=== PATIENT | female | born 1955 | race African-American/Black ===

== ENCOUNTER 2017-12-02 13:48 | Inpatient (IN) | payer MEDICAID, OTHER ==
[2017-12-02] VITALS (8 sets, daily range): BP systolic 90–145; BP diastolic 50–95
[~2017-12-02] VITALS: Ht 172.7 cm; Wt 106.6 kg
[~2017-12-02 13:48] MED LIST: BACLOFEN10 MG ORAL; CALCIUM600 M1 PO; COLACE100 MG ORAL; COPAXONE20 MG/1 ML SUBQ; GABAPENTIN300 MG ORAL; HYDROCHLOROTH12.5 MG ORAL; LISINOPRIL20 MG ORAL; NAPROSYN500 M1 PO; OXYBUTYNIN CHLOR5 M1 PO; SIMVASTATIN20 MG ORAL; [UNRECOGNIZED DRUG - OTHER]; baclofen; colace; gabapentin; lisinopril; simvastatin; vicodin
--- NOTE | 2017-12-02 14:16 | Emergency Room Report ---
History of Present Illness General Chief Complaint: Altered Mental Status Source: Patient, Family Member, EMS Present Illness HPI 62-year-old female, with history of multiple sclerosis, brought in by EMS for being more altered than normal. Patient is currently awake alert oriented to person and time, however is confused and does not know why she is here. She is currently denying any pain at this time. Denies any headache neck pain nausea vomiting or diarrhea. No chest pain or shortness of breath. States that she does not walk much since she has her multiple sclerosis. Allergies: Coded Allergies: No Known Allergies (Unverified , 05/21/13) Patient History Past Medical History: see triage record Past Surgical History: none Pertinent Family History: none Last Menstrual Period: unk Reviewed Nursing Documentation: PMH: Agreed, PSxH: Agreed Nursing Documentation-PMH Past Medical History: No Stated History Hx Cardiac Problems: Yes Hx Hypertension: Yes Hx Cancer: No Hx Gastrointestinal Problems: Yes Hx Multiple Sclerosis: Yes - 2009 Hx Weakness: Yes Review of Systems All Other Systems: negative except mentioned in HPI Physical Exam Vital Signs Date Time Temp Pulse Resp B/P (MAP) Pulse Ox O2 Delivery O2 Flow Rate FiO2 12/02/17 13:41 98.4 68 18 141/88 98 Room Air Sp02 EP Interpretation: reviewed, normal General Appearance: other - Middle-age female, is confused, however is calm and cooperative Head: normocephalic, atraumatic Eyes: bilateral eye normal inspection, bilateral eye PERRL, bilateral eye EOMI ENT: normal ENT inspection, normal pharynx, normal voice, moist mucus membranes Neck: normal inspection, full range of motion, supple Respiratory: normal inspection, lungs clear, normal breath sounds, no respiratory distress, no retraction, no wheezing, speaking full sentences, chest symmetrical Cardiovascular #1: normal inspection, regular rate, rhythm, no edema, normal capillary refill Cardiovascular #2: 2+ radial (R), 2+ radial (L) Gastrointestinal: normal inspection, non tender, soft, non-distended, no guarding Musculoskeletal: normal inspection, back normal, normal range of motion, non- tender Neurologic: other - Oriented to person and time, confused, moving all 4 extremities spontaneously, cannot assess gait Psychiatric: other - confused Skin: normal inspection, normal color, no rash, warm/dry, well hydrated, normal turgor Medical Decision Making Diagnostic Impression: Primary Impression: Altered mental status Additional Impressions: Multiple sclerosis UTI (urinary tract infection) ER Course 62-year-old female, with history of multiple sclerosis, coming in for being more altered than her normal DDX: Progression of multiple sclerosis Intracranial disease: CVA, intercranial bleed Electrolyte disturbance, dehydration, hypokalemia, infectious, UTI/pneumonia Plan: Obtain labs, ua, EKG, CXR CT head ER course: Patient has been monitored during ED stay slight low BP, given fluids possible UTI - given abx called family, no one picking up, nursing staff notified me that she has a who is handicapp. she is still confused. will admit for further workup I spoke to , states patient has had waxing/waning mental status but it has never been this severe. states that patient did not know who he was and very lethargic/not responsive. states she fu with [facility] for her MS and is on meds and injections Disposition: Patient is to be admitted to [facility] D/W hospitalist Dr Gibson Please note that this Emergency Department Report was dictated using [employer]in[employer] manager technology software, occasionally this can lead to erroneous entry secondary to interpretation by the dictation equipment. EKG Diagnostic Results EP Interpretation: Yes Rate: normal Rhythm: NSR ST Segments: No acute changes ASA given to patient: No Rhythm Strip EP Interpretation: Yes Rate: 70 Rhythm: NSR, no PVCs, no ectopy Chest X-ray CXR: Ordered: Yes 1 view Indication: Altered mental status EP interpretation: Yes Interpretation: No consolidation, no effusion, no PTX, no acute cardiopulmonary disease Impression: No acute disease Electronically signed by Fabi Raya MD Laboratory Tests Test 12/02/17 14:10 White Blood Count 4.0 K/UL (4.8-10.8) L Red Blood Count 4.55 M/UL (4.20-5.40) Hemoglobin 12.3 G/DL (12.0-16.0) Hematocrit 39.1 % (37.0-47.0) Mean Corpuscular Volume 86 FL (80-99) Mean Corpuscular Hemoglobin 26.9 PG (27.0-31.0) L Mean Corpuscular Hemoglobin Concent 31.4 G/DL (32.0-36.0) L Red Cell Distribution Width 13.6 % (11.6-14.8) Platelet Count 238 K/UL (150-450) Mean Platelet Volume 6.3 FL (6.5-10.1) L Neutrophils (%) (Auto) 56.9 % (45.0-75.0) Lymphocytes (%) (Auto) 31.0 % (20.0-45.0) Monocytes (%) (Auto) 7.4 % (1.0-10.0) Eosinophils (%) (Auto) 3.6 % (0.0-3.0) H Basophils (%) (Auto) 1.1 % (0.0-2.0) Urine Color Yellow Urine Appearance Clear Urine pH 5 (4.5-8.0) Urine Specific [place] 1.015 (1.005-1.035) Urine Protein 1+ (NEGATIVE) H Urine Glucose (UA) Negative (NEGATIVE) Urine Ketones 1+ (NEGATIVE) H Urine Occult Blood 1+ (NEGATIVE) H Urine Nitrite Negative (NEGATIVE) Urine Bilirubin Negative (NEGATIVE) Urine Urobilinogen Normal MG/DL (0.0-1.0) Urine Leukocyte Esterase 2+ (NEGATIVE) H Urine RBC 2-4 /HPF (0 - 2) H Urine WBC 10-15 /HPF (0 - 2) H Urine Squamous Epithelial Cells Few /LPF (NONE/OCC) Urine Bacteria Few /HPF (NONE) Sodium Level 141 MMOL/L (136-145) Potassium Level 4.4 MMOL/L (3.5-5.1) Chloride Level 103 MMOL/L (98-107) Carbon Dioxide Level 31 MMOL/L (21-32) Anion Gap 7 mmol/L (5-15) Blood Urea Nitrogen 30 mg/dL (7-18) H Creatinine 1.7 MG/DL (0.55-1.30) H Estimate Glomerular Filtration Rate 36.7 mL/min (>60) Glucose Level 97 MG/DL (74-106) Calcium Level 8.8 MG/DL (8.5-10.1) Total Bilirubin 0.4 MG/DL (0.2-1.0) Aspartate Amino Transferase (AST) 24 U/L (15-37) Alanine Aminotransferase (ALT) 7 U/L (12-78) L Alkaline Phosphatase 89 U/L (46-116) Total Creatine Kinase 124 U/L (26-308) Troponin I 0.000 ng/mL (0.000-0.056) Pro-B-Type Natriuretic Peptide 53 pg/mL (0-125) Total Protein 8.5 G/DL (6.4-8.2) H Albumin 4.0 G/DL (3.4-5.0) Globulin 4.5 g/dL Albumin/Globulin Ratio 0.9 (1.0-2.7) L Last Vital Signs Date Time Temp Pulse Resp B/P (MAP) Pulse Ox O2 Delivery O2 Flow Rate FiO2 12/02/17 13:56 98.4 69 18 141/88 98 Room Air Disposition: ADMITTED INPATIENT Condition: Serious Fabi Raya M.D. Dec 02, 2017 14:16
[2017-12-02] MEDS ORDERED: AMLODIPINE BESYL5 MG ORAL (14:30)
[2017-12-02] MEDS ORDERED: NITROFURAN25 MG/5 ML PO (14:30)
[2017-12-02] MEDS ORDERED: LORAZEPAM1 MG ORAL (14:30)
[2017-12-02] MEDS ORDERED: VITAMIN D250000 UNI1 ORAL (14:30)
[2017-12-02 14:40] LABS: APPEARANCE,URINE CLEAR; BILIRUBIN, URINE NEGATIVE (NEGATIVE); GLUCOSE, URINE (UA) NEGATIVE (NEGATIVE); KETONES,URINE 1+ (NEGATIVE); LEUKOCYTE ESTERASE ,URINE 2+ (NEGATIVE); NITRITE,URINE NEGATIVE (NEGATIVE); PH,URINE 5 (4.5-8.0); PROTEIN,URINE 1+ (NEGATIVE); UROBILINOGEN,URINE NORMAL MG/DL (0.0-1.0)
[2017-12-02 14:42] LABS: COLOR,URINE YELLOW
[2017-12-02 14:44] LABS: BASOPHILS % (AUTO) 1.1 % (0.0-2.0); EOSINOPHILS % (AUTO) 3.6 % (0.0-3.0); HEMATOCRIT 39.1 % (37.0-47.0); HEMOGLOBIN 12.3 G/DL (12.0-16.0); MEAN CORPUSCULAR VOLUME 86 FL (80-99); MONOCYTES % (AUTO) 7.4 % (1.0-10.0); NEUTROPHILS % (AUTO) 56.9 % (45.0-75.0); PLATELET COUNT 238 K/UL (150-450); RED BLOOD COUNT 4.55 M/UL (4.20-5.40); RED CELL DISTRIBUTION WIDTH 13.6 % (11.6-14.8)
[2017-12-02 15:11] LABS: ANION GAP 7 mmol/L (5-15); BLOOD UREA NITROGEN 30 mg/dL (7-18); CALCIUM 8.8 MG/DL (8.5-10.1); CARBON DIOXIDE 31 MMOL/L (21-32); CHLORIDE 103 MMOL/L (98-107); CREATININE 1.7 MG/DL (0.55-1.30); POTASSIUM 4.4 MMOL/L (3.5-5.1); SODIUM 141 MMOL/L (136-145)
--- NOTE | 2017-12-02 15:12 | Diagnostic Imaging Report ---
Indication: Altered mental status Technique: One view of the chest Comparison: none Findings: Lungs and pleural spaces are clear. The heart size is normal. There is mild thoracic scoliotic deformity. There are degenerative changes of the right shoulder Impression: No acute process
[2017-12-02 15:32] LABS: ALANINE AMINOTRANSFERASE 7 U/L (12-78); ALBUMIN/GLOBULIN RATIO 0.9 (1.0-2.7); ALKALINE PHOSPHATASE 89 U/L (46-116); ASPARTATE AMINO TRANSFERASE 24 U/L (15-37); BILIRUBIN,TOTAL 0.4 MG/DL (0.2-1.0); CREATINE KINASE 124 U/L (26-308)
[2017-12-02] MEDS ORDERED: cefTRIAXone 1 GM in NS 55 ML IVPB ONE (15:45)
--- NOTE | 2017-12-02 22:03 | Consultation ---
History of Present Illness General Date patient seen: Dec 02, 2017 Chief Complaint: Altered Mental Status Referring physician: Dr. Aceves Reason for Consultation: Abnormal breathing and altered mental status Present Illness HPI The patient is a 62-year-old female with pmhx HTN, dyslipidemia polynueropathy, urinary tract infection and multiple scerlosis presents with altered mental status and concerns regarding her abnormal appearance of her breathing. I was asked to consult and evaluate the patients respiratory status. Patient appears lethargic and weak, she is bed ridden and has a nuerodegenerative disease, cognitively appears disoriented, she has been admitted for suspected worsening of urinary tract infection and sepsis, her chest radiograph is unremarkable at this time and she is oxygenating adequately. No rapid shallow breathing or accessory muscle use with her breathing. Upon auscultation her breath sounds very diminished however no rales wheeze or rhonci appreciated. Allergies: Coded Allergies: No Known Allergies (Unverified , 05/21/13) Medication History Scheduled Amlodipine Besylate* (Amlodipine Besylate*), 5 MG ORAL DAILY, (Reported) Artificial Tears* (Murocel*), 1 DROP .ROUTE PRN, (Reported) Baclofen* (Baclofen*), 10 MG ORAL THREE TIMES A DAY, (Reported) Calcium Carbonate (Calcium), 600 MG PO DAILY, (Reported) Docusate Sodium* (Colace*), 100 MG ORAL BID, (Reported) Ergocalciferol (Vitamin D2)* (Vitamin D*), 50,000 UNIT ORAL ONCE A WEEK, ( Reported) Gabapentin* (Gabapentin*), 300 MG ORAL THREE TIMES A DAY, (Reported) Glatiramer Acetate (Copaxone), 20 MG SUBQ DAILY, (Reported) Hydrochlorothiazide* (Hydrochlorothiazide*), 12.5 MG ORAL DAILY, (Reported) Lisinopril (Lisinopril*), 20 MG ORAL DAILY, (Reported) Lisinopril (Lisinopril*), 2.5 MG ORAL DAILY, (Reported) Lorazepam* (Lorazepam*), 1 MG ORAL THREE TIMES A DAY, (Reported) Naproxen* (Naprosyn*), 500 MG PO BID, (Reported) Oxybutynin Chloride (Oxybutynin Chloride), 20 MG PO TID, (Reported) Simvastatin (Zocor), 20 MG ORAL BEDTIME, (Reported) Scheduled PRN Hydrocodone Bit/Acetaminophen 10-325* ([place] 10-325*), 1 TAB ORAL Q6HR PRN for For Pain, (Reported) Miscellaneous Medications Nitrofurantoin (Nitrofurantoin), 100 MG PO, (Reported) Patient History Healthcare decision maker Resuscitation status Advanced Directive on File Past Medical/Surgical History Past Medical/Surgical History: (1) Hypercholesteremia (2) HTN (hypertension) (3) MS (multiple sclerosis) Review of Systems Constitutional: Reports: weakness Respiratory: Reports: shortness of breath Psychiatric: Reports: depressed feelings Neurological: Reports: paresthesia Physical Exam General Appearance: no apparent distress Lines, tubes and drains: peripheral HEENT: normocephalic, atraumatic, anicteric, PERRL Neck: non-tender, normal alignment, supple Respiratory/Chest: chest wall non-tender, lungs clear, normal breath sounds Breasts: no masses Cardiovascular/Chest: normal peripheral pulses, normal rate, regular rhythm, no JVD Abdomen: normal bowel sounds, non tender, soft, no organomegaly, no mass Genitourinary/Rectal: normal genital exam, normal rectal exam Extremities: normal range of motion, non-tender, normal inspection Skin Exam: normal pigmentation, warm/dry Neurologic: disoriented Musculoskeletal: normal muscle bulk Last 24 Hour Vital Signs Date Time Temp Pulse Resp B/P (MAP) Pulse Ox O2 Delivery O2 Flow Rate FiO2 12/02/17 19:30 81 15 123/95 100 Room Air 12/02/17 18:48 78 16 103/68 98 Room Air 12/02/17 17:58 83 20 101/65 99 Room Air 12/02/17 17:06 98.4 84 20 90/50 99 Room Air 12/02/17 15:41 98.4 70 18 103/61 99 Room Air 12/02/17 13:56 98.4 69 18 141/88 98 Room Air 12/02/17 13:41 98.4 68 18 141/88 98 Room Air Laboratory Tests Test 12/02/17 14:10 White Blood Count 4.0 K/UL (4.8-10.8) L Red Blood Count 4.55 M/UL (4.20-5.40) Hemoglobin 12.3 G/DL (12.0-16.0) Hematocrit 39.1 % (37.0-47.0) Mean Corpuscular Volume 86 FL (80-99) Mean Corpuscular Hemoglobin 26.9 PG (27.0-31.0) L Mean Corpuscular Hemoglobin Concent 31.4 G/DL (32.0-36.0) L Red Cell Distribution Width 13.6 % (11.6-14.8) Platelet Count 238 K/UL (150-450) Mean Platelet Volume 6.3 FL (6.5-10.1) L Neutrophils (%) (Auto) 56.9 % (45.0-75.0) Lymphocytes (%) (Auto) 31.0 % (20.0-45.0) Monocytes (%) (Auto) 7.4 % (1.0-10.0) Eosinophils (%) (Auto) 3.6 % (0.0-3.0) H Basophils (%) (Auto) 1.1 % (0.0-2.0) Urine Color Yellow Urine Appearance Clear Urine pH 5 (4.5-8.0) Urine Specific [place] 1.015 (1.005-1.035) Urine Protein 1+ (NEGATIVE) H Urine Glucose (UA) Negative (NEGATIVE) Urine Ketones 1+ (NEGATIVE) H Urine Occult Blood 1+ (NEGATIVE) H Urine Nitrite Negative (NEGATIVE) Urine Bilirubin Negative (NEGATIVE) Urine Urobilinogen Normal MG/DL (0.0-1.0) Urine Leukocyte Esterase 2+ (NEGATIVE) H Urine RBC 2-4 /HPF (0 - 2) H Urine WBC 10-15 /HPF (0 - 2) H Urine Squamous Epithelial Cells Few /LPF (NONE/OCC) Urine Bacteria Few /HPF (NONE) Sodium Level 141 MMOL/L (136-145) Potassium Level 4.4 MMOL/L (3.5-5.1) Chloride Level 103 MMOL/L (98-107) Carbon Dioxide Level 31 MMOL/L (21-32) Anion Gap 7 mmol/L (5-15) Blood Urea Nitrogen 30 mg/dL (7-18) H Creatinine 1.7 MG/DL (0.55-1.30) H Estimat Glomerular Filtration Rate 36.7 mL/min (>60) Glucose Level 97 MG/DL (74-106) Calcium Level 8.8 MG/DL (8.5-10.1) Total Bilirubin 0.4 MG/DL (0.2-1.0) Aspartate Amino Transf (AST/SGOT) 24 U/L (15-37) Alanine Aminotransferase (ALT/SGPT) 7 U/L (12-78) L Alkaline Phosphatase 89 U/L (46-116) Total Creatine Kinase 124 U/L (26-308) Troponin I 0.000 ng/mL (0.000-0.056) Pro-B-Type Natriuretic Peptide 53 pg/mL (0-125) Total Protein 8.5 G/DL (6.4-8.2) H Albumin 4.0 G/DL (3.4-5.0) Globulin 4.5 g/dL Albumin/Globulin Ratio 0.9 (1.0-2.7) L Height (Feet): 5 Height (Inches): 8.00 Weight (Pounds): 235 Medications Current Medications Medications (Trade) Dose Ordered Sig/Maria De Jesus Route PRN Reason Start Time Stop Time Status Last Admin Dose Admin Amlodipine Besylate (Norvasc) 5 mg DAILY ORAL 12/03/17 09:00 01/02/18 08:59 UNV Baclofen (Lioresal) 10 mg THREE TIMES A DAY ORAL 12/03/17 09:00 01/02/18 08:59 UNV Sodium Chloride 1,000 ml @ 200 mls/hr Q5H IV 12/02/17 15:45 01/01/18 15:44 12/02/17 21:03 Assessment/Plan Status: stable, progressing Assessment/Plan Acute encephalopathy Multiple sclerosis Hx with acute excacerbation? UTI FRANTZ HTN Obesity PLAN Empiric abx Titrate Fi02 up maintain O2 saturation above 92% UA and CXR examined ID consult Neuro eval Gentle IVF Monitor renal parameters BP management with CCB and optimize as needed Pain management, Patient not alert enough for CPAP/BiPAP device SOPHIA JOSUE Dec 02, 2017 22:03
[2017-12-02] MEDS ORDERED: Miralax 17gm pkt ORAL PRN (22:15)
[2017-12-02] MEDS ORDERED: Albuterol/Ipratropium 3ml neb HHN PRN (22:15)
[2017-12-02] MEDS ORDERED: Morphine Sulfate 2mg/ml Inj IVP PRN (22:15)
[2017-12-03] MEDS ORDERED: Vancomycin 1 GM in D5W 275 ML IV SCH (00:30)
[2017-12-03] MEDS ORDERED: NORCO 10-325 T1 EACH ORAL (01:18)
[2017-12-03] MEDS ORDERED: LISINOPRIL5 MG ORAL (01:18)
[2017-12-03] MEDS ORDERED: Vancomycin 1gm inj IVPB ONE (02:01)
[2017-12-03 04:00] VITALS: BP 139/72
[2017-12-03 08:00] VITALS: BP 114/86
--- NOTE | 2017-12-03 08:13 | Pulmonology Progress Note ---
Assessment/Plan Assessment/Plan ASSESSMENT probably acute encephalopathy-resolved transient unresponsiveness probable UTI MS , ? exacerbation FRANTZ HTN obesity PLAN OF CARE MS floor empiric abx , fup with cx , UA + pyuria but few bacteria only however in MS patient frequent recurrent UTI ID consult neuro eval- gentle IVF per pt recently ahd MRI at [place] ( gets every 6 months) monitor renal parameters, lytes, avoid nephrotoxic BP management with CCB and optimize as needed pain mangeemtn, avoid oversedation DVT prophayxlsi O2 HN prn bowel regimen PT/OT case discussed and evaluated by supervising physician Subjective Allergies: Coded Allergies: No Known Allergies (Unverified , 05/21/13) Subjective denies chest pain, SOB, awake, alert, responsive had period of transient unresponsiveness( in am while in the bed did not respond to her ) elmo multani recall if syhe had blackout, nerissa recall the event hx of MS, progressively worse, under care of neurologist at [facility] Objective Last 24 Hour Vital Signs Date Time Temp Pulse Resp B/P (MAP) Pulse Ox O2 Delivery O2 Flow Rate FiO2 12/03/17 04:00 98.1 81 19 139/72 98 Room Air 12/03/17 00:15 97.8 85 12 145/59 100 Room Air 12/02/17 23:20 97.8 85 12 145/59 100 Room Air 12/02/17 21:30 86 16 126/82 100 Room Air 12/02/17 19:30 81 15 123/95 100 Room Air 12/02/17 18:48 78 16 103/68 98 Room Air 12/02/17 17:58 83 20 101/65 99 Room Air 12/02/17 17:06 98.4 84 20 90/50 99 Room Air 12/02/17 15:41 98.4 70 18 103/61 99 Room Air 12/02/17 13:56 98.4 69 18 141/88 98 Room Air 12/02/17 13:41 98.4 68 18 141/88 98 Room Air Intake and Output 12/02/17 12/03/17 19:00 07:00 Intake Total 0 ml 675.0 ml Output Total 200 ml Balance 0 ml 475.0 ml Intake Oral 0 ml IV Total 675.0 ml Output Urine Total 200 ml # Voids 1 1 General Appearance: no acute distress, other - awake, alert, obesen AA female in NAD HEENT: normocephalic, atraumatic, anicteric, mucous membranes moist, PERRL Respiratory/Chest: no respiratory distress, no accessory muscle use Cardiovascular: normal peripheral pulses, normal rate, regular rhythm, no JVD, edema - +1 BLE Abdomen: normal bowel sounds, soft, non tender - obese Extremities: pedal pulses normal, other - edema +1 BLE Neurologic/Psychiatric: abnormal gait, alert, responsive, normal mood/affect Laboratory Tests 12/02/17 14:10: White Blood Count 4.0L, Red Blood Count 4.55, Hemoglobin 12.3, Hematocrit 39.1, Mean Corpuscular Volume 86, Mean Corpuscular Hemoglobin 26.9L, Mean Corpuscular Hemoglobin Concent 31.4L, Red Cell Distribution Width 13.6, Platelet Count 238, Mean Platelet Volume 6.3L, Neutrophils (%) (Auto) 56.9, Lymphocytes (%) (Auto) 31.0, Monocytes (%) (Auto) 7.4, Eosinophils (%) (Auto) 3.6H, Basophils (%) (Auto ) 1.1, Urine Color Yellow, Urine Appearance Clear, Urine pH 5, Urine Specific [place] 1.015, Urine Protein 1+H, Urine Glucose (UA) Negative, Urine Ketones 1+H , Urine Occult Blood 1+H, Urine Nitrite Negative, Urine Bilirubin Negative, Urine Urobilinogen Normal, Urine Leukocyte Esterase 2+H, Urine RBC 2-4H, Urine WBC 10-15H, Urine Squamous Epithelial Cells Few, Urine Bacteria Few, Sodium Level 141, Potassium Level 4.4, Chloride Level 103, Carbon Dioxide Level 31, Anion Gap 7, Blood Urea Nitrogen 30H, Creatinine 1.7H, Estimat Glomerular Filtration Rate 36.7, Glucose Level 97, Calcium Level 8.8, Total Bilirubin 0.4, Aspartate Amino Transf (AST/SGOT) 24, Alanine Aminotransferase (ALT/SGPT) 7L, Alkaline Phosphatase 89, Total Creatine Kinase 124, Troponin I 0.000, Pro-B- Type Natriuretic Peptide 53, Total Protein 8.5H, Albumin 4.0, Globulin 4.5, Albumin/Globulin Ratio 0.9L Current Medications Medications (Trade) Dose Ordered Sig/Maria De Jesus Route PRN Reason Start Time Stop Time Status Last Admin Dose Admin Acetaminophen (Tylenol) 650 mg Q4H PRN ORAL fever 12/02/17 22:15 01/01/18 22:14 Albuterol/ Ipratropium (Albuterol/ Ipratropium) 3 ml EVERY 4 HOURS PRN HHN Shortness of Breath 12/02/17 22:15 12/07/17 22:14 Amlodipine Besylate (Norvasc) 5 mg DAILY ORAL 12/03/17 09:00 01/02/18 08:59 Baclofen (Lioresal) 10 mg THREE TIMES A DAY ORAL 12/03/17 09:00 01/02/18 08:59 Cefepime HCl 2 gm/ Dextrose 110 ml @ 220 mls/hr EVERY 12 HOURS IV 12/03/17 09:00 12/10/17 08:59 Heparin Sodium (Porcine) (Heparin 5000 units/ml) 5,000 units EVERY 12 HOURS SUBQ 12/03/17 09:00 01/02/18 08:59 Morphine Sulfate (Morphine Sulfate) 2 mg EVERY 4 HOURS PRN IVP Moderate Pain (Pain Scale 4-6) 12/02/17 22:15 12/09/17 22:14 Ondansetron HCl (Zofran) 4 mg Q6H PRN IVP Nausea & Vomiting 12/02/17 22:15 01/01/18 22:14 Phenazopyridine HCl (Pyridium) 100 mg DAILY PRN ORAL dysuria 12/02/17 22:15 01/01/18 22:14 Polyethylene Glycol (Miralax) 17 gm DAILYPRN PRN ORAL Constipation 12/02/17 22:15 01/01/18 22:14 Temazepam (Restoril) 15 mg HSPRN PRN ORAL Insomnia 12/02/17 22:15 12/09/17 22:14 Vancomycin HCl 1 gm/Dextrose 275 ml @ 183.3 mls/ hr Q24H IV 12/03/17 00:30 12/08/17 00:29 12/03/17 02:18 Bushra Costa NP (Vanchtein) Dec 03, 2017 08:13
[2017-12-03] MEDS: Heparin 5000 units/ml inj SUBQ SCH ×2 (08:53→20:24)
[2017-12-03] MEDS ORDERED: Cefepime HCl 2 GM in D5W 110 ML IV SCH (09:00)
[2017-12-03 09:17] LABS: BASOPHILS % (AUTO) 1.5 % (0.0-2.0); EOSINOPHILS % (AUTO) 3.5 % (0.0-3.0); HEMATOCRIT 36.5 % (37.0-47.0); HEMOGLOBIN 11.6 G/DL (12.0-16.0); LYMPHOCYTES % (AUTO) 28.3 % (20.0-45.0); MEAN CORPUSCULAR VOLUME 85 FL (80-99); NEUTROPHILS % (AUTO) 62.7 % (45.0-75.0); PLATELET COUNT 197 K/UL (150-450); RED CELL DISTRIBUTION WIDTH 13.5 % (11.6-14.8); WHITE BLOOD COUNT 3.9 K/UL (4.8-10.8)
[2017-12-03 09:47] LABS: ALANINE AMINOTRANSFERASE 11 U/L (12-78); ALBUMIN/GLOBULIN RATIO 0.9 (1.0-2.7); ALKALINE PHOSPHATASE 79 U/L (46-116); ANION GAP 6 mmol/L (5-15); ASPARTATE AMINO TRANSFERASE 21 U/L (15-37); BILIRUBIN,TOTAL 0.4 MG/DL (0.2-1.0); BLOOD UREA NITROGEN 25 mg/dL (7-18); CALCIUM 7.7 MG/DL (8.5-10.1); CARBON DIOXIDE 28 MMOL/L (21-32); CHLORIDE 107 MMOL/L (98-107); CREATININE 1.3 MG/DL (0.55-1.30); POTASSIUM 4.2 MMOL/L (3.5-5.1); SODIUM 141 MMOL/L (136-145)
--- NOTE | 2017-12-03 10:59 | Consultation ---
History of Present Illness General Date patient seen: Dec 03, 2017 Time patient seen: 10:56 Chief Complaint: Altered Mental Status Present Illness HPI 62 y/o F with hx of MS (dx 2009) with ambulatory difficulties, HTN, obesity presents to ED on 12/02 for AMS. In ED noted to be awake and alert but confused and didn't know why she was in the hospital. Denied ABDI, neck pain, n/v/d, CP, SOB upon admission. +dysuria Patient afebrile, no leukocytosis. U/a mild pyuria, ucx growing GNB. started on IV Vanco and Cefepime. CXR no acute process. Allergies: Coded Allergies: No Known Allergies (Unverified , 05/21/13) Medication History Scheduled Amlodipine Besylate* (Amlodipine Besylate*), 5 MG ORAL DAILY, (Reported) Artificial Tears* (Murocel*), 1 DROP .ROUTE PRN, (Reported) Baclofen* (Baclofen*), 10 MG ORAL THREE TIMES A DAY, (Reported) Calcium Carbonate (Calcium), 600 MG PO DAILY, (Reported) Docusate Sodium* (Colace*), 100 MG ORAL BID, (Reported) Ergocalciferol (Vitamin D2)* (Vitamin D*), 50,000 UNIT ORAL ONCE A WEEK, ( Reported) Gabapentin* (Gabapentin*), 300 MG ORAL THREE TIMES A DAY, (Reported) Glatiramer Acetate (Copaxone), 20 MG SUBQ DAILY, (Reported) Hydrochlorothiazide* (Hydrochlorothiazide*), 12.5 MG ORAL DAILY, (Reported) Lisinopril (Lisinopril*), 20 MG ORAL DAILY, (Reported) Lisinopril (Lisinopril*), 2.5 MG ORAL DAILY, (Reported) Lorazepam* (Lorazepam*), 1 MG ORAL THREE TIMES A DAY, (Reported) Naproxen* (Naprosyn*), 500 MG PO BID, (Reported) Oxybutynin Chloride (Oxybutynin Chloride), 20 MG PO TID, (Reported) Simvastatin (Zocor), 20 MG ORAL BEDTIME, (Reported) Scheduled PRN Hydrocodone Bit/Acetaminophen 10-325* ([place] 10-325*), 1 TAB ORAL Q6HR PRN for For Pain, (Reported) Miscellaneous Medications Nitrofurantoin (Nitrofurantoin), 100 MG PO, (Reported) Patient History Healthcare decision maker Resuscitation status Full Code Advanced Directive on File Patient History Narrative PMhx: as above Shx: reviewed Fhx: non contributory Review of Systems All Other Systems: negative except mentioned in HPI Physical Exam Physical Exam Narrative General Appearance: other - Middle-age female, no distress HEENT: normocephalic, atraumatic, bilateral eye PERRL, bilateral eye EOMI, moist mucus membranes Neck: normal inspection, full range of motion, supple Respiratory: normal inspection, lungs clear, normal breath sounds, no respiratory distress, no retraction Cardiovascular: normal inspection, regular rate, rhythm, no edema Gastrointestinal: normal inspection, non tender, soft, non-distended, no guarding Musculoskeletal: normal inspection, back normal, normal range of motion, non- tender Neurologic: AAO x3, no focal deficits Skin: normal inspection, normal color, no rash, warm/dry, well hydrated, normal turgor Last 24 Hour Vital Signs Date Time Temp Pulse Resp B/P (MAP) Pulse Ox O2 Delivery O2 Flow Rate FiO2 12/03/17 08:58 101 114/86 12/03/17 04:00 98.1 81 19 139/72 98 Room Air 12/03/17 00:15 97.8 85 12 145/59 100 Room Air 12/02/17 23:20 97.8 85 12 145/59 100 Room Air 12/02/17 21:30 86 16 126/82 100 Room Air 12/02/17 19:30 81 15 123/95 100 Room Air 12/02/17 18:48 78 16 103/68 98 Room Air 12/02/17 17:58 83 20 101/65 99 Room Air 12/02/17 17:06 98.4 84 20 90/50 99 Room Air 12/02/17 15:41 98.4 70 18 103/61 99 Room Air 12/02/17 13:56 98.4 69 18 141/88 98 Room Air 12/02/17 13:41 98.4 68 18 141/88 98 Room Air Intake and Output 12/02/17 12/03/17 19:00 07:00 Intake Total 0 ml 675.0 ml Output Total 200 ml Balance 0 ml 475.0 ml Intake Oral 0 ml IV Total 675.0 ml Output Urine Total 200 ml # Voids 1 1 Laboratory Tests Test 12/02/17 14:10 12/03/17 08:50 White Blood Count 4.0 K/UL (4.8-10.8) L 3.9 K/UL (4.8-10.8) L Red Blood Count 4.55 M/UL (4.20-5.40) 4.30 M/UL (4.20-5.40) Hemoglobin 12.3 G/DL (12.0-16.0) 11.6 G/DL (12.0-16.0) L Hematocrit 39.1 % (37.0-47.0) 36.5 % (37.0-47.0) L Mean Corpuscular Volume 86 FL (80-99) 85 FL (80-99) Mean Corpuscular Hemoglobin 26.9 PG (27.0-31.0) L 26.9 PG (27.0-31.0) L Mean Corpuscular Hemoglobin Concent 31.4 G/DL (32.0-36.0) L 31.7 G/DL (32.0-36.0) L Red Cell Distribution Width 13.6 % (11.6-14.8) 13.5 % (11.6-14.8) Platelet Count 238 K/UL (150-450) 197 K/UL (150-450) Mean Platelet Volume 6.3 FL (6.5-10.1) L 6.5 FL (6.5-10.1) Neutrophils (%) (Auto) 56.9 % (45.0-75.0) 62.7 % (45.0-75.0) Lymphocytes (%) (Auto) 31.0 % (20.0-45.0) 28.3 % (20.0-45.0) Monocytes (%) (Auto) 7.4 % (1.0-10.0) 4.0 % (1.0-10.0) Eosinophils (%) (Auto) 3.6 % (0.0-3.0) H 3.5 % (0.0-3.0) H Basophils (%) (Auto) 1.1 % (0.0-2.0) 1.5 % (0.0-2.0) Urine Color Yellow Urine Appearance Clear Urine pH 5 (4.5-8.0) Urine Specific [place] 1.015 (1.005-1.035) Urine Protein 1+ (NEGATIVE) H Urine Glucose (UA) Negative (NEGATIVE) Urine Ketones 1+ (NEGATIVE) H Urine Occult Blood 1+ (NEGATIVE) H Urine Nitrite Negative (NEGATIVE) Urine Bilirubin Negative (NEGATIVE) Urine Urobilinogen Normal MG/DL (0.0-1.0) Urine Leukocyte Esterase 2+ (NEGATIVE) H Urine RBC 2-4 /HPF (0 - 2) H Urine WBC 10-15 /HPF (0 - 2) H Urine Squamous Epithelial Cells Few /LPF (NONE/OCC) Urine Bacteria Few /HPF (NONE) Sodium Level 141 MMOL/L (136-145) 141 MMOL/L (136-145) Potassium Level 4.4 MMOL/L (3.5-5.1) 4.2 MMOL/L (3.5-5.1) Chloride Level 103 MMOL/L (98-107) 107 MMOL/L (98-107) Carbon Dioxide Level 31 MMOL/L (21-32) 28 MMOL/L (21-32) Anion Gap 7 mmol/L (5-15) 6 mmol/L (5-15) Blood Urea Nitrogen 30 mg/dL (7-18) H 25 mg/dL (7-18) H Creatinine 1.7 MG/DL (0.55-1.30) H 1.3 MG/DL (0.55-1.30) Estimat Glomerular Filtration Rate 36.7 mL/min (>60) 50.2 mL/min (>60) Glucose Level 97 MG/DL (74-106) 117 MG/DL (74-106) H Calcium Level 8.8 MG/DL (8.5-10.1) 7.7 MG/DL (8.5-10.1) L Total Bilirubin 0.4 MG/DL (0.2-1.0) 0.4 MG/DL (0.2-1.0) Aspartate Amino Transf (AST/SGOT) 24 U/L (15-37) 21 U/L (15-37) Alanine Aminotransferase (ALT/SGPT) 7 U/L (12-78) L 11 U/L (12-78) L Alkaline Phosphatase 89 U/L (46-116) 79 U/L (46-116) Total Creatine Kinase 124 U/L (26-308) Troponin I 0.000 ng/mL (0.000-0.056) Pro-B-Type Natriuretic Peptide 53 pg/mL (0-125) Total Protein 8.5 G/DL (6.4-8.2) H 6.4 G/DL (6.4-8.2) Albumin 4.0 G/DL (3.4-5.0) 3.0 G/DL (3.4-5.0) L Globulin 4.5 g/dL 3.4 g/dL Albumin/Globulin Ratio 0.9 (1.0-2.7) L 0.9 (1.0-2.7) L Microbiology Date/Time Source Procedure Growth Status 12/02/17 14:10 Urine,Clean Catch Urine Culture - Preliminary Gram Negative Bacillus 1 Resulted Height (Feet): 5 Height (Inches): 8.00 Weight (Pounds): 235 Medications Current Medications Medications (Trade) Dose Ordered Sig/Maria De Jesus Route PRN Reason Start Time Stop Time Status Last Admin Dose Admin Acetaminophen (Tylenol) 650 mg Q4H PRN ORAL fever 12/02/17 22:15 01/01/18 22:14 Albuterol/ Ipratropium (Albuterol/ Ipratropium) 3 ml EVERY 4 HOURS PRN HHN Shortness of Breath 12/02/17 22:15 12/07/17 22:14 Amlodipine Besylate (Norvasc) 5 mg DAILY ORAL 12/03/17 09:00 01/02/18 08:59 12/03/17 08:58 Baclofen (Lioresal) 10 mg THREE TIMES A DAY ORAL 12/03/17 09:00 01/02/18 08:59 12/03/17 08:57 Cefepime HCl 2 gm/ Dextrose 110 ml @ 220 mls/hr Q24H IV 12/04/17 09:00 12/11/17 08:59 Heparin Sodium (Porcine) (Heparin 5000 units/ml) 5,000 units EVERY 12 HOURS SUBQ 12/03/17 09:00 01/02/18 08:59 12/03/17 08:53 Morphine Sulfate (Morphine Sulfate) 2 mg EVERY 4 HOURS PRN IVP Moderate Pain (Pain Scale 4-6) 12/02/17 22:15 12/09/17 22:14 Ondansetron HCl (Zofran) 4 mg Q6H PRN IVP Nausea & Vomiting 12/02/17 22:15 01/01/18 22:14 Phenazopyridine HCl (Pyridium) 100 mg DAILY PRN ORAL dysuria 12/02/17 22:15 01/01/18 22:14 Polyethylene Glycol (Miralax) 17 gm DAILYPRN PRN ORAL Constipation 12/02/17 22:15 01/01/18 22:14 Sodium Chloride 1,000 ml @ 50 mls/hr Q20H IV 12/03/17 09:00 01/02/18 08:59 12/03/17 08:36 Temazepam (Restoril) 15 mg HSPRN PRN ORAL Insomnia 12/02/17 22:15 12/09/17 22:14 Vancomycin HCl 1 gm/Dextrose 275 ml @ 183.3 mls/ hr Q24H IV 12/03/17 00:30 12/08/17 00:29 12/03/17 02:18 Assessment/Plan Assessment/Plan Abx: CEftriaxone 1 12/02 IV Vanco /- Cefepime /- Assessment: AMS-resolved UTI (+dysuria) -u/a WBC 10-15, nit neg, leuk +2; ucx >100k GNB (id and sensi pending) Afebrile, no leukocytosis Multiple Sclerosis Obesity Plan: -D/c IV Vanco #1 -Continue Cefepime #1 (abx d#2/5-7) pending Ucx -12/02 SP Ceftriaxone x1 -f/u cx -Monitor CBC/BMP, temperatures -aspiration precautions Thank you for this consultation. Will continue to follow along with you. Discussed with Shy Vega M.D. Dec 03, 2017 10:59
--- NOTE | 2017-12-03 12:23 | Neurology Progress Note ---
Objective Physical Exam Last Vital Signs Date Time Temp Pulse Resp B/P (MAP) Pulse Ox O2 Delivery O2 Flow Rate FiO2 12/03/17 08:58 101 114/86 12/03/17 08:00 98.1 18 99 Room Air Laboratory Tests Test 12/02/17 14:10 12/03/17 08:50 White Blood Count 4.0 K/UL (4.8-10.8) L 3.9 K/UL (4.8-10.8) L Red Blood Count 4.55 M/UL (4.20-5.40) 4.30 M/UL (4.20-5.40) Hemoglobin 12.3 G/DL (12.0-16.0) 11.6 G/DL (12.0-16.0) L Hematocrit 39.1 % (37.0-47.0) 36.5 % (37.0-47.0) L Mean Corpuscular Volume 86 FL (80-99) 85 FL (80-99) Mean Corpuscular Hemoglobin 26.9 PG (27.0-31.0) L 26.9 PG (27.0-31.0) L Mean Corpuscular Hemoglobin Concent 31.4 G/DL (32.0-36.0) L 31.7 G/DL (32.0-36.0) L Red Cell Distribution Width 13.6 % (11.6-14.8) 13.5 % (11.6-14.8) Platelet Count 238 K/UL (150-450) 197 K/UL (150-450) Mean Platelet Volume 6.3 FL (6.5-10.1) L 6.5 FL (6.5-10.1) Neutrophils (%) (Auto) 56.9 % (45.0-75.0) 62.7 % (45.0-75.0) Lymphocytes (%) (Auto) 31.0 % (20.0-45.0) 28.3 % (20.0-45.0) Monocytes (%) (Auto) 7.4 % (1.0-10.0) 4.0 % (1.0-10.0) Eosinophils (%) (Auto) 3.6 % (0.0-3.0) H 3.5 % (0.0-3.0) H Basophils (%) (Auto) 1.1 % (0.0-2.0) 1.5 % (0.0-2.0) Urine Color Yellow Urine Appearance Clear Urine pH 5 (4.5-8.0) Urine Specific [place] 1.015 (1.005-1.035) Urine Protein 1+ (NEGATIVE) H Urine Glucose (UA) Negative (NEGATIVE) Urine Ketones 1+ (NEGATIVE) H Urine Occult Blood 1+ (NEGATIVE) H Urine Nitrite Negative (NEGATIVE) Urine Bilirubin Negative (NEGATIVE) Urine Urobilinogen Normal MG/DL (0.0-1.0) Urine Leukocyte Esterase 2+ (NEGATIVE) H Urine RBC 2-4 /HPF (0 - 2) H Urine WBC 10-15 /HPF (0 - 2) H Urine Squamous Epithelial Cells Few /LPF (NONE/OCC) Urine Bacteria Few /HPF (NONE) Sodium Level 141 MMOL/L (136-145) 141 MMOL/L (136-145) Potassium Level 4.4 MMOL/L (3.5-5.1) 4.2 MMOL/L (3.5-5.1) Chloride Level 103 MMOL/L (98-107) 107 MMOL/L (98-107) Carbon Dioxide Level 31 MMOL/L (21-32) 28 MMOL/L (21-32) Anion Gap 7 mmol/L (5-15) 6 mmol/L (5-15) Blood Urea Nitrogen 30 mg/dL (7-18) H 25 mg/dL (7-18) H Creatinine 1.7 MG/DL (0.55-1.30) H 1.3 MG/DL (0.55-1.30) Estimat Glomerular Filtration Rate 36.7 mL/min (>60) 50.2 mL/min (>60) Glucose Level 97 MG/DL (74-106) 117 MG/DL (74-106) H Calcium Level 8.8 MG/DL (8.5-10.1) 7.7 MG/DL (8.5-10.1) L Total Bilirubin 0.4 MG/DL (0.2-1.0) 0.4 MG/DL (0.2-1.0) Aspartate Amino Transf (AST/SGOT) 24 U/L (15-37) 21 U/L (15-37) Alanine Aminotransferase (ALT/SGPT) 7 U/L (12-78) L 11 U/L (12-78) L Alkaline Phosphatase 89 U/L (46-116) 79 U/L (46-116) Total Creatine Kinase 124 U/L (26-308) Troponin I 0.000 ng/mL (0.000-0.056) Pro-B-Type Natriuretic Peptide 53 pg/mL (0-125) Total Protein 8.5 G/DL (6.4-8.2) H 6.4 G/DL (6.4-8.2) Albumin 4.0 G/DL (3.4-5.0) 3.0 G/DL (3.4-5.0) L Globulin 4.5 g/dL 3.4 g/dL Albumin/Globulin Ratio 0.9 (1.0-2.7) L 0.9 (1.0-2.7) L Impression/Recommendations Recommendations #[id number] JULIO MELISSA Dec 03, 2017 12:23
[2017-12-03 12:58] LABS: CHOLESTEROL 181 MG/DL (< 200); HDL CHOLESTEROL 52 MG/DL (40-60); TRIGLYCERIDES 81 MG/DL (30-150)
--- NOTE | 2017-12-03 15:19 | Diagnostic Imaging Report ---
Indication: Altered mental status Technique: Continuous helical CT scanning of the head was performed without intravenous contrast material. Axial and coronal 5 mm sections were generated. Radiation dose was minimized using automated exposure control Dose: Total Dose Length Product - DLP 1390.[address] Dose Index - CTDIvol(s) 70.38 mGy. Comparison: 05/22/2013 Findings: The ventricular system is normal in size and configuration. There is no shift of midline structures. No abnormal extra-axial fluid collections are noted. There is no evidence of intracerebral bleeding. No other abnormal high or low density areas are noted within the brain. Intact calvarium. Visualized orbits and sinuses are unremarkable. Normal [place]-white differentiation. The mastoids are clear. No significant interim change Impression: Normal CT scan of the head without contrast material. The CT scanner at [facility] is accredited by the [employer] and the scans are performed using protocols designed to limit radiation exposure to as low as reasonably achievable to attain images of sufficient resolution adequate for diagnostic evaluation.
--- NOTE | 2017-12-03 17:53 | History & Physical ---
History and Physical History & Physicial Dictated for Int Med-Dr Gibson no. [id number]. HALEY KAYE Dec 03, 2017 17:53
--- NOTE | 2017-12-03 18:15 | Consultation ---
DATE OF CONSULTATION: 12/02/2017 NEUROLOGICAL CONSULTATION REQUESTING PHYSICIAN: Jayesh Díaz M.D. HISTORY OF PRESENT ILLNESS: The patient is a 62-year-old female seen in neurological consultation to evaluate the episodes of transient unresponsiveness. According to the patient in last few days, she was feeling fairly well. There was no unusual changes in status. She went to bed, was sleeping well the day prior to admission, but apparently in the morning, she was not being able to awaken. Her partner tried to wake her up and described her as being nonverbal, briefly open eyes, not responsive, but there was no involuntary movement, no jerking and no tongue biting. She had urinary incontinence, although it is chronic condition. The patient was not responding and at that point paramedics were called to the scene. The patient recalled that she started to wake up. When paramedics arrived, she felt buzziness in her head, in and out, she was still quite confused when was brought to this facility. She was oriented to person and time, but would not know why she is here and what happened. Her vital signs were stable, blood pressure 141/88, temperature 98.4 degrees, and heart rate of 68. The patient was given IV fluids. After telephone conversation with the , who is handicapped, known that the patient had "waxing and waning mental status." It has never been this severe. The patient did not recognize him, but was very lethargic and nonresponsive. Following current admission, EKG revealed normal sinus rhythm, no PVCs and no ectopies. Laboratory work revealed normal CBC. Chemistry panel with elevated BUN of 30 and creatinine 1.7. Normal troponin. Urinalysis, 10 to 15 WBCs and 2+ leukocyte esterase. Imaging studies included chest x-ray with no acute disease noted. Since admission until present, there was no further episodes of unresponsiveness or change in mental status. The patient recalling that in the last week or two, she wakes up at times feeling somewhat confused. She relates this to vivid dreams. She would state that she wakes up in the morning not sure if this is reality or still her dream and this would clear as she was talking to her . Again, there was no description of involuntary movement. PAST MEDICAL HISTORY: The patient has extensive medical history. She was diagnosed with multiple sclerosis at least last eight years, initially was recurring form, but last four years has become plateau with a slight gradual worsening of symptoms. She had no visual abnormalities, but developed weakness in her both lower extremities with significant weakness of both legs, limited ambulation to occasional use of walker, but predominantly in wheelchair. She developed urinary incontinence, but denies swallowing difficulties or visual abnormalities. She has intermittent pains and aches in her both lower extremities. She has a history of hypertension, hyperlipidemia, glaucoma and urinary incontinence. She is status post tubal ligation. She has a degenerative joint disease, both knees pain. MEDICATIONS: Treatment list prior to admission included amlodipine, baclofen 10 mg t.i.d., calcium supplement, Colace, vitamin D supplement, but also gabapentin 300 mg t.i.d., Copaxone 20 mg subcutaneous daily, hydrochlorothiazide, [place] as needed, lisinopril, lorazepam 1 mg and naproxen 500 mg b.i.d., oxybutynin 20 mg t.i.d., and simvastatin 20 mg at bedtime. ALLERGIES: None reported. SOCIAL HISTORY: Lives at home with her boyfriend. She has no alcohol, no drug abuse, and nonsmoker. FAMILY HISTORY: Noncontributory. REVIEW OF SYMPTOMS: A 14-point review of symptom was obtained, was negative except those given in history of present illness. Again, at this time the patient is feeling fairly well. She has no headache. No dizziness. No chest pain. No palpitations. No respiratory problems. Denies abdominal pain or discomfort, but has urinary incontinence. She has profound weakness in her both lower extremities. Weakness in both upper extremities more on the right side. She has obesity. PHYSICAL EXAMINATION: GENERAL: A well-developed, moderately obese, pleasant lady, not in acute distress. VITAL SIGNS: Now are stable, blood pressure 114/86, heart rate of 104, and temperature 98.1 degrees. HEENT: Head, normocephalic. There is no evidence of trauma. Eyes, ears, and throat are clear. NECK: Supple. No meningeal signs. MUSCULOSKELETAL: Unremarkable except for arthritic changes both knees. Peripheral pulses 1+ and symmetric. MENTAL STATUS: She is alert and oriented x3 with no evidence of aphasia or apraxia. Cognitive function normal. No perceptual thought abnormalities noted. CRANIAL NERVE II: Pupils 3 millimeters, both responding to light and accommodation. Extraocular movement intact. Visual acuity, normal for reading. CRANIAL NERVE V: Normal corneal responses. CRANIAL NERVE VII: No facial asymmetry. CRANIAL NERVE VIII: Normal hearing. CRANIAL NERVE IX THROUGH XII: Tongue is in midline. Symmetric palate elevation. MOTOR EXAMINATION: Revealed normal muscle tone, but with weakness 2/5 right upper extremity and 4/5 left upper extremity, 1/5 weakness of both lower extremities, more pronounced on the right. Deep tendon reflexes depressed bilaterally. Plantar responses mute on the right, withdrawal on the left. SENSORY EXAMINATION: Normal to pin stimulation. Gait not tested. IMPRESSION: 1. New onset of transient confusion, verbal unresponsiveness, etiology not determined, rule out sleep disorder with hypersomnia, rule out seizure activity. 2. Urinary tract infection. 3. Multiple sclerosis secondary progressive. 4. Hypertension. 5. Hyperlipidemia. 6. obesity. 7. Glaucoma. RECOMMENDATION: 1. Observe for any paroxysmal events. 2. Outpatient sleep study. 3. Electroencephalogram. 4. MRI of the brain without contrast. The patient has renal insufficiency, we will hold contrast study. 5. Intravenous fluids and antibiotics to cover urinary infection. 6. The patient has been on Ativan 1 mg t.i.d. and p.r.n. opiates, which may effect respiratory function. 7. Suggest to avoid opiates and reduce antianxiety doses of benzodiazepine, substitute with mild antidepressants. Thank you for allowing me to see this interesting patient in neurological consultation. Artemio Soriano M.D. DR: MONTSERRAT JOB#: [id number] CC:
--- NOTE | 2017-12-03 18:30 | History and Physical Report ---
DATE OF ADMISSION: 12/02/2017 CHIEF COMPLAINT: The patient is a 62-year-old female, who presents with a chief complaint of altered mental status. HISTORY OF PRESENT ILLNESS: The patient states she was in her usual state of health yesterday, 12/02/2017. The patient states her told her that she was acting "droopy." EMS was called. The patient presented to [facility]. The patient was evaluated in the emergency room. The patient was found to have a urinary tract infection. The patient is admitted for altered mental status to rule out exacerbation of multiple sclerosis versus urinary tract infection and acute encephalopathy. PAST MEDICAL HISTORY: Significant for: 1. Multiple sclerosis, diagnosed in 2007. 2. Hypertension. 3. Hypercholesterolemia. 4. History of cataracts. PAST SURGICAL HISTORY: Significant for: 1. Tonsillectomy. 2. Adenoidectomy. 3. Dilatation and curettage. CURRENT MEDICATIONS: 1. Amlodipine 5 mg one tablet p.o. daily. 2. Baclofen 10 mg one tablet p.o. 3 times daily. 3. Calcium carbonate 600 mg p.o. daily. 4. Vitamin D 50,000 units p.o. weekly. 5. Gabapentin 300 mg p.o. 3 times daily. 6. Copaxone 20 mg subcutaneously daily. 7. Hydrochlorothiazide 12.5 mg p.o. daily. 8. [place] 10/325 mg one tablet p.o. q.6 hours p.r.n. 9. Lisinopril 20 mg p.o. daily. 10. Lorazepam 1 mg p.o. 3 times daily. 11. Naprosyn 500 mg p.o. twice daily. 12. Oxybutynin 20 mg p.o. 3 times daily. 13. Zocor 20 mg p.o. at bedtime. ALLERGIES: No known drug allergies. SOCIAL HISTORY: The patient is . The patient is disabled. The patient denies tobacco or alcohol use. REVIEW OF SYSTEMS: CONSTITUTIONAL: The patient denies weight loss or weight gain. The patient denies fevers or chills. HEENT: The patient denies ear or throat pain. The patient denies headache. CARDIOVASCULAR: The patient denies palpitations or chest pain. CHEST: The patient denies wheeze or shortness of breath. ABDOMEN: The patient denies nausea, vomiting, diarrhea, or constipation. GENITOURINARY: The patient denies dysuria or increased frequency of urination. NEUROMUSCULAR: The patient complains of altered mental status as above. The patient denies seizures or generalized weakness. PHYSICAL EXAMINATION: VITAL SIGNS: Temperature 97.8, respirations 12, pulse 85, and blood pressure 145/59. GENERAL: The patient is a well-developed and well-nourished female, in no apparent distress. HEENT: Eyes, pupils are equal and responsive to light and accommodation. Extraocular movements are intact. NECK: Supple without lymphadenopathy. CHEST: Lungs are clear to auscultation bilaterally without wheezes or rales. CARDIOVASCULAR: Regular rate. S1 and S2 are normal without murmurs, rubs, or gallops. ABDOMEN: Soft, nontender, and nondistended. Positive bowel sounds. No evidence of hepatosplenomegaly. Currently, no rebound or guarding noted. EXTREMITIES: Negative for clubbing, cyanosis, or edema. RECTAL/GENITAL: Refused. NEUROLOGIC: Cranial nerves II through XII are grossly intact without focal deficits. Motor strength is 5/5 bilaterally. Deep tendon reflexes are 2+ plantar. LABORATORY STUDIES: WBC 4.2, hemoglobin 12.3, hematocrit 39.1, and platelets 238,000. Sodium 141, potassium 4.4, chloride 103, CO2 31, BUN 30, creatinine 1.7, and glucose 97. Urinalysis showed 1+ ketones, 1+ blood, and 2+ leukocyte esterase with WBCs of [address] scan of the brain was reported as normal CT of the brain. ASSESSMENT: This is a 62-year-old female. 1. Altered mental status. 2. Urinary tract infection. 3. Hypertension. 4. Multiple sclerosis. 5. Hypercholesterolemia. TREATIN. Altered mental status. A Neurology consultation was obtained with Dr. Soriano. Altered mental status may be secondary to urinary tract infection. We will follow recommendations of Dr. Soriano. 2. Urinary tract infection. A urine culture is pending. The patient has been placed empirically on cefepime. Infectious Disease consultation has been obtained with Dr. Chand. 3. Hypertension. Continue lisinopril and amlodipine as above. 4. Multiple sclerosis. Continue Copaxone as above. 5. Hypercholesterolemia. Continue Zocor as above. Jesus Melissa Aceves DR: МАРИЯ JOB#: [id number] CC:
[2017-12-03 20:00] VITALS: BP 106/67
[2017-12-04] VITALS: BP 113/63
[2017-12-04 04:00] VITALS: BP 111/72
[2017-12-04 07:54] LABS: EOSINOPHILS % (AUTO) 2.5 % (0.0-3.0); HEMATOCRIT 32.6 % (37.0-47.0); HEMOGLOBIN 10.2 G/DL (12.0-16.0); LYMPHOCYTES % (AUTO) 41.3 % (20.0-45.0); MEAN CORPUSCULAR VOLUME 84 FL (80-99); MONOCYTES % (AUTO) 5.6 % (1.0-10.0); NEUTROPHILS % (AUTO) 49.6 % (45.0-75.0); PLATELET COUNT 217 K/UL (150-450); RED BLOOD COUNT 3.86 M/UL (4.20-5.40); RED CELL DISTRIBUTION WIDTH 13.4 % (11.6-14.8); WHITE BLOOD COUNT 3.8 K/UL (4.8-10.8)
[2017-12-04 07:57] LABS: ANION GAP 6 mmol/L (5-15); BLOOD UREA NITROGEN 25 mg/dL (7-18); CALCIUM 7.9 MG/DL (8.5-10.1); CARBON DIOXIDE 29 MMOL/L (21-32); CHLORIDE 106 MMOL/L (98-107); CREATININE 1.4 MG/DL (0.55-1.30); POTASSIUM 4.6 MMOL/L (3.5-5.1); SODIUM 141 MMOL/L (136-145)
[2017-12-04 08:40] VITALS: BP 113/60
[2017-12-04] MEDS: Cefepime HCl 2 GM in D5W 110 ML IV SCH (09:57)
[2017-12-04] MEDS: Heparin 5000 units/ml inj SUBQ SCH ×2 (10:05→20:30)
[2017-12-04 12:23] VITALS: BP 128/73
--- NOTE | 2017-12-04 12:34 | Pulmonology Progress Note ---
Assessment/Plan Assessment/Plan ASSESSMENT likely acute encephalopathy - resolved New onset of transient confusion, verbal unresponsiveness, rule out sleep disorder with hypersomnia, rule out seizure activity. UTI with Citrobacter MS , secondary progressive. FRANTZ HTN Hyperlipidemia obesity PLAN OF CARE [place] floor abx , urine cx + Citrobacter, ID follows neuro follows CT head s contrast EEG gentle IVF monitor renal parameters, lytes, avoid nephrotoxic BP management with CCB and optimize as needed check lipid panel pain management, avoid oversedation DVT prophayxlsi O2 HN prn bowel regimen PT/OT case discussed and evaluated by supervising physician Subjective Allergies: Coded Allergies: No Known Allergies (Unverified , 05/21/13) Subjective denies chest pain, SOB, awake, alert, responsive no further paroxysmal events Objective Last 24 Hour Vital Signs Date Time Temp Pulse Resp B/P (MAP) Pulse Ox O2 Delivery O2 Flow Rate FiO2 12/04/17 12:23 98.3 86 18 128/73 100 Room Air 12/04/17 09:58 84 113/64 12/04/17 08:40 98.3 84 21 113/60 98 Room Air 12/04/17 04:00 98.5 78 16 111/72 98 Room Air 12/04/17 00:00 99.4 93 18 113/63 96 Room Air 12/03/17 20:00 99.1 86 18 106/67 98 Room Air Intake and Output 12/03/17 12/04/17 19:00 07:00 Intake Total 1420 ml 600 ml Output Total 650 ml 1200 ml Balance 770 ml -600 ml Intake Oral 420 ml IV Total 1000 ml 600 ml Output Urine Total 650 ml 1200 ml Objective General Appearance: no acute distress, other - awake, alert, obesen AA female in NAD HEENT: normocephalic, atraumatic, anicteric, mucous membranes moist, PERRL Respiratory/Chest: no respiratory distress, no accessory muscle use Cardiovascular: normal peripheral pulses, normal rate, regular rhythm, no JVD, edema - +1 BLE Abdomen: normal bowel sounds, soft, non tender - obese Extremities: pedal pulses normal, other - edema +1 BLE Neurologic/Psychiatric: abnormal gait, alert, responsive, normal mood/affect Microbiology Date/Time Source Procedure Growth Status 12/03/17 03:00 Nasal Nares Right MRSA Culture - Final NO METHICILLIN RESISTANT STAPH AUREUS... Complete 12/02/17 14:10 Urine,Clean Catch Urine Culture - Final Citrobacter Koseri Complete Laboratory Tests 12/04/17 05:40: White Blood Count 3.8L, Red Blood Count 3.86L, Hemoglobin 10.2L, Hematocrit 32.6L, Mean Corpuscular Volume 84, Mean Corpuscular Hemoglobin 26.4L, Mean Corpuscular Hemoglobin Concent 31.3L, Red Cell Distribution Width 13.4, Platelet Count 217, Mean Platelet Volume 6.0L, Neutrophils (%) (Auto) 49.6, Lymphocytes (%) (Auto) 41.3, Monocytes (%) (Auto) 5.6, Eosinophils (%) (Auto) 2.5, Basophils (%) (Auto) 1.0, Sodium Level 141, Potassium Level 4.6, Chloride Level 106, Carbon Dioxide Level 29, Anion Gap 6, Blood Urea Nitrogen 25H, Creatinine 1.4H, Estimat Glomerular Filtration Rate 46.1, Glucose Level 76, Calcium Level 7.9L Current Medications Medications (Trade) Dose Ordered Sig/Maria De Jesus Route PRN Reason Start Time Stop Time Status Last Admin Dose Admin Acetaminophen (Tylenol) 650 mg Q4H PRN ORAL fever 12/02/17 22:15 01/01/18 22:14 Albuterol/ Ipratropium (Albuterol/ Ipratropium) 3 ml EVERY 4 HOURS PRN HHN Shortness of Breath 12/02/17 22:15 12/07/17 22:14 Amlodipine Besylate (Norvasc) 5 mg DAILY ORAL 12/03/17 09:00 01/02/18 08:59 12/04/17 09:58 Baclofen (Lioresal) 10 mg THREE TIMES A DAY ORAL 12/03/17 09:00 01/02/18 08:59 12/04/17 09:58 Cefepime HCl 2 gm/ Dextrose 110 ml @ 220 mls/hr Q24H IV 12/04/17 09:00 12/11/17 08:59 12/04/17 09:57 Heparin Sodium (Porcine) (Heparin 5000 units/ml) 5,000 units EVERY 12 HOURS SUBQ 12/03/17 09:00 01/02/18 08:59 12/04/17 10:05 Ondansetron HCl (Zofran) 4 mg Q6H PRN IVP Nausea & Vomiting 12/02/17 22:15 01/01/18 22:14 Phenazopyridine HCl (Pyridium) 100 mg DAILY PRN ORAL dysuria 12/02/17 22:15 01/01/18 22:14 Polyethylene Glycol (Miralax) 17 gm DAILYPRN PRN ORAL Constipation 12/02/17 22:15 01/01/18 22:14 Sodium Chloride 1,000 ml @ 50 mls/hr Q20H IV 12/03/17 09:00 01/02/18 08:59 12/04/17 04:13 Temazepam (Restoril) 15 mg HSPRN PRN ORAL Insomnia 12/02/17 22:15 12/09/17 22:14 Igor ([facility])Bushra NP Dec 04, 2017 12:34
--- NOTE | 2017-12-04 13:04 | Infectious Diseases Prog Note ---
Assessment/Plan Assessment/Plan Assessment: AMS-resolved UTI (+dysuria) >100k Citrobacter ( high chance of AmpC Rsist ) Afebrile, no leukocytosis Multiple Sclerosis Obesity Plan: Continue Cefepime # 2 / ( will cont w Invanz or Cefepime to complete the course despite of susceptibility pattern ) -12/03 SP IV Vanco #1 -12/02 SP Ceftriaxone x1 -f/u cx -Monitor CBC/BMP, temperatures -aspiration precautions Subjective Constitutional: Denies: no symptoms, fever, chills, fatigue, anorexia, drenching sweats, other Allergies: Coded Allergies: No Known Allergies (Unverified , 05/21/13) Objective Vital Signs Last 24 Hour Vital Signs Date Time Temp Pulse Resp B/P (MAP) Pulse Ox O2 Delivery O2 Flow Rate FiO2 12/04/17 12:23 98.3 86 18 128/73 100 Room Air 12/04/17 09:58 84 113/64 12/04/17 08:40 98.3 84 21 113/60 98 Room Air 12/04/17 04:00 98.5 78 16 111/72 98 Room Air 12/04/17 00:00 99.4 93 18 113/63 96 Room Air 12/03/17 20:00 99.1 86 18 106/67 98 Room Air Height (Feet): 5 Height (Inches): 8.00 Weight (Pounds): 235 HEENT: anicteric Respiratory/Chest: no respiratory distress Cardiovascular: regularly irregular Abdomen: non distended Microbiology Date/Time Source Procedure Growth Status 12/03/17 03:00 Nasal Nares Right MRSA Culture - Final NO METHICILLIN RESISTANT STAPH AUREUS... Complete 12/02/17 14:10 Urine,Clean Catch Urine Culture - Final Citrobacter Koseri Complete Laboratory Tests Test 12/04/17 05:40 White Blood Count 3.8 K/UL (4.8-10.8) L Red Blood Count 3.86 M/UL (4.20-5.40) L Hemoglobin 10.2 G/DL (12.0-16.0) L Hematocrit 32.6 % (37.0-47.0) L Mean Corpuscular Volume 84 FL (80-99) Mean Corpuscular Hemoglobin 26.4 PG (27.0-31.0) L Mean Corpuscular Hemoglobin Concent 31.3 G/DL (32.0-36.0) L Red Cell Distribution Width 13.4 % (11.6-14.8) Platelet Count 217 K/UL (150-450) Mean Platelet Volume 6.0 FL (6.5-10.1) L Neutrophils (%) (Auto) 49.6 % (45.0-75.0) Lymphocytes (%) (Auto) 41.3 % (20.0-45.0) Monocytes (%) (Auto) 5.6 % (1.0-10.0) Eosinophils (%) (Auto) 2.5 % (0.0-3.0) Basophils (%) (Auto) 1.0 % (0.0-2.0) Sodium Level 141 MMOL/L (136-145) Potassium Level 4.6 MMOL/L (3.5-5.1) Chloride Level 106 MMOL/L (98-107) Carbon Dioxide Level 29 MMOL/L (21-32) Anion Gap 6 mmol/L (5-15) Blood Urea Nitrogen 25 mg/dL (7-18) H Creatinine 1.4 MG/DL (0.55-1.30) H Estimat Glomerular Filtration Rate 46.1 mL/min (>60) Glucose Level 76 MG/DL (74-106) Calcium Level 7.9 MG/DL (8.5-10.1) L Current Medications Medications (Trade) Dose Ordered Sig/Maria De Jesus Route PRN Reason Start Time Stop Time Status Last Admin Dose Admin Acetaminophen (Tylenol) 650 mg Q4H PRN ORAL fever 12/02/17 22:15 01/01/18 22:14 Albuterol/ Ipratropium (Albuterol/ Ipratropium) 3 ml EVERY 4 HOURS PRN HHN Shortness of Breath 12/02/17 22:15 12/07/17 22:14 Amlodipine Besylate (Norvasc) 5 mg DAILY ORAL 12/03/17 09:00 01/02/18 08:59 12/04/17 09:58 Baclofen (Lioresal) 10 mg THREE TIMES A DAY ORAL 12/03/17 09:00 01/02/18 08:59 12/04/17 09:58 Cefepime HCl 2 gm/ Dextrose 110 ml @ 220 mls/hr Q24H IV 12/04/17 09:00 12/11/17 08:59 12/04/17 09:57 Heparin Sodium (Porcine) (Heparin 5000 units/ml) 5,000 units EVERY 12 HOURS SUBQ 12/03/17 09:00 01/02/18 08:59 12/04/17 10:05 Ondansetron HCl (Zofran) 4 mg Q6H PRN IVP Nausea & Vomiting 12/02/17 22:15 01/01/18 22:14 Phenazopyridine HCl (Pyridium) 100 mg DAILY PRN ORAL dysuria 12/02/17 22:15 01/01/18 22:14 Polyethylene Glycol (Miralax) 17 gm DAILYPRN PRN ORAL Constipation 12/02/17 22:15 01/01/18 22:14 Sodium Chloride 1,000 ml @ 50 mls/hr Q20H IV 12/03/17 09:00 01/02/18 08:59 12/04/17 04:13 Temazepam (Restoril) 15 mg HSPRN PRN ORAL Insomnia 12/02/17 22:15 12/09/17 22:14 ACOSTA MILLS M.D. Dec 04, 2017 13:04
--- NOTE | 2017-12-04 13:57 | Internal Med Progress Note ---
Subjective Date of Service: Dec 04, 2017 Physician Name Haley Aceves Attending Physician Jayesh Gibson MD Current Medications Medications (Trade) Dose Ordered Sig/Maria De Jesus Route PRN Reason Start Time Stop Time Status Last Admin Dose Admin Acetaminophen (Tylenol) 650 mg Q4H PRN ORAL fever 12/02/17 22:15 01/01/18 22:14 Albuterol/ Ipratropium (Albuterol/ Ipratropium) 3 ml EVERY 4 HOURS PRN HHN Shortness of Breath 12/02/17 22:15 12/07/17 22:14 Amlodipine Besylate (Norvasc) 5 mg DAILY ORAL 12/03/17 09:00 01/02/18 08:59 12/04/17 09:58 Baclofen (Lioresal) 10 mg THREE TIMES A DAY ORAL 12/03/17 09:00 01/02/18 08:59 12/04/17 09:58 Cefepime HCl 2 gm/ Dextrose 110 ml @ 220 mls/hr Q24H IV 12/04/17 09:00 12/11/17 08:59 12/04/17 09:57 Heparin Sodium (Porcine) (Heparin 5000 units/ml) 5,000 units EVERY 12 HOURS SUBQ 12/03/17 09:00 01/02/18 08:59 12/04/17 10:05 Ondansetron HCl (Zofran) 4 mg Q6H PRN IVP Nausea & Vomiting 12/02/17 22:15 01/01/18 22:14 Phenazopyridine HCl (Pyridium) 100 mg DAILY PRN ORAL dysuria 12/02/17 22:15 01/01/18 22:14 Polyethylene Glycol (Miralax) 17 gm DAILYPRN PRN ORAL Constipation 12/02/17 22:15 01/01/18 22:14 Sodium Chloride 1,000 ml @ 50 mls/hr Q20H IV 12/03/17 09:00 01/02/18 08:59 12/04/17 04:13 Temazepam (Restoril) 15 mg HSPRN PRN ORAL Insomnia 12/02/17 22:15 12/09/17 22:14 Allergies: Coded Allergies: No Known Allergies (Unverified , 05/21/13) ROS Limited/Unobtainable: No Constitutional: Reports: no symptoms HEENT: Reports: no symptoms Cardiovascular: Reports: no symptoms Respiratory: Reports: no symptoms Gastrointestinal/Abdominal: Reports: no symptoms Genitourinary: Reports: no symptoms Neurologic/Psychiatric: Reports: no symptoms Subjective 62 YO F admitted with altered mental status, now UTI. Cover for Int Smith-Dr Gibson Objective Last Vital Signs Date Time Temp Pulse Resp B/P (MAP) Pulse Ox O2 Delivery O2 Flow Rate FiO2 12/04/17 12:23 98.3 86 18 128/73 100 Room Air General Appearance: WD/WN, no apparent distress, alert EENT: PERRL/EOMI, normal ENT inspection Neck: non-tender, normal alignment, supple, normal inspection Cardiovascular: normal peripheral pulses, normal rate, regular rhythm, no gallop/murmur, no JVD Respiratory/Chest: chest wall non-tender, lungs clear, normal breath sounds, no accessory muscle use, respiratory distress Abdomen: normal bowel sounds, non tender, soft, no organomegaly, no mass Extremities: normal range of motion, non-tender 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, no motor/sensory deficits Skin: normal pigmentation, warm/dry Laboratory Tests Test 12/04/17 05:40 White Blood Count 3.8 K/UL (4.8-10.8) L Red Blood Count 3.86 M/UL (4.20-5.40) L Hemoglobin 10.2 G/DL (12.0-16.0) L Hematocrit 32.6 % (37.0-47.0) L Mean Corpuscular Volume 84 FL (80-99) Mean Corpuscular Hemoglobin 26.4 PG (27.0-31.0) L Mean Corpuscular Hemoglobin Concent 31.3 G/DL (32.0-36.0) L Red Cell Distribution Width 13.4 % (11.6-14.8) Platelet Count 217 K/UL (150-450) Mean Platelet Volume 6.0 FL (6.5-10.1) L Neutrophils (%) (Auto) 49.6 % (45.0-75.0) Lymphocytes (%) (Auto) 41.3 % (20.0-45.0) Monocytes (%) (Auto) 5.6 % (1.0-10.0) Eosinophils (%) (Auto) 2.5 % (0.0-3.0) Basophils (%) (Auto) 1.0 % (0.0-2.0) Sodium Level 141 MMOL/L (136-145) Potassium Level 4.6 MMOL/L (3.5-5.1) Chloride Level 106 MMOL/L (98-107) Carbon Dioxide Level 29 MMOL/L (21-32) Anion Gap 6 mmol/L (5-15) Blood Urea Nitrogen 25 mg/dL (7-18) H Creatinine 1.4 MG/DL (0.55-1.30) H Estimat Glomerular Filtration Rate 46.1 mL/min (>60) Glucose Level 76 MG/DL (74-106) Calcium Level 7.9 MG/DL (8.5-10.1) L Microbiology Date/Time Source Procedure Growth Status 12/03/17 03:00 Nasal Nares Right MRSA Culture - Final NO METHICILLIN RESISTANT STAPH AUREUS... Complete 12/02/17 14:10 Urine,Clean Catch Urine Culture - Final Citrobacter Koseri Complete Intake and Output 12/03/17 12/04/17 19:00 07:00 Intake Total 1420 ml 600 ml Output Total 650 ml 1200 ml Balance 770 ml -600 ml Intake Oral 420 ml IV Total 1000 ml 600 ml Output Urine Total 650 ml 1200 ml Assessment/Plan Problem List: (1) HTN (hypertension) Assessment & Plan: Continue norvasc (2) Hypercholesteremia (3) Altered mental status Assessment & Plan: ?metabolic encephalopathy? Due to UTI (4) Multiple sclerosis (5) UTI (urinary tract infection) Assessment & Plan: citrobacter koseri. See ID note. Continue cefepime per ID Status: HALEY Carter Dec 04, 2017 13:57
[2017-12-04 20:47] VITALS: BP 128/73
[2017-12-04] MEDS ORDERED: Tubing IV Secondary IV ONE (22:33)
[2017-12-04] MEDS ORDERED: D5W 275ml ONE (22:33)
--- NOTE | 2017-12-04 23:24 | Wound Care Consultation ---
Wound Assessment Wound Assessment #1: Wound Number: 1 Wound Present on Admission: Yes New Wound: No Status Change of Wound: No Wound Location Body Site Modif: left Wound Location Body Site: buttocks Wound Type: pressure ulcer William Test: Does not William Pressure Ulcer Stage: III Wound Thickness: Full Thickness Wound Length: 3.5 Wound Width: 3.5 Wound Depth: 0.2 Percent of Wound [place]/Red: 100 Wound Drainage Amount: None Wound Drainage Odor: None/Absent Tissue Surrounding Wound: Macerated Wound General Appearance: Reddened, Draining Wound Assessment #2: Wound Number: 2 Wound Present on Admission: Yes New Wound: No Status Change of Wound: No Wound Location Body Site Modif: right Wound Location Body Site: buttocks Wound Type: pressure ulcer William Test: Does not William Pressure Ulcer Stage: III - resolving Wound Thickness: Full Thickness Wound Length: 2.5 Wound Width: 2.0 Wound Depth: 0.2 Percent of Wound [place]/Red: 100 Wound Drainage Description: Serosanguineous Wound Drainage Amount: Scant Wound Drainage Odor: None/Absent Tissue Surrounding Wound: Erythemic Wound General Appearance: Reddened, Draining Wound Comment #1 Left buttock stage III pressure ulcer #2 Right buttock resolving stage III pressure ulcer Recommendation -Local wound care per protocol -Keep clean and dry -Optimize nutrition -Turn and reposition -Heel protector on both heels -Offload both heels -Low air loss mattress -Assess and f/u accordingly for any changes SCOTTY GARY RN Dec 04, 2017 23:24
[2017-12-05] VITALS: BP 125/68
[2017-12-05 04:51] VITALS: BP 102/59
[2017-12-05 08:18] VITALS: BP 118/67
[2017-12-05] MEDS: Cefepime HCl 2 GM in D5W 110 ML IV SCH (08:24)
[2017-12-05] MEDS: Heparin 5000 units/ml inj SUBQ SCH ×2 (08:26→21:01)
[2017-12-05 09:21] LABS: BASOPHILS % (AUTO) 1.2 % (0.0-2.0); EOSINOPHILS % (AUTO) 3.6 % (0.0-3.0); HEMATOCRIT 33.9 % (37.0-47.0); HEMOGLOBIN 10.7 G/DL (12.0-16.0); LYMPHOCYTES % (AUTO) 37.2 % (20.0-45.0); MEAN CORPUSCULAR VOLUME 85 FL (80-99); MONOCYTES % (AUTO) 8.5 % (1.0-10.0); NEUTROPHILS % (AUTO) 49.5 % (45.0-75.0); PLATELET COUNT 219 K/UL (150-450); RED CELL DISTRIBUTION WIDTH 13.3 % (11.6-14.8); WHITE BLOOD COUNT 3.7 K/UL (4.8-10.8)
[2017-12-05 09:34] LABS: ANION GAP 6 mmol/L (5-15); BLOOD UREA NITROGEN 22 mg/dL (7-18); CARBON DIOXIDE 29 MMOL/L (21-32); CHLORIDE 107 MMOL/L (98-107); CREATININE 1.2 MG/DL (0.55-1.30); POTASSIUM 4.3 MMOL/L (3.5-5.1); SODIUM 142 MMOL/L (136-145)
[2017-12-05 09:35] LABS: CALCIUM 8.2 MG/DL (8.5-10.1)
[2017-12-05 12:00] VITALS: BP 138/72
--- NOTE | 2017-12-05 13:36 | Internal Med Progress Note ---
Subjective Date of Service: Dec 05, 2017 Physician Name Haley Kaye Attending Physician Jayesh Gibson MD Current Medications Medications (Trade) Dose Ordered Sig/Maria De Jesus Route PRN Reason Start Time Stop Time Status Last Admin Dose Admin Acetaminophen (Tylenol) 650 mg Q4H PRN ORAL fever 12/02/17 22:15 01/01/18 22:14 Albuterol/ Ipratropium (Albuterol/ Ipratropium) 3 ml EVERY 4 HOURS PRN HHN Shortness of Breath 12/02/17 22:15 12/07/17 22:14 Amlodipine Besylate (Norvasc) 5 mg DAILY ORAL 12/03/17 09:00 01/02/18 08:59 12/05/17 08:24 Baclofen (Lioresal) 10 mg THREE TIMES A DAY ORAL 12/03/17 09:00 01/02/18 08:59 12/05/17 08:25 Cefepime HCl 2 gm/ Dextrose 110 ml @ 220 mls/hr Q24H IV 12/04/17 09:00 12/11/17 08:59 12/05/17 08:24 Heparin Sodium (Porcine) (Heparin 5000 units/ml) 5,000 units EVERY 12 HOURS SUBQ 12/03/17 09:00 01/02/18 08:59 12/05/17 08:26 Ondansetron HCl (Zofran) 4 mg Q6H PRN IVP Nausea & Vomiting 12/02/17 22:15 01/01/18 22:14 Phenazopyridine HCl (Pyridium) 100 mg DAILY PRN ORAL dysuria 12/02/17 22:15 01/01/18 22:14 Polyethylene Glycol (Miralax) 17 gm DAILYPRN PRN ORAL Constipation 12/02/17 22:15 01/01/18 22:14 Temazepam (Restoril) 15 mg HSPRN PRN ORAL Insomnia 12/02/17 22:15 12/09/17 22:14 Allergies: Coded Allergies: No Known Allergies (Unverified , 05/21/13) ROS Limited/Unobtainable: No Constitutional: Reports: no symptoms HEENT: Reports: no symptoms Cardiovascular: Reports: no symptoms Respiratory: Reports: no symptoms Gastrointestinal/Abdominal: Reports: no symptoms Genitourinary: Reports: no symptoms Neurologic/Psychiatric: Reports: no symptoms Subjective 62 YO F admitted with altered mental status, now UTI. Cover for Int Smith-Dr Gibson Objective Last Vital Signs Date Time Temp Pulse Resp B/P (MAP) Pulse Ox O2 Delivery O2 Flow Rate FiO2 12/05/17 08:24 92 118/67 12/05/17 08:18 98.9 20 97 12/05/17 00:00 Room Air Laboratory Tests Test 12/05/17 06:45 White Blood Count 3.7 K/UL (4.8-10.8) L Red Blood Count 4.00 M/UL (4.20-5.40) L Hemoglobin 10.7 G/DL (12.0-16.0) L Hematocrit 33.9 % (37.0-47.0) L Mean Corpuscular Volume 85 FL (80-99) Mean Corpuscular Hemoglobin 26.7 PG (27.0-31.0) L Mean Corpuscular Hemoglobin Concent 31.5 G/DL (32.0-36.0) L Red Cell Distribution Width 13.3 % (11.6-14.8) Platelet Count 219 K/UL (150-450) Mean Platelet Volume 6.8 FL (6.5-10.1) Neutrophils (%) (Auto) 49.5 % (45.0-75.0) Lymphocytes (%) (Auto) 37.2 % (20.0-45.0) Monocytes (%) (Auto) 8.5 % (1.0-10.0) Eosinophils (%) (Auto) 3.6 % (0.0-3.0) H Basophils (%) (Auto) 1.2 % (0.0-2.0) Sodium Level 142 MMOL/L (136-145) Potassium Level 4.3 MMOL/L (3.5-5.1) Chloride Level 107 MMOL/L (98-107) Carbon Dioxide Level 29 MMOL/L (21-32) Anion Gap 6 mmol/L (5-15) Blood Urea Nitrogen 22 mg/dL (7-18) H Creatinine 1.2 MG/DL (0.55-1.30) Estimat Glomerular Filtration Rate 54.9 mL/min (>60) Glucose Level 74 MG/DL (74-106) Calcium Level 8.2 MG/DL (8.5-10.1) L Microbiology Date/Time Source Procedure Growth Status 12/03/17 03:00 Nasal Nares Right MRSA Culture - Final NO METHICILLIN RESISTANT STAPH AUREUS... Complete 12/02/17 14:10 Urine,Clean Catch Urine Culture - Final Citrobacter Koseri Complete Intake and Output 12/04/17 12/05/17 19:00 07:00 Intake Total 720 ml 240 ml Output Total 500 ml Balance 720 ml -260 ml Intake Oral 720 ml 240 ml Output Urine Total 500 ml Objective General Appearance: WD/WN, no apparent distress, alert EENT: PERRL/EOMI, normal ENT inspection Neck: non-tender, normal alignment, supple, normal inspection Cardiovascular: normal peripheral pulses, normal rate, regular rhythm, no gallop/murmur, no JVD Respiratory/Chest: chest wall non-tender, lungs clear, normal breath sounds, no accessory muscle use, respiratory distress Abdomen: normal bowel sounds, non tender, soft, no organomegaly, no mass Extremities: normal range of motion, non-tender 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 Due to UTI (4) Multiple sclerosis (5) UTI (urinary tract infection) Assessment & Plan: citrobacter koseri. See ID note. Continue cefepime day 3/ 5 per ID Status: progressing HALEY KAYE Dec 05, 2017 13:36
--- NOTE | 2017-12-05 14:54 | Pulmonology Progress Note ---
Assessment/Plan Assessment/Plan ASSESSMENT likely acute encephalopathy - resolved New onset of transient confusion, verbal unresponsiveness, rule out sleep disorder with hypersomnia, rule out seizure activity UTI with Citrobacter MS , secondary progressive. FRANTZ HTN Hyperlipidemia obesity PLAN OF CARE [place] floor abx , urine cx + Citrobacter, ID follows neuro follows CT head s contrast EEG gentle IVF monitor renal parameters, lytes, avoid nephrotoxic creat trending down-1.2 BP management with CCB and optimize as needed lipid panel with elevated LDL add Lipitor pain management, avoid oversedation DVT prophayxlsi O2 HN prn bowel regimen PT/OT case discussed and evaluated by supervising physician Subjective Allergies: Coded Allergies: No Known Allergies (Unverified , 05/21/13) Subjective denies chest pain, SOB, awake, alert, responsive no further paroxysmal events Objective Last 24 Hour Vital Signs Date Time Temp Pulse Resp B/P (MAP) Pulse Ox O2 Delivery O2 Flow Rate FiO2 12/05/17 12:00 98.6 85 18 138/72 96 Room Air 12/05/17 08:24 92 118/67 12/05/17 08:18 98.9 92 20 118/67 97 12/05/17 04:51 98.6 87 17 102/59 96 12/05/17 00:00 98.7 87 19 125/68 98 Room Air 12/04/17 20:47 99.0 90 18 128/73 97 Intake and Output 12/04/17 12/05/17 19:00 07:00 Intake Total 720 ml 240 ml Output Total 500 ml Balance 720 ml -260 ml Intake Oral 720 ml 240 ml Output Urine Total 500 ml Objective General Appearance: no acute distress, other - awake, alert, obesen AA female in NAD HEENT: normocephalic, atraumatic, anicteric, mucous membranes moist, PERRL Respiratory/Chest: no respiratory distress, no accessory muscle use Cardiovascular: normal peripheral pulses, normal rate, regular rhythm, no JVD, edema - +1 BLE Abdomen: normal bowel sounds, soft, non tender - obese Extremities: pedal pulses normal, other - edema +1 BLE Neurologic/Psychiatric: abnormal gait, alert, responsive, normal mood/affect Microbiology Date/Time Source Procedure Growth Status 12/03/17 03:00 Nasal Nares Right MRSA Culture - Final NO METHICILLIN RESISTANT STAPH AUREUS... Complete Laboratory Tests 12/05/17 06:45: White Blood Count 3.7L, Red Blood Count 4.00L, Hemoglobin 10.7L, Hematocrit 33.9L, Mean Corpuscular Volume 85, Mean Corpuscular Hemoglobin 26.7L, Mean Corpuscular Hemoglobin Concent 31.5L, Red Cell Distribution Width 13.3, Platelet Count 219, Mean Platelet Volume 6.8, Neutrophils (%) (Auto) 49.5, Lymphocytes (%) (Auto) 37.2, Monocytes (%) (Auto) 8.5, Eosinophils (%) (Auto) 3.6H, Basophils (%) (Auto) 1.2, Sodium Level 142, Potassium Level 4.3, Chloride Level 107, Carbon Dioxide Level 29, Anion Gap 6, Blood Urea Nitrogen 22H, Creatinine 1.2, Estimat Glomerular Filtration Rate 54.9, Glucose Level 74, Calcium Level 8.2L Current Medications Medications (Trade) Dose Ordered Sig/Maria De Jesus Route PRN Reason Start Time Stop Time Status Last Admin Dose Admin Acetaminophen (Tylenol) 650 mg Q4H PRN ORAL fever 12/02/17 22:15 01/01/18 22:14 Albuterol/ Ipratropium (Albuterol/ Ipratropium) 3 ml EVERY 4 HOURS PRN HHN Shortness of Breath 12/02/17 22:15 12/07/17 22:14 Amlodipine Besylate (Norvasc) 5 mg DAILY ORAL 12/03/17 09:00 01/02/18 08:59 12/05/17 08:24 Baclofen (Lioresal) 10 mg THREE TIMES A DAY ORAL 12/03/17 09:00 01/02/18 08:59 12/05/17 13:53 Cefepime HCl 2 gm/ Dextrose 110 ml @ 220 mls/hr Q24H IV 12/04/17 09:00 12/11/17 08:59 12/05/17 08:24 Heparin Sodium (Porcine) (Heparin 5000 units/ml) 5,000 units EVERY 12 HOURS SUBQ 12/03/17 09:00 01/02/18 08:59 12/05/17 08:26 Ondansetron HCl (Zofran) 4 mg Q6H PRN IVP Nausea & Vomiting 12/02/17 22:15 01/01/18 22:14 Phenazopyridine HCl (Pyridium) 100 mg DAILY PRN ORAL dysuria 12/02/17 22:15 01/01/18 22:14 Polyethylene Glycol (Miralax) 17 gm DAILYPRN PRN ORAL Constipation 12/02/17 22:15 01/01/18 22:14 Temazepam (Restoril) 15 mg HSPRN PRN ORAL Insomnia 12/02/17 22:15 12/09/17 22:14 Igor ([facility])Bushra NP Dec 05, 2017 14:53
[2017-12-05] MEDS ORDERED: Albuterol/Ipratropium 3ml neb HHN PRN (15:00)
[2017-12-05 20:00] VITALS: BP 129/72
[2017-12-06] VITALS: BP 130/69
[2017-12-06 05:10] VITALS: BP 128/70
[2017-12-06 07:33] LABS: BASOPHILS % (AUTO) 1.6 % (0.0-2.0); EOSINOPHILS % (AUTO) 8.3 % (0.0-3.0); HEMATOCRIT 33.4 % (37.0-47.0); HEMOGLOBIN 10.6 G/DL (12.0-16.0); LYMPHOCYTES % (AUTO) 40.1 % (20.0-45.0); MEAN CORPUSCULAR VOLUME 84 FL (80-99); MONOCYTES % (AUTO) 8.2 % (1.0-10.0); NEUTROPHILS % (AUTO) 41.9 % (45.0-75.0); PLATELET COUNT 206 K/UL (150-450); RED BLOOD COUNT 3.96 M/UL (4.20-5.40); WHITE BLOOD COUNT 3.7 K/UL (4.8-10.8)
[2017-12-06 07:57] LABS: ANION GAP 7 mmol/L (5-15); BLOOD UREA NITROGEN 20 mg/dL (7-18); CALCIUM 8.2 MG/DL (8.5-10.1); CARBON DIOXIDE 28 MMOL/L (21-32); CHLORIDE 106 MMOL/L (98-107); CREATININE 1.1 MG/DL (0.55-1.30); SODIUM 141 MMOL/L (136-145)
[2017-12-06 08:00] VITALS: BP 109/61
[2017-12-06] MEDS: Cefepime HCl 2 GM in D5W 110 ML IV SCH (08:23)
[2017-12-06] MEDS: Heparin 5000 units/ml inj SUBQ SCH ×2 (08:31→20:14)
--- NOTE | 2017-12-06 10:34 | Infectious Diseases Prog Note ---
Assessment/Plan Assessment/Plan AMS-resolved -CT head wo: unremarkable UTI (+dysuria) >100k Citrobacter ( high chance of AmpC Rsist ) -I Nitrofurantoin, otherwise S Afebrile, no leukocytosis; mild leukopenia Multiple Sclerosis Obesity Plan: Continue Cefepime # / ( will cont w Invanz or Cefepime to complete the course despite of susceptibility pattern ) -12/03 SP IV Vanco #1 -12/02 SP Ceftriaxone x1 -Monitor CBC/BMP, temperatures -aspiration precautions -neuro f/u Subjective Allergies: Coded Allergies: No Known Allergies (Unverified , 05/21/13) Objective Vital Signs Last 24 Hour Vital Signs Date Time Temp Pulse Resp B/P (MAP) Pulse Ox O2 Delivery O2 Flow Rate FiO2 12/06/17 08:29 73 122/70 12/06/17 05:10 98.5 88 18 128/70 97 Room Air 12/06/17 00:00 98.2 80 20 130/69 98 Room Air 12/05/17 20:00 98.7 92 19 129/72 99 Room Air 12/05/17 12:00 98.6 85 18 138/72 96 Room Air Height (Feet): 5 Height (Inches): 8.00 Weight (Pounds): 235 Objective General Appearance: other - Middle-age female, no distress HEENT: normocephalic, atraumatic, bilateral eye PERRL, bilateral eye EOMI, moist mucus membranes Neck: normal inspection, full range of motion, supple Respiratory: normal inspection, lungs clear, normal breath sounds, no respiratory distress, no retraction Cardiovascular: normal inspection, regular rate, rhythm, no edema Gastrointestinal: normal inspection, non tender, soft, non-distended, no guarding Musculoskeletal: normal inspection, back normal, normal range of motion, non- tender Neurologic: AAO x3, no focal deficits Skin: normal inspection, normal color, no rash, warm/dry, well hydrated, normal turgor Laboratory Tests Test 12/06/17 05:45 White Blood Count 3.7 K/UL (4.8-10.8) L Red Blood Count 3.96 M/UL (4.20-5.40) L Hemoglobin 10.6 G/DL (12.0-16.0) L Hematocrit 33.4 % (37.0-47.0) L Mean Corpuscular Volume 84 FL (80-99) Mean Corpuscular Hemoglobin 26.7 PG (27.0-31.0) L Mean Corpuscular Hemoglobin Concent 31.6 G/DL (32.0-36.0) L Red Cell Distribution Width 13.0 % (11.6-14.8) Platelet Count 206 K/UL (150-450) Mean Platelet Volume 6.4 FL (6.5-10.1) L Neutrophils (%) (Auto) 41.9 % (45.0-75.0) L Lymphocytes (%) (Auto) 40.1 % (20.0-45.0) Monocytes (%) (Auto) 8.2 % (1.0-10.0) Eosinophils (%) (Auto) 8.3 % (0.0-3.0) H Basophils (%) (Auto) 1.6 % (0.0-2.0) Sodium Level 141 MMOL/L (136-145) Potassium Level 4.0 MMOL/L (3.5-5.1) Chloride Level 106 MMOL/L (98-107) Carbon Dioxide Level 28 MMOL/L (21-32) Anion Gap 7 mmol/L (5-15) Blood Urea Nitrogen 20 mg/dL (7-18) H Creatinine 1.1 MG/DL (0.55-1.30) Estimat Glomerular Filtration Rate > 60 mL/min (>60) Glucose Level 83 MG/DL (74-106) Calcium Level 8.2 MG/DL (8.5-10.1) L Current Medications Medications (Trade) Dose Ordered Sig/Maria De Jesus Route PRN Reason Start Time Stop Time Status Last Admin Dose Admin Acetaminophen (Tylenol) 650 mg Q4H PRN ORAL fever 12/02/17 22:15 01/01/18 22:14 Albuterol/ Ipratropium (Albuterol/ Ipratropium) 3 ml EVERY 4 HOURS PRN HHN Shortness of Breath 12/05/17 15:00 12/10/17 23:59 Amlodipine Besylate (Norvasc) 5 mg DAILY ORAL 12/03/17 09:00 01/02/18 08:59 12/06/17 08:29 Atorvastatin Calcium (Lipitor) 10 mg BEDTIME ORAL 12/05/17 21:00 01/04/18 20:59 12/05/17 21:00 Baclofen (Lioresal) 10 mg THREE TIMES A DAY ORAL 12/03/17 09:00 01/02/18 08:59 12/06/17 08:23 Cefepime HCl 2 gm/ Dextrose 110 ml @ 220 mls/hr Q24H IV 12/04/17 09:00 12/11/17 08:59 12/06/17 08:23 Heparin Sodium (Porcine) (Heparin 5000 units/ml) 5,000 units EVERY 12 HOURS SUBQ 12/03/17 09:00 01/02/18 08:59 12/06/17 08:31 Ondansetron HCl (Zofran) 4 mg Q6H PRN IVP Nausea & Vomiting 12/02/17 22:15 01/01/18 22:14 Phenazopyridine HCl (Pyridium) 100 mg DAILY PRN ORAL dysuria 12/02/17 22:15 01/01/18 22:14 Polyethylene Glycol (Miralax) 17 gm DAILYPRN PRN ORAL Constipation 12/02/17 22:15 01/01/18 22:14 Temazepam (Restoril) 15 mg HSPRN PRN ORAL Insomnia 12/02/17 22:15 12/09/17 22:14 Shy Dao M.D. Dec 06, 2017 10:34
--- NOTE | 2017-12-06 11:07 | Internal Med Progress Note ---
Subjective Date of Service: Dec 06, 2017 Physician Name Haley Aceves Attending Physician Jayesh Gibson MD Current Medications Medications (Trade) Dose Ordered Sig/Maria De Jesus Route PRN Reason Start Time Stop Time Status Last Admin Dose Admin Acetaminophen (Tylenol) 650 mg Q4H PRN ORAL fever 12/02/17 22:15 01/01/18 22:14 Albuterol/ Ipratropium (Albuterol/ Ipratropium) 3 ml EVERY 4 HOURS PRN HHN Shortness of Breath 12/05/17 15:00 12/10/17 23:59 Amlodipine Besylate (Norvasc) 5 mg DAILY ORAL 12/03/17 09:00 01/02/18 08:59 12/06/17 08:29 Atorvastatin Calcium (Lipitor) 10 mg BEDTIME ORAL 12/05/17 21:00 01/04/18 20:59 12/05/17 21:00 Baclofen (Lioresal) 10 mg THREE TIMES A DAY ORAL 12/03/17 09:00 01/02/18 08:59 12/06/17 08:23 Cefepime HCl 2 gm/ Dextrose 110 ml @ 220 mls/hr Q24H IV 12/04/17 09:00 12/11/17 08:59 12/06/17 08:23 Heparin Sodium (Porcine) (Heparin 5000 units/ml) 5,000 units EVERY 12 HOURS SUBQ 12/03/17 09:00 01/02/18 08:59 12/06/17 08:31 Ondansetron HCl (Zofran) 4 mg Q6H PRN IVP Nausea & Vomiting 12/02/17 22:15 01/01/18 22:14 Phenazopyridine HCl (Pyridium) 100 mg DAILY PRN ORAL dysuria 12/02/17 22:15 01/01/18 22:14 Polyethylene Glycol (Miralax) 17 gm DAILYPRN PRN ORAL Constipation 12/02/17 22:15 01/01/18 22:14 Temazepam (Restoril) 15 mg HSPRN PRN ORAL Insomnia 12/02/17 22:15 12/09/17 22:14 Allergies: Coded Allergies: No Known Allergies (Unverified , 05/21/13) ROS Limited/Unobtainable: No Constitutional: Reports: no symptoms HEENT: Reports: no symptoms Cardiovascular: Reports: no symptoms Respiratory: Reports: no symptoms Gastrointestinal/Abdominal: Reports: no symptoms Genitourinary: Reports: no symptoms Neurologic/Psychiatric: Reports: no symptoms Subjective 62 YO F admitted with altered mental status, now UTI. Cover for Int Smith-Dr Gibson Objective Last Vital Signs Date Time Temp Pulse Resp B/P (MAP) Pulse Ox O2 Delivery O2 Flow Rate FiO2 12/06/17 08:29 73 122/70 12/06/17 05:10 98.5 18 97 Room Air Laboratory Tests Test 12/06/17 05:45 White Blood Count 3.7 K/UL (4.8-10.8) L Red Blood Count 3.96 M/UL (4.20-5.40) L Hemoglobin 10.6 G/DL (12.0-16.0) L Hematocrit 33.4 % (37.0-47.0) L Mean Corpuscular Volume 84 FL (80-99) Mean Corpuscular Hemoglobin 26.7 PG (27.0-31.0) L Mean Corpuscular Hemoglobin Concent 31.6 G/DL (32.0-36.0) L Red Cell Distribution Width 13.0 % (11.6-14.8) Platelet Count 206 K/UL (150-450) Mean Platelet Volume 6.4 FL (6.5-10.1) L Neutrophils (%) (Auto) 41.9 % (45.0-75.0) L Lymphocytes (%) (Auto) 40.1 % (20.0-45.0) Monocytes (%) (Auto) 8.2 % (1.0-10.0) Eosinophils (%) (Auto) 8.3 % (0.0-3.0) H Basophils (%) (Auto) 1.6 % (0.0-2.0) Sodium Level 141 MMOL/L (136-145) Potassium Level 4.0 MMOL/L (3.5-5.1) Chloride Level 106 MMOL/L (98-107) Carbon Dioxide Level 28 MMOL/L (21-32) Anion Gap 7 mmol/L (5-15) Blood Urea Nitrogen 20 mg/dL (7-18) H Creatinine 1.1 MG/DL (0.55-1.30) Estimat Glomerular Filtration Rate > 60 mL/min (>60) Glucose Level 83 MG/DL (74-106) Calcium Level 8.2 MG/DL (8.5-10.1) L Intake and Output 12/05/17 12/06/17 19:00 07:00 Intake Total 480 ml 120 ml Output Total 600 ml 900 ml Balance -120 ml -780 ml Intake Oral 480 ml 120 ml Output Urine Total 600 ml 900 ml Objective General Appearance: WD/WN, no apparent distress, alert EENT: PERRL/EOMI, normal ENT inspection Neck: non-tender, normal alignment, supple, normal inspection Cardiovascular: normal peripheral pulses, normal rate, regular rhythm, no gallop/murmur, no JVD Respiratory/Chest: chest wall non-tender, lungs clear, normal breath sounds, no accessory muscle use, respiratory distress Abdomen: normal bowel sounds, non tender, soft, no organomegaly, no mass Extremities: normal range of motion, non-tender Neurologic: cycle director II-XII grossly normal, no motor/sensory deficits Skin: normal pigmentation, warm/dry Assessment/Plan Problem List: (1) HTN (hypertension) Assessment & Plan: Continue norvasc (2) Hypercholesteremia (3) Altered mental status Assessment & Plan: ?metabolic encephalopathy? Due to UTI (4) Multiple sclerosis (5) UTI (urinary tract infection) Assessment & Plan: citrobacter koseri. See ID note. Continue cefepime day 4/ 5 per ID Status: HALEY Carter Dec 06, 2017 11:07
[2017-12-06 12:00] VITALS: BP 112/71
--- NOTE | 2017-12-06 15:30 | Electroencephalogram ---
DATE OF PROCEDURE: 12/03/2017 ELECTROENCEPHALOGRAPHY REPORT REQUESTING PHYSICIAN: Jayesh Gibson M.D. READING PHYSICIAN: Artemio Soriano M.D. HISTORY: This is a 62-year-old female with new changes in mental status. EEG was requested to assess possible ongoing seizure activities. During the recording, the patient was described as awake or drowsy, but fairly cooperative and normal mentality. TECHNIQUE: EEG was done using 18 electrodes placed scalp to scalp, scalp to ear montages according to 10/20 International System. Most wakeful portions of recording, background activity consists of well regulated 8 to 9 cycles per second alpha activities with good response to physiological stimulation. Photic stimulation from 3 to 33 hertz was obtained and results no significant changes. Intermittently, appearance of generalized slowing in the theta range with slight disorganization of background noted corresponding to sleep stages. No asymmetry from side to side. No spike and wave activities noted. IMPRESSION: Normal awake stage 1 sleep EEG with photic stimulation. COMMENT: Absence of paroxysmal event on a single recording does not rule out seizure disorder. Artemio Soriano M.D. DR: MITZI JOB#: [id number] CC:
[2017-12-06 16:00] VITALS: BP 115/58
--- NOTE | 2017-12-06 19:19 | Pulmonology Progress Note ---
Assessment/Plan Problems: (1) UTI (urinary tract infection) (2) Altered mental status (3) Multiple sclerosis (4) HTN (hypertension) Assessment/Plan improving asymptomatic tolerating diet all notes reviewed, dc planning initiated. Subjective ROS Limited/Unobtainable: No Constitutional: Reports: no symptoms HEENT: Repors: no symptoms Allergies: Coded Allergies: No Known Allergies (Unverified , 05/21/13) Objective Last 24 Hour Vital Signs Date Time Temp Pulse Resp B/P (MAP) Pulse Ox O2 Delivery O2 Flow Rate FiO2 12/06/17 16:00 97.6 89 18 115/58 96 12/06/17 12:00 97.8 77 18 112/71 97 12/06/17 08:29 73 122/70 12/06/17 08:00 98.6 87 18 109/61 98 12/06/17 05:10 98.5 88 18 128/70 97 Room Air 12/06/17 00:00 98.2 80 20 130/69 98 Room Air 12/05/17 20:00 98.7 92 19 129/72 99 Room Air Intake and Output 12/05/17 12/06/17 19:00 07:00 Intake Total 480 ml 120 ml Output Total 600 ml 900 ml Balance -120 ml -780 ml Intake Oral 480 ml 120 ml Output Urine Total 600 ml 900 ml Objective General Appearance: WD/WN HEENT: normocephalic, anicteric Respiratory/Chest: chest wall non-tender, normal breath sounds Breasts: no masses Cardiovascular: regular rhythm Genitourinary: normal external genitalia Extremities: no clubbing Skin: no rash, no lesions Laboratory Tests 12/06/17 05:45: White Blood Count 3.7L, Red Blood Count 3.96L, Hemoglobin 10.6L, Hematocrit 33.4L, Mean Corpuscular Volume 84, Mean Corpuscular Hemoglobin 26.7L, Mean Corpuscular Hemoglobin Concent 31.6L, Red Cell Distribution Width 13.0, Platelet Count 206, Mean Platelet Volume 6.4L, Neutrophils (%) (Auto) 41.9L, Lymphocytes (%) (Auto) 40.1, Monocytes (%) (Auto) 8.2, Eosinophils (%) (Auto) 8.3H, Basophils (%) (Auto) 1.6, Sodium Level 141, Potassium Level 4.0, Chloride Level 106, Carbon Dioxide Level 28, Anion Gap 7, Blood Urea Nitrogen 20H, Creatinine 1.1, Estimat Glomerular Filtration Rate > 60, Glucose Level 83, Calcium Level 8.2L Current Medications Medications (Trade) Dose Ordered Sig/Maria De Jesus Route PRN Reason Start Time Stop Time Status Last Admin Dose Admin Acetaminophen (Tylenol) 650 mg Q4H PRN ORAL fever 12/02/17 22:15 01/01/18 22:14 Albuterol/ Ipratropium (Albuterol/ Ipratropium) 3 ml EVERY 4 HOURS PRN HHN Shortness of Breath 12/05/17 15:00 12/10/17 23:59 Amlodipine Besylate (Norvasc) 5 mg DAILY ORAL 12/03/17 09:00 01/02/18 08:59 12/06/17 08:29 Atorvastatin Calcium (Lipitor) 10 mg BEDTIME ORAL 12/05/17 21:00 01/04/18 20:59 12/05/17 21:00 Baclofen (Lioresal) 10 mg THREE TIMES A DAY ORAL 12/03/17 09:00 01/02/18 08:59 12/06/17 18:11 Cefepime HCl 2 gm/ Dextrose 110 ml @ 220 mls/hr Q24H IV 12/04/17 09:00 12/11/17 08:59 12/06/17 08:23 Heparin Sodium (Porcine) (Heparin 5000 units/ml) 5,000 units EVERY 12 HOURS SUBQ 12/03/17 09:00 01/02/18 08:59 12/06/17 08:31 Ondansetron HCl (Zofran) 4 mg Q6H PRN IVP Nausea & Vomiting 12/02/17 22:15 01/01/18 22:14 Phenazopyridine HCl (Pyridium) 100 mg DAILY PRN ORAL dysuria 12/02/17 22:15 01/01/18 22:14 Polyethylene Glycol (Miralax) 17 gm DAILYPRN PRN ORAL Constipation 12/02/17 22:15 01/01/18 22:14 Temazepam (Restoril) 15 mg HSPRN PRN ORAL Insomnia 12/02/17 22:15 12/09/17 22:14 SOPHIA JOSUE Dec 06, 2017 19:19
[2017-12-06 20:53] VITALS: BP 107/62
[2017-12-07] VITALS: BP 115/67
[2017-12-07 04:46] VITALS: BP 110/64
[2017-12-07 06:59] LABS: BASOPHILS % (AUTO) 1.2 % (0.0-2.0); HEMOGLOBIN 10.1 G/DL (12.0-16.0); LYMPHOCYTES % (AUTO) 38.4 % (20.0-45.0); MEAN CORPUSCULAR VOLUME 84 FL (80-99); NEUTROPHILS % (AUTO) 43.4 % (45.0-75.0); PLATELET COUNT 215 K/UL (150-450); RED CELL DISTRIBUTION WIDTH 13.2 % (11.6-14.8); WHITE BLOOD COUNT 3.7 K/UL (4.8-10.8)
[2017-12-07 07:15] LABS: ANION GAP 9 mmol/L (5-15); BLOOD UREA NITROGEN 21 mg/dL (7-18); CARBON DIOXIDE 27 MMOL/L (21-32); CHLORIDE 105 MMOL/L (98-107); CREATININE 1.2 MG/DL (0.55-1.30); POTASSIUM 4.1 MMOL/L (3.5-5.1); SODIUM 141 MMOL/L (136-145)
[2017-12-07 08:00] VITALS: BP 120/77
[2017-12-07] MEDS: Cefepime HCl 2 GM in D5W 110 ML IV SCH (08:43)
[2017-12-07] MEDS: Heparin 5000 units/ml inj SUBQ SCH (08:48)
--- NOTE | 2017-12-07 11:53 | Infectious Diseases Prog Note ---
Assessment/Plan Assessment/Plan AMS-resolved -CT head wo: unremarkable UTI (+dysuria) >100k Citrobacter ( high chance of AmpC Rsist ) -I Nitrofurantoin, otherwise S Afebrile, no leukocytosis; mild leukopenia Multiple Sclerosis Obesity Plan: Continue Cefepime # / ( will cont w Invanz or Cefepime to complete the course despite of susceptibility pattern ) -12/03 SP IV Vanco #1 -12/02 SP Ceftriaxone x1 -Monitor CBC/BMP, temperatures -aspiration precautions -neuro f/u Subjective Allergies: Coded Allergies: No Known Allergies (Unverified , 05/21/13) Subjective afebrile dysuria resolved Objective Vital Signs Last 24 Hour Vital Signs Date Time Temp Pulse Resp B/P (MAP) Pulse Ox O2 Delivery O2 Flow Rate FiO2 12/07/17 08:43 90 110/64 12/07/17 08:00 97.8 81 19 120/77 100 12/07/17 04:46 98.7 90 17 110/64 95 12/07/17 00:00 99.0 94 18 115/67 96 12/06/17 20:53 98.4 86 18 107/62 95 12/06/17 16:00 97.6 89 18 115/58 96 12/06/17 12:00 97.8 77 18 112/71 97 Height (Feet): 5 Height (Inches): 8.00 Weight (Pounds): 235 Objective General Appearance: other - Middle-age female, no distress HEENT: normocephalic, atraumatic, bilateral eye PERRL, bilateral eye EOMI, moist mucus membranes Neck: normal inspection, full range of motion, supple Respiratory: normal inspection, lungs clear, normal breath sounds, no respiratory distress, no retraction Cardiovascular: normal inspection, regular rate, rhythm, no edema Gastrointestinal: normal inspection, non tender, soft, non-distended, no guarding Musculoskeletal: normal inspection, back normal, normal range of motion, non- tender Neurologic: AAO x3, no focal deficits Skin: normal inspection, normal color, no rash, warm/dry, well hydrated, normal turgor Laboratory Tests Test 12/07/17 05:00 White Blood Count 3.7 K/UL (4.8-10.8) L Red Blood Count 3.80 M/UL (4.20-5.40) L Hemoglobin 10.1 G/DL (12.0-16.0) L Hematocrit 32.0 % (37.0-47.0) L Mean Corpuscular Volume 84 FL (80-99) Mean Corpuscular Hemoglobin 26.6 PG (27.0-31.0) L Mean Corpuscular Hemoglobin Concent 31.7 G/DL (32.0-36.0) L Red Cell Distribution Width 13.2 % (11.6-14.8) Platelet Count 215 K/UL (150-450) Mean Platelet Volume 6.4 FL (6.5-10.1) L Neutrophils (%) (Auto) 43.4 % (45.0-75.0) L Lymphocytes (%) (Auto) 38.4 % (20.0-45.0) Monocytes (%) (Auto) 8.0 % (1.0-10.0) Eosinophils (%) (Auto) 9.0 % (0.0-3.0) H Basophils (%) (Auto) 1.2 % (0.0-2.0) Sodium Level 141 MMOL/L (136-145) Potassium Level 4.1 MMOL/L (3.5-5.1) Chloride Level 105 MMOL/L (98-107) Carbon Dioxide Level 27 MMOL/L (21-32) Anion Gap 9 mmol/L (5-15) Blood Urea Nitrogen 21 mg/dL (7-18) H Creatinine 1.2 MG/DL (0.55-1.30) Estimat Glomerular Filtration Rate 54.9 mL/min (>60) Glucose Level 79 MG/DL (74-106) Calcium Level 8.0 MG/DL (8.5-10.1) L Current Medications Medications (Trade) Dose Ordered Sig/Maria De Jesus Route PRN Reason Start Time Stop Time Status Last Admin Dose Admin Acetaminophen (Tylenol) 650 mg Q4H PRN ORAL fever 12/02/17 22:15 01/01/18 22:14 Albuterol/ Ipratropium (Albuterol/ Ipratropium) 3 ml EVERY 4 HOURS PRN HHN Shortness of Breath 12/05/17 15:00 12/10/17 23:59 Amlodipine Besylate (Norvasc) 5 mg DAILY ORAL 12/03/17 09:00 01/02/18 08:59 12/07/17 08:43 Atorvastatin Calcium (Lipitor) 10 mg BEDTIME ORAL 12/05/17 21:00 01/04/18 20:59 12/06/17 20:14 Baclofen (Lioresal) 10 mg THREE TIMES A DAY ORAL 12/03/17 09:00 01/02/18 08:59 12/07/17 08:43 Cefepime HCl 2 gm/ Dextrose 110 ml @ 220 mls/hr Q24H IV 12/04/17 09:00 12/11/17 08:59 12/07/17 08:43 Heparin Sodium (Porcine) (Heparin 5000 units/ml) 5,000 units EVERY 12 HOURS SUBQ 12/03/17 09:00 01/02/18 08:59 12/07/17 08:48 Ondansetron HCl (Zofran) 4 mg Q6H PRN IVP Nausea & Vomiting 12/02/17 22:15 01/01/18 22:14 Phenazopyridine HCl (Pyridium) 100 mg DAILY PRN ORAL dysuria 12/02/17 22:15 01/01/18 22:14 Polyethylene Glycol (Miralax) 17 gm DAILYPRN PRN ORAL Constipation 12/02/17 22:15 01/01/18 22:14 Temazepam (Restoril) 15 mg HSPRN PRN ORAL Insomnia 12/02/17 22:15 12/09/17 22:14 Shy Dao M.D. Dec 07, 2017 11:53
[2017-12-07 12:00] VITALS: BP 117/65
[2017-12-07 16:00] VITALS: BP 107/56
--- NOTE | 2017-12-07 16:36 | Pulmonology Progress Note ---
Assessment/Plan Problems: (1) UTI (urinary tract infection) (2) Altered mental status (3) Multiple sclerosis (4) HTN (hypertension) Assessment/Plan improving asymptomatic tolerating diet all notes reviewed, dc planning initiated. pt had popliteal DVT, currently she doens't want any anticoagulation. She will see her primary next week and get another venous US of legs Subjective ROS Limited/Unobtainable: No Constitutional: Reports: no symptoms HEENT: Repors: no symptoms Respiratory: Reports: no symptoms Allergies: Coded Allergies: No Known Allergies (Unverified , 05/21/13) Objective Last 24 Hour Vital Signs Date Time Temp Pulse Resp B/P (MAP) Pulse Ox O2 Delivery O2 Flow Rate FiO2 12/07/17 12:00 98.2 77 19 117/65 98 12/07/17 08:43 90 110/64 12/07/17 08:00 97.8 81 19 120/77 100 12/07/17 04:46 98.7 90 17 110/64 95 12/07/17 00:00 99.0 94 18 115/67 96 12/06/17 20:53 98.4 86 18 107/62 95 Intake and Output 12/06/17 12/07/17 19:00 07:00 Intake Total 750 ml 240 ml Output Total 600 ml Balance 750 ml -360 ml Intake Oral 750 ml 240 ml Output Urine Total 600 ml # Voids 3 Objective General Appearance: WD/WN HEENT: normocephalic, anicteric Respiratory/Chest: chest wall non-tender, normal breath sounds Breasts: no masses Cardiovascular: regular rhythm Genitourinary: normal external genitalia Extremities: no clubbing Skin: no rash, no lesions Laboratory Tests 12/07/17 05:00: White Blood Count 3.7L, Red Blood Count 3.80L, Hemoglobin 10.1L, Hematocrit 32.0L, Mean Corpuscular Volume 84, Mean Corpuscular Hemoglobin 26.6L, Mean Corpuscular Hemoglobin Concent 31.7L, Red Cell Distribution Width 13.2, Platelet Count 215, Mean Platelet Volume 6.4L, Neutrophils (%) (Auto) 43.4L, Lymphocytes (%) (Auto) 38.4, Monocytes (%) (Auto) 8.0, Eosinophils (%) (Auto) 9.0H, Basophils (%) (Auto) 1.2, Sodium Level 141, Potassium Level 4.1, Chloride Level 105, Carbon Dioxide Level 27, Anion Gap 9, Blood Urea Nitrogen 21H, Creatinine 1.2, Estimat Glomerular Filtration Rate 54.9, Glucose Level 79, Calcium Level 8.0L Current Medications Medications (Trade) Dose Ordered Sig/Maria De Jesus Route PRN Reason Start Time Stop Time Status Last Admin Dose Admin Acetaminophen (Tylenol) 650 mg Q4H PRN ORAL fever 12/02/17 22:15 01/01/18 22:14 Albuterol/ Ipratropium (Albuterol/ Ipratropium) 3 ml EVERY 4 HOURS PRN HHN Shortness of Breath 12/05/17 15:00 12/10/17 23:59 Amlodipine Besylate (Norvasc) 5 mg DAILY ORAL 12/03/17 09:00 01/02/18 08:59 12/07/17 08:43 Atorvastatin Calcium (Lipitor) 10 mg BEDTIME ORAL 12/05/17 21:00 01/04/18 20:59 12/06/17 20:14 Baclofen (Lioresal) 10 mg THREE TIMES A DAY ORAL 12/03/17 09:00 01/02/18 08:59 12/07/17 13:35 Heparin Sodium (Porcine) (Heparin 5000 units/ml) 5,000 units EVERY 12 HOURS SUBQ 12/03/17 09:00 01/02/18 08:59 12/07/17 08:48 Ondansetron HCl (Zofran) 4 mg Q6H PRN IVP Nausea & Vomiting 12/02/17 22:15 01/01/18 22:14 Phenazopyridine HCl (Pyridium) 100 mg DAILY PRN ORAL dysuria 12/02/17 22:15 01/01/18 22:14 Polyethylene Glycol (Miralax) 17 gm DAILYPRN PRN ORAL Constipation 12/02/17 22:15 01/01/18 22:14 Temazepam (Restoril) 15 mg HSPRN PRN ORAL Insomnia 12/02/17 22:15 12/09/17 22:14 SOPHIA JOSUE Dec 07, 2017 16:36
--- NOTE | 2017-12-07 17:00 | Internal Med Progress Note ---
Subjective Date of Service: Dec 07, 2017 Physician Name Jesus Kaye Attending Physician Jayesh Gibson MD Current Medications Medications (Trade) Dose Ordered Sig/Maria De Jesus Route PRN Reason Start Time Stop Time Status Last Admin Dose Admin Acetaminophen (Tylenol) 650 mg Q4H PRN ORAL fever 12/02/17 22:15 01/01/18 22:14 Albuterol/ Ipratropium (Albuterol/ Ipratropium) 3 ml EVERY 4 HOURS PRN HHN Shortness of Breath 12/05/17 15:00 12/10/17 23:59 Amlodipine Besylate (Norvasc) 5 mg DAILY ORAL 12/03/17 09:00 01/02/18 08:59 12/07/17 08:43 Atorvastatin Calcium (Lipitor) 10 mg BEDTIME ORAL 12/05/17 21:00 01/04/18 20:59 12/06/17 20:14 Baclofen (Lioresal) 10 mg THREE TIMES A DAY ORAL 12/03/17 09:00 01/02/18 08:59 12/07/17 13:35 Heparin Sodium (Porcine) (Heparin 5000 units/ml) 5,000 units EVERY 12 HOURS SUBQ 12/03/17 09:00 01/02/18 08:59 12/07/17 08:48 Ondansetron HCl (Zofran) 4 mg Q6H PRN IVP Nausea & Vomiting 12/02/17 22:15 01/01/18 22:14 Phenazopyridine HCl (Pyridium) 100 mg DAILY PRN ORAL dysuria 12/02/17 22:15 01/01/18 22:14 Polyethylene Glycol (Miralax) 17 gm DAILYPRN PRN ORAL Constipation 12/02/17 22:15 01/01/18 22:14 Temazepam (Restoril) 15 mg HSPRN PRN ORAL Insomnia 12/02/17 22:15 12/09/17 22:14 Allergies: Coded Allergies: No Known Allergies (Unverified , 05/21/13) ROS Limited/Unobtainable: No Constitutional: Reports: no symptoms HEENT: Reports: no symptoms Cardiovascular: Reports: no symptoms Respiratory: Reports: no symptoms Gastrointestinal/Abdominal: Reports: no symptoms Genitourinary: Reports: no symptoms Neurologic/Psychiatric: Reports: no symptoms Subjective 62 YO F admitted with altered mental status, now UTI. Cover for Int Med-Dr Gibson. Await discharge home today Objective Last Vital Signs Date Time Temp Pulse Resp B/P (MAP) Pulse Ox O2 Delivery O2 Flow Rate FiO2 12/07/17 12:00 98.2 77 19 117/65 98 12/06/17 05:10 Room Air Laboratory Tests Test 12/07/17 05:00 White Blood Count 3.7 K/UL (4.8-10.8) L Red Blood Count 3.80 M/UL (4.20-5.40) L Hemoglobin 10.1 G/DL (12.0-16.0) L Hematocrit 32.0 % (37.0-47.0) L Mean Corpuscular Volume 84 FL (80-99) Mean Corpuscular Hemoglobin 26.6 PG (27.0-31.0) L Mean Corpuscular Hemoglobin Concent 31.7 G/DL (32.0-36.0) L Red Cell Distribution Width 13.2 % (11.6-14.8) Platelet Count 215 K/UL (150-450) Mean Platelet Volume 6.4 FL (6.5-10.1) L Neutrophils (%) (Auto) 43.4 % (45.0-75.0) L Lymphocytes (%) (Auto) 38.4 % (20.0-45.0) Monocytes (%) (Auto) 8.0 % (1.0-10.0) Eosinophils (%) (Auto) 9.0 % (0.0-3.0) H Basophils (%) (Auto) 1.2 % (0.0-2.0) Sodium Level 141 MMOL/L (136-145) Potassium Level 4.1 MMOL/L (3.5-5.1) Chloride Level 105 MMOL/L (98-107) Carbon Dioxide Level 27 MMOL/L (21-32) Anion Gap 9 mmol/L (5-15) Blood Urea Nitrogen 21 mg/dL (7-18) H Creatinine 1.2 MG/DL (0.55-1.30) Estimat Glomerular Filtration Rate 54.9 mL/min (>60) Glucose Level 79 MG/DL (74-106) Calcium Level 8.0 MG/DL (8.5-10.1) L Intake and Output 12/06/17 12/07/17 19:00 07:00 Intake Total 750 ml 240 ml Output Total 600 ml Balance 750 ml -360 ml Intake Oral 750 ml 240 ml Output Urine Total 600 ml # Voids 3 Objective General Appearance: WD/WN, no apparent distress, alert EENT: PERRL/EOMI, normal ENT inspection Neck: non-tender, normal alignment, supple, normal inspection Cardiovascular: normal peripheral pulses, normal rate, regular rhythm, no gallop/murmur, no JVD Respiratory/Chest: chest wall non-tender, lungs clear, normal breath sounds, no accessory muscle use, respiratory distress Abdomen: normal bowel sounds, non tender, soft, no organomegaly, no mass Extremities: normal range of motion, non-tender 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 Due to UTI (4) Multiple sclerosis (5) UTI (urinary tract infection) Assessment & Plan: citrobacter koseri. See ID note. Continue cefepime day 04/02 per ID Assessment/Plan Discharge home today JESUS KAYE Dec 07, 2017 17:00
[2017-12-07 20:00] VITALS: BP 127/80
--- NOTE | 2017-12-09 15:07 | Discharge Summary ---
Discharge Summary Hospital Course Date of Admission Dec 02, 2017 at 18:59 Date of Discharge Dec 07, 2017 at 20:30 Admitting Diagnosis Altered mental status HPI Pura Sepulveda is a 62 year old female who was admitted on Dec 02, 2017 at 18: 59 for Altered Mental Status Hospital Course [id number] Discharge Discharge Disposition Patient was discharged to Home (01) Discharge Diagnoses: Melida Teresa NP Dec 09, 2017 15:07
--- NOTE | 2017-12-09 18:30 | Discharge Summary 2 SIG ---
DATE OF ADMISSION: 12/02/2017 DATE OF DISCHARGE: 12/07/2017 CONSULTANTS: 1. Cherry Timmons M.D. 2. Artemio Soriano M.D. 3. Shy Dao M.D. BRIEF HOSPITAL COURSE: The patient is a 62-year-old female, who presented with chief complaint of altered mental status. The patient was in her usual state of health until 12/02/2017. The patient had been noted that she was acting strange and was unable to be awakened. EMS was called and the patient was taken to [facility] where on evaluation, she was found to have urinary tract infection. She was admitted for altered mental status. Urinalysis showed +1 ketones, +2 leukocyte esterase, and WBC 10-15. CAT scan of the brain was reported to be normal. She was started empirically on cefepime and was continued on lisinopril and amlodipine. She has history of multiple sclerosis and was continued on Copaxone. She underwent neurological evaluation with Dr. Soriano. She was given IV hydration and was placed on Ativan p.r.n. She underwent EEG that showed normal awake, stage 1 sleep EEG with photic stimulation. Urine culture showed growth of Citrobacter. She was given 5 days of cefepime. She had venous duplex of lower extremity done that showed positive for acute DVT in the right leg. Refused anticoagulation. She was continued on heparin 5000 units subcutaneous b.i.d. She was eventually discharged home and advised to repeat venous studies of the leg with PMD. FINAL DIAGNOSES: 1. Altered mental status/acute metabolic encephalopathy due to urinary tract infection. 2. Acute deep venous thrombosis on the right leg. 3. Urinary tract infection. 4. Hypertension. 5. Hypercholesterolemia. 6. Multiple sclerosis. 7. Obesity. 8. Left trochanter stage III pressure ulcer and right buttock resolving stage III pressure ulcer, present on admission. DISPOSITION: The patient was discharged home. DISCHARGE MEDICATIONS: Refer to medication list. DISCHARGE INSTRUCTIONS: Follow up with PMD for a repeat venous duplex within a week. Jayesh Gibson M.D. I have been assigned to dictate discharge summary on this account and I was not involved in the patient's management. Melida Teresa N.P. DR: Rudy JOB#: [id number] CC: NATALIE
--- NOTE | 2017-12-11 16:09 | Cardiology Report ---
APPROVED REPORT EKG Measurement Heart [id number] Normal sinus rhythm with sinus arrhythmia Normal ECG
== END 2017-12-07 20:30 | disposition home or self-care (01) | DRG 463 ==
LOC: EDBD 13:48 → EMR 14:00 → 3E 18:59 → EDBEDREQ 23:04
DX: N39.0 Urinary tract infection, site not specified (principal); G93.41 Metabolic encephalopathy; L89.223 Pressure ulcer of left hip, stage 3; L89.313 Pressure ulcer of right buttock, stage 3; I82.431 Acute embolism and thrombosis of right popliteal vein; I10 Essential (primary) hypertension; E66.9 Obesity, unspecified; G35 Multiple sclerosis; R32 Unspecified urinary incontinence; E78.5 Hyperlipidemia, unspecified; H40.9 Unspecified glaucoma; M17.0 Bilateral primary osteoarthritis of knee; Z68.35 Body mass index [BMI] 35.0-35.9, adult; Z87.440 Personal history of urinary (tract) infections
CPT/HCPCS: 36415; 70450; 71045; 80048; 80053; 80061; 81003; 82550; 83880; 84484; 85025; 87081; 87086; 87181; 93005; 93970; 95819; 99285

== ENCOUNTER 2018-03-28 05:15 | Inpatient (IN) | payer OTHER ==
[~2018-03-28] VITALS: Ht 172.7 cm; Wt 90.7 kg
[~2018-03-28 05:15] MED LIST changes: +AMLODIPINE BESYL5 MG ORAL; +LISINOPRIL5 MG ORAL; +LORAZEPAM1 MG ORAL; +NITROFURAN25 MG/5 ML PO; +NORCO 10-325 T1 EACH ORAL; +VITAMIN D250000 UNI1 ORAL
--- NOTE | 2018-03-28 05:40 | Emergency Room Report ---
History of Present Illness General Chief Complaint: Multiple Trauma/Fall Source: Patient, Medical Record Present Illness HPI This patient has a history of multiple sclerosis. She presents with chief complaint multiple for the last week. Occurring when she transfers herself from wheelchair. Increasing weakness. No particular focal deficit. No slurred speech. No fever chills but no nausea no vomiting. No trauma from her fall. Allergies: Coded Allergies: No Known Allergies (Unverified , 05/21/13) Patient History Past Medical History: see triage record, old chart reviewed Past Surgical History: other Pertinent Family History: none Social History: Denies: smoking Now: No Immunizations: other Reviewed Nursing Documentation: PMH: Agreed; PSxH: Agreed Nursing Documentation-PMH Past Medical History: No History, Except For Hx Cardiac Problems: Yes - High Cholesterol Hx Hypertension: Yes Hx Cancer: No Hx Gastrointestinal Problems: Yes Hx Neurological Problems: Yes - MS; Glaucoma Hx Multiple Sclerosis: Yes - 2009 Hx Weakness: Yes Review of Systems Eye: Denies: eye pain, blurred vision ENT: Denies: ear pain, nose congestion, throat swelling Respiratory: Denies: cough, shortness of breath Cardiovascular: Denies: chest pain, palpitations Gastrointestinal: Denies: abdominal pain, diarrhea, nausea, vomiting Musculoskeletal: Denies: back pain, joint pain Skin: Denies: rash Neurological: Denies: headache, numbness Endocrine: Denies: increased thirst, increased urine Hematologic/Lymphatic: Denies: easy bruising All Other Systems: negative except mentioned in HPI Physical Exam Vital Signs Date Time Temp Pulse Resp B/P (MAP) Pulse Ox O2 Delivery O2 Flow Rate FiO2 03/28/18 05:17 98.3 87 16 136/80 98 Room Air 98.2 vitals normal Sp02 EP Interpretation: reviewed, normal General Appearance: well appearing, no apparent distress, alert, obese Head: normocephalic, atraumatic Eyes: bilateral eye PERRL, bilateral eye EOMI ENT: hearing grossly normal, normal pharynx Neck: full range of motion, supple, no meningismus Respiratory: chest non-tender, lungs clear, normal breath sounds Cardiovascular #1: regular rate, rhythm, no murmur Gastrointestinal: normal bowel sounds, non tender, no mass, no organomegaly, no bruit, non-distended Musculoskeletal: back normal, other - lower extremity lymphedema Psychiatric: mood/affect normal Skin: warm/dry Medical Decision Making Diagnostic Impression: Primary Impression: Fall Qualified Codes: W19.XXXA - Unspecified fall, initial encounter Additional Impression: MS (multiple sclerosis) ER Course Patient with weakness and multiple falls from her MS exacerbation. Labs sent. Urine check to see if she has urinary tract infection. Patient will be admitted for IV fluid and rehabilitation. Patient was admitted to Dr. Gibson prior. I will contact him for admission. Last Vital Signs Date Time Temp Pulse Resp B/P (MAP) Pulse Ox O2 Delivery O2 Flow Rate FiO2 03/28/18 05:17 98.3 87 16 136/80 98 Room Air 98.2 Status: unchanged Disposition: ADMITTED INPATIENT Condition: Serious Referrals: [facility],REFERRING (PCP) MIRTA GAFFNEY M.D. Mar 28, 2018 05:40
[2018-03-28 06:31] VITALS: BP 121/88
[2018-03-28 06:40] LABS: HEMOGLOBIN 12.1 G/DL (12.0-16.0); MEAN CORPUSCULAR VOLUME 82 FL (80-99); PLATELET COUNT 225 K/UL (150-450); RED BLOOD COUNT 4.52 M/UL (4.20-5.40); RED CELL DISTRIBUTION WIDTH 13.1 % (11.6-14.8)
[2018-03-28 06:45] LABS: ANION GAP 5 mmol/L (5-15); BLOOD UREA NITROGEN 14 mg/dL (7-18); CALCIUM 9.3 MG/DL (8.5-10.1); CARBON DIOXIDE 32 MMOL/L (21-32); CHLORIDE 101 MMOL/L (98-107); CREATININE 1.1 MG/DL (0.55-1.30); POTASSIUM 3.7 MMOL/L (3.5-5.1); SODIUM 138 MMOL/L (136-145)
[2018-03-28 06:48] LABS: APPEARANCE,URINE CLEAR; BILIRUBIN, URINE NEGATIVE (NEGATIVE); GLUCOSE, URINE (UA) NEGATIVE (NEGATIVE); KETONES,URINE 2+ (NEGATIVE); LEUKOCYTE ESTERASE ,URINE NEGATIVE (NEGATIVE); NITRITE,URINE NEGATIVE (NEGATIVE); PH,URINE 8 (4.5-8.0); PROTEIN,URINE NEGATIVE (NEGATIVE); UROBILINOGEN,URINE 1 MG/DL (0.0-1.0)
[2018-03-28 06:54] LABS: COLOR,URINE YELLOW
[2018-03-28] MEDS ORDERED: LATANOPROST2.5 ML BOTH EYES (07:05)
[2018-03-28 09:56] VITALS: BP 99/51
[2018-03-28 10:43] VITALS: BP 99/57
[2018-03-28] MEDS ORDERED: HYDROcodone/Acetamin 10/325 tab ORAL PRN (12:15)
[2018-03-28] MEDS ORDERED: Naproxen 500mg tab ORAL PRN (12:15)
[2018-03-28] MEDS ORDERED: Artificial Tears 1.4% Op Soln BOTH EYES PRN (12:15)
[2018-03-28] MEDS ORDERED: Zolpidem 5mg tab ORAL PRN (12:15)
--- NOTE | 2018-03-28 12:23 | History & Physical ---
History and Physical History & Physicial Dictated for Int Med Dr Gibson no. [id number]. HALEY KAYE Mar 28, 2018 12:23
[2018-03-28] MEDS ORDERED: Lisinopril 20mg tab ORAL SCH (13:00)
[2018-03-28] MEDS ORDERED: Tums 500mg ORAL SCH (13:00)
[2018-03-28] MEDS ORDERED: LORazepam 1mg tab ORAL PRN (13:00)
--- NOTE | 2018-03-28 15:10 | Consultation ---
History of Present Illness General Date patient seen: Mar 28, 2018 Chief Complaint: Multiple Trauma/Fall Referring physician: Dr. Aceves Reason for Consultation: inpatient manangement Present Illness HPI 62 year old female with a history of multiple sclerosis presented to ER with chief complaint of multiple falls for the last week. Occurring when she transfers herself from wheelchair. Increasing weakness. No particular focal deficit. No slurred speech. No fever chills but no nausea no vomiting. No trauma from her fall. She thinks that she has an exacerbation of her MS. She is admitted for further evaluation. Allergies: Coded Allergies: No Known Allergies (Unverified , 05/21/13) Medication History Scheduled Amlodipine Besylate* (Amlodipine Besylate*), 5 MG ORAL DAILY, (Reported) Artificial Tears* (Murocel*), 1 DROP .ROUTE PRN, (Reported) Baclofen* (Baclofen*), 10 MG ORAL THREE TIMES A DAY, (Reported) Calcium Carbonate (Calcium), 600 MG PO DAILY, (Reported) Docusate Sodium* (Colace*), 100 MG ORAL BID, (Reported) Ergocalciferol (Vitamin D2)* (Vitamin D*), 50,000 UNIT ORAL ONCE A WEEK, ( Reported) Gabapentin* (Gabapentin*), 300 MG ORAL THREE TIMES A DAY, (Reported) Glatiramer Acetate (Copaxone), 20 MG SUBQ DAILY, (Reported) Hydrochlorothiazide* (Hydrochlorothiazide*), 12.5 MG ORAL DAILY, (Reported) Latanoprost* (Xalatan*), 1 DROP BOTH EYES BEDTIME, (Reported) Lisinopril (Lisinopril*), 20 MG ORAL DAILY, (Reported) Lisinopril (Lisinopril*), 2.5 MG ORAL DAILY, (Reported) Lorazepam* (Lorazepam*), 1 MG ORAL THREE TIMES A DAY, (Reported) Naproxen* (Naprosyn*), 500 MG PO BID, (Reported) Oxybutynin Chloride (Oxybutynin Chloride), 20 MG PO TID, (Reported) Simvastatin (Zocor), 20 MG ORAL BEDTIME, (Reported) Scheduled PRN Hydrocodone Bit/Acetaminophen 10-325* ([place] 10-325*), 1 TAB ORAL Q6HR PRN for For Pain, (Reported) Miscellaneous Medications Nitrofurantoin (Nitrofurantoin), 100 MG PO, (Reported) Patient History Healthcare decision maker Resuscitation status Advanced Directive on File Past Medical/Surgical History Past Medical/Surgical History: (1) MS (multiple sclerosis) (2) HTN (hypertension) (3) Hypercholesteremia Review of Systems Constitutional: Reports: malaise, weakness All Other Systems: negative except mentioned in HPI Physical Exam General Appearance: WD/WN Lines, tubes and drains: peripheral HEENT: normocephalic, atraumatic Neck: non-tender, supple Respiratory/Chest: chest wall non-tender, lungs clear, decreased breath sounds Cardiovascular/Chest: normal peripheral pulses, normal rate Abdomen: normal bowel sounds, non tender Genitourinary/Rectal: normal genital exam, normal rectal exam Extremities: normal range of motion Skin Exam: normal pigmentation Last 24 Hour Vital Signs Date Time Temp Pulse Resp B/P (MAP) Pulse Ox O2 Delivery O2 Flow Rate FiO2 03/28/18 14:29 114 84/84 03/28/18 14:28 114/56 03/28/18 10:43 98.4 80 18 99/57 96 98.4 03/28/18 09:56 98.5 99 18 99/51 100 Room Air 98.5 03/28/18 06:31 98.5 99 18 121/88 100 Room Air 98.5 03/28/18 05:17 98.3 87 16 136/80 98 Room Air 98.2 Laboratory Tests Test 03/28/18 05:55 03/28/18 06:21 White Blood Count 5.0 K/UL (4.8-10.8) Red Blood Count 4.52 M/UL (4.20-5.40) Hemoglobin 12.1 G/DL (12.0-16.0) Hematocrit 37.0 % (37.0-47.0) Mean Corpuscular Volume 82 FL (80-99) Mean Corpuscular Hemoglobin 26.7 PG (27.0-31.0) L Mean Corpuscular Hemoglobin Concent 32.6 G/DL (32.0-36.0) Red Cell Distribution Width 13.1 % (11.6-14.8) Platelet Count 225 K/UL (150-450) Mean Platelet Volume 6.6 FL (6.5-10.1) Neutrophils (%) (Auto) % (45.0-75.0) Lymphocytes (%) (Auto) % (20.0-45.0) Monocytes (%) (Auto) % (1.0-10.0) Eosinophils (%) (Auto) % (0.0-3.0) Basophils (%) (Auto) % (0.0-2.0) Differential Total Cells Counted 100 Neutrophils % (Manual) 65 % (45-75) Lymphocytes % (Manual) 28 % (20-45) Monocytes % (Manual) 7 % (1-10) Eosinophils % (Manual) 0 % (0-3) Basophils % (Manual) 0 % (0-2) Band Neutrophils 0 % (0-8) Platelet Estimate Adequate Platelet Morphology Normal Red Blood Cell Morphology Normal Sodium Level 138 MMOL/L (136-145) Potassium Level 3.7 MMOL/L (3.5-5.1) Chloride Level 101 MMOL/L (98-107) Carbon Dioxide Level 32 MMOL/L (21-32) Anion Gap 5 mmol/L (5-15) Blood Urea Nitrogen 14 mg/dL (7-18) Creatinine 1.1 MG/DL (0.55-1.30) Estimat Glomerular Filtration Rate > 60 mL/min (>60) Glucose Level 129 MG/DL (74-106) H Calcium Level 9.3 MG/DL (8.5-10.1) Urine Color Yellow Urine Appearance Clear Urine pH 8 (4.5-8.0) Urine Specific [place] 1.010 (1.005-1.035) Urine Protein Negative (NEGATIVE) Urine Glucose (UA) Negative (NEGATIVE) Urine Ketones 2+ (NEGATIVE) H Urine Occult Blood Negative (NEGATIVE) Urine Nitrite Negative (NEGATIVE) Urine Bilirubin Negative (NEGATIVE) Urine Urobilinogen 1 MG/DL (0.0-1.0) H Urine Leukocyte Esterase Negative (NEGATIVE) Urine RBC 0-2 /HPF (0 - 2) Urine WBC 0-2 /HPF (0 - 2) Urine Squamous Epithelial Cells Occasional /LPF Urine Bacteria Occasional /HPF (NONE) Height (Feet): 5 Height (Inches): 8.00 Weight (Pounds): 200 Medications Current Medications Medications (Trade) Dose Ordered Sig/Maria De Jesus Route PRN Reason Start Time Stop Time Status Last Admin Dose Admin Acetaminophen (Tylenol) 650 mg Q4H PRN ORAL Mild Pain (Pain Scale 1-3) 03/28/18 12:15 04/27/18 12:14 Acetaminophen (Tylenol) 650 mg Q4H PRN ORAL fever (temp>100.5F) 03/28/18 12:15 04/27/18 12:14 Acetaminophen/ Hydrocodone Bitart ([place] 10/325) 1 tab Q6H PRN ORAL Severe Pain (Pain Scale 7-10) 03/28/18 12:15 04/04/18 12:14 Amlodipine Besylate (Norvasc) 5 mg DAILY ORAL 03/29/18 09:00 04/28/18 08:59 Artificial Tears (Akwa-Tears) 1 drop Q6H PRN BOTH EYES dry eyes 03/28/18 12:15 04/27/18 12:14 Atorvastatin Calcium (Lipitor) 20 mg BEDTIME ORAL 03/28/18 21:00 04/27/18 20:59 Baclofen (Lioresal) 10 mg THREE TIMES A DAY ORAL 03/28/18 13:00 04/27/18 12:59 03/28/18 14:29 Calcium Carbonate (Tums) 500 mg DAILY ORAL 03/29/18 09:00 04/28/18 08:59 Dextrose (Dextrose 50%) 25 ml STAT PRN IV Hypoglycemia 03/28/18 12:15 04/27/18 12:14 Dextrose (Dextrose 50%) 50 ml STAT PRN IV Hypoglycemia 03/28/18 12:15 04/27/18 12:14 Ergocalciferol (Drisdol) 50,000 intlu ONCE A WEEK ORAL 04/03/18 09:00 05/03/18 08:59 Gabapentin (Neurontin) 300 mg THREE TIMES A DAY ORAL 03/28/18 13:00 04/27/18 12:59 03/28/18 14:29 Heparin Sodium (Porcine) (Heparin 5000 units/ml) 5,000 units EVERY 12 HOURS SUBQ 03/28/18 21:00 04/27/18 20:59 Hydrochlorothiazide (Hydrodiuril) 12.5 mg DAILY ORAL 03/29/18 09:00 04/28/18 08:59 Latanoprost (Xalatan) 1 drop BEDTIME BOTH EYES 03/28/18 21:00 04/27/18 20:59 Lisinopril (Prinivil) 20 mg DAILY ORAL 03/29/18 09:00 04/28/18 08:59 Lorazepam (Ativan) 1 mg TIDPRN PRN ORAL For Anxiety 03/28/18 13:00 04/04/18 12:59 Naproxen (Naprosyn) 500 mg BIDPRN PRN ORAL Moderate Pain (Pain Scale 4-6) 03/28/18 12:15 04/27/18 12:14 Oxybutynin Chloride (Ditropan) 5 mg QID ORAL 03/28/18 18:00 04/27/18 17:59 Pantoprazole (Protonix) 40 mg DAILY ORAL 03/29/18 09:00 04/28/18 08:59 Zolpidem Tartrate (Ambien) 5 mg HSPRN PRN ORAL Insomnia 03/28/18 12:15 04/04/18 12:14 Assessment/Plan Problem List: (1) Failure to thrive SNOMED: 51953186 (2) HTN (hypertension) ICD Codes: I10 - Essential (primary) hypertension SNOMED: 54755580 (3) MS (multiple sclerosis) ICD Codes: G35 - Multiple sclerosis SNOMED: 52489366 Assessment/Plan Neuro evaluation symptomatic treatment monitor BP watch for occult infection dvt prophylaxis pt/ot Cherry Timmons MD Mar 28, 2018 15:10
[2018-03-28 16:27] VITALS: BP 113/53
--- NOTE | 2018-03-28 16:30 | History and Physical Report ---
DATE OF ADMISSION: 03/28/2018 CHIEF COMPLAINT: The patient is a 62-year-old female, presents with a chief complaint of frequent falls. HISTORY OF PRESENT ILLNESS: The patient has a history of multiple sclerosis. The patient was diagnosed in 2007. Over the last 5 days, the patient has been experiencing increasing weakness. The patient complains of frequent falling while transferring from the wheelchair to the bed and vice versa. The patient presented to [place] emergency room. The patient is admitted for generalized weakness to rule out acute exacerbation of multiple sclerosis. PAST MEDICAL HISTORY: 00:44. REVIEW OF SYSTEMS: CONSTITUTIONAL: The patient denies weight loss or weight gain. The patient denies fevers or chills. HEENT: The patient denies ear or throat pain. The patient denies headache. CARDIOVASCULAR: The patient has palpitations or chest pain. CHEST: The patient denies wheezing or shortness of breath. ABDOMINAL: The patient denies nausea, vomiting, diarrhea, or constipation. GENITOURINARY: The patient denies dysuria or increased frequency of urination. NEUROMUSCULAR: The patient complains of generalized weakness as above. The patient denies seizures. PAST MEDICAL HISTORY: Significant for: 1. Multiple sclerosis, diagnosed in 2007. 2. Hypertension. 3. Hypercholesterolemia. 4. History of cataracts. PAST SURGICAL HISTORY: Significant for, 1. Tonsillectomy/adenoidectomy. 2. Dilation and curettage. CURRENT MEDICATIONS: 1. Amlodipine 5 mg p.o. daily. 2. Baclofen 10 mg p.o. 3 times daily. 3. Calcium carbonate 600 mg p.o. daily. 4. Vitamin D 50,000 units p.o. weekly. 5. Gabapentin 300 mg p.o. 3 times daily. 6. Copaxone 20 mg subcutaneously daily. 7. Hydrochlorothiazide 12.5 mg p.o. daily. 8. [place] 10/325 mg one tablet p.o. q.6 h. 9. Xalatan one drop to both eyes nightly. 10. Lisinopril 20 mg p.o. daily. 11. Naprosyn 500 mg p.o. twice daily. 12. Oxybutynin 20 mg p.o. 3 times daily. 13. Zocor 20 mg p.o. at bedtime. ALLERGIES: No known drug allergies. SOCIAL HISTORY: The patient lives at home with her significant other. The patient denies tobacco or alcohol use. PHYSICAL EXAMINATION: VITAL SIGNS: Temperature 98.3, respirations 16, pulse 87, blood pressure 136/80. GENERAL: The patient is well developed and well nourished, slightly obese, female, in no apparent distress. HEENT: Eyes, pupils equal responsive to light and accommodation. Extraocular movements are intact. NECK: Supple without lymphadenopathy. LUNGS: Clear to auscultation bilaterally without wheezes or rales. CARDIOVASCULAR: Regular rate. S1, S2 are normal without murmurs, rubs, or gallops. ABDOMEN: Soft, nontender, and nondistended. Positive bowel sounds. No evidence of hepatosplenomegaly. Currently no rebound or guarding noted. EXTREMITIES: Negative for clubbing, cyanosis, or edema. RECTAL/GENITAL: Refused. NEUROLOGIC: Cranial nerves II to XII are grossly intact without focal deficits. Motor strength is 3/5 bilaterally. Deep tendon reflexes are 2+ plantar. LABORATORY STUDIES: WBC 5.2, hemoglobin 12.1, hematocrit 37.0, platelets 225,000. Sodium 138, potassium 3.7, chloride 101, CO2 32, BUN 14, creatinine 1.1, glucose 129. ASSESSMENT: This is a 62-year-old, female: 1. Generalized weakness. 2. Multiple sclerosis, acute exacerbation. 3. Hypertension. 4. Hypercholesterolemia. 5. Generalized weakness/multiple sclerosis. A Neurology consultation has been obtained with Dr. Tip Chavira. Continue Copaxone as above. We will follow recommendations of Neurology. 6. Hypertension. Continue Norvasc and lisinopril as above. 7. Hypercholesterolemia. Jesus Aceves M.D. DR: SAM JOB#: [id number] CC:
[2018-03-28] MEDS: Oxybutynin 5mg tab ORAL SCH ×2 (17:32→21:20)
[2018-03-28] MEDS ORDERED: TIMOPTIC 0.5%1 DROP BOTH EYES (17:50)
[2018-03-28 19:40] VITALS: BP 111/62
[2018-03-28] MEDS: Atorvastatin 20mg tab ORAL SCH (21:20)
[2018-03-28] MEDS: Timolol 0.5% Op Soln 2.5ml BOTH EYES SCH (21:20)
[2018-03-28] MEDS: Latanoprost 0.005% Opth 2.5ml Soln BOTH EYES SCH (21:20)
[2018-03-28] MEDS: Heparin 5000 units/ml inj SUBQ SCH (21:24)
[2018-03-28 23:51] VITALS: BP 150/84
[2018-03-29 04:04] VITALS: BP 101/57
[2018-03-29 07:21] LABS: ANION GAP 6 mmol/L (5-15); BLOOD UREA NITROGEN 13 mg/dL (7-18); CALCIUM 8.5 MG/DL (8.5-10.1); CARBON DIOXIDE 30 MMOL/L (21-32); CHLORIDE 107 MMOL/L (98-107); CREATININE 1.1 MG/DL (0.55-1.30); POTASSIUM 3.9 MMOL/L (3.5-5.1); SODIUM 142 MMOL/L (136-145)
[2018-03-29 07:22] LABS: BASOPHILS % (AUTO) 1.4 % (0.0-2.0); EOSINOPHILS % (AUTO) 4.1 % (0.0-3.0); HEMATOCRIT 30.7 % (37.0-47.0); HEMOGLOBIN 10.2 G/DL (12.0-16.0); LYMPHOCYTES % (AUTO) 39.2 % (20.0-45.0); MEAN CORPUSCULAR VOLUME 82 FL (80-99); MONOCYTES % (AUTO) 9.4 % (1.0-10.0); NEUTROPHILS % (AUTO) 45.9 % (45.0-75.0); PLATELET COUNT 204 K/UL (150-450); RED BLOOD COUNT 3.74 M/UL (4.20-5.40); RED CELL DISTRIBUTION WIDTH 13.2 % (11.6-14.8); WHITE BLOOD COUNT 3.6 K/UL (4.8-10.8)
[2018-03-29 08:00] VITALS: BP 98/58
[2018-03-29] MEDS ORDERED: Lisinopril 20mg tab ORAL SCH (09:00)
[2018-03-29] MEDS ORDERED: hydroCHLOROthiazide 12.5mg TAB ORAL SCH (09:00)
[2018-03-29] MEDS: Tums 500mg ORAL SCH (09:13)
[2018-03-29] MEDS: Oxybutynin 5mg tab ORAL SCH ×4 (09:28→20:18)
[2018-03-29] MEDS: Heparin 5000 units/ml inj SUBQ SCH ×2 (09:36→20:18)
[2018-03-29] MEDS: Timolol 0.5% Op Soln 2.5ml BOTH EYES SCH ×3 (09:50→17:52)
[2018-03-29 10:12] LABS: APPEARANCE,URINE SLIGHTLY CLOUDY; BILIRUBIN, URINE NEGATIVE (NEGATIVE); COLOR,URINE PALE YELLOW; GLUCOSE, URINE (UA) NEGATIVE (NEGATIVE); KETONES,URINE NEGATIVE (NEGATIVE); LEUKOCYTE ESTERASE ,URINE 2+ (NEGATIVE); NITRITE,URINE POSITIVE (NEGATIVE); PH,URINE 8 (4.5-8.0); PROTEIN,URINE 3+ (NEGATIVE); UROBILINOGEN,URINE NORMAL MG/DL (0.0-1.0)
[2018-03-29 12:00] VITALS: BP 130/63
--- NOTE | 2018-03-29 15:11 | Pulmonology Progress Note ---
Assessment/Plan Problems: (1) UTI (urinary tract infection) (2) MS (multiple sclerosis) (3) Failure to thrive (4) HTN (hypertension) Assessment/Plan start levofloxacin check cultures awaiting neuro evaluation pt/ot dvt prophylaxis symptomatic treatment. Subjective ROS Limited/Unobtainable: No Allergies: Coded Allergies: No Known Allergies (Unverified , 05/21/13) Objective Last 24 Hour Vital Signs Date Time Temp Pulse Resp B/P (MAP) Pulse Ox O2 Delivery O2 Flow Rate FiO2 03/29/18 12:00 97.7 73 20 130/63 97 Room Air 97.7 03/29/18 09:33 83 104/68 03/29/18 09:25 104/68 03/29/18 08:00 98.1 92 18 98/58 97 Room Air 98.1 03/29/18 04:04 99.1 82 20 101/57 90 Room Air 99.1 03/28/18 23:51 99.5 92 20 150/84 96 Room Air 99.5 03/28/18 19:40 100.2 90 20 111/62 97 Room Air 100.2 03/28/18 18:10 98.6 103 18 113/53 99 Room Air 98.6 03/28/18 16:27 98.6 103 18 113/53 99 98.6 Intake and Output 03/28/18 03/29/18 19:00 07:00 Intake Total 480 ml Balance 480 ml Intake Oral 480 ml # Voids 2 3 # Bowel Movements 1 1 General Appearance: WD/WN HEENT: normocephalic, atraumatic Respiratory/Chest: chest wall non-tender, lungs clear Cardiovascular: normal peripheral pulses, normal rate Abdomen: normal bowel sounds, soft, non tender Genitourinary: normal external genitalia Extremities: no cyanosis 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, no motor/sensory deficits Laboratory Tests 03/29/18 01:37: Urine Color Pale yellow, Urine Appearance Slightly cloudy, Urine pH 8, Urine Specific [place] 1.010, Urine Protein 3+H, Urine Glucose (UA) Negative, Urine Ketones Negative, Urine Occult Blood 2+H, Urine Nitrite PositiveH, Urine Bilirubin Negative, Urine Urobilinogen Normal, Urine Leukocyte Esterase 2+H, Urine RBC 2-4H, Urine WBC 40-60H, Urine Squamous Epithelial Cells Few, Urine Bacteria ModerateH 5/1/18 05:40: White Blood Count 3.6L, Red Blood Count 3.74L, Hemoglobin 10.2L, Hematocrit 30.7L, Mean Corpuscular Volume 82, Mean Corpuscular Hemoglobin 27.2, Mean Corpuscular Hemoglobin Concent 33.1, Red Cell Distribution Width 13.2, Platelet Count 204, Mean Platelet Volume 6.6, Neutrophils (%) (Auto) 45.9, Lymphocytes (% ) (Auto) 39.2, Monocytes (%) (Auto) 9.4, Eosinophils (%) (Auto) 4.1H, Basophils (%) (Auto) 1.4, Sodium Level 142, Potassium Level 3.9, Chloride Level 107, Carbon Dioxide Level 30, Anion Gap 6, Blood Urea Nitrogen 13, Creatinine 1.1, Estimat Glomerular Filtration Rate > 60, Glucose Level 87, Calcium Level 8.5 Current Medications Medications (Trade) Dose Ordered Sig/Maria De Jesus Route PRN Reason Start Time Stop Time Status Last Admin Dose Admin Acetaminophen (Tylenol) 650 mg Q4H PRN ORAL Mild Pain (Pain Scale 1-3) 03/28/18 12:15 04/27/18 12:14 03/28/18 23:53 Acetaminophen (Tylenol) 650 mg Q4H PRN ORAL fever (temp>100.5F) 03/28/18 12:15 04/27/18 12:14 Acetaminophen/ Hydrocodone Bitart ([place] 10/325) 1 tab Q6H PRN ORAL Severe Pain (Pain Scale 7-10) 03/28/18 12:15 04/04/18 12:14 Amlodipine Besylate (Norvasc) 5 mg DAILY ORAL 03/29/18 09:00 04/28/18 08:59 03/29/18 09:33 Artificial Tears (Akwa-Tears) 1 drop Q6H PRN BOTH EYES dry eyes 03/28/18 12:15 04/27/18 12:14 Atorvastatin Calcium (Lipitor) 20 mg BEDTIME ORAL 03/28/18 21:00 04/27/18 20:59 03/28/18 21:20 Baclofen (Lioresal) 10 mg THREE TIMES A DAY ORAL 03/28/18 13:00 04/27/18 12:59 03/29/18 12:38 Calcium Carbonate (Tums) 500 mg DAILY ORAL 03/29/18 09:00 04/28/18 08:59 03/29/18 09:13 Dextrose (Dextrose 50%) 25 ml STAT PRN IV Hypoglycemia 03/28/18 12:15 04/27/18 12:14 Dextrose (Dextrose 50%) 50 ml STAT PRN IV Hypoglycemia 03/28/18 12:15 04/27/18 12:14 Ergocalciferol (Drisdol) 50,000 intlu ONCE A WEEK ORAL 04/03/18 09:00 05/03/18 08:59 Gabapentin (Neurontin) 300 mg THREE TIMES A DAY ORAL 03/28/18 13:00 04/27/18 12:59 03/29/18 12:38 Heparin Sodium (Porcine) (Heparin 5000 units/ml) 5,000 units EVERY 12 HOURS SUBQ 03/28/18 21:00 04/27/18 20:59 03/29/18 09:36 Hydrochlorothiazide (Hydrodiuril) 12.5 mg DAILY ORAL 03/29/18 09:00 04/28/18 08:59 03/29/18 09:49 Latanoprost (Xalatan) 1 drop BEDTIME BOTH EYES 03/28/18 21:00 04/27/18 20:59 03/28/18 21:20 Lisinopril (Prinivil) 20 mg DAILY ORAL 03/29/18 09:00 04/28/18 08:59 03/29/18 09:25 Lorazepam (Ativan) 1 mg TIDPRN PRN ORAL For Anxiety 03/28/18 13:00 04/04/18 12:59 Naproxen (Naprosyn) 500 mg BIDPRN PRN ORAL Moderate Pain (Pain Scale 4-6) 03/28/18 12:15 04/27/18 12:14 Oxybutynin Chloride (Ditropan) 5 mg QID ORAL 03/28/18 18:00 04/27/18 17:59 03/29/18 12:38 Pantoprazole (Protonix) 40 mg DAILY ORAL 03/29/18 09:00 04/28/18 08:59 03/29/18 09:27 Timolol Maleate (Timoptic 0.5% Op Soln) 1 drop TID BOTH EYES 03/28/18 19:30 04/27/18 19:29 03/29/18 12:38 Zolpidem Tartrate (Ambien) 5 mg HSPRN PRN ORAL Insomnia 03/28/18 12:15 04/04/18 12:14 Cherry Timmons MD March 29, 2018 15:11
[2018-03-29 16:00] VITALS: BP 87/59
[2018-03-29] MEDS ORDERED: Gadavist 7.5mMol/7.5ml vial IV PRN ×2 (17:30)
--- NOTE | 2018-03-29 17:36 | Internal Med Progress Note ---
Subjective Date of Service: March 29, 2018 Physician Name Jesus Kaye Attending Physician Jayesh Gibson MD Current Medications Medications (Trade) Dose Ordered Sig/Maria De Jesus Route PRN Reason Start Time Stop Time Status Last Admin Dose Admin Acetaminophen (Tylenol) 650 mg Q4H PRN ORAL Mild Pain (Pain Scale 1-3) 03/28/18 12:15 04/27/18 12:14 03/28/18 23:53 Acetaminophen (Tylenol) 650 mg Q4H PRN ORAL fever (temp>100.5F) 03/28/18 12:15 04/27/18 12:14 Acetaminophen/ Hydrocodone Bitart ([place] 10/325) 1 tab Q6H PRN ORAL Severe Pain (Pain Scale 7-10) 03/28/18 12:15 04/04/18 12:14 Amlodipine Besylate (Norvasc) 5 mg DAILY ORAL 03/29/18 09:00 04/28/18 08:59 03/29/18 09:33 Artificial Tears (Akwa-Tears) 1 drop Q6H PRN BOTH EYES dry eyes 03/28/18 12:15 04/27/18 12:14 Atorvastatin Calcium (Lipitor) 20 mg BEDTIME ORAL 03/28/18 21:00 04/27/18 20:59 03/28/18 21:20 Baclofen (Lioresal) 10 mg THREE TIMES A DAY ORAL 03/28/18 13:00 04/27/18 12:59 03/29/18 12:38 Calcium Carbonate (Tums) 500 mg DAILY ORAL 03/29/18 09:00 04/28/18 08:59 03/29/18 09:13 Dextrose (Dextrose 50%) 25 ml STAT PRN IV Hypoglycemia 03/28/18 12:15 04/27/18 12:14 Dextrose (Dextrose 50%) 50 ml STAT PRN IV Hypoglycemia 03/28/18 12:15 04/27/18 12:14 Ergocalciferol (Drisdol) 50,000 intlu ONCE A WEEK ORAL 04/03/18 09:00 05/03/18 08:59 Gabapentin (Neurontin) 300 mg THREE TIMES A DAY ORAL 03/28/18 13:00 04/27/18 12:59 03/29/18 12:38 Heparin Sodium (Porcine) (Heparin 5000 units/ml) 5,000 units EVERY 12 HOURS SUBQ 03/28/18 21:00 04/27/18 20:59 03/29/18 09:36 Hydrochlorothiazide (Hydrodiuril) 12.5 mg DAILY ORAL 03/29/18 09:00 04/28/18 08:59 03/29/18 09:49 Latanoprost (Xalatan) 1 drop BEDTIME BOTH EYES 03/28/18 21:00 04/27/18 20:59 03/28/18 21:20 Levofloxacin 100 ml @ 100 mls/hr Q24H IVPB 03/29/18 16:00 04/05/18 15:59 03/29/18 16:28 Lisinopril (Prinivil) 20 mg DAILY ORAL 03/29/18 09:00 04/28/18 08:59 03/29/18 09:25 Lorazepam (Ativan) 1 mg TIDPRN PRN ORAL For Anxiety 03/28/18 13:00 04/04/18 12:59 Naproxen (Naprosyn) 500 mg BIDPRN PRN ORAL Moderate Pain (Pain Scale 4-6) 03/28/18 12:15 04/27/18 12:14 Oxybutynin Chloride (Ditropan) 5 mg QID ORAL 03/28/18 18:00 04/27/18 17:59 03/29/18 12:38 Pantoprazole (Protonix) 40 mg DAILY ORAL 03/29/18 09:00 04/28/18 08:59 03/29/18 09:27 Timolol Maleate (Timoptic 0.5% Op Soln) 1 drop TID BOTH EYES 03/28/18 19:30 04/27/18 19:29 03/29/18 12:38 Zolpidem Tartrate (Ambien) 5 mg HSPRN PRN ORAL Insomnia 03/28/18 12:15 04/04/18 12:14 Allergies: Coded Allergies: No Known Allergies (Unverified , 05/21/13) ROS Limited/Unobtainable: No Constitutional: Reports: no symptoms HEENT: Reports: no symptoms Cardiovascular: Reports: no symptoms Respiratory: Reports: no symptoms Gastrointestinal/Abdominal: Reports: no symptoms Genitourinary: Reports: no symptoms Neurologic/Psychiatric: Reports: no symptoms Subjective 62 YO F with multiple sclerosis admitted with leg weakness. Cover for Int Med- Dr Gibson. Await neurology consult. Await MRI brain and cervical spine Objective Last Vital Signs Date Time Temp Pulse Resp B/P (MAP) Pulse Ox O2 Delivery O2 Flow Rate FiO2 03/29/18 16:00 77 20 87/59 98 Room Air 03/29/18 12:00 97.7 97.7 General Appearance: no apparent distress, alert, obese EENT: PERRL/EOMI, normal ENT inspection, TMs normal Neck: non-tender, normal alignment, supple, normal inspection Cardiovascular: normal peripheral pulses, normal rate, regular rhythm, no gallop/murmur, no JVD Respiratory/Chest: chest wall non-tender, lungs clear, normal breath sounds, no respiratory distress, no accessory muscle use Abdomen: normal bowel sounds, non tender, soft, no organomegaly, no mass Extremities: non-tender, normal inspection 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, motor weakness Skin: normal pigmentation, warm/dry Laboratory Tests Test 03/29/18 01:37 03/29/18 05:40 Urine Color Pale yellow Urine Appearance Slightly cloudy Urine pH 8 (4.5-8.0) Urine Specific [place] 1.010 (1.005-1.035) Urine Protein 3+ (NEGATIVE) H Urine Glucose (UA) Negative (NEGATIVE) Urine Ketones Negative (NEGATIVE) Urine Occult Blood 2+ (NEGATIVE) H Urine Nitrite Positive (NEGATIVE) H Urine Bilirubin Negative (NEGATIVE) Urine Urobilinogen Normal MG/DL (0.0-1.0) Urine Leukocyte Esterase 2+ (NEGATIVE) H Urine RBC 2-4 /HPF (0 - 2) H Urine WBC 40-60 /HPF (0 - 2) H Urine Squamous Epithelial Cells Few /LPF (NONE/OCC) Urine Bacteria Moderate /HPF (NONE) H White Blood Count 3.6 K/UL (4.8-10.8) L Red Blood Count 3.74 M/UL (4.20-5.40) L Hemoglobin 10.2 G/DL (12.0-16.0) L Hematocrit 30.7 % (37.0-47.0) L Mean Corpuscular Volume 82 FL (80-99) Mean Corpuscular Hemoglobin 27.2 PG (27.0-31.0) Mean Corpuscular Hemoglobin Concent 33.1 G/DL (32.0-36.0) Red Cell Distribution Width 13.2 % (11.6-14.8) Platelet Count 204 K/UL (150-450) Mean Platelet Volume 6.6 FL (6.5-10.1) Neutrophils (%) (Auto) 45.9 % (45.0-75.0) Lymphocytes (%) (Auto) 39.2 % (20.0-45.0) Monocytes (%) (Auto) 9.4 % (1.0-10.0) Eosinophils (%) (Auto) 4.1 % (0.0-3.0) H Basophils (%) (Auto) 1.4 % (0.0-2.0) Sodium Level 142 MMOL/L (136-145) Potassium Level 3.9 MMOL/L (3.5-5.1) Chloride Level 107 MMOL/L (98-107) Carbon Dioxide Level 30 MMOL/L (21-32) Anion Gap 6 mmol/L (5-15) Blood Urea Nitrogen 13 mg/dL (7-18) Creatinine 1.1 MG/DL (0.55-1.30) Estimat Glomerular Filtration Rate > 60 mL/min (>60) Glucose Level 87 MG/DL (74-106) Calcium Level 8.5 MG/DL (8.5-10.1) Intake and Output 03/28/18 03/29/18 19:00 07:00 Intake Total 480 ml Balance 480 ml Intake Oral 480 ml # Voids 2 3 # Bowel Movements 1 1 Assessment/Plan Problem List: (1) Leg weakness, bilateral Assessment & Plan: Await MRI brain and cervical spine. Await neurology consult. Continue copaxone when it arrives from home (non formulary at [place]) (2) Hypercholesterolemia (3) Glaucoma (4) MS (multiple sclerosis) Assessment & Plan: Await neurology consult and MRI (5) HTN (hypertension) Assessment & Plan: hypotensive. hold BP meds for BP<110/55 Status: not improved JESUS KAEY March 29, 2018 17:36
[2018-03-29 20:00] VITALS: BP 104/63
[2018-03-29] MEDS: Latanoprost 0.005% Opth 2.5ml Soln BOTH EYES SCH (20:17)
[2018-03-29] MEDS: Atorvastatin 20mg tab ORAL SCH (20:18)
[2018-03-30 00:27] VITALS: BP 109/59
[2018-03-30 06:43] VITALS: BP 103/55
[2018-03-30 08:00] VITALS: BP 110/72
[2018-03-30 08:00] LABS: BASOPHILS % (AUTO) 1.2 % (0.0-2.0); EOSINOPHILS % (AUTO) 6.3 % (0.0-3.0); HEMOGLOBIN 11.6 G/DL (12.0-16.0); LYMPHOCYTES % (AUTO) 22.2 % (20.0-45.0); MEAN CORPUSCULAR VOLUME 82 FL (80-99); MONOCYTES % (AUTO) 6.8 % (1.0-10.0); NEUTROPHILS % (AUTO) 63.5 % (45.0-75.0); PLATELET COUNT 196 K/UL (150-450); RED BLOOD COUNT 4.25 M/UL (4.20-5.40); RED CELL DISTRIBUTION WIDTH 13.6 % (11.6-14.8); WHITE BLOOD COUNT 3.8 K/UL (4.8-10.8)
[2018-03-30 08:21] LABS: ALANINE AMINOTRANSFERASE 11 U/L (12-78); ALBUMIN 2.8 G/DL (3.4-5.0); ALBUMIN/GLOBULIN RATIO 0.7 (1.0-2.7); ALKALINE PHOSPHATASE 67 U/L (46-116); ANION GAP 8 mmol/L (5-15); ASPARTATE AMINO TRANSFERASE 18 U/L (15-37); BILIRUBIN,TOTAL 0.6 MG/DL (0.2-1.0); BLOOD UREA NITROGEN 14 mg/dL (7-18); CALCIUM 8.6 MG/DL (8.5-10.1); CARBON DIOXIDE 28 MMOL/L (21-32); CHLORIDE 106 MMOL/L (98-107); CREATININE 1.1 MG/DL (0.55-1.30); PHOSPHORUS 3.9 MG/DL (2.5-4.9); POTASSIUM 3.8 MMOL/L (3.5-5.1); SODIUM 142 MMOL/L (136-145)
[2018-03-30] MEDS: Timolol 0.5% Op Soln 2.5ml BOTH EYES SCH ×3 (09:31→17:11)
[2018-03-30] MEDS: Oxybutynin 5mg tab ORAL SCH ×4 (09:32→20:05)
[2018-03-30] MEDS: hydroCHLOROthiazide 12.5mg TAB ORAL SCH (09:32)
[2018-03-30] MEDS: Heparin 5000 units/ml inj SUBQ SCH ×2 (09:48→20:09)
[2018-03-30] MEDS: Lisinopril 20mg tab ORAL SCH (09:48)
[2018-03-30] MEDS: Tums 500mg ORAL SCH (09:49)
[2018-03-30] MEDS ORDERED: LORazepam Inj 2mg/ml 1ml IV ONE (10:30)
--- NOTE | 2018-03-30 11:25 | Internal Med Progress Note ---
Subjective Date of Service: March 30, 2018 Physician Name Haley Kaye Attending Physician Jayesh Gibson MD Current Medications Medications (Trade) Dose Ordered Sig/Maria De Jesus Route PRN Reason Start Time Stop Time Status Last Admin Dose Admin Acetaminophen (Tylenol) 650 mg Q4H PRN ORAL Mild Pain (Pain Scale 1-3) 03/28/18 12:15 04/27/18 12:14 03/28/18 23:53 Acetaminophen (Tylenol) 650 mg Q4H PRN ORAL fever (temp>100.5F) 03/28/18 12:15 04/27/18 12:14 Acetaminophen/ Hydrocodone Bitart ([place] 10/325) 1 tab Q6H PRN ORAL Severe Pain (Pain Scale 7-10) 03/28/18 12:15 04/04/18 12:14 Amlodipine Besylate (Norvasc) 5 mg DAILY ORAL 03/29/18 09:00 04/28/18 08:59 03/29/18 09:33 Artificial Tears (Akwa-Tears) 1 drop Q6H PRN BOTH EYES dry eyes 03/28/18 12:15 04/27/18 12:14 Atorvastatin Calcium (Lipitor) 20 mg BEDTIME ORAL 03/28/18 21:00 04/27/18 20:59 03/29/18 20:18 Baclofen (Lioresal) 10 mg THREE TIMES A DAY ORAL 03/28/18 13:00 04/27/18 12:59 03/30/18 09:32 Calcium Carbonate (Tums) 500 mg DAILY ORAL 03/29/18 09:00 04/28/18 08:59 03/29/18 09:13 Dextrose (Dextrose 50%) 25 ml STAT PRN IV Hypoglycemia 03/28/18 12:15 04/27/18 12:14 Dextrose (Dextrose 50%) 50 ml STAT PRN IV Hypoglycemia 03/28/18 12:15 04/27/18 12:14 Ergocalciferol (Drisdol) 50,000 intlu ONCE A WEEK ORAL 04/03/18 09:00 05/03/18 08:59 Gabapentin (Neurontin) 300 mg THREE TIMES A DAY ORAL 03/28/18 13:00 04/27/18 12:59 03/30/18 09:32 Gadobutrol (Gadavist) 7.5 mmol NOW PRN IV Radiology Procedure 03/29/18 17:30 03/31/18 17:29 Gadobutrol (Gadavist) 7.5 mmol NOW PRN IV Radiology Procedure 03/29/18 17:30 03/31/18 17:29 Heparin Sodium (Porcine) (Heparin 5000 units/ml) 5,000 units EVERY 12 HOURS SUBQ 03/28/18 21:00 04/27/18 20:59 03/30/18 09:48 Hydrochlorothiazide (Hydrodiuril) 12.5 mg DAILY ORAL 03/30/18 09:00 04/28/18 08:59 03/30/18 09:32 Latanoprost (Xalatan) 1 drop BEDTIME BOTH EYES 03/28/18 21:00 04/27/18 20:59 03/29/18 20:17 Levofloxacin 100 ml @ 100 mls/hr Q24H IVPB 03/29/18 16:00 04/05/18 15:59 03/29/18 16:28 Lisinopril (Prinivil) 20 mg DAILY ORAL 03/30/18 09:00 04/28/18 08:59 Lorazepam (Ativan) 1 mg TIDPRN PRN ORAL For Anxiety 03/28/18 13:00 04/04/18 12:59 Naproxen (Naprosyn) 500 mg BIDPRN PRN ORAL Moderate Pain (Pain Scale 4-6) 03/28/18 12:15 04/27/18 12:14 Oxybutynin Chloride (Ditropan) 5 mg QID ORAL 03/28/18 18:00 04/27/18 17:59 03/30/18 09:32 Pantoprazole (Protonix) 40 mg DAILY ORAL 03/29/18 09:00 04/28/18 08:59 03/29/18 09:27 Timolol Maleate (Timoptic 0.5% Op Soln) 1 drop TID BOTH EYES 03/28/18 19:30 04/27/18 19:29 03/30/18 09:31 Zolpidem Tartrate (Ambien) 5 mg HSPRN PRN ORAL Insomnia 03/28/18 12:15 04/04/18 12:14 Allergies: Coded Allergies: No Known Allergies (Unverified , 05/21/13) ROS Limited/Unobtainable: No Constitutional: Reports: weakness HEENT: Reports: no symptoms Cardiovascular: Reports: no symptoms Respiratory: Reports: no symptoms Gastrointestinal/Abdominal: Reports: no symptoms Genitourinary: Reports: no symptoms Neurologic/Psychiatric: Reports: no symptoms Subjective 62 YO F with multiple sclerosis admitted with leg weakness. Cover for Int [place]- Dr Gibson. Await neurology consult. Await MRI brain and cervical spine Objective Last Vital Signs Date Time Temp Pulse Resp B/P (MAP) Pulse Ox O2 Delivery O2 Flow Rate FiO2 03/30/18 09:48 110/72 03/30/18 09:48 84 03/30/18 08:00 98.2 16 98.2 03/30/18 06:43 95 03/29/18 16:00 Room Air Laboratory Tests Test 03/30/18 07:25 White Blood Count 3.8 K/UL (4.8-10.8) L Red Blood Count 4.25 M/UL (4.20-5.40) Hemoglobin 11.6 G/DL (12.0-16.0) L Hematocrit 35.0 % (37.0-47.0) L Mean Corpuscular Volume 82 FL (80-99) Mean Corpuscular Hemoglobin 27.4 PG (27.0-31.0) Mean Corpuscular Hemoglobin Concent 33.3 G/DL (32.0-36.0) Red Cell Distribution Width 13.6 % (11.6-14.8) Platelet Count 196 K/UL (150-450) Mean Platelet Volume 5.9 FL (6.5-10.1) L Neutrophils (%) (Auto) 63.5 % (45.0-75.0) Lymphocytes (%) (Auto) 22.2 % (20.0-45.0) Monocytes (%) (Auto) 6.8 % (1.0-10.0) Eosinophils (%) (Auto) 6.3 % (0.0-3.0) H Basophils (%) (Auto) 1.2 % (0.0-2.0) Erythrocyte Sedimentation Rate 34 MM/HR (0-30) H Sodium Level 142 MMOL/L (136-145) Potassium Level 3.8 MMOL/L (3.5-5.1) Chloride Level 106 MMOL/L (98-107) Carbon Dioxide Level 28 MMOL/L (21-32) Anion Gap 8 mmol/L (5-15) Blood Urea Nitrogen 14 mg/dL (7-18) Creatinine 1.1 MG/DL (0.55-1.30) Estimat Glomerular Filtration Rate > 60 mL/min (>60) Glucose Level 98 MG/DL (74-106) Calcium Level 8.6 MG/DL (8.5-10.1) Phosphorus Level 3.9 MG/DL (2.5-4.9) Magnesium Level 1.4 MG/DL (1.8-2.4) L Total Bilirubin 0.6 MG/DL (0.2-1.0) Aspartate Amino Transf (AST/SGOT) 18 U/L (15-37) Alanine Aminotransferase (ALT/SGPT) 11 U/L (12-78) L Alkaline Phosphatase 67 U/L (46-116) C-Reactive Protein, Quantitative 4.8 mg/dL (0.00-0.90) H Total Protein 6.6 G/DL (6.4-8.2) Albumin 2.8 G/DL (3.4-5.0) L Globulin 3.8 g/dL Albumin/Globulin Ratio 0.7 (1.0-2.7) L Microbiology Date/Time Source Procedure Growth Status 03/29/18 00:32 Urine,Clean Catch Urine Culture - Preliminary Gram Negative Bacillus 1 Resulted Intake and Output 03/29/18 03/30/18 19:00 07:00 Intake Total 700 ml 360 ml Balance 700 ml 360 ml Intake Oral 600 ml 360 ml IV Total 100 ml # Voids 5 8 # Bowel Movements 1 1 Objective General Appearance: no apparent distress, alert, obese EENT: PERRL/EOMI, normal ENT inspection, TMs normal Neck: non-tender, normal alignment, supple, normal inspection Cardiovascular: normal peripheral pulses, normal rate, regular rhythm, no gallop/murmur, no JVD Respiratory/Chest: chest wall non-tender, lungs clear, normal breath sounds, no respiratory distress, no accessory muscle use Abdomen: normal bowel sounds, non tender, soft, no organomegaly, no mass Extremities: non-tender, normal inspection 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 Await neurology consult. Continue copaxone when it arrives from home (non formulary at [place]) (2) Hypercholesterolemia (3) Glaucoma (4) MS (multiple sclerosis) Assessment & Plan: Await neurology consult and MRI (5) HTN (hypertension) Assessment & Plan: Improving hypotension. hold BP meds for BP<110/55 Status: not improved HALEY KAYE March 30, 2018 11:25
[2018-03-30 12:38] VITALS: BP 103/70
--- NOTE | 2018-03-30 12:41 | Diagnostic Imaging Report ---
Indication: 62-year-old female with history of multiple sclerosis presenting with focal weakness Technique: The head was imaged in a 1.5 Lovely magnet. Sequences obtained include sagittal and axial T1 FLAIR, axial T2 fast spin echo with fat saturation, axial T2 FLAIR, diffusion and ADC map. Gadolinium-enhanced axial and coronal T1 FLAIR obtained also. Comparison: None Several foci of T2 hyperintensity noted within the armenta radiata, centrum semiovale. Findings are nonspecific. No abnormal enhancement of any of these areas identified. There is no mass effect or edema. There is no diffusion restriction or evidence of hemorrhage. No abnormal extra-axial collections are seen. Mild atrophy of the brain is present. The corpus callosum is intact. The sella and osseous bone marrow signal appear unremarkable. The size and configuration of the basal cisterns and ventricles appear normal. IMPRESSION: Scattered foci of T2 hyperintense signal may be on the basis of demyelinating disease but are nonspecific at this age and typically due to chronic small vessel disease. Suspect there is an overlap of both disease processes. Generalized atrophy of the brain.
--- NOTE | 2018-03-30 12:45 | Diagnostic Imaging Report ---
Indication: Neck pain Technique: MRI examination of the cervical spine was performed in a 1.5 Lovely magnet. Sequences obtained include sagittal and axial T1 and T2 fast spin echo, and sagittal STIR. Post gadolinium sagittal and axial T1 and fast spin-echo with fat saturation obtained. Comparison: none Findings: Mild, nonenhancing patchy areas of T2 hyperintense signal demonstrated within portions of the cervical spine for example on the left posterolateral cord at C2-3, right lateral cord at C3 left lateral cord at C3-4, posterior central cord at C4-5. Findings suspicious for demyelinating disease. None of these areas enhance. Bone marrow signal and alignment are normal. There is narrowing of intervertebral discs at C4-5 and C5-6 with associated endplate osteophytes (compartment disc osteophyte complexes). Uncovertebral spur formation resulting in foraminal stenosis moderate in degree at both of these levels. C6-7 also notable for mild right foraminal stenosis. There is no central canal stenosis. T2-3 and T3-4 T4-5 show some degree of disc disease and herniation posteriorly. IMPRESSION: Suspected demyelinating disease within the cervical cord as described above. Degenerative disc disease and uncovertebral arthritis as described above
--- NOTE | 2018-03-30 14:48 | Pulmonology Progress Note ---
Assessment/Plan Problems: (1) UTI (urinary tract infection) (2) MS (multiple sclerosis) (3) Failure to thrive (4) HTN (hypertension) Assessment/Plan MRI of brain and cerical spine reviewed, c/w myelinating disease on levofloxacin check cultures, Urine has > 100k colonies awaiting neuro evaluation pt/ot dvt prophylaxis symptomatic treatment. Subjective ROS Limited/Unobtainable: No Interval Events: no new complains Allergies: Coded Allergies: No Known Allergies (Unverified , 05/21/13) Objective Last 24 Hour Vital Signs Date Time Temp Pulse Resp B/P (MAP) Pulse Ox O2 Delivery O2 Flow Rate FiO2 03/30/18 12:38 97.0 68 18 103/70 98 97.0 03/30/18 09:48 110/72 03/30/18 09:48 84 110/72 03/30/18 08:00 98.2 84 16 110/72 98.2 03/30/18 06:43 97.8 80 18 103/55 95 97.8 03/30/18 00:27 97.8 69 19 109/59 100 97.8 03/29/18 20:00 97.6 79 18 104/63 100 97.6 03/29/18 16:00 77 20 87/59 98 Room Air Intake and Output 03/29/18 03/30/18 19:00 07:00 Intake Total 700 ml 360 ml Balance 700 ml 360 ml Intake Oral 600 ml 360 ml IV Total 100 ml # Voids 5 8 # Bowel Movements 1 1 General Appearance: WD/WN HEENT: normocephalic, atraumatic Respiratory/Chest: chest wall non-tender, normal breath sounds Breasts: no masses Cardiovascular: normal peripheral pulses, no JVD Abdomen: soft, non tender Genitourinary: normal external genitalia Extremities: no cyanosis Skin: no ulcers Neurologic/Psychiatric: normal mood/affect Lymphatic: no neck adenopathy Microbiology Date/Time Source Procedure Growth Status 03/29/18 00:32 Urine,Clean Catch Urine Culture - Preliminary Gram Negative Bacillus 1 Resulted Laboratory Tests 03/30/18 07:25: White Blood Count 3.8L, Red Blood Count 4.25, Hemoglobin 11.6L, Hematocrit 35.0L , Mean Corpuscular Volume 82, Mean Corpuscular Hemoglobin 27.4, Mean Corpuscular Hemoglobin Concent 33.3, Red Cell Distribution Width 13.6, Platelet Count 196, Mean Platelet Volume 5.9L, Neutrophils (%) (Auto) 63.5, Lymphocytes ( %) (Auto) 22.2, Monocytes (%) (Auto) 6.8, Eosinophils (%) (Auto) 6.3H, Basophils (%) (Auto) 1.2, Erythrocyte Sedimentation Rate 34H, Sodium Level 142, Potassium Level 3.8, Chloride Level 106, Carbon Dioxide Level 28, Anion Gap 8, Blood Urea Nitrogen 14, Creatinine 1.1, Estimat Glomerular Filtration Rate > 60 , Glucose Level 98, Calcium Level 8.6, Phosphorus Level 3.9, Magnesium Level 1.4L, Total Bilirubin 0.6, Aspartate Amino Transf (AST/SGOT) 18, Alanine Aminotransferase (ALT/SGPT) 11L, Alkaline Phosphatase 67, C-Reactive Protein, Quantitative 4.8H, Total Protein 6.6, Albumin 2.8L, Globulin 3.8, Albumin/ Globulin Ratio 0.7L Current Medications Medications (Trade) Dose Ordered Sig/Maria De Jesus Route PRN Reason Start Time Stop Time Status Last Admin Dose Admin Acetaminophen (Tylenol) 650 mg Q4H PRN ORAL Mild Pain (Pain Scale 1-3) 03/28/18 12:15 04/27/18 12:14 03/28/18 23:53 Acetaminophen (Tylenol) 650 mg Q4H PRN ORAL fever (temp>100.5F) 03/28/18 12:15 04/27/18 12:14 Acetaminophen/ Hydrocodone Bitart ([place] 10/325) 1 tab Q6H PRN ORAL Severe Pain (Pain Scale 7-10) 03/28/18 12:15 04/04/18 12:14 Amlodipine Besylate (Norvasc) 5 mg DAILY ORAL 03/29/18 09:00 04/28/18 08:59 03/29/18 09:33 Artificial Tears (Akwa-Tears) 1 drop Q6H PRN BOTH EYES dry eyes 03/28/18 12:15 04/27/18 12:14 Atorvastatin Calcium (Lipitor) 20 mg BEDTIME ORAL 03/28/18 21:00 04/27/18 20:59 03/29/18 20:18 Baclofen (Lioresal) 10 mg THREE TIMES A DAY ORAL 03/28/18 13:00 04/27/18 12:59 03/30/18 13:04 Calcium Carbonate (Tums) 500 mg DAILY ORAL 03/29/18 09:00 04/28/18 08:59 03/29/18 09:13 Dextrose (Dextrose 50%) 25 ml STAT PRN IV Hypoglycemia 03/28/18 12:15 04/27/18 12:14 Dextrose (Dextrose 50%) 50 ml STAT PRN IV Hypoglycemia 03/28/18 12:15 04/27/18 12:14 Ergocalciferol (Drisdol) 50,000 intlu ONCE A WEEK ORAL 04/03/18 09:00 05/03/18 08:59 Gabapentin (Neurontin) 300 mg THREE TIMES A DAY ORAL 03/28/18 13:00 04/27/18 12:59 03/30/18 13:04 Gadobutrol (Gadavist) 7.5 mmol NOW PRN IV Radiology Procedure 03/29/18 17:30 03/31/18 17:29 Gadobutrol (Gadavist) 7.5 mmol NOW PRN IV Radiology Procedure 03/29/18 17:30 03/31/18 17:29 Heparin Sodium (Porcine) (Heparin 5000 units/ml) 5,000 units EVERY 12 HOURS SUBQ 03/28/18 21:00 04/27/18 20:59 03/30/18 09:48 Hydrochlorothiazide (Hydrodiuril) 12.5 mg DAILY ORAL 03/30/18 09:00 04/28/18 08:59 03/30/18 09:32 Latanoprost (Xalatan) 1 drop BEDTIME BOTH EYES 03/28/18 21:00 04/27/18 20:59 03/29/18 20:17 Levofloxacin 100 ml @ 100 mls/hr Q24H IVPB 03/29/18 16:00 04/05/18 15:59 03/29/18 16:28 Lisinopril (Prinivil) 20 mg DAILY ORAL 03/30/18 09:00 04/28/18 08:59 Lorazepam (Ativan) 1 mg TIDPRN PRN ORAL For Anxiety 03/28/18 13:00 04/04/18 12:59 Naproxen (Naprosyn) 500 mg BIDPRN PRN ORAL Moderate Pain (Pain Scale 4-6) 03/28/18 12:15 04/27/18 12:14 Oxybutynin Chloride (Ditropan) 5 mg QID ORAL 03/28/18 18:00 04/27/18 17:59 03/30/18 13:04 Pantoprazole (Protonix) 40 mg DAILY ORAL 03/29/18 09:00 04/28/18 08:59 03/29/18 09:27 Timolol Maleate (Timoptic 0.5% Op Soln) 1 drop TID BOTH EYES 03/28/18 19:30 04/27/18 19:29 03/30/18 09:31 Zolpidem Tartrate (Ambien) 5 mg HSPRN PRN ORAL Insomnia 03/28/18 12:15 04/04/18 12:14 Cherry Timmons MD March 30, 2018 14:47
[2018-03-30 15:44] VITALS: BP 97/49
[2018-03-30 20:00] VITALS: BP 103/59
[2018-03-30] MEDS: Latanoprost 0.005% Opth 2.5ml Soln BOTH EYES SCH (20:05)
[2018-03-30] MEDS: Atorvastatin 20mg tab ORAL SCH (20:05)
--- NOTE | 2018-03-30 22:07 | Consultation ---
Consult Note Consult Note NEUROLOGY CONSULTATION: Full note dictated #[id number] 62 y/o, RH, BF with H/O MS diagnosed ~ 10 years ago. Started with mild LE weakness and then over the years with multiple exacerbations and incomplete remissions has made her progressively more paraparetic and with upper extremity weakness. She was hospitalized as she felt that she was generally weaker and was having more problems transferring from her bed to wheelchair and vice versa. She felt she may be having an acute MS exacerbation. Since she has been here she has been diagnosed with a UTI which has been treated and she is feeling a little better. She did have MRI scans of the Brain and C-spine done which revealed multiple old deep white matter lesions involving the brain and C-spine but no acute lesions. ON EXAM: MS: NL CN: NL G 5/5 in the right UE except for G 4+/5 in deltoid and G 4-/5 in FE. G 5/5 in the left UE except for G 5-/5 in deltoid and G 4+/5 in FE. In LEs: RIGHT LEFT Iliopsoas G 2/5 G 3/5 Hamstrings G 3/5 G 4/5 Quadriceps G 3+/5 G 4+/5 Ankle DF/TE G 2/5 G 3/5 Ankle PF/TF G 3+/5 G 4+/5 Sensory normal PP/LT Reflexes: Trace+ with mute plantars. F to N Mildly dysmetric B Stance & Gait unable to test. IMPRESSION: MS with significant deficits. Present worsening most probably due to acute infection and not MS exacerbation. REC: Rx of UTI Continue Copaxone PT/OT Navjot Chavira M.D., M.S.P.H. NAVJOT CHAVIRA March 30, 2018 22:07
[2018-03-31] VITALS: BP 101/56
--- NOTE | 2018-03-31 02:45 | Consultation ---
DATE OF CONSULTATION: 03/30/2018 NEUROLOGY CONSULTATION CONSULTING PHYSICIAN: Tip Chavira M.D. REQUESTING PHYSICIAN: Jesus Aceves M.D. HISTORY: Ms. Pura Sepulveda is a 62-year-old, right-handed, black lady, who does have past history of hypertension, dyslipidemia, and multiple sclerosis diagnosed in 2007. As per the patient, when her multiple sclerosis started, she had mild lower extremity weakness. Over the years with multiple exacerbations and incomplete remissions, she has become significantly and progressively more weak to the point where she is significantly paraparetic. In the interim, she has also noticed weakness in both her upper extremities and pain and discomfort in her lower extremities. She has significant problems with controlling her bladder, but is able to control her bowels. She denies any blurry vision, loss of vision, problems with speech, problems with language, problems with mentation, or other neurological symptoms. She has been on Copaxone as her disease-modifying agent and she feels that it seems to be working relatively well. She is followed for her multiple sclerosis at [facility] and she goes there regularly to be checked out. A few days prior to admission, she felt generally weaker, was having more problems transferring from bed to her wheelchair and vice versa and felt that she may be having an acute exacerbation of multiple sclerosis. As a result of that, she was hospitalized. She was evaluated and laboratory data revealed that she did have urinary tract infection. She is now being treated for urinary tract infection. She has also had MRI scans of the brain and cervical spine performed, which revealed multiple old deep white matter lesions involving the brain and spinal cord, but no gadolinium-enhancing lesions. Since she had been in the hospital, she has been relatively stable. This consultation was requested to evaluate the patient for a possible acute exacerbation of multiple sclerosis. At this point in time, the patient feels that she is still quite weak and her function is not as good as it was a few weeks ago. PAST MEDICAL HISTORY: Significant for high blood pressure, dyslipidemia, and multiple sclerosis. FAMILY HISTORY: Nothing significant with no family history of neurological problems. PERSONAL HISTORY: Home: She lives with her significant other. 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 Habits: There is no history of alcohol, tobacco, or illicit drug use. MEDICATIONS: Present medications include vitamin D, hydrochlorothiazide, lisinopril, levofloxacin, calcium carbonate, Protonix, Norvasc, heparin for DVT prophylaxis, Lipitor, timolol eyedrops, Ditropan, baclofen, Neurontin, Ativan, Tylenol, Ambien, Artificial Tears, Milnor p.r.n. and naproxen p.r.n. PHYSICAL EXAMINATION: GENERAL: She is a well-developed, well-nourished, obese, black lady, lying in bed, in no acute distress. VITAL SIGNS: Pulse 78 per minute, blood pressure 97/49 mmHg, respirations 18 per minute, and temperature 97.9 degrees Fahrenheit. HEAD: Normocephalic and atraumatic. EENT: Examination benign. NECK: No neck rigidity was observed. NEUROLOGIC EXAMINATION: MENTAL STATUS EXAMINATION: She was awake and alert. She was oriented to person, place, and time. She was able to recall 3/3 words immediately after 1 minute and 3 minutes on the second trial. She was able to remember presidents Trump through Domingo Sr. with minimal hints. Her mathematical skills were fairly good. Her visuospatial function was preserved. SPEECH: She had no dysarthria. LANGUAGE: She had no aphasia. CRANIAL NERVE EXAMINATION: II: The visual cash were intact on confrontation testing. III, IV & : External ocular movements were full and the pupils 3 mm in diameter, equal, round, regular, and reactive to light. V: She had normal facial sensations and the temporales, masseters, and pterygoids functioned normally. VII: She had normal facial expressions and no facial asymmetry. VIII: She was able to hear well bilaterally and had no nystagmus. IX: The palate moved symmetrically on phonation. X: She had no hoarseness of voice. XI: The sternocleidomastoids and trapezii function normally. XII: The tongue was in the midline without any fasciculations or atrophy. MOTOR SYSTEM: The tone was normal in all four extremities. Examination of muscle mass revealed no focal wasting in the lower extremities, but she did have some small hand muscle wasting bilaterally. Examination of power revealed G 5/5 power in the right upper extremity except for G 4+/5 power in the deltoids and G 4-/5 power in the finger extensors. In the left upper extremity, she had G 5/5 power except for G 5-/5 power in the deltoid and G 4+/5 power in the finger extensors. In the lower extremities, she had in the iliopsoas G 2/5 on the right and 3/5 on the left. In the hamstrings, G 3/5 on the right and G 4/5 on the left. In the quadriceps, G 3+/5 on the right and G 4+/5 on the left. In the ankle dorsiflexors and toe extensors, G 2/5 on the right and G 3/5 on the left. In ankle plantar flexors and toe flexors, G 3+/5 on the right and G 4+/5 on the left. SENSORY EXAMINATION: She had intact sensations to pinprick and light touch with no segmental sensory level. REFLEXES: Trace+ and bilaterally symmetrical at the biceps, triceps, brachioradialis, and knees. 0 at both ankles. The plantar responses were mute bilaterally. COORDINATION: She performed well on [id number] testing with minimal dysmetria bilaterally. She was unable to perform [id number] testing. STANCE & GAIT: Could not be tested. DIAGNOSTIC IMPRESSION: 1. Ms. Pura Sepulveda is a 62-year-old, right-handed, black lady, who has had multiple sclerosis for the last 10 years. It started with mild weakness in the lower extremities and then over the years with multiple exacerbations and incomplete remissions, she has become progressively weaker in the legs to a point where she is severely paraparetic. She also has upper extremity weakness, which has progressively worsened over time. She in addition has problems controlling her bladder. She denies any other neurological symptoms. She was hospitalized a few days ago because she thought that she may be having an exacerbation of multiple sclerosis as she felt generally weak. Of note is that since she has been hospitalized, she has been diagnosed with urinary tract infection. She has been treated for infection and feels a little better now. 2. On neurological examination, at this time, she does demonstrate mild problems with memory, but an otherwise normal mental status examination. The speech and language examination was normal. Her cranial nerves are also normal. She does have a quadriparesis involving the lower extremities more than the upper extremities and the right side more than the left side. Her deep tendon reflexes are globally diminished and her plantar responses are mute. She does have mild dysmetria on [id number] testing and is unable to cooperate for coordination testing in the lower extremities. She is unable to stand and walk because of significant lower extremity weakness. 3. Laboratory data obtained thus far have revealed that she is anemic with hemoglobin of 11.6. Her ESR is elevated at 34. Her chemistry panel is relatively benign except for low albumin of 2.8 and her urinalysis reveals 2+ leukocyte esterase, 2-4 red blood cells, and 40-60 white blood cells per high-power field. 4. The MRI scan of the brain reveals several foci of T2 hyperintensity noted within the armenta radiata and centrum semiovale, but no gadolinium-enhancing lesions. 5. The MRI scan of the cervical spine reveals nonenhancing lesions involving the left posterior lateral cord at the C2-C3 level, right lateral cord at C3, left lateral cord at C3-C4, posterior central cord at C4-C5 representing old lesions, however, no gadolinium-enhancing lesions are seen. 6. The patient's history and neurological examination are most compatible with a long history of multiple sclerosis with multiple exacerbations and incomplete remissions leading to her becoming severely paraparetic, and in addition, also weak in her upper extremities. 7. Her present worsening of neurological function is most probably due to an acute infectious process namely her urinary tract infection and most probably not a multiple sclerosis exacerbation. RECOMMENDATIONS: 1. Agree with management thus far. 2. Would continue aggressive treatment of the patient's urinary tract infection. 3. Would continue Copaxone as her disease-modifying agent. 4. Physical and occupational therapy should be started to rehabilitate the patient. 5. The patient was encouraged to continue following up with her neurologist at [facility] for treatment and followup of her multiple sclerosis. Thank you for entrusting me with the care of Ms. Sepulveda. Please do let me know if I can be of any further help. Tip Chavira M.D., M.S.P.H. DR: SOULEYMANE JOB#: [id number] [facility]OSPITALArthur
[2018-03-31 04:00] VITALS: BP 100/58
[2018-03-31 07:27] LABS: ANION GAP 8 mmol/L (5-15); BLOOD UREA NITROGEN 14 mg/dL (7-18); CALCIUM 8.7 MG/DL (8.5-10.1); CARBON DIOXIDE 28 MMOL/L (21-32); CHLORIDE 106 MMOL/L (98-107); POTASSIUM 3.9 MMOL/L (3.5-5.1); SODIUM 142 MMOL/L (136-145)
[2018-03-31 07:31] LABS: BASOPHILS % (AUTO) 1.2 % (0.0-2.0); EOSINOPHILS % (AUTO) 7.9 % (0.0-3.0); HEMATOCRIT 35.5 % (37.0-47.0); HEMOGLOBIN 11.9 G/DL (12.0-16.0); LYMPHOCYTES % (AUTO) 24.1 % (20.0-45.0); MEAN CORPUSCULAR VOLUME 83 FL (80-99); MONOCYTES % (AUTO) 7.5 % (1.0-10.0); NEUTROPHILS % (AUTO) 59.3 % (45.0-75.0); PLATELET COUNT 222 K/UL (150-450); RED BLOOD COUNT 4.29 M/UL (4.20-5.40); RED CELL DISTRIBUTION WIDTH 13.6 % (11.6-14.8); WHITE BLOOD COUNT 4.4 K/UL (4.8-10.8)
[2018-03-31 08:00] VITALS: BP 112/64
[2018-03-31] MEDS: Lisinopril 20mg tab ORAL SCH (09:00)
[2018-03-31] MEDS: Tums 500mg ORAL SCH (09:23)
[2018-03-31] MEDS: Oxybutynin 5mg tab ORAL SCH ×4 (09:24→21:06)
[2018-03-31] MEDS: hydroCHLOROthiazide 12.5mg TAB ORAL SCH (09:24)
[2018-03-31] MEDS: Timolol 0.5% Op Soln 2.5ml BOTH EYES SCH ×3 (09:26→18:39)
[2018-03-31] MEDS: Heparin 5000 units/ml inj SUBQ SCH ×2 (09:31→21:10)
[2018-03-31 12:00] VITALS: BP 103/60
[2018-03-31] MEDS ORDERED: ceFAZolin 1gm/50ml Premix 50 ML IV SCH (14:30)
--- NOTE | 2018-03-31 14:53 | Pulmonology Progress Note ---
Assessment/Plan Problems: (1) UTI (urinary tract infection) (2) MS (multiple sclerosis) (3) Failure to thrive (4) HTN (hypertension) Assessment/Plan MRI of brain and cerical spine reviewed, c/w myelinating disease on levofloxacin check cultures, Urine has > 100k colonies, Ecoli, almost pansensitive neuro evaluation appreciated pt/ot dvt prophylaxis symptomatic treatment. Subjective ROS Limited/Unobtainable: No Interval Events: doing PT Allergies: Coded Allergies: No Known Allergies (Unverified , 05/21/13) Objective Last 24 Hour Vital Signs Date Time Temp Pulse Resp B/P (MAP) Pulse Ox O2 Delivery O2 Flow Rate FiO2 03/31/18 12:00 96.8 66 20 103/60 100 96.8 03/31/18 09:00 112/64 03/31/18 09:00 77 112/64 03/31/18 08:00 96.6 77 20 112/64 98 96.6 03/31/18 04:00 97.1 69 16 100/58 100 Room Air 97.1 03/31/18 00:00 97.1 70 18 101/56 97 Room Air 97.1 03/30/18 20:00 97.2 83 18 103/59 95 Room Air 97.2 03/30/18 15:44 97.9 78 18 97/49 97.9 Intake and Output 03/30/18 03/31/18 19:00 07:00 Intake Total 820 ml 200 ml Output Total 900 ml Balance -80 ml 200 ml Intake Oral 720 ml 200 ml IV Total 100 ml Output Urine Total 900 ml # Voids 3 General Appearance: WD/WN HEENT: normocephalic, atraumatic Respiratory/Chest: chest wall non-tender, lungs clear Breasts: no masses Cardiovascular: normal peripheral pulses Abdomen: normal bowel sounds, no organomegaly Genitourinary: normal external genitalia Extremities: no cyanosis 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, no motor/sensory deficits Lymphatic: no neck adenopathy Microbiology Date/Time Source Procedure Growth Status 03/29/18 00:32 Urine,Clean Catch Urine Culture - Preliminary Escherichia Coli Resulted Laboratory Tests 03/31/18 05:35: White Blood Count 4.4L, Red Blood Count 4.29, Hemoglobin 11.9L, Hematocrit 35.5L , Mean Corpuscular Volume 83, Mean Corpuscular Hemoglobin 27.7, Mean Corpuscular Hemoglobin Concent 33.5, Red Cell Distribution Width 13.6, Platelet Count 222, Mean Platelet Volume 5.8L, Neutrophils (%) (Auto) 59.3, Lymphocytes ( %) (Auto) 24.1, Monocytes (%) (Auto) 7.5, Eosinophils (%) (Auto) 7.9H, Basophils (%) (Auto) 1.2, Sodium Level 142, Potassium Level 3.9, Chloride Level 106, Carbon Dioxide Level 28, Anion Gap 8, Blood Urea Nitrogen 14, Creatinine 1.0, Estimat Glomerular Filtration Rate > 60, Glucose Level 81, Calcium Level 8.7 Current Medications Medications (Trade) Dose Ordered Sig/Maria De Jesus Route PRN Reason Start Time Stop Time Status Last Admin Dose Admin Acetaminophen (Tylenol) 650 mg Q4H PRN ORAL Mild Pain (Pain Scale 1-3) 03/28/18 12:15 04/27/18 12:14 03/28/18 23:53 Acetaminophen (Tylenol) 650 mg Q4H PRN ORAL fever (temp>100.5F) 03/28/18 12:15 04/27/18 12:14 Acetaminophen/ Hydrocodone Bitart ([place] 10/325) 1 tab Q6H PRN ORAL Severe Pain (Pain Scale 7-10) 03/28/18 12:15 04/04/18 12:14 Amlodipine Besylate (Norvasc) 5 mg DAILY ORAL 03/29/18 09:00 04/28/18 08:59 03/29/18 09:33 Artificial Tears (Akwa-Tears) 1 drop Q6H PRN BOTH EYES dry eyes 03/28/18 12:15 04/27/18 12:14 Atorvastatin Calcium (Lipitor) 20 mg BEDTIME ORAL 03/28/18 21:00 04/27/18 20:59 03/30/18 20:05 Baclofen (Lioresal) 10 mg THREE TIMES A DAY ORAL 03/28/18 13:00 04/27/18 12:59 03/31/18 13:06 Calcium Carbonate (Tums) 500 mg DAILY ORAL 03/29/18 09:00 04/28/18 08:59 03/31/18 09:23 Cefazolin Sodium 1 gm/Dextrose 110 ml @ 220 mls/hr Q12H IVPB 03/31/18 14:30 04/07/18 14:29 Dextrose (Dextrose 50%) 25 ml STAT PRN IV Hypoglycemia 03/28/18 12:15 04/27/18 12:14 Dextrose (Dextrose 50%) 50 ml STAT PRN IV Hypoglycemia 03/28/18 12:15 04/27/18 12:14 Ergocalciferol (Drisdol) 50,000 intlu ONCE A WEEK ORAL 04/03/18 09:00 05/03/18 08:59 Gabapentin (Neurontin) 300 mg THREE TIMES A DAY ORAL 03/28/18 13:00 04/27/18 12:59 03/31/18 13:06 Gadobutrol (Gadavist) 7.5 mmol NOW PRN IV Radiology Procedure 03/29/18 17:30 03/31/18 17:29 Gadobutrol (Gadavist) 7.5 mmol NOW PRN IV Radiology Procedure 03/29/18 17:30 03/31/18 17:29 Heparin Sodium (Porcine) (Heparin 5000 units/ml) 5,000 units EVERY 12 HOURS SUBQ 03/28/18 21:00 04/27/18 20:59 03/31/18 09:31 Hydrochlorothiazide (Hydrodiuril) 12.5 mg DAILY ORAL 03/30/18 09:00 04/28/18 08:59 03/31/18 09:24 Latanoprost (Xalatan) 1 drop BEDTIME BOTH EYES 03/28/18 21:00 04/27/18 20:59 03/30/18 20:05 Lisinopril (Prinivil) 20 mg DAILY ORAL 03/30/18 09:00 04/28/18 08:59 Lorazepam (Ativan) 1 mg TIDPRN PRN ORAL For Anxiety 03/28/18 13:00 04/04/18 12:59 Naproxen (Naprosyn) 500 mg BIDPRN PRN ORAL Moderate Pain (Pain Scale 4-6) 03/28/18 12:15 04/27/18 12:14 Oxybutynin Chloride (Ditropan) 5 mg QID ORAL 03/28/18 18:00 04/27/18 17:59 03/31/18 13:06 Pantoprazole (Protonix) 40 mg DAILY ORAL 03/29/18 09:00 04/28/18 08:59 03/31/18 09:23 Timolol Maleate (Timoptic 0.5% Op Soln) 1 drop TID BOTH EYES 03/28/18 19:30 04/27/18 19:29 03/31/18 13:06 Zolpidem Tartrate (Ambien) 5 mg HSPRN PRN ORAL Insomnia 03/28/18 12:15 04/04/18 12:14 Cherry Timmons MD March 31, 2018 14:53
[2018-03-31] MEDS: ceFAZolin sod 1 GM in D5W 110 ML IVPB SCH (15:11)
[2018-03-31 16:00] VITALS: BP 116/65
--- NOTE | 2018-03-31 18:07 | Internal Med Progress Note ---
Subjective Date of Service: March 31, 2018 Physician Name Jesus Kaye Attending Physician Jayesh Gibson MD Current Medications Medications (Trade) Dose Ordered Sig/Maria De Jesus Route PRN Reason Start Time Stop Time Status Last Admin Dose Admin Acetaminophen (Tylenol) 650 mg Q4H PRN ORAL Mild Pain (Pain Scale 1-3) 03/28/18 12:15 04/27/18 12:14 03/28/18 23:53 Acetaminophen (Tylenol) 650 mg Q4H PRN ORAL fever (temp>100.5F) 03/28/18 12:15 04/27/18 12:14 Acetaminophen/ Hydrocodone Bitart ([place] 10/325) 1 tab Q6H PRN ORAL Severe Pain (Pain Scale 7-10) 03/28/18 12:15 04/04/18 12:14 Amlodipine Besylate (Norvasc) 5 mg DAILY ORAL 03/29/18 09:00 04/28/18 08:59 03/29/18 09:33 Artificial Tears (Akwa-Tears) 1 drop Q6H PRN BOTH EYES dry eyes 03/28/18 12:15 04/27/18 12:14 Atorvastatin Calcium (Lipitor) 20 mg BEDTIME ORAL 03/28/18 21:00 04/27/18 20:59 03/30/18 20:05 Baclofen (Lioresal) 10 mg THREE TIMES A DAY ORAL 03/28/18 13:00 04/27/18 12:59 03/31/18 13:06 Calcium Carbonate (Tums) 500 mg DAILY ORAL 03/29/18 09:00 04/28/18 08:59 03/31/18 09:23 Cefazolin Sodium 1 gm/Dextrose 110 ml @ 220 mls/hr Q12H IVPB 03/31/18 14:30 04/07/18 14:29 03/31/18 15:11 Dextrose (Dextrose 50%) 25 ml STAT PRN IV Hypoglycemia 03/28/18 12:15 04/27/18 12:14 Dextrose (Dextrose 50%) 50 ml STAT PRN IV Hypoglycemia 03/28/18 12:15 04/27/18 12:14 Ergocalciferol (Drisdol) 50,000 intlu ONCE A WEEK ORAL 04/03/18 09:00 05/03/18 08:59 Gabapentin (Neurontin) 300 mg THREE TIMES A DAY ORAL 03/28/18 13:00 04/27/18 12:59 03/31/18 13:06 Heparin Sodium (Porcine) (Heparin 5000 units/ml) 5,000 units EVERY 12 HOURS SUBQ 03/28/18 21:00 04/27/18 20:59 03/31/18 09:31 Hydrochlorothiazide (Hydrodiuril) 12.5 mg DAILY ORAL 03/30/18 09:00 04/28/18 08:59 03/31/18 09:24 Latanoprost (Xalatan) 1 drop BEDTIME BOTH EYES 03/28/18 21:00 04/27/18 20:59 03/30/18 20:05 Lisinopril (Prinivil) 20 mg DAILY ORAL 03/30/18 09:00 04/28/18 08:59 Lorazepam (Ativan) 1 mg TIDPRN PRN ORAL For Anxiety 03/28/18 13:00 04/04/18 12:59 Naproxen (Naprosyn) 500 mg BIDPRN PRN ORAL Moderate Pain (Pain Scale 4-6) 03/28/18 12:15 04/27/18 12:14 Oxybutynin Chloride (Ditropan) 5 mg QID ORAL 03/28/18 18:00 04/27/18 17:59 03/31/18 13:06 Pantoprazole (Protonix) 40 mg DAILY ORAL 03/29/18 09:00 04/28/18 08:59 03/31/18 09:23 Timolol Maleate (Timoptic 0.5% Op Soln) 1 drop TID BOTH EYES 03/28/18 19:30 04/27/18 19:29 03/31/18 13:06 Zolpidem Tartrate (Ambien) 5 mg HSPRN PRN ORAL Insomnia 03/28/18 12:15 04/04/18 12:14 Allergies: Coded Allergies: No Known Allergies (Unverified , 05/21/13) ROS Limited/Unobtainable: No Constitutional: Reports: no symptoms HEENT: Reports: no symptoms Cardiovascular: Reports: no symptoms Respiratory: Reports: no symptoms Gastrointestinal/Abdominal: Reports: no symptoms Genitourinary: Reports: no symptoms Neurologic/Psychiatric: Reports: no symptoms Subjective 62 YO F with multiple sclerosis admitted with leg weakness. Cover for Int Med- Dr Gibson Objective Last Vital Signs Date Time Temp Pulse Resp B/P (MAP) Pulse Ox O2 Delivery O2 Flow Rate FiO2 03/31/18 16:00 96.3 76 20 116/65 99 96.3 03/31/18 04:00 Room Air Laboratory Tests Test 03/31/18 05:35 White Blood Count 4.4 K/UL (4.8-10.8) L Red Blood Count 4.29 M/UL (4.20-5.40) Hemoglobin 11.9 G/DL (12.0-16.0) L Hematocrit 35.5 % (37.0-47.0) L Mean Corpuscular Volume 83 FL (80-99) Mean Corpuscular Hemoglobin 27.7 PG (27.0-31.0) Mean Corpuscular Hemoglobin Concent 33.5 G/DL (32.0-36.0) Red Cell Distribution Width 13.6 % (11.6-14.8) Platelet Count 222 K/UL (150-450) Mean Platelet Volume 5.8 FL (6.5-10.1) L Neutrophils (%) (Auto) 59.3 % (45.0-75.0) Lymphocytes (%) (Auto) 24.1 % (20.0-45.0) Monocytes (%) (Auto) 7.5 % (1.0-10.0) Eosinophils (%) (Auto) 7.9 % (0.0-3.0) H Basophils (%) (Auto) 1.2 % (0.0-2.0) Sodium Level 142 MMOL/L (136-145) Potassium Level 3.9 MMOL/L (3.5-5.1) Chloride Level 106 MMOL/L (98-107) Carbon Dioxide Level 28 MMOL/L (21-32) Anion Gap 8 mmol/L (5-15) Blood Urea Nitrogen 14 mg/dL (7-18) Creatinine 1.0 MG/DL (0.55-1.30) Estimat Glomerular Filtration Rate > 60 mL/min (>60) Glucose Level 81 MG/DL (74-106) Calcium Level 8.7 MG/DL (8.5-10.1) Microbiology Date/Time Source Procedure Growth Status 03/29/18 00:32 Urine,Clean Catch Urine Culture - Preliminary Escherichia Coli Resulted Intake and Output 03/30/18 03/31/18 19:00 07:00 Intake Total 820 ml 200 ml Output Total 900 ml Balance -80 ml 200 ml Intake Oral 720 ml 200 ml IV Total 100 ml Output Urine Total 900 ml # Voids 3 Objective General Appearance: no apparent distress, alert, obese EENT: PERRL/EOMI, normal ENT inspection, TMs normal Neck: non-tender, normal alignment, supple, normal inspection Cardiovascular: normal peripheral pulses, normal rate, regular rhythm, no gallop/murmur, no JVD Respiratory/Chest: chest wall non-tender, lungs clear, normal breath sounds, no respiratory distress, no accessory muscle use Abdomen: normal bowel sounds, non tender, soft, no organomegaly, no mass Extremities: non-tender, normal inspection 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 Continue copaxone when it arrives from home (non formulary at [place]) (2) Hypercholesterolemia (3) Glaucoma (4) MS (multiple sclerosis) Assessment & Plan: Await neurology consult and MRI (5) HTN (hypertension) Assessment & Plan: Improving hypotension. hold BP meds for BP<110/55 Assessment/Plan Discharge planning JESUS KAYE March 31, 2018 18:07
[2018-03-31 20:00] VITALS: BP 103/60
[2018-03-31] MEDS: Atorvastatin 20mg tab ORAL SCH (21:06)
[2018-03-31] MEDS: Latanoprost 0.005% Opth 2.5ml Soln BOTH EYES SCH (21:06)
[2018-04-01] VITALS (7 sets, daily range): BP systolic 95–115; BP diastolic 55–73
[2018-04-01] MEDS: ceFAZolin sod 1 GM in D5W 110 ML IVPB SCH ×3 (03:18→14:49)
[2018-04-01 07:03] LABS: ANION GAP 5 mmol/L (5-15); BLOOD UREA NITROGEN 18 mg/dL (7-18); CALCIUM 8.5 MG/DL (8.5-10.1); CARBON DIOXIDE 31 MMOL/L (21-32); CHLORIDE 104 MMOL/L (98-107); CREATININE 1.3 MG/DL (0.55-1.30); POTASSIUM 3.9 MMOL/L (3.5-5.1); SODIUM 140 MMOL/L (136-145)
[2018-04-01 07:09] LABS: BASOPHILS % (AUTO) 1.1 % (0.0-2.0); EOSINOPHILS % (AUTO) 7.9 % (0.0-3.0); HEMOGLOBIN 11.3 G/DL (12.0-16.0); LYMPHOCYTES % (AUTO) 32.5 % (20.0-45.0); MEAN CORPUSCULAR VOLUME 81 FL (80-99); MONOCYTES % (AUTO) 6.3 % (1.0-10.0); NEUTROPHILS % (AUTO) 52.2 % (45.0-75.0); PLATELET COUNT 269 K/UL (150-450); RED BLOOD COUNT 4.19 M/UL (4.20-5.40); RED CELL DISTRIBUTION WIDTH 13.3 % (11.6-14.8); WHITE BLOOD COUNT 3.9 K/UL (4.8-10.8)
[2018-04-01] MEDS: Lisinopril 20mg tab ORAL SCH (09:00)
[2018-04-01] MEDS: hydroCHLOROthiazide 12.5mg TAB ORAL SCH (09:00)
[2018-04-01] MEDS: Tums 500mg ORAL SCH ×2 (09:00→09:28)
[2018-04-01] MEDS: Timolol 0.5% Op Soln 2.5ml BOTH EYES SCH ×4 (09:28→18:00)
[2018-04-01] MEDS: Oxybutynin 5mg tab ORAL SCH ×4 (09:28→21:38)
[2018-04-01] MEDS: Heparin 5000 units/ml inj SUBQ SCH ×2 (09:32→21:40)
--- NOTE | 2018-04-01 15:50 | Pulmonology Progress Note ---
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 Subjective ROS Limited/Unobtainable: No Constitutional: Reports: no symptoms HEENT: Repors: no symptoms Respiratory: Reports: no symptoms Allergies: Coded Allergies: No Known Allergies (Unverified , 05/21/13) Objective Last 24 Hour Vital Signs Date Time Temp Pulse Resp B/P (MAP) Pulse Ox O2 Delivery O2 Flow Rate FiO2 04/01/18 11:57 98.2 65 20 115/73 96 98.2 04/01/18 08:45 102/59 04/01/18 08:41 97.8 87 20 95/57 97 97.8 04/01/18 04:00 98.1 86 18 109/66 98 98.1 04/01/18 00:00 98.2 79 18 103/55 98 98.2 03/31/18 20:00 98.4 82 18 103/60 96 98.4 03/31/18 16:00 96.3 76 20 116/65 99 96.3 Intake and Output 03/31/18 04/01/18 19:00 07:00 Intake Total 750 ml 400 ml Balance 750 ml 400 ml Intake Oral 750 ml 400 ml # Voids 3 6 General Appearance: WD/WN HEENT: normocephalic Respiratory/Chest: chest wall non-tender, normal breath sounds Breasts: no masses Cardiovascular: normal peripheral pulses Abdomen: normal bowel sounds, no organomegaly Genitourinary: normal external genitalia Skin: no rash 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 Laboratory Tests 04/01/18 05:20: White Blood Count 3.9L, Red Blood Count 4.19L, Hemoglobin 11.3L, Hematocrit 34.0L, Mean Corpuscular Volume 81, Mean Corpuscular Hemoglobin 26.9L, Mean Corpuscular Hemoglobin Concent 33.1, Red Cell Distribution Width 13.3, Platelet Count 269, Mean Platelet Volume 6.1L, Neutrophils (%) (Auto) 52.2, Lymphocytes ( %) (Auto) 32.5, Monocytes (%) (Auto) 6.3, Eosinophils (%) (Auto) 7.9H, Basophils (%) (Auto) 1.1, Sodium Level 140, Potassium Level 3.9, Chloride Level 104, Carbon Dioxide Level 31, Anion Gap 5, Blood Urea Nitrogen 18, Creatinine 1.3, Estimat Glomerular Filtration Rate 50.2, Glucose Level 96, Calcium Level 8.5 Current Medications Medications (Trade) Dose Ordered Sig/Maria De Jesus Route PRN Reason Start Time Stop Time Status Last Admin Dose Admin Acetaminophen (Tylenol) 650 mg Q4H PRN ORAL Mild Pain (Pain Scale 1-3) 03/28/18 12:15 04/27/18 12:14 03/28/18 23:53 Acetaminophen (Tylenol) 650 mg Q4H PRN ORAL fever (temp>100.5F) 03/28/18 12:15 04/27/18 12:14 Acetaminophen/ Hydrocodone Bitart ([place] 10/325) 1 tab Q6H PRN ORAL Severe Pain (Pain Scale 7-10) 03/28/18 12:15 04/04/18 12:14 Amlodipine Besylate (Norvasc) 5 mg DAILY ORAL 03/29/18 09:00 04/28/18 08:59 03/29/18 09:33 Artificial Tears (Akwa-Tears) 1 drop Q6H PRN BOTH EYES dry eyes 03/28/18 12:15 04/27/18 12:14 Atorvastatin Calcium (Lipitor) 20 mg BEDTIME ORAL 03/28/18 21:00 04/27/18 20:59 03/31/18 21:06 Baclofen (Lioresal) 10 mg THREE TIMES A DAY ORAL 03/28/18 13:00 04/27/18 12:59 04/01/18 12:09 Calcium Carbonate (Tums) 500 mg DAILY ORAL 03/29/18 09:00 04/28/18 08:59 03/31/18 09:23 Cefazolin Sodium 1 gm/Dextrose 110 ml @ 220 mls/hr Q12H IVPB 03/31/18 14:30 04/07/18 14:29 04/01/18 14:49 Dextrose (Dextrose 50%) 25 ml STAT PRN IV Hypoglycemia 03/28/18 12:15 04/27/18 12:14 Dextrose (Dextrose 50%) 50 ml STAT PRN IV Hypoglycemia 03/28/18 12:15 04/27/18 12:14 Ergocalciferol (Drisdol) 50,000 intlu ONCE A WEEK ORAL 04/03/18 09:00 05/03/18 08:59 Gabapentin (Neurontin) 300 mg THREE TIMES A DAY ORAL 03/28/18 13:00 04/27/18 12:59 04/01/18 12:10 Heparin Sodium (Porcine) (Heparin 5000 units/ml) 5,000 units EVERY 12 HOURS SUBQ 03/28/18 21:00 04/27/18 20:59 04/01/18 09:32 Hydrochlorothiazide (Hydrodiuril) 12.5 mg DAILY ORAL 03/30/18 09:00 04/28/18 08:59 03/31/18 09:24 Latanoprost (Xalatan) 1 drop BEDTIME BOTH EYES 03/28/18 21:00 04/27/18 20:59 03/31/18 21:06 Lisinopril (Prinivil) 20 mg DAILY ORAL 03/30/18 09:00 04/28/18 08:59 Lorazepam (Ativan) 1 mg TIDPRN PRN ORAL For Anxiety 03/28/18 13:00 04/04/18 12:59 Naproxen (Naprosyn) 500 mg BIDPRN PRN ORAL Moderate Pain (Pain Scale 4-6) 03/28/18 12:15 04/27/18 12:14 Oxybutynin Chloride (Ditropan) 5 mg QID ORAL 03/28/18 18:00 04/27/18 17:59 04/01/18 12:09 Pantoprazole (Protonix) 40 mg DAILY ORAL 03/29/18 09:00 04/28/18 08:59 03/31/18 09:23 Timolol Maleate (Timoptic 0.5% Op Soln) 1 drop TID BOTH EYES 03/28/18 19:30 04/27/18 19:29 04/01/18 12:10 Zolpidem Tartrate (Ambien) 5 mg HSPRN PRN ORAL Insomnia 03/28/18 12:15 04/04/18 12:14 Cherry Timmons MD April 01, 2018 15:50
--- NOTE | 2018-04-01 16:06 | Internal Med Progress Note ---
Subjective Date of Service: April 01, 2018 Physician Name Jesus Kaye Attending Physician Jayesh Gibson MD Current Medications Medications (Trade) Dose Ordered Sig/Maria De Jesus Route PRN Reason Start Time Stop Time Status Last Admin Dose Admin Acetaminophen (Tylenol) 650 mg Q4H PRN ORAL Mild Pain (Pain Scale 1-3) 03/28/18 12:15 04/27/18 12:14 03/28/18 23:53 Acetaminophen (Tylenol) 650 mg Q4H PRN ORAL fever (temp>100.5F) 03/28/18 12:15 04/27/18 12:14 Acetaminophen/ Hydrocodone Bitart ([place] 10/325) 1 tab Q6H PRN ORAL Severe Pain (Pain Scale 7-10) 03/28/18 12:15 04/04/18 12:14 Amlodipine Besylate (Norvasc) 5 mg DAILY ORAL 03/29/18 09:00 04/28/18 08:59 03/29/18 09:33 Artificial Tears (Akwa-Tears) 1 drop Q6H PRN BOTH EYES dry eyes 03/28/18 12:15 04/27/18 12:14 Atorvastatin Calcium (Lipitor) 20 mg BEDTIME ORAL 03/28/18 21:00 04/27/18 20:59 03/31/18 21:06 Baclofen (Lioresal) 10 mg THREE TIMES A DAY ORAL 03/28/18 13:00 04/27/18 12:59 04/01/18 12:09 Calcium Carbonate (Tums) 500 mg DAILY ORAL 03/29/18 09:00 04/28/18 08:59 03/31/18 09:23 Cefazolin Sodium 1 gm/Dextrose 110 ml @ 220 mls/hr Q12H IVPB 03/31/18 14:30 04/07/18 14:29 04/01/18 14:49 Dextrose (Dextrose 50%) 25 ml STAT PRN IV Hypoglycemia 03/28/18 12:15 04/27/18 12:14 Dextrose (Dextrose 50%) 50 ml STAT PRN IV Hypoglycemia 03/28/18 12:15 04/27/18 12:14 Ergocalciferol (Drisdol) 50,000 intlu ONCE A WEEK ORAL 04/03/18 09:00 05/03/18 08:59 Gabapentin (Neurontin) 300 mg THREE TIMES A DAY ORAL 03/28/18 13:00 04/27/18 12:59 04/01/18 12:10 Heparin Sodium (Porcine) (Heparin 5000 units/ml) 5,000 units EVERY 12 HOURS SUBQ 03/28/18 21:00 04/27/18 20:59 04/01/18 09:32 Hydrochlorothiazide (Hydrodiuril) 12.5 mg DAILY ORAL 03/30/18 09:00 04/28/18 08:59 03/31/18 09:24 Latanoprost (Xalatan) 1 drop BEDTIME BOTH EYES 03/28/18 21:00 04/27/18 20:59 03/31/18 21:06 Lisinopril (Prinivil) 20 mg DAILY ORAL 03/30/18 09:00 04/28/18 08:59 Lorazepam (Ativan) 1 mg TIDPRN PRN ORAL For Anxiety 03/28/18 13:00 04/04/18 12:59 Naproxen (Naprosyn) 500 mg BIDPRN PRN ORAL Moderate Pain (Pain Scale 4-6) 03/28/18 12:15 04/27/18 12:14 Oxybutynin Chloride (Ditropan) 5 mg QID ORAL 03/28/18 18:00 04/27/18 17:59 04/01/18 12:09 Pantoprazole (Protonix) 40 mg DAILY ORAL 03/29/18 09:00 04/28/18 08:59 03/31/18 09:23 Timolol Maleate (Timoptic 0.5% Op Soln) 1 drop TID BOTH EYES 03/28/18 19:30 04/27/18 19:29 04/01/18 12:10 Zolpidem Tartrate (Ambien) 5 mg HSPRN PRN ORAL Insomnia 03/28/18 12:15 04/04/18 12:14 Allergies: Coded Allergies: No Known Allergies (Unverified , 05/21/13) ROS Limited/Unobtainable: No Constitutional: Reports: no symptoms HEENT: Reports: no symptoms Cardiovascular: Reports: no symptoms Respiratory: Reports: no symptoms Gastrointestinal/Abdominal: Reports: no symptoms Genitourinary: Reports: no symptoms Neurologic/Psychiatric: Reports: no symptoms Subjective 62 YO F with multiple sclerosis admitted with leg weakness. Cover for Int Med- Dr Gibson Objective Last Vital Signs Date Time Temp Pulse Resp B/P (MAP) Pulse Ox O2 Delivery O2 Flow Rate FiO2 04/01/18 15:56 98.2 78 20 110/63 96 98.2 03/31/18 04:00 Room Air Laboratory Tests Test 04/01/18 05:20 White Blood Count 3.9 K/UL (4.8-10.8) L Red Blood Count 4.19 M/UL (4.20-5.40) L Hemoglobin 11.3 G/DL (12.0-16.0) L Hematocrit 34.0 % (37.0-47.0) L Mean Corpuscular Volume 81 FL (80-99) Mean Corpuscular Hemoglobin 26.9 PG (27.0-31.0) L Mean Corpuscular Hemoglobin Concent 33.1 G/DL (32.0-36.0) Red Cell Distribution Width 13.3 % (11.6-14.8) Platelet Count 269 K/UL (150-450) Mean Platelet Volume 6.1 FL (6.5-10.1) L Neutrophils (%) (Auto) 52.2 % (45.0-75.0) Lymphocytes (%) (Auto) 32.5 % (20.0-45.0) Monocytes (%) (Auto) 6.3 % (1.0-10.0) Eosinophils (%) (Auto) 7.9 % (0.0-3.0) H Basophils (%) (Auto) 1.1 % (0.0-2.0) Sodium Level 140 MMOL/L (136-145) Potassium Level 3.9 MMOL/L (3.5-5.1) Chloride Level 104 MMOL/L (98-107) Carbon Dioxide Level 31 MMOL/L (21-32) Anion Gap 5 mmol/L (5-15) Blood Urea Nitrogen 18 mg/dL (7-18) Creatinine 1.3 MG/DL (0.55-1.30) Estimat Glomerular Filtration Rate 50.2 mL/min (>60) Glucose Level 96 MG/DL (74-106) Calcium Level 8.5 MG/DL (8.5-10.1) Intake and Output 03/31/18 04/01/18 19:00 07:00 Intake Total 750 ml 400 ml Balance 750 ml 400 ml Intake Oral 750 ml 400 ml # Voids 3 6 Objective General Appearance: no apparent distress, alert, obese EENT: PERRL/EOMI, normal ENT inspection, TMs normal Neck: non-tender, normal alignment, supple, normal inspection Cardiovascular: normal peripheral pulses, normal rate, regular rhythm, no gallop/murmur, no JVD Respiratory/Chest: chest wall non-tender, lungs clear, normal breath sounds, no respiratory distress, no accessory muscle use Abdomen: normal bowel sounds, non tender, soft, no organomegaly, no mass Extremities: non-tender, normal inspection 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 Continue copaxone when it arrives from home (non formulary at [place]) (2) Hypercholesterolemia (3) Glaucoma (4) MS (multiple sclerosis) Assessment & Plan: Await neurology consult and MRI (5) HTN (hypertension) Assessment & Plan: Improving hypotension. hold BP meds for BP<110/55 Status: stable Assessment/Plan Discharge planning JESUS KAYE April 01, 2018 16:06
[2018-04-01] MEDS: Latanoprost 0.005% Opth 2.5ml Soln BOTH EYES SCH (21:39)
[2018-04-01] MEDS: Atorvastatin 20mg tab ORAL SCH (21:39)
[2018-04-02] VITALS: BP 101/68
[2018-04-02] MEDS: ceFAZolin sod 1 GM in D5W 110 ML IVPB SCH ×2 (01:56→14:40)
[2018-04-02 04:00] VITALS: BP 103/67
[2018-04-02 08:08] VITALS: BP 112/60
[2018-04-02] MEDS: Timolol 0.5% Op Soln 2.5ml BOTH EYES SCH ×3 (08:36→17:23)
[2018-04-02] MEDS: hydroCHLOROthiazide 12.5mg TAB ORAL SCH (08:41)
[2018-04-02] MEDS: Oxybutynin 5mg tab ORAL SCH ×4 (08:42→20:25)
[2018-04-02] MEDS: Lisinopril 20mg tab ORAL SCH (08:42)
[2018-04-02] MEDS: Tums 500mg ORAL SCH (08:44)
[2018-04-02] MEDS: Heparin 5000 units/ml inj SUBQ SCH ×2 (08:57→20:27)
[2018-04-02 08:59] LABS: EOSINOPHILS % (AUTO) 6.8 % (0.0-3.0); HEMATOCRIT 37.5 % (37.0-47.0); HEMOGLOBIN 11.9 G/DL (12.0-16.0); LYMPHOCYTES % (AUTO) 36.8 % (20.0-45.0); MEAN CORPUSCULAR VOLUME 83 FL (80-99); MONOCYTES % (AUTO) 3.4 % (1.0-10.0); NEUTROPHILS % (AUTO) 50.9 % (45.0-75.0); PLATELET COUNT 171 K/UL (150-450); RED BLOOD COUNT 4.51 M/UL (4.20-5.40); RED CELL DISTRIBUTION WIDTH 13.5 % (11.6-14.8); WHITE BLOOD COUNT 3.8 K/UL (4.8-10.8)
[2018-04-02 09:28] LABS: ANION GAP 8 mmol/L (5-15); BLOOD UREA NITROGEN 18 mg/dL (7-18); CALCIUM 8.7 MG/DL (8.5-10.1); CARBON DIOXIDE 29 MMOL/L (21-32); CHLORIDE 103 MMOL/L (98-107); POTASSIUM 4.1 MMOL/L (3.5-5.1); SODIUM 140 MMOL/L (136-145)
[2018-04-02 11:53] VITALS: BP 94/58
--- NOTE | 2018-04-02 13:56 | Internal Med Progress Note ---
Subjective Date of Service: April 02, 2018 Physician Name Haley Aceves Attending Physician Jayesh Gibson MD Current Medications Medications (Trade) Dose Ordered Sig/Maria De Jesus Route PRN Reason Start Time Stop Time Status Last Admin Dose Admin Acetaminophen (Tylenol) 650 mg Q4H PRN ORAL Mild Pain (Pain Scale 1-3) 03/28/18 12:15 04/27/18 12:14 04/01/18 20:08 Acetaminophen (Tylenol) 650 mg Q4H PRN ORAL fever (temp>100.5F) 03/28/18 12:15 04/27/18 12:14 Acetaminophen/ Hydrocodone Bitart ([place] 10/325) 1 tab Q6H PRN ORAL Severe Pain (Pain Scale 7-10) 03/28/18 12:15 04/04/18 12:14 Amlodipine Besylate (Norvasc) 5 mg DAILY ORAL 03/29/18 09:00 04/28/18 08:59 04/02/18 08:42 Artificial Tears (Akwa-Tears) 1 drop Q6H PRN BOTH EYES dry eyes 03/28/18 12:15 04/27/18 12:14 Atorvastatin Calcium (Lipitor) 20 mg BEDTIME ORAL 03/28/18 21:00 04/27/18 20:59 04/01/18 21:39 Baclofen (Lioresal) 10 mg THREE TIMES A DAY ORAL 03/28/18 13:00 04/27/18 12:59 04/02/18 08:41 Calcium Carbonate (Tums) 500 mg DAILY ORAL 03/29/18 09:00 04/28/18 08:59 03/31/18 09:23 Cefazolin Sodium 1 gm/Dextrose 110 ml @ 220 mls/hr Q12H IVPB 03/31/18 14:30 04/07/18 14:29 04/02/18 01:56 Dextrose (Dextrose 50%) 25 ml STAT PRN IV Hypoglycemia 03/28/18 12:15 04/27/18 12:14 Dextrose (Dextrose 50%) 50 ml STAT PRN IV Hypoglycemia 03/28/18 12:15 04/27/18 12:14 Ergocalciferol (Drisdol) 50,000 intlu ONCE A WEEK ORAL 04/03/18 09:00 05/03/18 08:59 Gabapentin (Neurontin) 300 mg THREE TIMES A DAY ORAL 03/28/18 13:00 04/27/18 12:59 04/02/18 08:42 Heparin Sodium (Porcine) (Heparin 5000 units/ml) 5,000 units EVERY 12 HOURS SUBQ 03/28/18 21:00 04/27/18 20:59 04/02/18 08:57 Hydrochlorothiazide (Hydrodiuril) 12.5 mg DAILY ORAL 03/30/18 09:00 04/28/18 08:59 04/02/18 08:41 Latanoprost (Xalatan) 1 drop BEDTIME BOTH EYES 03/28/18 21:00 04/27/18 20:59 04/01/18 21:39 Lisinopril (Prinivil) 20 mg DAILY ORAL 03/30/18 09:00 04/28/18 08:59 04/02/18 08:42 Lorazepam (Ativan) 1 mg TIDPRN PRN ORAL For Anxiety 03/28/18 13:00 04/04/18 12:59 Naproxen (Naprosyn) 500 mg BIDPRN PRN ORAL Moderate Pain (Pain Scale 4-6) 03/28/18 12:15 04/27/18 12:14 Oxybutynin Chloride (Ditropan) 5 mg QID ORAL 03/28/18 18:00 04/27/18 17:59 04/02/18 08:42 Pantoprazole (Protonix) 40 mg DAILY ORAL 03/29/18 09:00 04/28/18 08:59 04/02/18 08:41 Timolol Maleate (Timoptic 0.5% Op Soln) 1 drop TID BOTH EYES 03/28/18 19:30 04/27/18 19:29 04/02/18 08:36 Zolpidem Tartrate (Ambien) 5 mg HSPRN PRN ORAL Insomnia 03/28/18 12:15 04/04/18 12:14 Allergies: Coded Allergies: No Known Allergies (Unverified , 05/21/13) ROS Limited/Unobtainable: No Constitutional: Reports: no symptoms HEENT: Reports: no symptoms Cardiovascular: Reports: no symptoms Respiratory: Reports: no symptoms Gastrointestinal/Abdominal: Reports: no symptoms Genitourinary: Reports: no symptoms Neurologic/Psychiatric: Reports: no symptoms Subjective 62 YO F with multiple sclerosis admitted with leg weakness. Cover for Int Med- Dr Gibson Objective Last Vital Signs Date Time Temp Pulse Resp B/P (MAP) Pulse Ox O2 Delivery O2 Flow Rate FiO2 04/02/18 11:53 97.5 74 20 94/58 99 97.5 04/02/18 04:00 Room Air Laboratory Tests Test 04/02/18 08:35 White Blood Count 3.8 K/UL (4.8-10.8) L Red Blood Count 4.51 M/UL (4.20-5.40) Hemoglobin 11.9 G/DL (12.0-16.0) L Hematocrit 37.5 % (37.0-47.0) Mean Corpuscular Volume 83 FL (80-99) Mean Corpuscular Hemoglobin 26.5 PG (27.0-31.0) L Mean Corpuscular Hemoglobin Concent 31.8 G/DL (32.0-36.0) L Red Cell Distribution Width 13.5 % (11.6-14.8) Platelet Count 171 K/UL (150-450) Mean Platelet Volume 6.3 FL (6.5-10.1) L Neutrophils (%) (Auto) 50.9 % (45.0-75.0) Lymphocytes (%) (Auto) 36.8 % (20.0-45.0) Monocytes (%) (Auto) 3.4 % (1.0-10.0) Eosinophils (%) (Auto) 6.8 % (0.0-3.0) H Basophils (%) (Auto) 2.0 % (0.0-2.0) Sodium Level 140 MMOL/L (136-145) Potassium Level 4.1 MMOL/L (3.5-5.1) Chloride Level 103 MMOL/L (98-107) Carbon Dioxide Level 29 MMOL/L (21-32) Anion Gap 8 mmol/L (5-15) Blood Urea Nitrogen 18 mg/dL (7-18) Creatinine 1.0 MG/DL (0.55-1.30) Estimat Glomerular Filtration Rate > 60 mL/min (>60) Glucose Level 121 MG/DL (74-106) H Calcium Level 8.7 MG/DL (8.5-10.1) Intake and Output 04/01/18 04/02/18 19:00 07:00 Intake Total 960 ml Balance 960 ml Intake Oral 960 ml # Voids 5 4 Objective General Appearance: no apparent distress, alert, obese EENT: PERRL/EOMI, normal ENT inspection, TMs normal Neck: non-tender, normal alignment, supple, normal inspection Cardiovascular: normal peripheral pulses, normal rate, regular rhythm, no gallop/murmur, no JVD Respiratory/Chest: chest wall non-tender, lungs clear, normal breath sounds, no respiratory distress, no accessory muscle use Abdomen: normal bowel sounds, non tender, soft, no organomegaly, no mass Extremities: non-tender, normal inspection 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 Continue copaxone when it arrives from home (non formulary at [place]) (2) Hypercholesterolemia (3) Glaucoma (4) MS (multiple sclerosis) Assessment & Plan: Await neurology consult and MRI (5) HTN (hypertension) Assessment & Plan: Improving hypotension. hold BP meds for BP<110/55 Assessment/Plan Discharge planning: HALEY Chang April 02, 2018 13:56
[2018-04-02 16:05] VITALS: BP 97/55
[2018-04-02 20:03] VITALS: BP 98/58
[2018-04-02] MEDS: Atorvastatin 20mg tab ORAL SCH (20:25)
[2018-04-02] MEDS: Latanoprost 0.005% Opth 2.5ml Soln BOTH EYES SCH (20:26)
[2018-04-03] VITALS (7 sets, daily range): BP systolic 90–106; BP diastolic 46–51
[2018-04-03] MEDS: ceFAZolin sod 1 GM in D5W 110 ML IVPB SCH ×2 (03:27→15:20)
[2018-04-03] MEDS: Oxybutynin 5mg tab ORAL SCH ×4 (08:57→20:44)
[2018-04-03] MEDS: hydroCHLOROthiazide 12.5mg TAB ORAL SCH (08:59)
[2018-04-03] MEDS: Timolol 0.5% Op Soln 2.5ml BOTH EYES SCH ×3 (08:59→18:00)
[2018-04-03] MEDS: Lisinopril 20mg tab ORAL SCH (09:00)
[2018-04-03] MEDS: Tums 500mg ORAL SCH (09:00)
[2018-04-03] MEDS ORDERED: Vitamin D 50,000 units cap ORAL SCH (09:00)
[2018-04-03] MEDS: Heparin 5000 units/ml inj SUBQ SCH ×2 (09:01→20:46)
[2018-04-03 09:34] LABS: HEMATOCRIT 33.6 % (37.0-47.0); HEMOGLOBIN 10.8 G/DL (12.0-16.0); MEAN CORPUSCULAR VOLUME 83 FL (80-99); PLATELET COUNT 205 K/UL (150-450); RED BLOOD COUNT 4.04 M/UL (4.20-5.40); RED CELL DISTRIBUTION WIDTH 13.4 % (11.6-14.8)
[2018-04-03 10:30] LABS: ANION GAP 8 mmol/L (5-15); BLOOD UREA NITROGEN 19 mg/dL (7-18); CALCIUM 8.9 MG/DL (8.5-10.1); CARBON DIOXIDE 28 MMOL/L (21-32); CHLORIDE 105 MMOL/L (98-107); CREATININE 0.9 MG/DL (0.55-1.30); POTASSIUM 3.9 MMOL/L (3.5-5.1); SODIUM 140 MMOL/L (136-145)
--- NOTE | 2018-04-03 13:59 | Internal Med Progress Note ---
Subjective Date of Service: April 03, 2018 Physician Name Haley Aceves Attending Physician Jayesh Gibson MD Current Medications Medications (Trade) Dose Ordered Sig/Maria De Jesus Route PRN Reason Start Time Stop Time Status Last Admin Dose Admin Acetaminophen (Tylenol) 650 mg Q4H PRN ORAL Mild Pain (Pain Scale 1-3) 03/28/18 12:15 04/27/18 12:14 04/01/18 20:08 Acetaminophen (Tylenol) 650 mg Q4H PRN ORAL fever (temp>100.5F) 03/28/18 12:15 04/27/18 12:14 Acetaminophen/ Hydrocodone Bitart ([place] 10/325) 1 tab Q6H PRN ORAL Severe Pain (Pain Scale 7-10) 03/28/18 12:15 04/04/18 12:14 Amlodipine Besylate (Norvasc) 5 mg DAILY ORAL 03/29/18 09:00 04/28/18 08:59 04/02/18 08:42 Artificial Tears (Akwa-Tears) 1 drop Q6H PRN BOTH EYES dry eyes 03/28/18 12:15 04/27/18 12:14 Atorvastatin Calcium (Lipitor) 20 mg BEDTIME ORAL 03/28/18 21:00 04/27/18 20:59 04/02/18 20:25 Baclofen (Lioresal) 10 mg THREE TIMES A DAY ORAL 03/28/18 13:00 04/27/18 12:59 04/03/18 08:59 Calcium Carbonate (Tums) 500 mg DAILY ORAL 03/29/18 09:00 04/28/18 08:59 03/31/18 09:23 Cefazolin Sodium 1 gm/Dextrose 110 ml @ 220 mls/hr Q12H IVPB 03/31/18 14:30 04/07/18 14:29 04/03/18 03:27 Dextrose (Dextrose 50%) 25 ml STAT PRN IV Hypoglycemia 03/28/18 12:15 04/27/18 12:14 Dextrose (Dextrose 50%) 50 ml STAT PRN IV Hypoglycemia 03/28/18 12:15 04/27/18 12:14 Ergocalciferol (Drisdol) 50,000 intlu ONCE A WEEK ORAL 04/03/18 09:00 05/03/18 08:59 04/03/18 09:01 Gabapentin (Neurontin) 300 mg THREE TIMES A DAY ORAL 03/28/18 13:00 04/27/18 12:59 04/03/18 08:59 Heparin Sodium (Porcine) (Heparin 5000 units/ml) 5,000 units EVERY 12 HOURS SUBQ 03/28/18 21:00 04/27/18 20:59 04/03/18 09:01 Hydrochlorothiazide (Hydrodiuril) 12.5 mg DAILY ORAL 03/30/18 09:00 04/28/18 08:59 04/03/18 08:59 Latanoprost (Xalatan) 1 drop BEDTIME BOTH EYES 03/28/18 21:00 04/27/18 20:59 04/02/18 20:26 Lisinopril (Prinivil) 20 mg DAILY ORAL 03/30/18 09:00 04/28/18 08:59 04/02/18 08:42 Lorazepam (Ativan) 1 mg TIDPRN PRN ORAL For Anxiety 03/28/18 13:00 04/04/18 12:59 Naproxen (Naprosyn) 500 mg BIDPRN PRN ORAL Moderate Pain (Pain Scale 4-6) 03/28/18 12:15 04/27/18 12:14 Oxybutynin Chloride (Ditropan) 5 mg QID ORAL 03/28/18 18:00 04/27/18 17:59 04/03/18 08:57 Pantoprazole (Protonix) 40 mg DAILY ORAL 03/29/18 09:00 04/28/18 08:59 04/03/18 08:59 Timolol Maleate (Timoptic 0.5% Op Soln) 1 drop TID BOTH EYES 03/28/18 19:30 04/27/18 19:29 04/03/18 08:59 Zolpidem Tartrate (Ambien) 5 mg HSPRN PRN ORAL Insomnia 03/28/18 12:15 04/04/18 12:14 Allergies: Coded Allergies: No Known Allergies (Unverified , 05/21/13) ROS Limited/Unobtainable: No Constitutional: Reports: no symptoms HEENT: Reports: no symptoms Cardiovascular: Reports: no symptoms Respiratory: Reports: no symptoms Gastrointestinal/Abdominal: Reports: no symptoms Genitourinary: Reports: no symptoms Neurologic/Psychiatric: Reports: no symptoms Subjective 62 YO F with multiple sclerosis admitted with leg weakness. Cover for Int [facility]- Dr Gibson Objective Last Vital Signs Date Time Temp Pulse Resp B/P (MAP) Pulse Ox O2 Delivery O2 Flow Rate FiO2 04/03/18 12:00 97.7 67 18 90/48 97 Room Air 97.7 Laboratory Tests Test 04/03/18 07:20 White Blood Count 3.0 K/UL (4.8-10.8) L Red Blood Count 4.04 M/UL (4.20-5.40) L Hemoglobin 10.8 G/DL (12.0-16.0) L Hematocrit 33.6 % (37.0-47.0) L Mean Corpuscular Volume 83 FL (80-99) Mean Corpuscular Hemoglobin 26.8 PG (27.0-31.0) L Mean Corpuscular Hemoglobin Concent 32.2 G/DL (32.0-36.0) Red Cell Distribution Width 13.4 % (11.6-14.8) Platelet Count 205 K/UL (150-450) Mean Platelet Volume 5.6 FL (6.5-10.1) L Neutrophils (%) (Auto) % (45.0-75.0) Lymphocytes (%) (Auto) % (20.0-45.0) Monocytes (%) (Auto) % (1.0-10.0) Eosinophils (%) (Auto) % (0.0-3.0) Basophils (%) (Auto) % (0.0-2.0) Differential Total Cells Counted 100 Neutrophils % (Manual) 46 % (45-75) Lymphocytes % (Manual) 45 % (20-45) Monocytes % (Manual) 5 % (1-10) Eosinophils % (Manual) 4 % (0-3) H Basophils % (Manual) 0 % (0-2) Band Neutrophils 0 % (0-8) Platelet Estimate Adequate Platelet Morphology Normal Hypochromasia 1+ Sodium Level 140 MMOL/L (136-145) Potassium Level 3.9 MMOL/L (3.5-5.1) Chloride Level 105 MMOL/L (98-107) Carbon Dioxide Level 28 MMOL/L (21-32) Anion Gap 8 mmol/L (5-15) Blood Urea Nitrogen 19 mg/dL (7-18) H Creatinine 0.9 MG/DL (0.55-1.30) Estimat Glomerular Filtration Rate > 60 mL/min (>60) Glucose Level 83 MG/DL (74-106) Calcium Level 8.9 MG/DL (8.5-10.1) Intake and Output 04/02/18 04/03/18 19:00 07:00 Intake Total 1010 ml 110 ml Balance 1010 ml 110 ml Intake Oral 1010 ml IV Total 110 ml # Voids 5 3 Objective General Appearance: no apparent distress, alert, obese EENT: PERRL/EOMI, normal ENT inspection, TMs normal Neck: non-tender, normal alignment, supple, normal inspection Cardiovascular: normal peripheral pulses, normal rate, regular rhythm, no gallop/murmur, no JVD Respiratory/Chest: chest wall non-tender, lungs clear, normal breath sounds, no respiratory distress, no accessory muscle use Abdomen: normal bowel sounds, non tender, soft, no organomegaly, no mass Extremities: non-tender, normal inspection 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 Continue copaxone when it arrives from home (non formulary at [facility]) (2) Hypercholesterolemia (3) Glaucoma (4) MS (multiple sclerosis) Assessment & Plan: Await neurology consult and MRI (5) HTN (hypertension) Assessment & Plan: Improving hypotension. hold BP meds for BP<110/55 (6) Sacral decubitus ulcer Assessment & Plan: Wound care consult. Dressing changes. Status: not improved Assessment/Plan Discharge planning: HALEY Chang April 03, 2018 13:59
[2018-04-03] MEDS: Atorvastatin 20mg tab ORAL SCH (20:44)
[2018-04-03] MEDS: Latanoprost 0.005% Opth 2.5ml Soln BOTH EYES SCH (20:44)
[2018-04-04] MEDS: ceFAZolin sod 1 GM in D5W 110 ML IVPB SCH ×2 (03:34→14:09)
[2018-04-04 04:00] VITALS: BP 108/49
[2018-04-04 08:00] VITALS: BP 92/61
[2018-04-04 08:22] LABS: HEMATOCRIT 32.3 % (37.0-47.0); HEMOGLOBIN 10.3 G/DL (12.0-16.0); MEAN CORPUSCULAR VOLUME 83 FL (80-99); PLATELET COUNT 294 K/UL (150-450); RED CELL DISTRIBUTION WIDTH 13.1 % (11.6-14.8); WHITE BLOOD COUNT 3.4 K/UL (4.8-10.8)
[2018-04-04] MEDS: Lisinopril 20mg tab ORAL SCH (08:29)
[2018-04-04] MEDS: hydroCHLOROthiazide 12.5mg TAB ORAL SCH (08:31)
[2018-04-04] MEDS: Oxybutynin 5mg tab ORAL SCH ×4 (08:32→21:44)
[2018-04-04] MEDS: Tums 500mg ORAL SCH (08:34)
[2018-04-04] MEDS: Heparin 5000 units/ml inj SUBQ SCH ×2 (08:34→21:45)
[2018-04-04 08:38] LABS: ANION GAP 8 mmol/L (5-15); BLOOD UREA NITROGEN 18 mg/dL (7-18); CALCIUM 8.9 MG/DL (8.5-10.1); CARBON DIOXIDE 29 MMOL/L (21-32); CHLORIDE 104 MMOL/L (98-107); POTASSIUM 4.1 MMOL/L (3.5-5.1); SODIUM 140 MMOL/L (136-145)
[2018-04-04] MEDS: Timolol 0.5% Op Soln 2.5ml BOTH EYES SCH ×3 (09:07→17:07)
--- NOTE | 2018-04-04 11:18 | Internal Med Progress Note ---
Subjective Date of Service: April 04, 2018 Physician Name Haley Aceves Attending Physician Jayesh Gibson MD Current Medications Medications (Trade) Dose Ordered Sig/Maria De Jesus Route PRN Reason Start Time Stop Time Status Last Admin Dose Admin Acetaminophen (Tylenol) 650 mg Q4H PRN ORAL Mild Pain (Pain Scale 1-3) 03/28/18 12:15 04/27/18 12:14 04/01/18 20:08 Acetaminophen (Tylenol) 650 mg Q4H PRN ORAL fever (temp>100.5F) 03/28/18 12:15 04/27/18 12:14 Acetaminophen/ Hydrocodone Bitart ([place] 10/325) 1 tab Q6H PRN ORAL Severe Pain (Pain Scale 7-10) 03/28/18 12:15 04/04/18 12:14 Amlodipine Besylate (Norvasc) 5 mg DAILY ORAL 03/29/18 09:00 04/28/18 08:59 04/02/18 08:42 Artificial Tears (Akwa-Tears) 1 drop Q6H PRN BOTH EYES dry eyes 03/28/18 12:15 04/27/18 12:14 Atorvastatin Calcium (Lipitor) 20 mg BEDTIME ORAL 03/28/18 21:00 04/27/18 20:59 04/03/18 20:44 Baclofen (Lioresal) 10 mg THREE TIMES A DAY ORAL 03/28/18 13:00 04/27/18 12:59 04/04/18 08:29 Calcium Carbonate (Tums) 500 mg DAILY ORAL 03/29/18 09:00 04/28/18 08:59 03/31/18 09:23 Cefazolin Sodium 1 gm/Dextrose 110 ml @ 220 mls/hr Q12H IVPB 03/31/18 14:30 04/07/18 14:29 04/04/18 03:34 Dextrose (Dextrose 50%) 25 ml STAT PRN IV Hypoglycemia 03/28/18 12:15 04/27/18 12:14 Dextrose (Dextrose 50%) 50 ml STAT PRN IV Hypoglycemia 03/28/18 12:15 04/27/18 12:14 Ergocalciferol (Drisdol) 50,000 intlu ONCE A WEEK ORAL 04/03/18 09:00 05/03/18 08:59 04/03/18 09:01 Gabapentin (Neurontin) 300 mg THREE TIMES A DAY ORAL 03/28/18 13:00 04/27/18 12:59 04/04/18 08:32 Heparin Sodium (Porcine) (Heparin 5000 units/ml) 5,000 units EVERY 12 HOURS SUBQ 03/28/18 21:00 04/27/18 20:59 04/04/18 08:34 Hydrochlorothiazide (Hydrodiuril) 12.5 mg DAILY ORAL 03/30/18 09:00 04/28/18 08:59 04/03/18 08:59 Latanoprost (Xalatan) 1 drop BEDTIME BOTH EYES 03/28/18 21:00 04/27/18 20:59 04/03/18 20:44 Lisinopril (Prinivil) 20 mg DAILY ORAL 03/30/18 09:00 04/28/18 08:59 04/02/18 08:42 Lorazepam (Ativan) 1 mg TIDPRN PRN ORAL For Anxiety 03/28/18 13:00 04/04/18 12:59 Naproxen (Naprosyn) 500 mg BIDPRN PRN ORAL Moderate Pain (Pain Scale 4-6) 03/28/18 12:15 04/27/18 12:14 Oxybutynin Chloride (Ditropan) 5 mg QID ORAL 03/28/18 18:00 04/27/18 17:59 04/04/18 08:32 Pantoprazole (Protonix) 40 mg DAILY ORAL 03/29/18 09:00 04/28/18 08:59 04/03/18 08:59 Timolol Maleate (Timoptic 0.5% Op Soln) 1 drop TID BOTH EYES 03/28/18 19:30 04/27/18 19:29 04/04/18 09:07 Zolpidem Tartrate (Ambien) 5 mg HSPRN PRN ORAL Insomnia 03/28/18 12:15 04/04/18 12:14 Allergies: Coded Allergies: No Known Allergies (Unverified , 05/21/13) ROS Limited/Unobtainable: No Constitutional: Reports: no symptoms HEENT: Reports: no symptoms Cardiovascular: Reports: no symptoms Respiratory: Reports: no symptoms Gastrointestinal/Abdominal: Reports: no symptoms Genitourinary: Reports: no symptoms Neurologic/Psychiatric: Reports: no symptoms Subjective 62 YO F with multiple sclerosis admitted with leg weakness. Cover for Int [facility]- Dr Gibson Objective Last Vital Signs Date Time Temp Pulse Resp B/P (MAP) Pulse Ox O2 Delivery O2 Flow Rate FiO2 04/04/18 08:30 79 92/61 04/04/18 08:00 96.8 18 100 Room Air 96.8 Laboratory Tests Test 04/04/18 05:05 White Blood Count 3.4 K/UL (4.8-10.8) L Red Blood Count 3.90 M/UL (4.20-5.40) L Hemoglobin 10.3 G/DL (12.0-16.0) L Hematocrit 32.3 % (37.0-47.0) L Mean Corpuscular Volume 83 FL (80-99) Mean Corpuscular Hemoglobin 26.4 PG (27.0-31.0) L Mean Corpuscular Hemoglobin Concent 31.8 G/DL (32.0-36.0) L Red Cell Distribution Width 13.1 % (11.6-14.8) Platelet Count 294 K/UL (150-450) Mean Platelet Volume 5.5 FL (6.5-10.1) L Neutrophils (%) (Auto) % (45.0-75.0) Lymphocytes (%) (Auto) % (20.0-45.0) Monocytes (%) (Auto) % (1.0-10.0) Eosinophils (%) (Auto) % (0.0-3.0) Basophils (%) (Auto) % (0.0-2.0) Differential Total Cells Counted 100 Neutrophils % (Manual) 32 % (45-75) L Lymphocytes % (Manual) 48 % (20-45) H Monocytes % (Manual) 8 % (1-10) Eosinophils % (Manual) 10 % (0-3) H Basophils % (Manual) 0 % (0-2) Band Neutrophils 2 % (0-8) Platelet Estimate Adequate Platelet Morphology Normal Sodium Level 140 MMOL/L (136-145) Potassium Level 4.1 MMOL/L (3.5-5.1) Chloride Level 104 MMOL/L (98-107) Carbon Dioxide Level 29 MMOL/L (21-32) Anion Gap 8 mmol/L (5-15) Blood Urea Nitrogen 18 mg/dL (7-18) Creatinine 1.0 MG/DL (0.55-1.30) Estimat Glomerular Filtration Rate > 60 mL/min (>60) Glucose Level 87 MG/DL (74-106) Calcium Level 8.9 MG/DL (8.5-10.1) Intake and Output 04/03/18 04/04/18 19:00 07:00 Intake Total 960 ml 385 ml Balance 960 ml 385 ml Intake Oral 960 ml 275 ml IV Total 110 ml # Voids 6 3 Objective General Appearance: no apparent distress, alert, obese EENT: PERRL/EOMI, normal ENT inspection, TMs normal Neck: non-tender, normal alignment, supple, normal inspection Cardiovascular: normal peripheral pulses, normal rate, regular rhythm, no gallop/murmur, no JVD Respiratory/Chest: chest wall non-tender, lungs clear, normal breath sounds, no respiratory distress, no accessory muscle use Abdomen: normal bowel sounds, non tender, soft, no organomegaly, no mass Extremities: non-tender, normal inspection 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 Continue copaxone when it arrives from home (non formulary at [place]) (2) Hypercholesterolemia (3) Glaucoma (4) MS (multiple sclerosis) Assessment & Plan: See neurology consult. MRI=no new MS lesions. (5) HTN (hypertension) Assessment & Plan: Continue lisinopril and norvasc. (6) Sacral decubitus ulcer Assessment & Plan: Wound care consult. Dressing changes. Status: stable Assessment/Plan Discharge planning: HALEY Chang April 04, 2018 11:18
[2018-04-04 12:00] VITALS: BP 112/67
[2018-04-04 15:51] VITALS: BP 110/57
--- NOTE | 2018-04-04 19:18 | Pulmonology Progress Note ---
Assessment/Plan Problems: (1) UTI (urinary tract infection) (2) MS (multiple sclerosis) (3) Failure to thrive (4) HTN (hypertension) Assessment/Plan pt wants to go to a rehab facility MRI of brain and cerical spine reviewed, c/w myelinating disease check cultures, Urine has > 100k colonies, Ecoli, almost pansensitive neuro evaluation appreciated pt/ot dvt prophylaxis symptomatic treatment. dc planning pt hopes to go to [facility] Subjective ROS Limited/Unobtainable: No Allergies: Coded Allergies: No Known Allergies (Unverified , 05/21/13) Objective Last 24 Hour Vital Signs Date Time Temp Pulse Resp B/P (MAP) Pulse Ox O2 Delivery O2 Flow Rate FiO2 04/04/18 15:51 97.7 73 18 110/57 99 Room Air 97.7 04/04/18 12:00 98.2 70 18 112/67 94 Room Air 98.2 04/04/18 08:30 79 92/61 04/04/18 08:29 92/61 04/04/18 08:00 96.8 79 18 92/61 100 Room Air 96.8 04/04/18 04:00 98.4 73 18 108/49 96 98.4 04/03/18 23:58 98.6 81 18 106/51 97 98.6 04/03/18 19:54 98.8 81 18 101/49 98 98.8 Intake and Output 04/03/18 04/04/18 19:00 07:00 Intake Total 960 ml 385 ml Balance 960 ml 385 ml Intake Oral 960 ml 275 ml IV Total 110 ml # Voids 6 3 General Appearance: WD/WN HEENT: normocephalic, atraumatic Respiratory/Chest: chest wall non-tender, lungs clear Breasts: no masses Cardiovascular: normal peripheral pulses Abdomen: normal bowel sounds, soft, non tender Genitourinary: normal external genitalia Extremities: no cyanosis 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 Laboratory Tests 04/04/18 05:05: White Blood Count 3.4L, Red Blood Count 3.90L, Hemoglobin 10.3L, Hematocrit 32.3L, Mean Corpuscular Volume 83, Mean Corpuscular Hemoglobin 26.4L, Mean Corpuscular Hemoglobin Concent 31.8L, Red Cell Distribution Width 13.1, Platelet Count 294, Mean Platelet Volume 5.5L, Neutrophils (%) (Auto) , Lymphocytes (%) (Auto) , Monocytes (%) (Auto) , Eosinophils (%) (Auto) , Basophils (%) (Auto) , Differential Total Cells Counted 100, Neutrophils % ( Manual) 32L, Lymphocytes % (Manual) 48H, Monocytes % (Manual) 8, Eosinophils % ( Manual) 10H, Basophils % (Manual) 0, Band Neutrophils 2, Platelet Estimate Adequate, Platelet Morphology Normal, Sodium Level 140, Potassium Level 4.1, Chloride Level 104, Carbon Dioxide Level 29, Anion Gap 8, Blood Urea Nitrogen 18 , Creatinine 1.0, Estimat Glomerular Filtration Rate > 60, Glucose Level 87, Calcium Level 8.9 Current Medications Medications (Trade) Dose Ordered Sig/Maria De Jesus Route PRN Reason Start Time Stop Time Status Last Admin Dose Admin Acetaminophen (Tylenol) 650 mg Q4H PRN ORAL Mild Pain (Pain Scale 1-3) 03/28/18 12:15 04/27/18 12:14 04/01/18 20:08 Acetaminophen (Tylenol) 650 mg Q4H PRN ORAL fever (temp>100.5F) 03/28/18 12:15 04/27/18 12:14 Amlodipine Besylate (Norvasc) 5 mg DAILY ORAL 03/29/18 09:00 04/28/18 08:59 04/02/18 08:42 Artificial Tears (Akwa-Tears) 1 drop Q6H PRN BOTH EYES dry eyes 03/28/18 12:15 04/27/18 12:14 Atorvastatin Calcium (Lipitor) 20 mg BEDTIME ORAL 03/28/18 21:00 04/27/18 20:59 04/03/18 20:44 Baclofen (Lioresal) 10 mg THREE TIMES A DAY ORAL 03/28/18 13:00 04/27/18 12:59 04/04/18 17:11 Calcium Carbonate (Tums) 500 mg DAILY ORAL 03/29/18 09:00 04/28/18 08:59 03/31/18 09:23 Cefazolin Sodium 1 gm/Dextrose 110 ml @ 220 mls/hr Q12H IVPB 03/31/18 14:30 04/07/18 14:29 04/04/18 14:09 Dextrose (Dextrose 50%) 25 ml STAT PRN IV Hypoglycemia 03/28/18 12:15 04/27/18 12:14 Dextrose (Dextrose 50%) 50 ml STAT PRN IV Hypoglycemia 03/28/18 12:15 04/27/18 12:14 Ergocalciferol (Drisdol) 50,000 intlu ONCE A WEEK ORAL 04/03/18 09:00 05/03/18 08:59 04/03/18 09:01 Gabapentin (Neurontin) 300 mg THREE TIMES A DAY ORAL 03/28/18 13:00 04/27/18 12:59 04/04/18 17:11 Heparin Sodium (Porcine) (Heparin 5000 units/ml) 5,000 units EVERY 12 HOURS SUBQ 03/28/18 21:00 04/27/18 20:59 04/04/18 08:34 Hydrochlorothiazide (Hydrodiuril) 12.5 mg DAILY ORAL 03/30/18 09:00 04/28/18 08:59 04/03/18 08:59 Latanoprost (Xalatan) 1 drop BEDTIME BOTH EYES 03/28/18 21:00 04/27/18 20:59 04/03/18 20:44 Lisinopril (Prinivil) 20 mg DAILY ORAL 03/30/18 09:00 04/28/18 08:59 04/02/18 08:42 Naproxen (Naprosyn) 500 mg BIDPRN PRN ORAL Moderate Pain (Pain Scale 4-6) 03/28/18 12:15 04/27/18 12:14 Oxybutynin Chloride (Ditropan) 5 mg QID ORAL 03/28/18 18:00 04/27/18 17:59 04/04/18 17:11 Pantoprazole (Protonix) 40 mg DAILY ORAL 03/29/18 09:00 04/28/18 08:59 04/03/18 08:59 Timolol Maleate (Timoptic 0.5% Op Soln) 1 drop TID BOTH EYES 03/28/18 19:30 04/27/18 19:29 04/04/18 12:26 Cherry Timmons MD April 04, 2018 19:18
[2018-04-04 20:00] VITALS: BP 100/47
[2018-04-04] MEDS: Atorvastatin 20mg tab ORAL SCH (21:44)
[2018-04-04] MEDS: Latanoprost 0.005% Opth 2.5ml Soln BOTH EYES SCH (21:44)
[2018-04-05] VITALS: BP 93/53
[2018-04-05] MEDS: ceFAZolin sod 1 GM in D5W 110 ML IVPB SCH ×2 (02:04→13:32)
[2018-04-05 04:00] VITALS: BP 97/52
[2018-04-05 08:10] VITALS: BP 115/77
[2018-04-05] MEDS: Tums 500mg ORAL SCH (08:21)
[2018-04-05] MEDS: Oxybutynin 5mg tab ORAL SCH ×2 (08:21→13:31)
[2018-04-05] MEDS: hydroCHLOROthiazide 12.5mg TAB ORAL SCH (08:22)
[2018-04-05] MEDS: Lisinopril 20mg tab ORAL SCH ×2 (08:22→08:28)
[2018-04-05] MEDS: Timolol 0.5% Op Soln 2.5ml BOTH EYES SCH ×2 (08:23→13:31)
[2018-04-05] MEDS: Heparin 5000 units/ml inj SUBQ SCH (08:28)
[2018-04-05 09:37] LABS: BASOPHILS % (AUTO) 1.4 % (0.0-2.0); EOSINOPHILS % (AUTO) 6.2 % (0.0-3.0); HEMATOCRIT 35.4 % (37.0-47.0); HEMOGLOBIN 11.6 G/DL (12.0-16.0); LYMPHOCYTES % (AUTO) 34.9 % (20.0-45.0); MEAN CORPUSCULAR VOLUME 83 FL (80-99); MONOCYTES % (AUTO) 9.3 % (1.0-10.0); NEUTROPHILS % (AUTO) 48.2 % (45.0-75.0); PLATELET COUNT 284 K/UL (150-450); RED BLOOD COUNT 4.26 M/UL (4.20-5.40); RED CELL DISTRIBUTION WIDTH 13.5 % (11.6-14.8); WHITE BLOOD COUNT 3.9 K/UL (4.8-10.8)
[2018-04-05 10:03] LABS: ANION GAP 5 mmol/L (5-15); BLOOD UREA NITROGEN 19 mg/dL (7-18); CALCIUM 9.1 MG/DL (8.5-10.1); CARBON DIOXIDE 30 MMOL/L (21-32); CHLORIDE 103 MMOL/L (98-107); CREATININE 1.1 MG/DL (0.55-1.30); POTASSIUM 4.2 MMOL/L (3.5-5.1); SODIUM 138 MMOL/L (136-145)
--- NOTE | 2018-04-05 12:27 | Pulmonology Progress Note ---
Assessment/Plan Problems: (1) UTI (urinary tract infection) (2) MS (multiple sclerosis) (3) Failure to thrive (4) HTN (hypertension) Assessment/Plan pt wants to go to a rehab facility MRI of brain and cerical spine reviewed, c/w myelinating disease check cultures, Urine has > 100k colonies, Ecoli, almost pansensitive neuro evaluation appreciated pt/ot dvt prophylaxis symptomatic treatment. dc planning pt hopes to go to [facility] Subjective ROS Limited/Unobtainable: No Constitutional: Reports: no symptoms HEENT: Repors: no symptoms Allergies: Coded Allergies: No Known Allergies (Unverified , 05/21/13) Objective Last 24 Hour Vital Signs Date Time Temp Pulse Resp B/P (MAP) Pulse Ox O2 Delivery O2 Flow Rate FiO2 04/05/18 08:21 80 115/77 04/05/18 08:10 97.5 80 18 115/77 100 97.5 04/05/18 04:00 98.1 70 19 97/52 97 98.1 04/05/18 04:00 97 Room Air 04/05/18 00:00 94 Room Air 04/05/18 00:00 98.2 85 18 93/53 94 98.2 04/04/18 20:00 98.4 90 18 100/47 98 98.4 04/04/18 20:00 98 Room Air 04/04/18 15:51 97.7 73 18 110/57 99 Room Air 97.7 Intake and Output 04/04/18 04/05/18 19:00 07:00 Intake Total 1200 ml 110 ml Balance 1200 ml 110 ml Intake Oral 1200 ml IV Total 110 ml # Voids 5 2 General Appearance: WD/WN HEENT: normocephalic, atraumatic Respiratory/Chest: chest wall non-tender, lungs clear Breasts: no masses Cardiovascular: normal peripheral pulses, regular rhythm Abdomen: normal bowel sounds, soft, non tender, non distended Genitourinary: normal external genitalia Extremities: no clubbing 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, no motor/sensory deficits Laboratory Tests 04/05/18 08:55: White Blood Count 3.9L, Red Blood Count 4.26, Hemoglobin 11.6L, Hematocrit 35.4L , Mean Corpuscular Volume 83, Mean Corpuscular Hemoglobin 27.2, Mean Corpuscular Hemoglobin Concent 32.7, Red Cell Distribution Width 13.5, Platelet Count 284, Mean Platelet Volume 5.5L, Neutrophils (%) (Auto) 48.2, Lymphocytes ( %) (Auto) 34.9, Monocytes (%) (Auto) 9.3, Eosinophils (%) (Auto) 6.2H, Basophils (%) (Auto) 1.4, Sodium Level 138, Potassium Level 4.2, Chloride Level 103, Carbon Dioxide Level 30, Anion Gap 5, Blood Urea Nitrogen 19H, Creatinine 1.1, Estimat Glomerular Filtration Rate > 60, Glucose Level 100, Calcium Level 9.1 Current Medications Medications (Trade) Dose Ordered Sig/Maria De Jesus Route PRN Reason Start Time Stop Time Status Last Admin Dose Admin Acetaminophen (Tylenol) 650 mg Q4H PRN ORAL Mild Pain (Pain Scale 1-3) 03/28/18 12:15 04/27/18 12:14 04/01/18 20:08 Acetaminophen (Tylenol) 650 mg Q4H PRN ORAL fever (temp>100.5F) 03/28/18 12:15 04/27/18 12:14 Amlodipine Besylate (Norvasc) 5 mg DAILY ORAL 03/29/18 09:00 04/28/18 08:59 04/05/18 08:21 Artificial Tears (Akwa-Tears) 1 drop Q6H PRN BOTH EYES dry eyes 03/28/18 12:15 04/27/18 12:14 Atorvastatin Calcium (Lipitor) 20 mg BEDTIME ORAL 03/28/18 21:00 04/27/18 20:59 04/04/18 21:44 Baclofen (Lioresal) 10 mg THREE TIMES A DAY ORAL 03/28/18 13:00 04/27/18 12:59 04/05/18 08:21 Calcium Carbonate (Tums) 500 mg DAILY ORAL 03/29/18 09:00 04/28/18 08:59 04/05/18 08:21 Cefazolin Sodium 1 gm/Dextrose 110 ml @ 220 mls/hr Q12H IVPB 03/31/18 14:30 04/07/18 14:29 04/05/18 02:04 Dextrose (Dextrose 50%) 25 ml STAT PRN IV Hypoglycemia 03/28/18 12:15 04/27/18 12:14 Dextrose (Dextrose 50%) 50 ml STAT PRN IV Hypoglycemia 03/28/18 12:15 04/27/18 12:14 Ergocalciferol (Drisdol) 50,000 intlu ONCE A WEEK ORAL 04/03/18 09:00 05/03/18 08:59 04/03/18 09:01 Gabapentin (Neurontin) 300 mg THREE TIMES A DAY ORAL 03/28/18 13:00 04/27/18 12:59 04/05/18 08:21 Heparin Sodium (Porcine) (Heparin 5000 units/ml) 5,000 units EVERY 12 HOURS SUBQ 03/28/18 21:00 04/27/18 20:59 04/05/18 08:28 Hydrochlorothiazide (Hydrodiuril) 12.5 mg DAILY ORAL 03/30/18 09:00 04/28/18 08:59 04/03/18 08:59 Latanoprost (Xalatan) 1 drop BEDTIME BOTH EYES 03/28/18 21:00 04/27/18 20:59 04/04/18 21:44 Lisinopril (Prinivil) 20 mg DAILY ORAL 03/30/18 09:00 04/28/18 08:59 04/02/18 08:42 Naproxen (Naprosyn) 500 mg BIDPRN PRN ORAL Moderate Pain (Pain Scale 4-6) 03/28/18 12:15 04/27/18 12:14 Oxybutynin Chloride (Ditropan) 5 mg QID ORAL 03/28/18 18:00 04/27/18 17:59 04/05/18 08:21 Pantoprazole (Protonix) 40 mg DAILY ORAL 03/29/18 09:00 04/28/18 08:59 04/05/18 08:21 Timolol Maleate (Timoptic 0.5% Op Soln) 1 drop TID BOTH EYES 03/28/18 19:30 04/27/18 19:29 04/05/18 08:23 Cherry Timmons MD April 05, 2018 12:27
[2018-04-05 12:50] VITALS: BP 131/60
--- NOTE | 2018-04-05 15:48 | Internal Med Progress Note ---
Subjective Date of Service: April 05, 2018 Physician Name Haley Kaye Attending Physician Jayesh Gibson MD Current Medications Medications (Trade) Dose Ordered Sig/Maria De Jesus Route PRN Reason Start Time Stop Time Status Last Admin Dose Admin Acetaminophen (Tylenol) 650 mg Q4H PRN ORAL Mild Pain (Pain Scale 1-3) 03/28/18 12:15 04/27/18 12:14 04/01/18 20:08 Acetaminophen (Tylenol) 650 mg Q4H PRN ORAL fever (temp>100.5F) 03/28/18 12:15 04/27/18 12:14 Amlodipine Besylate (Norvasc) 5 mg DAILY ORAL 03/29/18 09:00 04/28/18 08:59 04/05/18 08:21 Artificial Tears (Akwa-Tears) 1 drop Q6H PRN BOTH EYES dry eyes 03/28/18 12:15 04/27/18 12:14 Atorvastatin Calcium (Lipitor) 20 mg BEDTIME ORAL 03/28/18 21:00 04/27/18 20:59 04/04/18 21:44 Baclofen (Lioresal) 10 mg THREE TIMES A DAY ORAL 03/28/18 13:00 04/27/18 12:59 04/05/18 13:31 Calcium Carbonate (Tums) 500 mg DAILY ORAL 03/29/18 09:00 04/28/18 08:59 04/05/18 08:21 Cefazolin Sodium 1 gm/Dextrose 110 ml @ 220 mls/hr Q12H IVPB 03/31/18 14:30 04/07/18 14:29 04/05/18 13:32 Dextrose (Dextrose 50%) 25 ml STAT PRN IV Hypoglycemia 03/28/18 12:15 04/27/18 12:14 Dextrose (Dextrose 50%) 50 ml STAT PRN IV Hypoglycemia 03/28/18 12:15 04/27/18 12:14 Ergocalciferol (Drisdol) 50,000 intlu ONCE A WEEK ORAL 04/03/18 09:00 05/03/18 08:59 04/03/18 09:01 Gabapentin (Neurontin) 300 mg THREE TIMES A DAY ORAL 03/28/18 13:00 04/27/18 12:59 04/05/18 13:31 Heparin Sodium (Porcine) (Heparin 5000 units/ml) 5,000 units EVERY 12 HOURS SUBQ 03/28/18 21:00 04/27/18 20:59 04/05/18 08:28 Hydrochlorothiazide (Hydrodiuril) 12.5 mg DAILY ORAL 03/30/18 09:00 04/28/18 08:59 04/03/18 08:59 Latanoprost (Xalatan) 1 drop BEDTIME BOTH EYES 03/28/18 21:00 04/27/18 20:59 04/04/18 21:44 Lisinopril (Prinivil) 20 mg DAILY ORAL 03/30/18 09:00 04/28/18 08:59 04/02/18 08:42 Naproxen (Naprosyn) 500 mg BIDPRN PRN ORAL Moderate Pain (Pain Scale 4-6) 03/28/18 12:15 04/27/18 12:14 Oxybutynin Chloride (Ditropan) 5 mg QID ORAL 03/28/18 18:00 04/27/18 17:59 04/05/18 13:31 Pantoprazole (Protonix) 40 mg DAILY ORAL 03/29/18 09:00 04/28/18 08:59 04/05/18 08:21 Timolol Maleate (Timoptic 0.5% Op Soln) 1 drop TID BOTH EYES 03/28/18 19:30 04/27/18 19:29 04/05/18 13:31 Allergies: Coded Allergies: No Known Allergies (Unverified , 05/21/13) ROS Limited/Unobtainable: No Constitutional: Reports: no symptoms HEENT: Reports: no symptoms Cardiovascular: Reports: no symptoms Respiratory: Reports: no symptoms Gastrointestinal/Abdominal: Reports: no symptoms Genitourinary: Reports: no symptoms Neurologic/Psychiatric: Reports: no symptoms Subjective 62 YO F with multiple sclerosis admitted with leg weakness. Cover for Int Smith- Dr Gibson. Await transfer to [facility] Objective Last Vital Signs Date Time Temp Pulse Resp B/P (MAP) Pulse Ox O2 Delivery O2 Flow Rate FiO2 04/05/18 12:50 97.9 66 18 131/60 100 97.9 04/05/18 04:00 Room Air Laboratory Tests Test 04/05/18 08:55 White Blood Count 3.9 K/UL (4.8-10.8) L Red Blood Count 4.26 M/UL (4.20-5.40) Hemoglobin 11.6 G/DL (12.0-16.0) L Hematocrit 35.4 % (37.0-47.0) L Mean Corpuscular Volume 83 FL (80-99) Mean Corpuscular Hemoglobin 27.2 PG (27.0-31.0) Mean Corpuscular Hemoglobin Concent 32.7 G/DL (32.0-36.0) Red Cell Distribution Width 13.5 % (11.6-14.8) Platelet Count 284 K/UL (150-450) Mean Platelet Volume 5.5 FL (6.5-10.1) L Neutrophils (%) (Auto) 48.2 % (45.0-75.0) Lymphocytes (%) (Auto) 34.9 % (20.0-45.0) Monocytes (%) (Auto) 9.3 % (1.0-10.0) Eosinophils (%) (Auto) 6.2 % (0.0-3.0) H Basophils (%) (Auto) 1.4 % (0.0-2.0) Sodium Level 138 MMOL/L (136-145) Potassium Level 4.2 MMOL/L (3.5-5.1) Chloride Level 103 MMOL/L (98-107) Carbon Dioxide Level 30 MMOL/L (21-32) Anion Gap 5 mmol/L (5-15) Blood Urea Nitrogen 19 mg/dL (7-18) H Creatinine 1.1 MG/DL (0.55-1.30) Estimat Glomerular Filtration Rate > 60 mL/min (>60) Glucose Level 100 MG/DL (74-106) Calcium Level 9.1 MG/DL (8.5-10.1) Intake and Output 04/04/18 04/05/18 19:00 07:00 Intake Total 1200 ml 110 ml Balance 1200 ml 110 ml Intake Oral 1200 ml IV Total 110 ml # Voids 5 2 Objective General Appearance: no apparent distress, alert, obese EENT: PERRL/EOMI, normal ENT inspection, TMs normal Neck: non-tender, normal alignment, supple, normal inspection Cardiovascular: normal peripheral pulses, normal rate, regular rhythm, no gallop/murmur, no JVD Respiratory/Chest: chest wall non-tender, lungs clear, normal breath sounds, no respiratory distress, no accessory muscle use Abdomen: normal bowel sounds, non tender, soft, no organomegaly, no mass Extremities: non-tender, normal inspection 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 Continue copaxone when it arrives from home (non formulary at [place]) (2) Hypercholesterolemia (3) Glaucoma (4) MS (multiple sclerosis) Assessment & Plan: See neurology consult. MRI=no new MS lesions. (5) HTN (hypertension) Assessment & Plan: Continue lisinopril and norvasc. (6) Sacral decubitus ulcer Assessment & Plan: Wound care consult. Dressing changes. Status: stable Assessment/Plan Discharge to [facility] today HALEY KAYE April 05, 2018 15:48
[2018-04-05] MEDS ORDERED: PROTONIX40 MG ORAL (15:51)
[2018-04-05 15:57] VITALS: BP 135/65
--- NOTE | 2018-04-07 14:49 | Discharge Summary ---
Discharge Summary Hospital Course Date of Admission Mar 28, 2018 at 06:10 Date of Discharge April 05, 2018 at 17:00 Admitting Diagnosis MULTIPLE SCLEROSIS EXACERBATION HPI Pura Sepulveda is a 62 year old female who was admitted on Mar 28, 2018 at 06 :10 for Multiple Sclerosis Exacerbation Hospital Course [id number] Discharge Discharge Disposition Patient was discharged to Acute [facility]hab Hosp/Unit(62) Melida Teresa NP April 07, 2018 14:49
--- NOTE | 2018-04-08 03:15 | Discharge Summary 2 SIG ---
DATE OF ADMISSION: 03/28/2018 DATE OF DISCHARGE: 04/05/2018 CONSULTANTS: 1. Tip Chavira M.D. 2. Cherry Timmons M.D. BRIEF HOSPITAL COURSE: The patient is a 62-year-old -[place] female, who presented with chief complaint of frequent falls. She has history of multiple sclerosis diagnosed in 2007. Over the past five days, she had been experiencing increasing weakness. She complained of frequent falls while transferring from wheelchair and bed. She has medical history significant for multiple sclerosis, hypertension, hypercholesterolemia, and cataracts. She presented to [facility] where on evaluation, workup showed urine with possible infection. Blood work was stable. She was then admitted for exacerbation of multiple sclerosis and generalized weakness. She underwent neurological evaluation. She was seen by Dr. Chavira. She had MRI scans of the brain and cervical spine, which revealed multiple old deep white matter lesions involving the brain and spinal cord, no gadolinium enhancing lesions. She had progressive weakness in the legs and upper extremity weakness, which has progressed over time. ESR was elevated to 34. She was assessed to have worsening urologic function, most probably exacerbated due to acute infectious process mainly urinary tract infection. She was continued on Copaxone, although the patient's medication non-formulary at [facility]. The patient to continue home medications. She was given PT and OT. Urine culture showed growth of E. coli and enterococcus, which is pansensitive. She was given levofloxacin. Family wanted her to go to rehabilitation. She was eventually transferred to [facility]. FINAL DIAGNOSES: 1. Multiple sclerosis with exacerbation. 2. Bilateral leg weakness. 3. Hypercholesterolemia. 4. Glaucoma. 5. Hypertension. 6. Urinary tract infection with E. coli and enterococcus status post treatment with Levaquin and Ancef. 7. Failure to thrive. DISPOSITION: The patient was transferred to [facility]. DISCHARGE MEDICATIONS: Refer to medication list. Jayesh Gibson M.D. I have been assigned to dictate discharge summary on this account and I was not involved in the patient's management. Melida Teresa N.P. DR: BRI JOB#: [id number] CC:
== END 2018-04-05 17:00 | disposition short-term general hospital (02) | DRG 43 ==
LOC: EDBD 05:15 → EMR 05:29 → 4W 06:10 → EDBEDREQ 06:57
DX: G35 Multiple sclerosis (principal); I10 Essential (primary) hypertension; R53.1 Weakness; Z91.81 History of falling; E78.00 Pure hypercholesterolemia, unspecified; N39.0 Urinary tract infection, site not specified; B96.20 Unspecified Escherichia coli [E. coli] as the cause of diseases classified elsewhere; B95.2 Enterococcus as the cause of diseases classified elsewhere; H40.9 Unspecified glaucoma; R62.7 Adult failure to thrive
CPT/HCPCS: 36415; 70553; 72156; 80048; 80053; 81001; 81003; 83735; 84100; 85007; 85025; 85651; 86140; 87086; 87181; 99285; A9585

== ENCOUNTER 2018-09-27 18:10 | Inpatient (IN) | payer OTHER ==
[~2018-09-27] VITALS: Ht 172.7 cm; Wt 90.4 kg
[~2018-09-27 18:10] MED LIST changes: +LATANOPROST2.5 ML BOTH EYES; +PROTONIX40 MG ORAL; +TIMOPTIC 0.5%1 DROP BOTH EYES
[2018-09-27 18:30] VITALS: BP 134/95
[2018-09-27 19:20] VITALS: BP 137/87
[2018-09-27 19:23] LABS: BASOPHILS % (AUTO) 1.9 % (0.0-2.0); EOSINOPHILS % (AUTO) 1.6 % (0.0-3.0); HEMATOCRIT 34.5 % (37.0-47.0); HEMOGLOBIN 10.7 G/DL (12.0-16.0); MEAN CORPUSCULAR VOLUME 80 FL (80-99); MONOCYTES % (AUTO) 4.5 % (1.0-10.0); NEUTROPHILS % (AUTO) 76.1 % (45.0-75.0); PLATELET COUNT 281 K/UL (150-450); RED CELL DISTRIBUTION WIDTH 13.4 % (11.6-14.8); WHITE BLOOD COUNT 7.3 K/UL (4.8-10.8)
[2018-09-27 19:47] LABS: ANION GAP 10 mmol/L (5-15); BLOOD UREA NITROGEN 29 mg/dL (7-18); CALCIUM 9.9 MG/DL (8.5-10.1); CARBON DIOXIDE 31 MMOL/L (21-32); CHLORIDE 99 MMOL/L (98-107); CREATININE 1.2 MG/DL (0.55-1.30); POTASSIUM 3.6 MMOL/L (3.5-5.1); SODIUM 140 MMOL/L (136-145)
[2018-09-27 19:51] LABS: ALANINE AMINOTRANSFERASE 9 U/L (12-78); ALBUMIN 3.4 G/DL (3.4-5.0); ALBUMIN/GLOBULIN RATIO 0.8 (1.0-2.7); ALKALINE PHOSPHATASE 108 U/L (46-116); ASPARTATE AMINO TRANSFERASE 19 U/L (15-37); BILIRUBIN,TOTAL 0.8 MG/DL (0.2-1.0)
--- NOTE | 2018-09-27 19:52 | Emergency Room Report ---
History of Present Illness General Chief Complaint: Diarrhea Source: Patient, EMS (Saurabh Cedeño MD) Present Illness HPI Patient is a 63-year-old female presented after increased abdominal discomfort and watery diarrhea. Patient had prior history of multiple sclerosis. She is currently taking Copaxone. She denies any steroids use. She had not been vomiting. She been hospitalized approximately 2 weeks ago for lower extremity infection was given antibiotics. (Saurabh Cedeño MD) Allergies: Coded Allergies: No Known Allergies (Unverified , 05/21/13) Patient History Past Medical History: see triage record Reviewed Nursing Documentation: PMH: Agreed; PSxH: Agreed (Saurabh Cedeño MD) Nursing Documentation-PMH Past Medical History: No History, Except For Hx Hypertension: Yes - High cholesterol Hx Cancer: No Hx Gastrointestinal Problems: Yes Hx Neurological Problems: Yes - MS; Glaucoma Hx Multiple Sclerosis: Yes - 2009 Hx Weakness: Yes (Saurabh Cedeño MD) Review of Systems All Other Systems: negative except mentioned in HPI (Saurabh Cedeño MD) Physical Exam Vital Signs Date Time Temp Pulse Resp B/P (MAP) Pulse Ox O2 Delivery O2 Flow Rate FiO2 09/27/18 18:01 98.8 101 18 134/95 98 Room Air Sp02 EP Interpretation: reviewed, normal General Appearance: normal inspection, well appearing, no apparent distress, alert, GCS 15 Head: atraumatic ENT: normal ENT inspection, hearing grossly normal, normal voice Neck: normal inspection, full range of motion, supple, no bony tend Respiratory: normal inspection, lungs clear, normal breath sounds, no respiratory distress, no retraction, no wheezing Cardiovascular #1: regular rate, rhythm, no edema Gastrointestinal: normal inspection, normal bowel sounds, non tender, soft, no guarding, no hernia Genitourinary: no CVA tenderness Musculoskeletal: normal inspection, back normal, normal range of motion Neurologic: normal inspection, alert, responsive, speech normal, motor weakness Psychiatric: normal inspection, judgement/insight normal, mood/affect normal Skin: no rash, other - left leg ulcer to anterior tib (Saurabh Cedeño MD) Medical Decision Making Diagnostic Impression: Primary Impression: Diarrhea Additional Impressions: MS (multiple sclerosis) Weakness ER Course Patient presented for generalized weakness. Differential diagnosis included was not limited to anemia, urinary tract infection, electrolyte abnormality, hypothyroidism, myocardial infarction, myasthenia gravis, dehydration, among others.Because of complexity of patient's case laboratory testing and imaging studies were ordered. The patient was started on IV fluids (Saurabh Cedeño MD) ER Course Please refer to the initial history for the presentation and exam Patient's blood work is appropriate however patient continues to have general weakness There is potential exacerbation of her multiple sclerosis also given the diarrhea patient has further hydration at this time is admitted for further inpatient care Labs Test 09/27/18 19:05 09/27/18 19:50 White Blood Count 7.3 K/UL (4.8-10.8) Red Blood Count 4.30 M/UL (4.20-5.40) Hemoglobin 10.7 G/DL (12.0-16.0) Hematocrit 34.5 % (37.0-47.0) Mean Corpuscular Volume 80 FL (80-99) Mean Corpuscular Hemoglobin 24.9 PG (27.0-31.0) Mean Corpuscular Hemoglobin Concent 31.1 G/DL (32.0-36.0) Red Cell Distribution Width 13.4 % (11.6-14.8) Platelet Count 281 K/UL (150-450) Mean Platelet Volume 5.7 FL (6.5-10.1) Neutrophils (%) (Auto) 76.1 % (45.0-75.0) Lymphocytes (%) (Auto) 16.0 % (20.0-45.0) Monocytes (%) (Auto) 4.5 % (1.0-10.0) Eosinophils (%) (Auto) 1.6 % (0.0-3.0) Basophils (%) (Auto) 1.9 % (0.0-2.0) Prothrombin Time 20.2 SEC (9.30-11.50) Prothromb Time International Ratio 2.0 (0.9-1.1) Activated Partial Thromboplast Time 41 SEC (23-33) Sodium Level 140 MMOL/L (136-145) Potassium Level 3.6 MMOL/L (3.5-5.1) Chloride Level 99 MMOL/L (98-107) Carbon Dioxide Level 31 MMOL/L (21-32) Anion Gap 10 mmol/L (5-15) Blood Urea Nitrogen 29 mg/dL (7-18) Creatinine 1.2 MG/DL (0.55-1.30) Estimat Glomerular Filtration Rate 54.9 mL/min (>60) Glucose Level 82 MG/DL (74-106) Calcium Level 9.9 MG/DL (8.5-10.1) Total Bilirubin 0.8 MG/DL (0.2-1.0) Aspartate Amino Transf (AST/SGOT) 19 U/L (15-37) Alanine Aminotransferase (ALT/SGPT) 9 U/L (12-78) Alkaline Phosphatase 108 U/L (46-116) Total Protein 7.7 G/DL (6.4-8.2) Albumin 3.4 G/DL (3.4-5.0) Globulin 4.3 g/dL Albumin/Globulin Ratio 0.8 (1.0-2.7) Lipase 69 U/L (73-393) Urine Color Yellow Urine Appearance Clear Urine pH 5 (4.5-8.0) Urine Specific [place] 1.020 (1.005-1.035) Urine Protein 1+ (NEGATIVE) Urine Glucose (UA) Negative (NEGATIVE) Urine Ketones 2+ (NEGATIVE) Urine Blood Negative (NEGATIVE) Urine Nitrite Negative (NEGATIVE) Urine Bilirubin Negative (NEGATIVE) Urine Urobilinogen 1 MG/DL (0.0-1.0) Urine Leukocyte Esterase 1+ (NEGATIVE) Urine RBC 0-2 /HPF (0 - 2) Urine WBC 2-4 /HPF (0 - 2) Urine Squamous Epithelial Cells Few /LPF (NONE/OCC) Urine Transitional Epithelial Cells /LPF (NONE) Urine Amorphous Sediment Moderate /LPF (NONE) Urine Bacteria Few /HPF (NONE) (Meagan Francois DO) Rhythm Strip Diag. Results EP Interpretation: yes Rate: 66 Rhythm: NSR, no PVC's, no ectopy (Meagan Francois DO) Last Vital Signs Date Time Temp Pulse Resp B/P (MAP) Pulse Ox O2 Delivery O2 Flow Rate FiO2 09/27/18 18:30 98.8 98 18 134/95 98 Room Air Status: unchanged (Saurabh Cedeño MD) Status: improved (Meagan Francois DO) Disposition: ADMITTED INPATIENT Condition: Improved Referrals: [facility],REFERRING (PCP) Saurabh Cedeño MD Sep 27, 2018 19:52 Meagan Francois DO Sep 27, 2018 23:02
[2018-09-27 20:24] LABS: APPEARANCE,URINE CLEAR; BILIRUBIN, URINE NEGATIVE (NEGATIVE); GLUCOSE, URINE (UA) NEGATIVE (NEGATIVE); KETONES,URINE 2+ (NEGATIVE); LEUKOCYTE ESTERASE ,URINE 1+ (NEGATIVE); NITRITE,URINE NEGATIVE (NEGATIVE); PH,URINE 5 (4.5-8.0); PROTEIN,URINE 1+ (NEGATIVE); UROBILINOGEN,URINE 1 MG/DL (0.0-1.0)
[2018-09-27 20:28] LABS: COLOR,URINE YELLOW
[2018-09-27] MEDS ORDERED: Morphine Sulfate 2mg/ml Inj IVP PRN (20:45)
[2018-09-27] MEDS ORDERED: Albuterol/Ipratropium 3ml neb HHN PRN (20:45)
[2018-09-27] MEDS ORDERED: Miralax 17gm pkt ORAL PRN (20:45)
[2018-09-27 21:00] VITALS: BP 132/84
[2018-09-27] MEDS ORDERED: Cefepime HCl 2 GM in D5W 110 ML IV SCH (22:00)
[2018-09-27 22:08] VITALS: BP 131/88
[2018-09-27] MEDS ORDERED: Vancomycin 1.5 GM/D5W 250ML IVPB SCH (23:00)
[2018-09-27] MEDS: Heparin 5000 units/ml inj SUBQ SCH (23:27)
[2018-09-28] VITALS: BP 110/69
[2018-09-28] MEDS ORDERED: Vancomycin 1 GM in D5W 275 ML IV SCH (00:30)
[2018-09-28 04:00] VITALS: BP 114/62
[2018-09-28 07:26] LABS: ALANINE AMINOTRANSFERASE < 6 U/L (12-78); ALBUMIN 2.9 G/DL (3.4-5.0); ALBUMIN/GLOBULIN RATIO 0.7 (1.0-2.7); ALKALINE PHOSPHATASE 92 U/L (46-116); ANION GAP 7 mmol/L (5-15); ASPARTATE AMINO TRANSFERASE 18 U/L (15-37); BILIRUBIN,TOTAL 0.6 MG/DL (0.2-1.0); BLOOD UREA NITROGEN 28 mg/dL (7-18); CALCIUM 9.4 MG/DL (8.5-10.1); CARBON DIOXIDE 31 MMOL/L (21-32); CHLORIDE 103 MMOL/L (98-107); CREATININE 1.2 MG/DL (0.55-1.30); PHOSPHORUS 3.8 MG/DL (2.5-4.9); POTASSIUM 3.4 MMOL/L (3.5-5.1); SODIUM 141 MMOL/L (136-145)
[2018-09-28 07:32] LABS: BASOPHILS % (AUTO) 1.4 % (0.0-2.0); EOSINOPHILS % (AUTO) 3.3 % (0.0-3.0); HEMATOCRIT 33.3 % (37.0-47.0); HEMOGLOBIN 10.4 G/DL (12.0-16.0); LYMPHOCYTES % (AUTO) 30.7 % (20.0-45.0); MEAN CORPUSCULAR VOLUME 79 FL (80-99); MONOCYTES % (AUTO) 7.6 % (1.0-10.0); PLATELET COUNT 237 K/UL (150-450); RED BLOOD COUNT 4.19 M/UL (4.20-5.40); RED CELL DISTRIBUTION WIDTH 13.6 % (11.6-14.8); WHITE BLOOD COUNT 4.9 K/UL (4.8-10.8)
[2018-09-28 08:00] VITALS: BP 119/73
[2018-09-28] MEDS: Timolol 0.5% Op Soln 2.5ml BOTH EYES SCH ×3 (08:33→17:40)
[2018-09-28] MEDS: Heparin 5000 units/ml inj SUBQ SCH ×2 (08:37→20:42)
[2018-09-28] MEDS: Cefepime HCl 2 GM in D5W 110 ML IV SCH (09:56)
--- NOTE | 2018-09-28 10:48 | Consultation ---
History of Present Illness General Date patient seen: Sep 28, 2018 Chief Complaint: Diarrhea Present Illness HPI 63-year-old female with hx of MS since 2009 presented to ER with CC abdominal discomfort and watery diarrhea. She had not been vomiting. She been hospitalized approximately 2 weeks ago for lower extremity infection was given antibiotics. She is admitted for further care. Allergies: Coded Allergies: No Known Allergies (Unverified , 05/21/13) Medication History Scheduled Amlodipine Besylate* (Amlodipine Besylate*), 5 MG ORAL DAILY, (Reported) Artificial Tears* (Murocel*), 1 DROP .ROUTE PRN, (Reported) Baclofen* (Baclofen*), 10 MG ORAL THREE TIMES A DAY, (Reported) Calcium Carbonate (Calcium), 600 MG PO DAILY, (Reported) Docusate Sodium* (Colace*), 100 MG ORAL BID, (Reported) Ergocalciferol (Vitamin D2)* (Vitamin D*), 50,000 UNIT ORAL ONCE A WEEK, ( Reported) Gabapentin* (Gabapentin*), 300 MG ORAL THREE TIMES A DAY, (Reported) Glatiramer Acetate (Copaxone), 20 MG SUBQ DAILY, (Reported) Hydrochlorothiazide* (Hydrochlorothiazide*), 12.5 MG ORAL DAILY, (Reported) Latanoprost* (Xalatan*), 1 DROP BOTH EYES BEDTIME, (Reported) Lisinopril (Lisinopril*), 20 MG ORAL DAILY, (Reported) Lorazepam* (Lorazepam*), 1 MG ORAL THREE TIMES A DAY, (Reported) Naproxen* (Naprosyn*), 500 MG PO BID, (Reported) Oxybutynin Chloride (Oxybutynin Chloride), 20 MG PO TID, (Reported) Pantoprazole* (Protonix*), 40 MG ORAL DAILY Simvastatin (Zocor), 20 MG ORAL BEDTIME, (Reported) Timolol Maleate (Timolol Maleate), 1 DROP BOTH EYES TID, (Reported) Scheduled PRN Hydrocodone Bit/Acetaminophen 10-325* ([place] 10-325*), 1 TAB ORAL Q6HR PRN for For Pain, (Reported) Patient History Healthcare decision maker Resuscitation status Full Code Advanced Directive on File Past Medical/Surgical History Past Medical/Surgical History: (1) MS (multiple sclerosis) (2) HTN (hypertension) Review of Systems All Other Systems: negative except mentioned in HPI Physical Exam General Appearance: WD/WN Lines, tubes and drains: peripheral HEENT: normocephalic, atraumatic Neck: non-tender, supple Respiratory/Chest: chest wall non-tender, lungs clear Breasts: no masses Cardiovascular/Chest: normal peripheral pulses, regular rhythm Abdomen: normal bowel sounds, non tender, no mass Genitourinary/Rectal: normal genital exam Skin Exam: other - left, dorsal upper thigh decubiti Last 24 Hour Vital Signs Date Time Temp Pulse Resp B/P (MAP) Pulse Ox O2 Delivery O2 Flow Rate FiO2 09/28/18 08:33 78 119/73 09/28/18 08:00 97.7 78 18 119/73 (88) 100 09/28/18 07:30 87 16 Room Air 21 09/28/18 04:00 98.1 87 19 114/62 (79) 100 09/28/18 01:23 Room Air 09/28/18 00:00 98.0 98 19 110/69 (83) 100 09/27/18 22:08 97.8 94 18 131/88 98 Room Air 09/27/18 22:00 98.7 91 18 132/84 97 Room Air 09/27/18 21:00 91 18 132/84 97 Room Air 09/27/18 19:20 98.7 90 18 137/87 98 Room Air 09/27/18 18:30 98.8 98 18 134/95 98 Room Air 09/27/18 18:01 98.8 101 18 134/95 98 Room Air Intake and Output 09/27/18 09/28/18 19:00 07:00 Output Total 250 ml Balance -250 ml Output Stool Total 250 ml # Voids 2 # Bowel Movements 1 Laboratory Tests Test 09/27/18 19:05 09/27/18 19:50 09/28/18 05:40 09/28/18 10:00 White Blood Count 7.3 K/UL (4.8-10.8) 4.9 K/UL (4.8-10.8) Red Blood Count 4.30 M/UL (4.20-5.40) 4.19 M/UL (4.20-5.40) L Hemoglobin 10.7 G/DL (12.0-16.0) L 10.4 G/DL (12.0-16.0) L Hematocrit 34.5 % (37.0-47.0) L 33.3 % (37.0-47.0) L Mean Corpuscular Volume 80 FL (80-99) 79 FL (80-99) L Mean Corpuscular Hemoglobin 24.9 PG (27.0-31.0) L 24.7 PG (27.0-31.0) L Mean Corpuscular Hemoglobin Concent 31.1 G/DL (32.0-36.0) L 31.2 G/DL (32.0-36.0) L Red Cell Distribution Width 13.4 % (11.6-14.8) 13.6 % (11.6-14.8) Platelet Count 281 K/UL (150-450) 237 K/UL (150-450) Mean Platelet Volume 5.7 FL (6.5-10.1) L 6.3 FL (6.5-10.1) L Neutrophils (%) (Auto) 76.1 % (45.0-75.0) H 57.0 % (45.0-75.0) Lymphocytes (%) (Auto) 16.0 % (20.0-45.0) L 30.7 % (20.0-45.0) Monocytes (%) (Auto) 4.5 % (1.0-10.0) 7.6 % (1.0-10.0) Eosinophils (%) (Auto) 1.6 % (0.0-3.0) 3.3 % (0.0-3.0) H Basophils (%) (Auto) 1.9 % (0.0-2.0) 1.4 % (0.0-2.0) Prothrombin Time 20.2 SEC (9.30-11.50) H Prothromb Time International Ratio 2.0 (0.9-1.1) H Activated Partial Thromboplast Time 41 SEC (23-33) H Sodium Level 140 MMOL/L (136-145) 141 MMOL/L (136-145) Potassium Level 3.6 MMOL/L (3.5-5.1) 3.4 MMOL/L (3.5-5.1) L Chloride Level 99 MMOL/L (98-107) 103 MMOL/L (98-107) Carbon Dioxide Level 31 MMOL/L (21-32) 31 MMOL/L (21-32) Anion Gap 10 mmol/L (5-15) 7 mmol/L (5-15) Blood Urea Nitrogen 29 mg/dL (7-18) H 28 mg/dL (7-18) H Creatinine 1.2 MG/DL (0.55-1.30) 1.2 MG/DL (0.55-1.30) Estimat Glomerular Filtration Rate 54.9 mL/min (>60) 54.9 mL/min (>60) Glucose Level 82 MG/DL (74-106) 95 MG/DL (74-106) Calcium Level 9.9 MG/DL (8.5-10.1) 9.4 MG/DL (8.5-10.1) Total Bilirubin 0.8 MG/DL (0.2-1.0) 0.6 MG/DL (0.2-1.0) Aspartate Amino Transf (AST/SGOT) 19 U/L (15-37) 18 U/L (15-37) Alanine Aminotransferase (ALT/SGPT) 9 U/L (12-78) L < 6 U/L (12-78) L Alkaline Phosphatase 108 U/L (46-116) 92 U/L (46-116) Total Protein 7.7 G/DL (6.4-8.2) 6.8 G/DL (6.4-8.2) Albumin 3.4 G/DL (3.4-5.0) 2.9 G/DL (3.4-5.0) L Globulin 4.3 g/dL 3.9 g/dL Albumin/Globulin Ratio 0.8 (1.0-2.7) L 0.7 (1.0-2.7) L Lipase 69 U/L (73-393) L Urine Color Yellow Urine Appearance Clear Urine pH 5 (4.5-8.0) Urine Specific [place] 1.020 (1.005-1.035) Urine Protein 1+ (NEGATIVE) H Urine Glucose (UA) Negative (NEGATIVE) Urine Ketones 2+ (NEGATIVE) H Urine Blood Negative (NEGATIVE) Urine Nitrite Negative (NEGATIVE) Urine Bilirubin Negative (NEGATIVE) Urine Urobilinogen 1 MG/DL (0.0-1.0) H Urine Leukocyte Esterase 1+ (NEGATIVE) H Urine RBC 0-2 /HPF (0 - 2) Urine WBC 2-4 /HPF (0 - 2) Urine Squamous Epithelial Cells Few /LPF (NONE/OCC) Urine Transitional Epithelial Cells /LPF (NONE) Urine Amorphous Sediment Moderate /LPF (NONE) H Urine Bacteria Few /HPF (NONE) Phosphorus Level 3.8 MG/DL (2.5-4.9) Magnesium Level 1.7 MG/DL (1.8-2.4) L Arterial Blood pH 7.454 (7.350-7.450) Arterial Blood Partial Pressure CO2 44.9 mmHg (35.0-45.0) Arterial Blood Partial Pressure O2 82.9 mmHg (75.0-100.0) Arterial Blood HCO3 30.8 mmol/L (22.0-26.0) H Arterial Blood Oxygen Saturation 96.0 % (95-100) Arterial Blood Base Excess 6.2 (-2-2) H Damian Test Positive Microbiology Date/Time Source Procedure Growth Status 09/27/18 19:50 Indwelling Cath Urine Culture - Preliminary NO GROWTH Resulted 09/27/18 21:41 Rectum Received Height (Feet): 5 Height (Inches): 8.00 Weight (Pounds): 199 Medications Current Medications Medications (Trade) Dose Ordered Sig/Maria De Jesus Route PRN Reason Start Time Stop Time Status Last Admin Dose Admin Acetaminophen (Tylenol) 650 mg Q4H PRN ORAL fever 09/27/18 20:45 10/27/18 20:44 Albuterol/ Ipratropium (Albuterol/ Ipratropium) 3 ml Q4H PRN HHN Shortness of Breath 09/27/18 20:45 10/02/18 20:44 Amlodipine Besylate (Norvasc) 5 mg DAILY ORAL 09/28/18 09:00 10/28/18 08:59 09/28/18 08:33 Baclofen (Lioresal) 10 mg THREE TIMES A DAY ORAL 09/28/18 09:00 10/28/18 08:59 09/28/18 08:33 Cefepime HCl 2 gm/ Dextrose 110 ml @ 220 mls/hr Q24H IV 09/28/18 10:00 10/05/18 09:59 09/28/18 09:56 Heparin Sodium (Porcine) (Heparin 5000 units/ml) 5,000 units EVERY 12 HOURS SUBQ 09/27/18 21:00 10/27/18 20:59 09/28/18 08:37 Morphine Sulfate (Morphine Sulfate) 2 mg Q4H PRN IVP Moderate Pain (Pain Scale 4-6) 09/27/18 20:45 10/04/18 20:44 09/27/18 23:26 Ondansetron HCl (Zofran) 4 mg Q6H PRN IVP Nausea & Vomiting 09/27/18 20:45 10/27/18 20:44 Phenazopyridine HCl (Pyridium) 100 mg DAILY PRN ORAL dysuria 09/27/18 20:45 10/27/18 20:44 Polyethylene Glycol (Miralax) 17 gm DAILYPRN PRN ORAL Constipation 09/27/18 20:45 10/27/18 20:44 Temazepam (Restoril) 15 mg HSPRN PRN ORAL Insomnia 09/27/18 20:45 10/04/18 20:44 Timolol Maleate (Timoptic 0.5% Op Soln) 1 drop TID BOTH EYES 09/28/18 09:00 10/28/18 08:59 09/28/18 08:33 Vancomycin HCl (Vanco rx to dose) 1 ea DAILY PRN MISC per rx protocol 09/27/18 21:00 10/27/18 20:59 Vancomycin/Sodium Chloride 250 ml @ 166.667 mls/hr Q12H IVPB 09/28/18 11:00 10/03/18 10:59 Assessment/Plan Problem List: (1) Sacral decubitus ulcer ICD Codes: L89.159 - Pressure ulcer of sacral region, unspecified stage SNOMED: 357917364 (2) Failure to thrive in adult ICD Codes: R62.7 - Failure to thrive in adult SNOMED: 960664712 (3) UTI (urinary tract infection) ICD Codes: N39.0 - Urinary tract infection, site not specified SNOMED: 98930730 (4) HTN (hypertension) ICD Codes: I10 - Essential (primary) hypertension SNOMED: 05485271 (5) MS (multiple sclerosis) ICD Codes: G35 - Multiple sclerosis SNOMED: 38303899 Assessment/Plan wound care iv abx Plastic surgeon to see check cultures pt/ot dvt prophylaxis. symptomatic treatment Cherry Timmons MD Sep 28, 2018 10:48
[2018-09-28] MEDS ORDERED: Vancomycin 750mg/NS 250ml IVPB SCH (11:00)
--- NOTE | 2018-09-28 11:47 | Consultation ---
Consult Note Consult Note [id number] Allan Chand MD Sep 28, 2018 11:47
[2018-09-28 12:00] VITALS: BP 121/72
[2018-09-28] MEDS ORDERED: Tubing IV Secondary IV ONE (15:40)
[2018-09-28] MEDS ORDERED: NS 500ML ONE (15:40)
[2018-09-28 16:00] VITALS: BP 109/64
--- NOTE | 2018-09-28 18:58 | History & Physical ---
History and Physical History & Physicial Dictated for Int Med-Dr Gibson no. [id number]. Jesus Aceves MD Sep 28, 2018 18:58
--- NOTE | 2018-09-28 19:11 | Consultation ---
History of Present Illness General Date patient seen: Sep 28, 2018 Time patient seen: 19:02 Chief Complaint: Diarrhea Referring physician: Dr. Timmons Reason for Consultation: Buttock and thigh ulcers Present Illness HPI Asked to evaluate this 63 yof who was admitted to [facility] for diarrhea and abdominal pain. She was noted to have multiple ulcers on her right buttock and left lateral thigh as well as intact blister on her left elizondo. She has a h/o MS and also underwent ORIF right femur fracture last month. She has had significant decrease in ambulation since her fracture. She went to inpatient rehab but has since been home without outpatient PT. She has admitted to spending more time in her wheelchair in the last several weeks. Allergies: Coded Allergies: No Known Allergies (Unverified , 05/21/13) Medication History Scheduled Amlodipine Besylate* (Amlodipine Besylate*), 5 MG ORAL DAILY, (Reported) Artificial Tears* (Murocel*), 1 DROP .ROUTE PRN, (Reported) Baclofen* (Baclofen*), 10 MG ORAL THREE TIMES A DAY, (Reported) Calcium Carbonate (Calcium), 600 MG PO DAILY, (Reported) Docusate Sodium* (Colace*), 100 MG ORAL BID, (Reported) Ergocalciferol (Vitamin D2)* (Vitamin D*), 50,000 UNIT ORAL ONCE A WEEK, ( Reported) Gabapentin* (Gabapentin*), 300 MG ORAL THREE TIMES A DAY, (Reported) Glatiramer Acetate (Copaxone), 20 MG SUBQ DAILY, (Reported) Hydrochlorothiazide* (Hydrochlorothiazide*), 12.5 MG ORAL DAILY, (Reported) Latanoprost* (Xalatan*), 1 DROP BOTH EYES BEDTIME, (Reported) Lisinopril (Lisinopril*), 20 MG ORAL DAILY, (Reported) Lorazepam* (Lorazepam*), 1 MG ORAL THREE TIMES A DAY, (Reported) Naproxen* (Naprosyn*), 500 MG PO BID, (Reported) Oxybutynin Chloride (Oxybutynin Chloride), 20 MG PO TID, (Reported) Pantoprazole* (Protonix*), 40 MG ORAL DAILY Simvastatin (Zocor), 20 MG ORAL BEDTIME, (Reported) Timolol Maleate (Timolol Maleate), 1 DROP BOTH EYES TID, (Reported) Scheduled PRN Hydrocodone Bit/Acetaminophen 10-325* (Retsof 10-325*), 1 TAB ORAL Q6HR PRN for For Pain, (Reported) Patient History History Provided By: Patient, Medical Record Healthcare decision maker Resuscitation status Full Code Advanced Directive on File Past Medical/Surgical History Past Medical/Surgical History: (1) MS (multiple sclerosis) (2) Diarrhea (3) HTN (hypertension) Review of Systems Constitutional: Reports: no symptoms Eye: Reports: no symptoms Respiratory: Reports: no symptoms Cardiovascular: Reports: no symptoms Gastrointestinal: Reports: see HPI Genitourinary: Reports: incontinence Skin: Reports: see HPI Psychiatric: Reports: no symptoms Physical Exam General Appearance: WD/WN, no apparent distress, alert Lines, tubes and drains: peripheral Respiratory/Chest: no respiratory distress Skin Exam: other - Right buttock with stage 2 pressure injuries with some fibrotic debris at the base. Periskin in good condition with no erythema or warmth. Left lateral thigh ulcer is superficial and appears to be a shear injury that does not extend beyond the dermis. Left anterior elizondo with intact blister. No erythema or warmth. Well healing right LE ORIF incisions. Neurologic: alert, oriented x 3, responsive Last 24 Hour Vital Signs Date Time Temp Pulse Resp B/P (MAP) Pulse Ox O2 Delivery O2 Flow Rate FiO2 09/28/18 16:00 98.7 68 18 109/64 (79) 97 09/28/18 12:00 97.6 60 16 121/72 (88) 100 09/28/18 09:00 Room Air 09/28/18 08:33 78 119/73 09/28/18 08:00 97.7 78 18 119/73 (88) 100 09/28/18 07:30 87 16 Room Air 21 09/28/18 04:00 98.1 87 19 114/62 (79) 100 09/28/18 01:23 Room Air 09/28/18 00:00 98.0 98 19 110/69 (83) 100 09/27/18 22:08 97.8 94 18 131/88 98 Room Air 09/27/18 22:00 98.7 91 18 132/84 97 Room Air 09/27/18 21:00 91 18 132/84 97 Room Air 09/27/18 19:20 98.7 90 18 137/87 98 Room Air Intake and Output 09/27/18 09/28/18 19:00 07:00 Output Total 250 ml Balance -250 ml Output Stool Total 250 ml # Voids 2 # Bowel Movements 1 Laboratory Tests Test 09/27/18 19:05 09/27/18 19:50 09/28/18 05:40 09/28/18 10:00 White Blood Count 7.3 K/UL (4.8-10.8) 4.9 K/UL (4.8-10.8) Red Blood Count 4.30 M/UL (4.20-5.40) 4.19 M/UL (4.20-5.40) L Hemoglobin 10.7 G/DL (12.0-16.0) L 10.4 G/DL (12.0-16.0) L Hematocrit 34.5 % (37.0-47.0) L 33.3 % (37.0-47.0) L Mean Corpuscular Volume 80 FL (80-99) 79 FL (80-99) L Mean Corpuscular Hemoglobin 24.9 PG (27.0-31.0) L 24.7 PG (27.0-31.0) L Mean Corpuscular Hemoglobin Concent 31.1 G/DL (32.0-36.0) L 31.2 G/DL (32.0-36.0) L Red Cell Distribution Width 13.4 % (11.6-14.8) 13.6 % (11.6-14.8) Platelet Count 281 K/UL (150-450) 237 K/UL (150-450) Mean Platelet Volume 5.7 FL (6.5-10.1) L 6.3 FL (6.5-10.1) L Neutrophils (%) (Auto) 76.1 % (45.0-75.0) H 57.0 % (45.0-75.0) Lymphocytes (%) (Auto) 16.0 % (20.0-45.0) L 30.7 % (20.0-45.0) Monocytes (%) (Auto) 4.5 % (1.0-10.0) 7.6 % (1.0-10.0) Eosinophils (%) (Auto) 1.6 % (0.0-3.0) 3.3 % (0.0-3.0) H Basophils (%) (Auto) 1.9 % (0.0-2.0) 1.4 % (0.0-2.0) Prothrombin Time 20.2 SEC (9.30-11.50) H Prothromb Time International Ratio 2.0 (0.9-1.1) H Activated Partial Thromboplast Time 41 SEC (23-33) H Sodium Level 140 MMOL/L (136-145) 141 MMOL/L (136-145) Potassium Level 3.6 MMOL/L (3.5-5.1) 3.4 MMOL/L (3.5-5.1) L Chloride Level 99 MMOL/L (98-107) 103 MMOL/L (98-107) Carbon Dioxide Level 31 MMOL/L (21-32) 31 MMOL/L (21-32) Anion Gap 10 mmol/L (5-15) 7 mmol/L (5-15) Blood Urea Nitrogen 29 mg/dL (7-18) H 28 mg/dL (7-18) H Creatinine 1.2 MG/DL (0.55-1.30) 1.2 MG/DL (0.55-1.30) Estimat Glomerular Filtration Rate 54.9 mL/min (>60) 54.9 mL/min (>60) Glucose Level 82 MG/DL (74-106) 95 MG/DL (74-106) Calcium Level 9.9 MG/DL (8.5-10.1) 9.4 MG/DL (8.5-10.1) Total Bilirubin 0.8 MG/DL (0.2-1.0) 0.6 MG/DL (0.2-1.0) Aspartate Amino Transf (AST/SGOT) 19 U/L (15-37) 18 U/L (15-37) Alanine Aminotransferase (ALT/SGPT) 9 U/L (12-78) L < 6 U/L (12-78) L Alkaline Phosphatase 108 U/L (46-116) 92 U/L (46-116) Total Protein 7.7 G/DL (6.4-8.2) 6.8 G/DL (6.4-8.2) Albumin 3.4 G/DL (3.4-5.0) 2.9 G/DL (3.4-5.0) L Globulin 4.3 g/dL 3.9 g/dL Albumin/Globulin Ratio 0.8 (1.0-2.7) L 0.7 (1.0-2.7) L Lipase 69 U/L (73-393) L Urine Color Yellow Urine Appearance Clear Urine pH 5 (4.5-8.0) Urine Specific [place] 1.020 (1.005-1.035) Urine Protein 1+ (NEGATIVE) H Urine Glucose (UA) Negative (NEGATIVE) Urine Ketones 2+ (NEGATIVE) H Urine Blood Negative (NEGATIVE) Urine Nitrite Negative (NEGATIVE) Urine Bilirubin Negative (NEGATIVE) Urine Urobilinogen 1 MG/DL (0.0-1.0) H Urine Leukocyte Esterase 1+ (NEGATIVE) H Urine RBC 0-2 /HPF (0 - 2) Urine WBC 2-4 /HPF (0 - 2) Urine Squamous Epithelial Cells Few /LPF (NONE/OCC) Urine Transitional Epithelial Cells /LPF (NONE) Urine Amorphous Sediment Moderate /LPF (NONE) H Urine Bacteria Few /HPF (NONE) Phosphorus Level 3.8 MG/DL (2.5-4.9) Magnesium Level 1.7 MG/DL (1.8-2.4) L Arterial Blood pH 7.454 (7.350-7.450) Arterial Blood Partial Pressure CO2 44.9 mmHg (35.0-45.0) Arterial Blood Partial Pressure O2 82.9 mmHg (75.0-100.0) Arterial Blood HCO3 30.8 mmol/L (22.0-26.0) H Arterial Blood Oxygen Saturation 96.0 % (95-100) Arterial Blood Base Excess 6.2 (-2-2) H Damian Test Positive Microbiology Date/Time Source Procedure Growth Status 09/27/18 19:50 Indwelling Cath Urine Culture - Preliminary NO GROWTH Resulted 09/27/18 21:41 Rectum Received Height (Feet): 5 Height (Inches): 8.00 Weight (Pounds): 199 Medications Current Medications Medications (Trade) Dose Ordered Sig/Maria De Jesus Route PRN Reason Start Time Stop Time Status Last Admin Dose Admin Acetaminophen (Tylenol) 650 mg Q4H PRN ORAL fever 09/27/18 20:45 10/27/18 20:44 Albuterol/ Ipratropium (Albuterol/ Ipratropium) 3 ml Q4H PRN HHN Shortness of Breath 09/27/18 20:45 10/02/18 20:44 Amlodipine Besylate (Norvasc) 5 mg DAILY ORAL 09/28/18 09:00 10/28/18 08:59 09/28/18 08:33 Baclofen (Lioresal) 10 mg THREE TIMES A DAY ORAL 09/28/18 09:00 10/28/18 08:59 09/28/18 17:40 Cefepime HCl 2 gm/ Dextrose 110 ml @ 220 mls/hr Q24H IV 09/28/18 10:00 10/05/18 09:59 09/28/18 09:56 Gabapentin (Neurontin) 300 mg THREE TIMES A DAY ORAL 09/28/18 21:00 10/28/18 20:59 Heparin Sodium (Porcine) (Heparin 5000 units/ml) 5,000 units EVERY 12 HOURS SUBQ 09/27/18 21:00 10/27/18 20:59 09/28/18 08:37 Morphine Sulfate (Morphine Sulfate) 2 mg Q4H PRN IVP Moderate Pain (Pain Scale 4-6) 09/27/18 20:45 10/04/18 20:44 09/27/18 23:26 Ondansetron HCl (Zofran) 4 mg Q6H PRN IVP Nausea & Vomiting 09/27/18 20:45 10/27/18 20:44 Phenazopyridine HCl (Pyridium) 100 mg DAILY PRN ORAL dysuria 09/27/18 20:45 10/27/18 20:44 Polyethylene Glycol (Miralax) 17 gm DAILYPRN PRN ORAL Constipation 09/27/18 20:45 10/27/18 20:44 Temazepam (Restoril) 15 mg HSPRN PRN ORAL Insomnia 09/27/18 20:45 10/04/18 20:44 Timolol Maleate (Timoptic 0.5% Op Soln) 1 drop TID BOTH EYES 09/28/18 09:00 10/28/18 08:59 09/28/18 17:40 Assessment/Plan Status: stable Assessment/Plan Patient's ulcers do not require surgical intervention. Her main issue is disposition as she lives alone and has limited access to caregiver. She will definitely need physical therapy to help with strength and aid in transfers until she is allowed to fully put weight on the RLE. This is the most important thing to help heal these ulcers. If this is not able to be done with outpatient PT she may require another stay at SNF for purposes of PT. Continue current treatments to the ulcers. Thank you for allowing me to participate in this patient's care. Charles Rodriguez MD Sep 28, 2018 19:11
[2018-09-28 20:00] VITALS: BP 105/65
--- NOTE | 2018-09-28 20:45 | Consultation ---
DATE OF CONSULTATION: 09/28/2018 INFECTIOUS DISEASES CONSULTATION CONSULTING PHYSICIAN: Allan Chand M.D. REFERRING PHYSICIAN: Cherry Timmons M.D. REASON FOR CONSULTATION: Evaluation of the patient for diarrhea. HISTORY OF PRESENT ILLNESS: The patient is a 63-year-old female, well known to our service from prior admissions, who came to the hospital for diarrhea. It started yesterday, multiple episodes. Last bowel movement was yesterday noon. Since then, she has overall felt better. No history of fever, nausea, or vomiting. No history of blood in the stool. She is having abdominal pain. Infectious Diseases consultation has been requested for further evaluation of the patient and possible need for antibiotic treatment. PAST MEDICAL HISTORY: 1. History of UTI (Citrobacter). 2. History of multiple sclerosis. 3. Obesity. ALLERGIES: No known drug allergies. MEDICATIONS: Vancomycin and cefepime. SOCIAL HISTORY: The patient lives at home. FAMILY HISTORY: Noncontributory. REVIEW OF SYSTEMS: A 10-point was done, except for what was mentioned has been negative. PHYSICAL EXAMINATION: VITAL SIGNS: Temperature 97.6, pulse 86, respiratory rate 18, and blood pressure 121/72. HEENT: No conjunctival pallor. No icterus. NECK: No lymphadenopathy. LUNGS: Clear. HEART: S1, S2. ABDOMEN: Soft, nontender. EXTREMITIES: No cyanosis. NEUROLOGIC: Awake, alert. LABORATORY AND DIAGNOSTIC DATA: WBC of 4.9, hemoglobin 10, platelets 237,000. UA unremarkable. BUN 28, creatinine 1.2. ALT, AST, and alkaline phosphatase are unremarkable. ASSESSMENT: The patient is a 63-year-old female with multiple medical problems, who has been admitted to this medical center due to: 1. Diarrhea. 2. Normal white blood cells. 3. Afebrile. PLAN: 1. We will hold vancomycin, on cefepime day #1. We may discontinue tomorrow if the stool cultures are negative. 2. Monitor CBC. 3. Monitor BMP. 4. Monitor cultures (blood, stool). 5. Monitor the patient's clinical course and laboratories. 6. Monitor chest x-ray. 7. Based on the patient's clinical course and laboratories, we will do further recommendation. Thank you, Dr. Timmons, for allowing me to participate in the care of this patient. I will follow the patient with you during this hospitalization. Allan Chand M.D. DR: Sania JOB#: [id number] CC:
[2018-09-28] MEDS: Latanoprost 0.005% Opth 2.5ml Soln BOTH EYES SCH (21:58)
--- NOTE | 2018-09-28 23:30 | History and Physical Report ---
DATE OF ADMISSION: 09/27/2018 CHIEF COMPLAINT: The patient is a 63-year-old female, who presents with complaint of abdominal pain and diarrhea. HISTORY OF PRESENT ILLNESS: The patient has a history of multiple sclerosis. The patient is currently on Copaxone. The patient had a leg infection two weeks ago. The patient was hospitalized. The patient was discharged on antibiotics. The patient began to experience abdominal pain and discomfort a couple of days ago. The patient then began to experience watery diarrhea. The patient presented to [facility] emergency room. The patient is admitted for abdominal pain, diarrhea, and exacerbation of multiple sclerosis. REVIEW OF SYSTEMS: CONSTITUTIONAL: The patient denies weight loss or weight gain. The patient denies fevers or chills. HEENT: The patient denies ear or throat pain. The patient denies headache. CARDIOVASCULAR: The patient denies palpitations or chest pain. CHEST: The patient denies wheeze or shortness of breath. ABDOMEN: The patient complains of generalized abdominal pain. The patient complains of watery diarrhea. The patient denies constipation. GENITOURINARY: The patient denies dysuria or increased frequency of urination. NEUROMUSCULAR: The patient denies seizures or generalized weakness. PAST MEDICAL HISTORY: Significant for, 1. Multiple sclerosis, diagnosed in 2007. 2. Hypertension. 3. Hypercholesterolemia. 4. History of cataracts. PAST SURGICAL HISTORY: Significant for, 1. Tonsillectomy and adenoidectomy. 2. Dilation and curettage. CURRENT MEDICATIONS: 1. Amlodipine 5 mg p.o. daily. 2. Baclofen 10 mg p.o. three times daily. 3. Calcium carbonate 600 mg p.o. daily. 4. Colace 100 mg p.o. twice daily. 5. Vitamin D 50,000 units p.o. weekly. 6. Gabapentin 300 mg p.o. three times daily. 7. Copaxone 20 mg subcutaneous daily. 8. Hydrochlorothiazide 12.5 mg p.o. daily. 9. [place] 10/325 mg one tablet p.o. q.6 h. p.r.n. 10. Xalatan one drop in both eyes at bedtime. 11. Lisinopril 20 mg p.o. daily. 12. Ativan 1 mg p.o. three times daily. 13. Naproxen 500 mg p.o. twice daily. 14. Oxybutynin 20 mg p.o. three times daily. 15. Pantoprazole 40 mg p.o. daily. 16. Simvastatin 20 mg p.o. at bedtime. 17. Timolol one drop to both eyes three times daily. ALLERGIES: No known drug allergies. SOCIAL HISTORY: The patient lives at home with her significant other. The patient denies tobacco or alcohol use. PHYSICAL EXAMINATION: VITAL SIGNS: Temperature 98.8, respirations 18, pulse 101, and blood pressure 134/95. GENERAL: The patient is a well-developed, well-nourished female, in no apparent distress. HEENT: Eyes, pupils equal and responsive to light and accommodation. Extraocular movements are intact. NECK: Supple without lymphadenopathy. CHEST: Lungs are clear to auscultation bilaterally without wheezes or rales. CARDIOVASCULAR: Regular rate. S1, S2 are normal without murmurs, rubs, or gallops. ABDOMEN: Soft, nontender, and nondistended. Positive bowel sounds. No evidence of hepatosplenomegaly. Currently, no rebound or guarding noted. EXTREMITIES: Negative for clubbing, cyanosis, or edema. RECTAL: Refused. GENITAL: Refused. NEUROLOGIC: Cranial nerves II through XII are grossly intact without focal deficits. Motor strength is 5/5 bilaterally. Deep tendon reflexes are 2+ plantar. LABORATORY STUDIES: WBC 7.3, hemoglobin 10.7, hematocrit 34.5, platelets 281,000. Sodium 140, potassium 3.6, chloride 99, CO2 31, BUN 29, creatinine 1.2, and glucose 82. ASSESSMENT: This is a 63-year-old female. 1. Abdominal pain. 2. Diarrhea. 3. Multiple sclerosis. 4. Hypertension. 5. Hypercholesterolemia. 6. Glaucoma. TREATMENT: 1. Abdominal pain/diarrhea. An Infectious Disease consultation has been obtained with Dr. Chand. A stool culture for Clostridium difficile is pending. We will follow recommendation of Infectious Disease. 2. Multiple sclerosis. Continue Copaxone as above. 3. Hypertension. Continue amlodipine as above. 4. Hypercholesterolemia. 5. Glaucoma. Jesus Aceves M.D. DR: DINA JOB#: [id number] CC:
[2018-09-29] VITALS: BP 115/59
[2018-09-29 04:00] VITALS: BP 110/61
[2018-09-29 07:29] LABS: BASOPHILS % (AUTO) 1.3 % (0.0-2.0); EOSINOPHILS % (AUTO) 5.8 % (0.0-3.0); HEMATOCRIT 30.2 % (37.0-47.0); HEMOGLOBIN 9.5 G/DL (12.0-16.0); LYMPHOCYTES % (AUTO) 44.4 % (20.0-45.0); MEAN CORPUSCULAR VOLUME 78 FL (80-99); MONOCYTES % (AUTO) 6.4 % (1.0-10.0); NEUTROPHILS % (AUTO) 42.1 % (45.0-75.0); PLATELET COUNT 234 K/UL (150-450); RED BLOOD COUNT 3.85 M/UL (4.20-5.40); RED CELL DISTRIBUTION WIDTH 13.5 % (11.6-14.8); WHITE BLOOD COUNT 3.6 K/UL (4.8-10.8)
[2018-09-29 07:52] LABS: ALANINE AMINOTRANSFERASE 10 U/L (12-78); ALBUMIN 2.3 G/DL (3.4-5.0); ALBUMIN/GLOBULIN RATIO 0.7 (1.0-2.7); ALKALINE PHOSPHATASE 83 U/L (46-116); ANION GAP 3 mmol/L (5-15); ASPARTATE AMINO TRANSFERASE 16 U/L (15-37); BILIRUBIN,TOTAL 0.5 MG/DL (0.2-1.0); BLOOD UREA NITROGEN 21 mg/dL (7-18); CALCIUM 8.7 MG/DL (8.5-10.1); CARBON DIOXIDE 31 MMOL/L (21-32); CHLORIDE 107 MMOL/L (98-107); CREATININE 0.9 MG/DL (0.55-1.30); PHOSPHORUS 3.3 MG/DL (2.5-4.9); POTASSIUM 3.9 MMOL/L (3.5-5.1); SODIUM 141 MMOL/L (136-145)
[2018-09-29 08:00] VITALS: BP 133/62
[2018-09-29] MEDS: Timolol 0.5% Op Soln 2.5ml BOTH EYES SCH ×3 (08:46→17:00)
[2018-09-29] MEDS: Heparin 5000 units/ml inj SUBQ SCH ×2 (08:49→20:47)
[2018-09-29] MEDS: Cefepime HCl 2 GM in D5W 110 ML IV SCH (10:44)
--- NOTE | 2018-09-29 11:36 | Pulmonology Progress Note ---
Assessment/Plan Problems: (1) Sacral decubitus ulcer (2) Failure to thrive in adult (3) UTI (urinary tract infection) (4) HTN (hypertension) (5) MS (multiple sclerosis) Assessment/Plan seen by plastic surgeon, wound looks clean f/u cultures continue abx pt/ot anemia w/u. Subjective ROS Limited/Unobtainable: No Constitutional: Reports: no symptoms HEENT: Repors: no symptoms Allergies: Coded Allergies: No Known Allergies (Unverified , 05/21/13) Objective Last 24 Hour Vital Signs Date Time Temp Pulse Resp B/P (MAP) Pulse Ox O2 Delivery O2 Flow Rate FiO2 09/29/18 09:00 Room Air 09/29/18 08:46 85 133/62 09/29/18 08:00 97.7 85 18 133/62 (85) 99 09/29/18 07:13 90 16 Room Air 21 09/29/18 04:00 98.0 65 18 110/61 (77) 99 09/29/18 00:00 99.4 78 18 115/59 (77) 97 09/28/18 21:00 Room Air 09/28/18 20:15 79 16 Room Air 21 09/28/18 20:00 98.6 76 18 105/65 (78) 98 09/28/18 16:00 98.7 68 18 109/64 (79) 97 09/28/18 12:00 97.6 60 16 121/72 (88) 100 Intake and Output 09/28/18 09/29/18 19:00 07:00 Intake Total 1000 ml Output Total 1800 ml Balance 1000 ml -1800 ml Other 1000 ml Output Urine Total 1800 ml # Voids 3 # Bowel Movements 1 General Appearance: WD/WN HEENT: atraumatic, anicteric Respiratory/Chest: chest wall non-tender, lungs clear Breasts: no masses Cardiovascular: normal rate Abdomen: soft, non tender, non distended Extremities: no cyanosis Microbiology Date/Time Source Procedure Growth Status 09/27/18 19:50 Indwelling Cath Urine Culture - Preliminary NO GROWTH AFTER 24 HOURS Resulted 09/27/18 21:41 Rectum Received 09/27/18 21:41 Buttock Left Gram Stain Pending Resulted 09/27/18 21:41 Wound Culture - Preliminary Gram Negative Bacillus 1 Resulted Laboratory Tests 09/29/18 06:20: White Blood Count 3.6L, Red Blood Count 3.85L, Hemoglobin 9.5L, Hematocrit 30.2L , Mean Corpuscular Volume 78L, Mean Corpuscular Hemoglobin 24.8L, Mean Corpuscular Hemoglobin Concent 31.6L, Red Cell Distribution Width 13.5, Platelet Count 234, Mean Platelet Volume 6.0L, Neutrophils (%) (Auto) 42.1L, Lymphocytes (%) (Auto) 44.4, Monocytes (%) (Auto) 6.4, Eosinophils (%) (Auto) 5.8H, Basophils (%) (Auto) 1.3, Sodium Level 141, Potassium Level 3.9, Chloride Level 107, Carbon Dioxide Level 31, Anion Gap 3L, Blood Urea Nitrogen 21H, Creatinine 0.9, Estimat Glomerular Filtration Rate > 60, Glucose Level 88, Calcium Level 8.7, Phosphorus Level 3.3, Magnesium Level 1.7L, Total Bilirubin 0.5, Aspartate Amino Transf (AST/SGOT) 16, Alanine Aminotransferase (ALT/SGPT) 10L, Alkaline Phosphatase 83, Total Protein 5.4L, Albumin 2.3L, Globulin 3.1, Albumin/Globulin Ratio 0.7L Current Medications Medications (Trade) Dose Ordered Sig/Maria De Jesus Route PRN Reason Start Time Stop Time Status Last Admin Dose Admin Acetaminophen (Tylenol) 650 mg Q4H PRN ORAL fever 09/27/18 20:45 10/27/18 20:44 Albuterol/ Ipratropium (Albuterol/ Ipratropium) 3 ml Q4H PRN HHN Shortness of Breath 09/27/18 20:45 10/02/18 20:44 Amlodipine Besylate (Norvasc) 5 mg DAILY ORAL 09/28/18 09:00 10/28/18 08:59 09/29/18 08:46 Atorvastatin Calcium (Lipitor) 10 mg BEDTIME ORAL 09/29/18 21:00 10/29/18 20:59 Baclofen (Lioresal) 10 mg THREE TIMES A DAY ORAL 09/28/18 09:00 10/28/18 08:59 09/29/18 08:46 Cefepime HCl 2 gm/ Dextrose 110 ml @ 220 mls/hr Q24H IV 09/28/18 10:00 10/05/18 09:59 09/29/18 10:44 Gabapentin (Neurontin) 300 mg THREE TIMES A DAY ORAL 09/28/18 21:00 10/28/18 20:59 09/29/18 08:46 Heparin Sodium (Porcine) (Heparin 5000 units/ml) 5,000 units EVERY 12 HOURS SUBQ 09/27/18 21:00 10/27/18 20:59 09/29/18 08:49 Latanoprost (Xalatan) 1 drop BEDTIME BOTH EYES 09/28/18 21:00 10/28/18 20:59 09/28/18 21:58 Magnesium Sulfate 100 ml @ 100 mls/hr Q1H IVPB 09/29/18 10:30 09/29/18 12:29 Morphine Sulfate (Morphine Sulfate) 2 mg Q4H PRN IVP Moderate Pain (Pain Scale 4-6) 09/27/18 20:45 10/04/18 20:44 09/27/18 23:26 Ondansetron HCl (Zofran) 4 mg Q6H PRN IVP Nausea & Vomiting 09/27/18 20:45 10/27/18 20:44 Phenazopyridine HCl (Pyridium) 100 mg DAILY PRN ORAL dysuria 09/27/18 20:45 10/27/18 20:44 Polyethylene Glycol (Miralax) 17 gm DAILYPRN PRN ORAL Constipation 09/27/18 20:45 10/27/18 20:44 Temazepam (Restoril) 15 mg HSPRN PRN ORAL Insomnia 09/27/18 20:45 10/04/18 20:44 Timolol Maleate (Timoptic 0.5% Op Soln) 1 drop TID BOTH EYES 09/28/18 09:00 10/28/18 08:59 09/29/18 08:46 Cherry Timmons MD Sep 29, 2018 11:36
--- NOTE | 2018-09-29 11:36 | Infectious Diseases Prog Note ---
Assessment/Plan Assessment/Plan ASSESSMENT: The patient is a 63-year-old female with : Diarrhea Normal white blood cells Afebrile History of UTI (Citrobacter) History of multiple sclerosis Obesity PLAN: Cont cefepime day # 2 Monitor CBC Monitor BMP. Monitor cultures (blood, stool). Stool C Diff Monitor chest x-ray. Subjective Allergies: Coded Allergies: No Known Allergies (Unverified , 05/21/13) Subjective comfortable Objective Vital Signs Last 24 Hour Vital Signs Date Time Temp Pulse Resp B/P (MAP) Pulse Ox O2 Delivery O2 Flow Rate FiO2 09/29/18 09:00 Room Air 09/29/18 08:46 85 133/62 09/29/18 08:00 97.7 85 18 133/62 (85) 99 09/29/18 07:13 90 16 Room Air 21 09/29/18 04:00 98.0 65 18 110/61 (77) 99 09/29/18 00:00 99.4 78 18 115/59 (77) 97 09/28/18 21:00 Room Air 09/28/18 20:15 79 16 Room Air 21 09/28/18 20:00 98.6 76 18 105/65 (78) 98 09/28/18 16:00 98.7 68 18 109/64 (79) 97 09/28/18 12:00 97.6 60 16 121/72 (88) 100 Height (Feet): 5 Height (Inches): 8.00 Weight (Pounds): 199 HEENT: anicteric Respiratory/Chest: normal breath sounds Cardiovascular: normal rate Abdomen: soft, non tender Microbiology Date/Time Source Procedure Growth Status 09/27/18 19:50 Indwelling Cath Urine Culture - Preliminary NO GROWTH AFTER 24 HOURS Resulted 09/27/18 21:41 Rectum Received 09/27/18 21:41 Buttock Left Gram Stain Pending Resulted 09/27/18 21:41 Wound Culture - Preliminary Gram Negative Bacillus 1 Resulted Laboratory Tests Test 09/29/18 06:20 White Blood Count 3.6 K/UL (4.8-10.8) L Red Blood Count 3.85 M/UL (4.20-5.40) L Hemoglobin 9.5 G/DL (12.0-16.0) L Hematocrit 30.2 % (37.0-47.0) L Mean Corpuscular Volume 78 FL (80-99) L Mean Corpuscular Hemoglobin 24.8 PG (27.0-31.0) L Mean Corpuscular Hemoglobin Concent 31.6 G/DL (32.0-36.0) L Red Cell Distribution Width 13.5 % (11.6-14.8) Platelet Count 234 K/UL (150-450) Mean Platelet Volume 6.0 FL (6.5-10.1) L Neutrophils (%) (Auto) 42.1 % (45.0-75.0) L Lymphocytes (%) (Auto) 44.4 % (20.0-45.0) Monocytes (%) (Auto) 6.4 % (1.0-10.0) Eosinophils (%) (Auto) 5.8 % (0.0-3.0) H Basophils (%) (Auto) 1.3 % (0.0-2.0) Sodium Level 141 MMOL/L (136-145) Potassium Level 3.9 MMOL/L (3.5-5.1) Chloride Level 107 MMOL/L (98-107) Carbon Dioxide Level 31 MMOL/L (21-32) Anion Gap 3 mmol/L (5-15) L Blood Urea Nitrogen 21 mg/dL (7-18) H Creatinine 0.9 MG/DL (0.55-1.30) Estimat Glomerular Filtration Rate > 60 mL/min (>60) Glucose Level 88 MG/DL (74-106) Calcium Level 8.7 MG/DL (8.5-10.1) Phosphorus Level 3.3 MG/DL (2.5-4.9) Magnesium Level 1.7 MG/DL (1.8-2.4) L Total Bilirubin 0.5 MG/DL (0.2-1.0) Aspartate Amino Transf (AST/SGOT) 16 U/L (15-37) Alanine Aminotransferase (ALT/SGPT) 10 U/L (12-78) L Alkaline Phosphatase 83 U/L (46-116) Total Protein 5.4 G/DL (6.4-8.2) L Albumin 2.3 G/DL (3.4-5.0) L Globulin 3.1 g/dL Albumin/Globulin Ratio 0.7 (1.0-2.7) L Current Medications Medications (Trade) Dose Ordered Sig/Maria De Jesus Route PRN Reason Start Time Stop Time Status Last Admin Dose Admin Acetaminophen (Tylenol) 650 mg Q4H PRN ORAL fever 09/27/18 20:45 10/27/18 20:44 Albuterol/ Ipratropium (Albuterol/ Ipratropium) 3 ml Q4H PRN HHN Shortness of Breath 09/27/18 20:45 10/02/18 20:44 Amlodipine Besylate (Norvasc) 5 mg DAILY ORAL 09/28/18 09:00 10/28/18 08:59 09/29/18 08:46 Atorvastatin Calcium (Lipitor) 10 mg BEDTIME ORAL 09/29/18 21:00 10/29/18 20:59 Baclofen (Lioresal) 10 mg THREE TIMES A DAY ORAL 09/28/18 09:00 10/28/18 08:59 09/29/18 08:46 Cefepime HCl 2 gm/ Dextrose 110 ml @ 220 mls/hr Q24H IV 09/28/18 10:00 10/05/18 09:59 09/29/18 10:44 Gabapentin (Neurontin) 300 mg THREE TIMES A DAY ORAL 09/28/18 21:00 10/28/18 20:59 09/29/18 08:46 Heparin Sodium (Porcine) (Heparin 5000 units/ml) 5,000 units EVERY 12 HOURS SUBQ 09/27/18 21:00 10/27/18 20:59 09/29/18 08:49 Latanoprost (Xalatan) 1 drop BEDTIME BOTH EYES 09/28/18 21:00 10/28/18 20:59 09/28/18 21:58 Magnesium Sulfate 100 ml @ 100 mls/hr Q1H IVPB 09/29/18 10:30 09/29/18 12:29 Morphine Sulfate (Morphine Sulfate) 2 mg Q4H PRN IVP Moderate Pain (Pain Scale 4-6) 09/27/18 20:45 10/04/18 20:44 09/27/18 23:26 Ondansetron HCl (Zofran) 4 mg Q6H PRN IVP Nausea & Vomiting 09/27/18 20:45 10/27/18 20:44 Phenazopyridine HCl (Pyridium) 100 mg DAILY PRN ORAL dysuria 09/27/18 20:45 10/27/18 20:44 Polyethylene Glycol (Miralax) 17 gm DAILYPRN PRN ORAL Constipation 09/27/18 20:45 10/27/18 20:44 Temazepam (Restoril) 15 mg HSPRN PRN ORAL Insomnia 09/27/18 20:45 10/04/18 20:44 Timolol Maleate (Timoptic 0.5% Op Soln) 1 drop TID BOTH EYES 09/28/18 09:00 10/28/18 08:59 09/29/18 08:46 Allan Chand MD Sep 29, 2018 11:36
[2018-09-29 12:00] VITALS: BP 124/68
[2018-09-29 16:00] VITALS: BP 116/73
--- NOTE | 2018-09-29 17:49 | Internal Med Progress Note ---
Subjective Date of Service: Sep 29, 2018 Physician Name YolaJeuss Attending Physician Jayesh Gibson MD Current Medications Medications (Trade) Dose Ordered Sig/Maria De Jesus Route PRN Reason Start Time Stop Time Status Last Admin Dose Admin Acetaminophen (Tylenol) 650 mg Q4H PRN ORAL fever 09/27/18 20:45 10/27/18 20:44 Albuterol/ Ipratropium (Albuterol/ Ipratropium) 3 ml Q4H PRN HHN Shortness of Breath 09/27/18 20:45 10/02/18 20:44 Amlodipine Besylate (Norvasc) 5 mg DAILY ORAL 09/28/18 09:00 10/28/18 08:59 09/29/18 08:46 Atorvastatin Calcium (Lipitor) 10 mg BEDTIME ORAL 09/29/18 21:00 10/29/18 20:59 Baclofen (Lioresal) 10 mg THREE TIMES A DAY ORAL 09/28/18 09:00 10/28/18 08:59 09/29/18 17:00 Cefepime HCl 2 gm/ Dextrose 110 ml @ 220 mls/hr Q24H IV 09/28/18 10:00 10/05/18 09:59 09/29/18 10:44 Gabapentin (Neurontin) 300 mg THREE TIMES A DAY ORAL 09/28/18 21:00 10/28/18 20:59 09/29/18 17:00 Heparin Sodium (Porcine) (Heparin 5000 units/ml) 5,000 units EVERY 12 HOURS SUBQ 09/27/18 21:00 10/27/18 20:59 09/29/18 08:49 Latanoprost (Xalatan) 1 drop BEDTIME BOTH EYES 09/28/18 21:00 10/28/18 20:59 09/28/18 21:58 Morphine Sulfate (Morphine Sulfate) 2 mg Q4H PRN IVP Moderate Pain (Pain Scale 4-6) 09/27/18 20:45 10/04/18 20:44 09/27/18 23:26 Ondansetron HCl (Zofran) 4 mg Q6H PRN IVP Nausea & Vomiting 09/27/18 20:45 10/27/18 20:44 Phenazopyridine HCl (Pyridium) 100 mg DAILY PRN ORAL dysuria 09/27/18 20:45 10/27/18 20:44 Polyethylene Glycol (Miralax) 17 gm DAILYPRN PRN ORAL Constipation 09/27/18 20:45 10/27/18 20:44 Temazepam (Restoril) 15 mg HSPRN PRN ORAL Insomnia 09/27/18 20:45 10/04/18 20:44 Timolol Maleate (Timoptic 0.5% Op Soln) 1 drop TID BOTH EYES 09/28/18 09:00 10/28/18 08:59 09/29/18 12:45 Allergies: Coded Allergies: No Known Allergies (Unverified , 05/21/13) ROS Limited/Unobtainable: No Constitutional: Reports: no symptoms HEENT: Reports: no symptoms Cardiovascular: Reports: no symptoms Respiratory: Reports: no symptoms Gastrointestinal/Abdominal: Reports: no symptoms Genitourinary: Reports: no symptoms Neurologic/Psychiatric: Reports: no symptoms Subjective 63 YO F with history of multiple sclerosis admitted with abdominal pain and diarrhea. Now increased weakness. Cover for Int Med-dr Gibson. Objective Last Vital Signs Date Time Temp Pulse Resp B/P (MAP) Pulse Ox O2 Delivery O2 Flow Rate FiO2 09/29/18 16:00 97.7 65 19 116/73 (87) 100 09/29/18 09:00 Room Air 09/29/18 07:13 21 General Appearance: WD/WN, no apparent distress, alert EENT: PERRL/EOMI, normal ENT inspection, TMs normal Neck: non-tender, normal alignment, supple, normal inspection Cardiovascular: normal peripheral pulses, normal rate, regular rhythm, no gallop/murmur, no JVD Respiratory/Chest: chest wall non-tender, lungs clear, normal breath sounds, no respiratory distress, no accessory muscle use Abdomen: normal bowel sounds, non tender, soft, no organomegaly, no mass Extremities: normal range of motion, non-tender Neurologic: flux plant operator II-XII grossly normal, no motor/sensory deficits Skin: normal pigmentation, warm/dry Laboratory Tests Test 09/29/18 06:20 White Blood Count 3.6 K/UL (4.8-10.8) L Red Blood Count 3.85 M/UL (4.20-5.40) L Hemoglobin 9.5 G/DL (12.0-16.0) L Hematocrit 30.2 % (37.0-47.0) L Mean Corpuscular Volume 78 FL (80-99) L Mean Corpuscular Hemoglobin 24.8 PG (27.0-31.0) L Mean Corpuscular Hemoglobin Concent 31.6 G/DL (32.0-36.0) L Red Cell Distribution Width 13.5 % (11.6-14.8) Platelet Count 234 K/UL (150-450) Mean Platelet Volume 6.0 FL (6.5-10.1) L Neutrophils (%) (Auto) 42.1 % (45.0-75.0) L Lymphocytes (%) (Auto) 44.4 % (20.0-45.0) Monocytes (%) (Auto) 6.4 % (1.0-10.0) Eosinophils (%) (Auto) 5.8 % (0.0-3.0) H Basophils (%) (Auto) 1.3 % (0.0-2.0) Sodium Level 141 MMOL/L (136-145) Potassium Level 3.9 MMOL/L (3.5-5.1) Chloride Level 107 MMOL/L (98-107) Carbon Dioxide Level 31 MMOL/L (21-32) Anion Gap 3 mmol/L (5-15) L Blood Urea Nitrogen 21 mg/dL (7-18) H Creatinine 0.9 MG/DL (0.55-1.30) Estimat Glomerular Filtration Rate > 60 mL/min (>60) Glucose Level 88 MG/DL (74-106) Calcium Level 8.7 MG/DL (8.5-10.1) Phosphorus Level 3.3 MG/DL (2.5-4.9) Magnesium Level 1.7 MG/DL (1.8-2.4) L Total Bilirubin 0.5 MG/DL (0.2-1.0) Aspartate Amino Transf (AST/SGOT) 16 U/L (15-37) Alanine Aminotransferase (ALT/SGPT) 10 U/L (12-78) L Alkaline Phosphatase 83 U/L (46-116) Total Protein 5.4 G/DL (6.4-8.2) L Albumin 2.3 G/DL (3.4-5.0) L Globulin 3.1 g/dL Albumin/Globulin Ratio 0.7 (1.0-2.7) L Microbiology Date/Time Source Procedure Growth Status 09/27/18 19:50 Indwelling Cath Urine Culture - Preliminary NO GROWTH AFTER 24 HOURS Resulted 09/27/18 21:41 Rectum Received 09/27/18 21:41 Buttock Left Gram Stain - Final Resulted 09/27/18 21:41 Wound Culture - Preliminary Gram Negative Bacillus 1 Resulted Intake and Output 09/28/18 09/29/18 19:00 07:00 Intake Total 1000 ml Output Total 1800 ml Balance 1000 ml -1800 ml Other 1000 ml Output Urine Total 1800 ml # Voids 3 # Bowel Movements 1 Assessment/Plan Problem List: (1) Abdominal pain (2) MS (multiple sclerosis) Assessment & Plan: Continue copaxone (3) Diarrhea (4) Hypercholesterolemia Assessment & Plan: Continue lipitor (5) HTN (hypertension) Assessment & Plan: Continue amlodipine (6) Sacral decubitus ulcer Assessment & Plan: Non surgical-See surgery note. Status: progressing Jesus Aceves MD Sep 29, 2018 17:49
[2018-09-29 19:59] VITALS: BP 109/60
[2018-09-29] MEDS: Latanoprost 0.005% Opth 2.5ml Soln BOTH EYES SCH (20:42)
[2018-09-30] VITALS: BP 113/57
[2018-09-30 04:00] VITALS: BP 116/62
[2018-09-30 06:38] LABS: ANION GAP 3 mmol/L (5-15); BLOOD UREA NITROGEN 19 mg/dL (7-18); CALCIUM 8.6 MG/DL (8.5-10.1); CARBON DIOXIDE 31 MMOL/L (21-32); CHLORIDE 106 MMOL/L (98-107); SODIUM 140 MMOL/L (136-145)
[2018-09-30 06:46] LABS: BASOPHILS % (AUTO) 1.4 % (0.0-2.0); HEMATOCRIT 29.1 % (37.0-47.0); HEMOGLOBIN 9.3 G/DL (12.0-16.0); LYMPHOCYTES % (AUTO) 36.7 % (20.0-45.0); MEAN CORPUSCULAR VOLUME 78 FL (80-99); MONOCYTES % (AUTO) 9.7 % (1.0-10.0); NEUTROPHILS % (AUTO) 47.2 % (45.0-75.0); PLATELET COUNT 255 K/UL (150-450); RED BLOOD COUNT 3.74 M/UL (4.20-5.40); RED CELL DISTRIBUTION WIDTH 13.9 % (11.6-14.8); WHITE BLOOD COUNT 3.5 K/UL (4.8-10.8)
[2018-09-30 06:48] LABS: INR 1.2 (0.9-1.1)
[2018-09-30 07:17] LABS: LACTATE DEHYDROGENASE 186 U/L (81-234)
[2018-09-30 07:21] LABS: % IRON SATURATION 18 % (15-50); IRON 33 ug/dL (50-175); TOTAL IRON BINDING CAPACITY 184 ug/dL (250-450)
[2018-09-30 08:00] VITALS: BP 116/58
[2018-09-30] MEDS: Timolol 0.5% Op Soln 2.5ml BOTH EYES SCH ×3 (09:09→17:10)
[2018-09-30] MEDS: Heparin 5000 units/ml inj SUBQ SCH ×2 (09:11→20:44)
[2018-09-30] MEDS: Cefepime HCl 2 GM in D5W 110 ML IV SCH (10:18)
--- NOTE | 2018-09-30 11:46 | Pulmonology Progress Note ---
Assessment/Plan Problems: (1) Sacral decubitus ulcer (2) Failure to thrive in adult (3) UTI (urinary tract infection) (4) HTN (hypertension) (5) MS (multiple sclerosis) Assessment/Plan seen by plastic surgeon, wound looks clean f/u cultures continue abx, on Cefepime pt/ot anemia w/u. dc home with HH when ready Subjective ROS Limited/Unobtainable: No Constitutional: Reports: no symptoms HEENT: Repors: no symptoms Respiratory: Reports: no symptoms Allergies: Coded Allergies: No Known Allergies (Unverified , 05/21/13) Objective Last 24 Hour Vital Signs Date Time Temp Pulse Resp B/P (MAP) Pulse Ox O2 Delivery O2 Flow Rate FiO2 09/30/18 09:10 96 116/58 09/30/18 09:00 Room Air 09/30/18 08:00 97.7 96 18 116/58 (77) 97 09/30/18 07:33 73 16 Room Air 21 09/30/18 04:00 98.4 79 20 116/62 (80) 95 09/30/18 00:00 99.0 70 20 113/57 (75) 96 09/29/18 21:00 Room Air 09/29/18 19:59 98.7 80 20 109/60 (76) 99 09/29/18 18:54 88 16 Room Air 21 09/29/18 16:00 97.7 65 19 116/73 (87) 100 09/29/18 12:00 97.5 62 18 124/68 (86) 100 Intake and Output 09/29/18 09/30/18 19:00 07:00 Intake Total 900 ml 200 ml Output Total 1000 ml Balance -100 ml 200 ml Intake Oral 900 ml 200 ml Output Urine Total 1000 ml # Voids 1 # Bowel Movements 2 General Appearance: WD/WN HEENT: normocephalic, atraumatic Respiratory/Chest: chest wall non-tender, lungs clear Breasts: no masses Cardiovascular: normal rate Abdomen: normal bowel sounds Genitourinary: normal external genitalia Extremities: no cyanosis Skin: no rash Microbiology Date/Time Source Procedure Growth Status 09/28/18 05:40 Blood Blood Culture - Preliminary NO GROWTH AFTER 24 HOURS Resulted 09/28/18 05:30 Blood Blood Culture - Preliminary NO GROWTH AFTER 24 HOURS Resulted 09/29/18 16:00 Stool Clostridium difficile Toxin Assay - Final Complete 09/27/18 19:50 Indwelling Cath Urine Culture - Final NO GROWTH AFTER 48 HOURS Complete 09/27/18 21:41 Rectum - Final NO CARBAPENEM-RESISTANT ENTEROBACTERI... Complete 09/27/18 21:41 Rectum VRE Culture - Final NO VANCOMYCIN RESISTANT ENTEROCOCCUS ... Complete 09/27/18 21:41 Buttock Left Gram Stain - Final Resulted 09/27/18 21:41 Wound Culture - Preliminary Pseudomonas Aeruginosa Gram Positive Cocci Strep Species, Gamma-Hemolytic Resulted Laboratory Tests 09/30/18 05:55: White Blood Count 3.5L, Red Blood Count 3.74L, Hemoglobin 9.3L, Hematocrit 29.1L , Mean Corpuscular Volume 78L, Mean Corpuscular Hemoglobin 25.0L, Mean Corpuscular Hemoglobin Concent 32.1, Red Cell Distribution Width 13.9, Platelet Count 255, Mean Platelet Volume 6.3L, Neutrophils (%) (Auto) 47.2, Lymphocytes ( %) (Auto) 36.7, Monocytes (%) (Auto) 9.7, Eosinophils (%) (Auto) 5.0H, Basophils (%) (Auto) 1.4, Differential Total Cells Counted 100, Neutrophils % ( Manual) 44L, Lymphocytes % (Manual) 42, Monocytes % (Manual) 9, Eosinophils % ( Manual) 5H, Basophils % (Manual) 0, Band Neutrophils 0, Platelet Estimate Adequate, Platelet Morphology Normal, Hypochromasia 1+, Microcytosis 1+, Erythrocyte Sedimentation Rate 38H, Reticulocyte Count 0.7, Prothrombin Time 12.7H, Prothromb Time International Ratio 1.2H, Activated Partial Thromboplast Time 33, Sodium Level 140, Potassium Level 4.0, Chloride Level 106, Carbon Dioxide Level 31, Anion Gap 3L, Blood Urea Nitrogen 19H, Creatinine 1.0, Estimat Glomerular Filtration Rate > 60, Glucose Level 91, Calcium Level 8.6, Iron Level 33L, Total Iron Binding Capacity 184L, Percent Iron Saturation 18, Unsaturated Iron Binding 151, Lactate Dehydrogenase 186, Carcinoembryonic Antigen [Pending], Vitamin B12 Level 524, Folate 19.1 09/30/18 09:40: Stool Occult Blood Positive Current Medications Medications (Trade) Dose Ordered Sig/Maria De Jesus Route PRN Reason Start Time Stop Time Status Last Admin Dose Admin Acetaminophen (Tylenol) 650 mg Q4H PRN ORAL fever 09/27/18 20:45 10/27/18 20:44 Albuterol/ Ipratropium (Albuterol/ Ipratropium) 3 ml Q4H PRN HHN Shortness of Breath 09/27/18 20:45 10/02/18 20:44 Amlodipine Besylate (Norvasc) 5 mg DAILY ORAL 09/28/18 09:00 10/28/18 08:59 09/30/18 09:10 Atorvastatin Calcium (Lipitor) 10 mg BEDTIME ORAL 09/29/18 21:00 10/29/18 20:59 09/29/18 20:42 Baclofen (Lioresal) 10 mg THREE TIMES A DAY ORAL 09/28/18 09:00 10/28/18 08:59 09/30/18 09:10 Cefepime HCl 2 gm/ Dextrose 110 ml @ 220 mls/hr Q24H IV 09/28/18 10:00 10/05/18 09:59 09/30/18 10:18 Gabapentin (Neurontin) 300 mg THREE TIMES A DAY ORAL 09/28/18 21:00 10/28/18 20:59 09/30/18 09:09 Heparin Sodium (Porcine) (Heparin 5000 units/ml) 5,000 units EVERY 12 HOURS SUBQ 09/27/18 21:00 10/27/18 20:59 09/30/18 09:11 Latanoprost (Xalatan) 1 drop BEDTIME BOTH EYES 09/28/18 21:00 10/28/18 20:59 09/29/18 20:42 Morphine Sulfate (Morphine Sulfate) 2 mg Q4H PRN IVP Moderate Pain (Pain Scale 4-6) 09/27/18 20:45 10/04/18 20:44 09/27/18 23:26 Ondansetron HCl (Zofran) 4 mg Q6H PRN IVP Nausea & Vomiting 09/27/18 20:45 10/27/18 20:44 Phenazopyridine HCl (Pyridium) 100 mg DAILY PRN ORAL dysuria 09/27/18 20:45 10/27/18 20:44 Polyethylene Glycol (Miralax) 17 gm DAILYPRN PRN ORAL Constipation 09/27/18 20:45 10/27/18 20:44 Temazepam (Restoril) 15 mg HSPRN PRN ORAL Insomnia 09/27/18 20:45 10/04/18 20:44 Timolol Maleate (Timoptic 0.5% Op Soln) 1 drop TID BOTH EYES 09/28/18 09:00 10/28/18 08:59 09/30/18 09:09 Cherry Timmons MD Sep 30, 2018 11:46
[2018-09-30 12:00] VITALS: BP 109/62
--- NOTE | 2018-09-30 14:34 | Internal Med Progress Note ---
Subjective Physician Name Jayesh Gibson Attending Physician Jayesh Gibson MD Current Medications Medications (Trade) Dose Ordered Sig/Maria De Jesus Route PRN Reason Start Time Stop Time Status Last Admin Dose Admin Acetaminophen (Tylenol) 650 mg Q4H PRN ORAL fever 09/27/18 20:45 10/27/18 20:44 Albuterol/ Ipratropium (Albuterol/ Ipratropium) 3 ml Q4H PRN HHN Shortness of Breath 09/27/18 20:45 10/02/18 20:44 Amlodipine Besylate (Norvasc) 5 mg DAILY ORAL 09/28/18 09:00 10/28/18 08:59 09/30/18 09:10 Atorvastatin Calcium (Lipitor) 10 mg BEDTIME ORAL 09/29/18 21:00 10/29/18 20:59 09/29/18 20:42 Baclofen (Lioresal) 10 mg THREE TIMES A DAY ORAL 09/28/18 09:00 10/28/18 08:59 09/30/18 12:17 Cefepime HCl 2 gm/ Dextrose 110 ml @ 220 mls/hr Q24H IV 09/28/18 10:00 10/05/18 09:59 09/30/18 10:18 Gabapentin (Neurontin) 300 mg THREE TIMES A DAY ORAL 09/28/18 21:00 10/28/18 20:59 09/30/18 12:16 Heparin Sodium (Porcine) (Heparin 5000 units/ml) 5,000 units EVERY 12 HOURS SUBQ 09/27/18 21:00 10/27/18 20:59 09/30/18 09:11 Latanoprost (Xalatan) 1 drop BEDTIME BOTH EYES 09/28/18 21:00 10/28/18 20:59 09/29/18 20:42 Morphine Sulfate (Morphine Sulfate) 2 mg Q4H PRN IVP Moderate Pain (Pain Scale 4-6) 09/27/18 20:45 10/04/18 20:44 09/27/18 23:26 Ondansetron HCl (Zofran) 4 mg Q6H PRN IVP Nausea & Vomiting 09/27/18 20:45 10/27/18 20:44 Phenazopyridine HCl (Pyridium) 100 mg DAILY PRN ORAL dysuria 09/27/18 20:45 10/27/18 20:44 Polyethylene Glycol (Miralax) 17 gm DAILYPRN PRN ORAL Constipation 09/27/18 20:45 10/27/18 20:44 Temazepam (Restoril) 15 mg HSPRN PRN ORAL Insomnia 09/27/18 20:45 10/04/18 20:44 Timolol Maleate (Timoptic 0.5% Op Soln) 1 drop TID BOTH EYES 09/28/18 09:00 10/28/18 08:59 09/30/18 12:17 Allergies: Coded Allergies: No Known Allergies (Unverified , 05/21/13) Subjective awake, alert, responsive, NAD Objective Last Vital Signs Date Time Temp Pulse Resp B/P (MAP) Pulse Ox O2 Delivery O2 Flow Rate FiO2 09/30/18 12:00 97.7 75 18 109/62 (78) 98 09/30/18 09:00 Room Air 09/30/18 07:33 21 Laboratory Tests Test 09/30/18 05:55 09/30/18 09:40 White Blood Count 3.5 K/UL (4.8-10.8) L Red Blood Count 3.74 M/UL (4.20-5.40) L Hemoglobin 9.3 G/DL (12.0-16.0) L Hematocrit 29.1 % (37.0-47.0) L Mean Corpuscular Volume 78 FL (80-99) L Mean Corpuscular Hemoglobin 25.0 PG (27.0-31.0) L Mean Corpuscular Hemoglobin Concent 32.1 G/DL (32.0-36.0) Red Cell Distribution Width 13.9 % (11.6-14.8) Platelet Count 255 K/UL (150-450) Mean Platelet Volume 6.3 FL (6.5-10.1) L Neutrophils (%) (Auto) 47.2 % (45.0-75.0) Lymphocytes (%) (Auto) 36.7 % (20.0-45.0) Monocytes (%) (Auto) 9.7 % (1.0-10.0) Eosinophils (%) (Auto) 5.0 % (0.0-3.0) H Basophils (%) (Auto) 1.4 % (0.0-2.0) Differential Total Cells Counted 100 Neutrophils % (Manual) 44 % (45-75) L Lymphocytes % (Manual) 42 % (20-45) Monocytes % (Manual) 9 % (1-10) Eosinophils % (Manual) 5 % (0-3) H Basophils % (Manual) 0 % (0-2) Band Neutrophils 0 % (0-8) Platelet Estimate Adequate Platelet Morphology Normal Hypochromasia 1+ Microcytosis 1+ Erythrocyte Sedimentation Rate 38 MM/HR (0-30) H Reticulocyte Count 0.7 % (0.0-2.0) Prothrombin Time 12.7 SEC (9.30-11.50) H Prothromb Time International Ratio 1.2 (0.9-1.1) H Activated Partial Thromboplast Time 33 SEC (23-33) Sodium Level 140 MMOL/L (136-145) Potassium Level 4.0 MMOL/L (3.5-5.1) Chloride Level 106 MMOL/L (98-107) Carbon Dioxide Level 31 MMOL/L (21-32) Anion Gap 3 mmol/L (5-15) L Blood Urea Nitrogen 19 mg/dL (7-18) H Creatinine 1.0 MG/DL (0.55-1.30) Estimat Glomerular Filtration Rate > 60 mL/min (>60) Glucose Level 91 MG/DL (74-106) Calcium Level 8.6 MG/DL (8.5-10.1) Iron Level 33 ug/dL (50-175) L Total Iron Binding Capacity 184 ug/dL (250-450) L Percent Iron Saturation 18 % (15-50) Unsaturated Iron Binding 151 ug/dL (112-346) Lactate Dehydrogenase 186 U/L (81-234) Carcinoembryonic Antigen Pending Vitamin B12 Level 524 PG/ML (193-986) Folate 19.1 NG/ML (8.6-58.9) Stool Occult Blood Positive (NEGATIVE) Microbiology Date/Time Source Procedure Growth Status 09/28/18 05:40 Blood Blood Culture - Preliminary NO GROWTH AFTER 24 HOURS Resulted 09/28/18 05:30 Blood Blood Culture - Preliminary NO GROWTH AFTER 24 HOURS Resulted 09/27/18 21:41 Nasal Nares MRSA Culture - Final NO METHICILLIN RESISTANT STAPH AUREUS... Complete 09/29/18 16:00 Stool Clostridium difficile Toxin Assay - Final Complete 09/27/18 19:50 Indwelling Cath Urine Culture - Final NO GROWTH AFTER 48 HOURS Complete 09/27/18 21:41 Rectum - Final NO CARBAPENEM-RESISTANT ENTEROBACTERI... Complete 09/27/18 21:41 Rectum VRE Culture - Final NO VANCOMYCIN RESISTANT ENTEROCOCCUS ... Complete 09/27/18 21:41 Buttock Left Gram Stain - Final Resulted 09/27/18 21:41 Wound Culture - Preliminary Pseudomonas Aeruginosa Gram Positive Cocci Strep Species, Gamma-Hemolytic Resulted Intake and Output 09/29/18 09/30/18 19:00 07:00 Intake Total 900 ml 200 ml Output Total 1000 ml Balance -100 ml 200 ml Intake Oral 900 ml 200 ml Output Urine Total 1000 ml # Voids 1 # Bowel Movements 2 Objective General: No acute distress, awake and alert HEENT: NCAT, sclera anicteric, PERRL, EOMI. Neck: Supple, no significant jugular venous distention, Lungs: Good inspiratory effort, clear to auscultation bilaterally, no Wheeze or Rales. Heart: Regular rate and rhythm, normal S1/S2, no murmur. Abdomen: soft, nontender, nondistended. Normoactive bowel sounds, morbid obesity. Extremities: No Cyanosis , clubbing or edema. Neuro: A&O x 3, Able to move all extremities Skin: warm, no rashes, Sacral Decubi ulceration Psych: Normal mood and affect Assessment/Plan Assessment/Plan (1) Abdominal pain (2) MS (multiple sclerosis) Assessment & Plan: Continue copaxone (3) Diarrhea (4) Hypercholesterolemia Assessment & Plan: Continue lipitor (5) HTN (hypertension) Assessment & Plan: Continue amlodipine (6) Sacral decubitus ulcer Assessment & Plan: Non surgical-See surgery note. (7) morbid obesity (8) Anemia possible due to GI bleeding. Plan: [place] planning to Home with . Wound care Jayesh Gibson MD Sep 30, 2018 14:34
[2018-09-30 16:00] VITALS: BP 113/61
--- NOTE | 2018-09-30 16:56 | Infectious Diseases Prog Note ---
Assessment/Plan Assessment/Plan ASSESSMENT: The patient is a 63-year-old female with : Diarrhea , resolved Normal white blood cells Afebrile C-Diff : Neg History of UTI (Citrobacter) History of multiple sclerosis Obesity PLAN: Monitor pt off of AB Rx DC cefepime day # 3 Monitor CBC Monitor BMP. Monitor cultures (blood, stool). Monitor chest x-ray. Subjective Allergies: Coded Allergies: No Known Allergies (Unverified , 05/21/13) Subjective Afebrile comfortable Objective Vital Signs Last 24 Hour Vital Signs Date Time Temp Pulse Resp B/P (MAP) Pulse Ox O2 Delivery O2 Flow Rate FiO2 09/30/18 16:00 98.1 74 20 113/61 (78) 98 09/30/18 12:00 97.7 75 18 109/62 (78) 98 09/30/18 09:10 96 116/58 09/30/18 09:00 Room Air 09/30/18 08:00 97.7 96 18 116/58 (77) 97 09/30/18 07:33 73 16 Room Air 21 09/30/18 04:00 98.4 79 20 116/62 (80) 95 09/30/18 00:00 99.0 70 20 113/57 (75) 96 09/29/18 21:00 Room Air 09/29/18 19:59 98.7 80 20 109/60 (76) 99 09/29/18 18:54 88 16 Room Air 21 Height (Feet): 5 Height (Inches): 8.00 Weight (Pounds): 199 HEENT: anicteric Respiratory/Chest: no respiratory distress Cardiovascular: regularly irregular Abdomen: non distended Microbiology Date/Time Source Procedure Growth Status 09/28/18 05:40 Blood Blood Culture - Preliminary NO GROWTH AFTER 24 HOURS Resulted 09/28/18 05:30 Blood Blood Culture - Preliminary NO GROWTH AFTER 24 HOURS Resulted 09/27/18 21:41 Nasal Nares MRSA Culture - Final NO METHICILLIN RESISTANT STAPH AUREUS... Complete 09/29/18 16:00 Stool Clostridium difficile Toxin Assay - Final Complete 09/27/18 19:50 Indwelling Cath Urine Culture - Final NO GROWTH AFTER 48 HOURS Complete 09/27/18 21:41 Rectum - Final NO CARBAPENEM-RESISTANT ENTEROBACTERI... Complete 09/27/18 21:41 Rectum VRE Culture - Final NO VANCOMYCIN RESISTANT ENTEROCOCCUS ... Complete 09/27/18 21:41 Buttock Left Gram Stain - Final Resulted 09/27/18 21:41 Wound Culture - Preliminary Pseudomonas Aeruginosa Gram Positive Cocci Strep Species, Gamma-Hemolytic Resulted Laboratory Tests Test 09/30/18 05:55 09/30/18 09:40 White Blood Count 3.5 K/UL (4.8-10.8) L Red Blood Count 3.74 M/UL (4.20-5.40) L Hemoglobin 9.3 G/DL (12.0-16.0) L Hematocrit 29.1 % (37.0-47.0) L Mean Corpuscular Volume 78 FL (80-99) L Mean Corpuscular Hemoglobin 25.0 PG (27.0-31.0) L Mean Corpuscular Hemoglobin Concent 32.1 G/DL (32.0-36.0) Red Cell Distribution Width 13.9 % (11.6-14.8) Platelet Count 255 K/UL (150-450) Mean Platelet Volume 6.3 FL (6.5-10.1) L Neutrophils (%) (Auto) 47.2 % (45.0-75.0) Lymphocytes (%) (Auto) 36.7 % (20.0-45.0) Monocytes (%) (Auto) 9.7 % (1.0-10.0) Eosinophils (%) (Auto) 5.0 % (0.0-3.0) H Basophils (%) (Auto) 1.4 % (0.0-2.0) Differential Total Cells Counted 100 Neutrophils % (Manual) 44 % (45-75) L Lymphocytes % (Manual) 42 % (20-45) Monocytes % (Manual) 9 % (1-10) Eosinophils % (Manual) 5 % (0-3) H Basophils % (Manual) 0 % (0-2) Band Neutrophils 0 % (0-8) Platelet Estimate Adequate Platelet Morphology Normal Hypochromasia 1+ Microcytosis 1+ Erythrocyte Sedimentation Rate 38 MM/HR (0-30) H Reticulocyte Count 0.7 % (0.0-2.0) Prothrombin Time 12.7 SEC (9.30-11.50) H Prothromb Time International Ratio 1.2 (0.9-1.1) H Activated Partial Thromboplast Time 33 SEC (23-33) Sodium Level 140 MMOL/L (136-145) Potassium Level 4.0 MMOL/L (3.5-5.1) Chloride Level 106 MMOL/L (98-107) Carbon Dioxide Level 31 MMOL/L (21-32) Anion Gap 3 mmol/L (5-15) L Blood Urea Nitrogen 19 mg/dL (7-18) H Creatinine 1.0 MG/DL (0.55-1.30) Estimat Glomerular Filtration Rate > 60 mL/min (>60) Glucose Level 91 MG/DL (74-106) Calcium Level 8.6 MG/DL (8.5-10.1) Iron Level 33 ug/dL (50-175) L Total Iron Binding Capacity 184 ug/dL (250-450) L Percent Iron Saturation 18 % (15-50) Unsaturated Iron Binding 151 ug/dL (112-346) Lactate Dehydrogenase 186 U/L (81-234) Carcinoembryonic Antigen Pending Vitamin B12 Level 524 PG/ML (193-986) Folate 19.1 NG/ML (8.6-58.9) Stool Occult Blood Positive (NEGATIVE) Current Medications Medications (Trade) Dose Ordered Sig/Maria De Jesus Route PRN Reason Start Time Stop Time Status Last Admin Dose Admin Acetaminophen (Tylenol) 650 mg Q4H PRN ORAL fever 09/27/18 20:45 10/27/18 20:44 Albuterol/ Ipratropium (Albuterol/ Ipratropium) 3 ml Q4H PRN HHN Shortness of Breath 09/27/18 20:45 10/02/18 20:44 Amlodipine Besylate (Norvasc) 5 mg DAILY ORAL 09/28/18 09:00 10/28/18 08:59 09/30/18 09:10 Atorvastatin Calcium (Lipitor) 10 mg BEDTIME ORAL 09/29/18 21:00 10/29/18 20:59 09/29/18 20:42 Baclofen (Lioresal) 10 mg THREE TIMES A DAY ORAL 09/28/18 09:00 10/28/18 08:59 09/30/18 12:17 Cefepime HCl 2 gm/ Dextrose 110 ml @ 220 mls/hr Q24H IV 09/28/18 10:00 10/05/18 09:59 09/30/18 10:18 Gabapentin (Neurontin) 300 mg THREE TIMES A DAY ORAL 09/28/18 21:00 10/28/18 20:59 09/30/18 12:16 Heparin Sodium (Porcine) (Heparin 5000 units/ml) 5,000 units EVERY 12 HOURS SUBQ 09/27/18 21:00 10/27/18 20:59 09/30/18 09:11 Latanoprost (Xalatan) 1 drop BEDTIME BOTH EYES 09/28/18 21:00 10/28/18 20:59 09/29/18 20:42 Morphine Sulfate (Morphine Sulfate) 2 mg Q4H PRN IVP Moderate Pain (Pain Scale 4-6) 09/27/18 20:45 10/04/18 20:44 09/27/18 23:26 Ondansetron HCl (Zofran) 4 mg Q6H PRN IVP Nausea & Vomiting 09/27/18 20:45 10/27/18 20:44 Phenazopyridine HCl (Pyridium) 100 mg DAILY PRN ORAL dysuria 09/27/18 20:45 10/27/18 20:44 Polyethylene Glycol (Miralax) 17 gm DAILYPRN PRN ORAL Constipation 09/27/18 20:45 10/27/18 20:44 Temazepam (Restoril) 15 mg HSPRN PRN ORAL Insomnia 09/27/18 20:45 10/04/18 20:44 Timolol Maleate (Timoptic 0.5% Op Soln) 1 drop TID BOTH EYES 09/28/18 09:00 10/28/18 08:59 09/30/18 12:17 Allan Chand MD Sep 30, 2018 16:56
[2018-09-30 20:00] VITALS: BP 115/57
[2018-09-30] MEDS: Latanoprost 0.005% Opth 2.5ml Soln BOTH EYES SCH (20:57)
[2018-10-01] VITALS: BP 115/59
[2018-10-01 04:00] VITALS: BP 101/60
[2018-10-01 06:38] LABS: EOSINOPHILS % (AUTO) 7.2 % (0.0-3.0); HEMATOCRIT 28.8 % (37.0-47.0); HEMOGLOBIN 8.9 G/DL (12.0-16.0); LYMPHOCYTES % (AUTO) 36.9 % (20.0-45.0); MEAN CORPUSCULAR VOLUME 79 FL (80-99); MONOCYTES % (AUTO) 7.6 % (1.0-10.0); NEUTROPHILS % (AUTO) 46.3 % (45.0-75.0); PLATELET COUNT 241 K/UL (150-450); RED BLOOD COUNT 3.66 M/UL (4.20-5.40); RED CELL DISTRIBUTION WIDTH 13.8 % (11.6-14.8); WHITE BLOOD COUNT 3.9 K/UL (4.8-10.8)
[2018-10-01 06:51] LABS: ANION GAP 3 mmol/L (5-15); BLOOD UREA NITROGEN 18 mg/dL (7-18); CALCIUM 8.5 MG/DL (8.5-10.1); CARBON DIOXIDE 32 MMOL/L (21-32); CHLORIDE 108 MMOL/L (98-107); POTASSIUM 4.2 MMOL/L (3.5-5.1); SODIUM 143 MMOL/L (136-145)
[2018-10-01 08:00] VITALS: BP 136/65
--- NOTE | 2018-10-01 08:02 | Infectious Diseases Prog Note ---
Assessment/Plan Assessment/Plan SSESSMENT: The patient is a 63-year-old female with : Diarrhea , resolved Normal white blood cells Afebrile C-Diff : Neg History of UTI (Citrobacter) History of multiple sclerosis Obesity PLAN: - Continue to monitor pt off of AB Rx - 09/30 SP cefepime day # 3 - Monitor CBC - Monitor BMP. - Monitor cultures (blood, stool). - Monitor chest x-ray. Subjective Allergies: Coded Allergies: No Known Allergies (Unverified , 05/21/13) Subjective Patient reports no diarrhea Low grade fever No Leukocytosis Objective Vital Signs Last 24 Hour Vital Signs Date Time Temp Pulse Resp B/P (MAP) Pulse Ox O2 Delivery O2 Flow Rate FiO2 10/01/18 04:00 98.8 75 20 101/60 (74) 94 10/01/18 00:32 98.9 10/01/18 00:00 100.6 90 18 115/59 (77) 96 09/30/18 20:45 87 16 Room Air 21 09/30/18 20:10 Room Air 09/30/18 20:00 99.5 89 20 115/57 (76) 99 09/30/18 16:00 98.1 74 20 113/61 (78) 98 09/30/18 12:00 97.7 75 18 109/62 (78) 98 09/30/18 09:10 96 116/58 09/30/18 09:00 Room Air Height (Feet): 5 Height (Inches): 8.00 Weight (Pounds): 199 Microbiology Date/Time Source Procedure Growth Status 09/29/18 16:00 Stool Clostridium difficile Toxin Assay - Final Complete Laboratory Tests Test 09/30/18 09:40 10/01/18 05:25 Stool Occult Blood Positive (NEGATIVE) White Blood Count 3.9 K/UL (4.8-10.8) L Red Blood Count 3.66 M/UL (4.20-5.40) L Hemoglobin 8.9 G/DL (12.0-16.0) L Hematocrit 28.8 % (37.0-47.0) L Mean Corpuscular Volume 79 FL (80-99) L Mean Corpuscular Hemoglobin 24.3 PG (27.0-31.0) L Mean Corpuscular Hemoglobin Concent 30.9 G/DL (32.0-36.0) L Red Cell Distribution Width 13.8 % (11.6-14.8) Platelet Count 241 K/UL (150-450) Mean Platelet Volume 6.0 FL (6.5-10.1) L Neutrophils (%) (Auto) 46.3 % (45.0-75.0) Lymphocytes (%) (Auto) 36.9 % (20.0-45.0) Monocytes (%) (Auto) 7.6 % (1.0-10.0) Eosinophils (%) (Auto) 7.2 % (0.0-3.0) H Basophils (%) (Auto) 2.0 % (0.0-2.0) Sodium Level 143 MMOL/L (136-145) Potassium Level 4.2 MMOL/L (3.5-5.1) Chloride Level 108 MMOL/L (98-107) H Carbon Dioxide Level 32 MMOL/L (21-32) Anion Gap 3 mmol/L (5-15) L Blood Urea Nitrogen 18 mg/dL (7-18) Creatinine 1.0 MG/DL (0.55-1.30) Estimat Glomerular Filtration Rate > 60 mL/min (>60) Glucose Level 84 MG/DL (74-106) Calcium Level 8.5 MG/DL (8.5-10.1) Current Medications Medications (Trade) Dose Ordered Sig/Maria De Jesus Route PRN Reason Start Time Stop Time Status Last Admin Dose Admin Acetaminophen (Tylenol) 650 mg Q4H PRN ORAL fever 09/27/18 20:45 10/27/18 20:44 10/01/18 00:02 Albuterol/ Ipratropium (Albuterol/ Ipratropium) 3 ml Q4H PRN HHN Shortness of Breath 09/27/18 20:45 10/02/18 20:44 Amlodipine Besylate (Norvasc) 5 mg DAILY ORAL 09/28/18 09:00 10/28/18 08:59 09/30/18 09:10 Atorvastatin Calcium (Lipitor) 10 mg BEDTIME ORAL 09/29/18 21:00 10/29/18 20:59 09/30/18 20:40 Baclofen (Lioresal) 10 mg THREE TIMES A DAY ORAL 09/28/18 09:00 10/28/18 08:59 09/30/18 17:10 Gabapentin (Neurontin) 300 mg THREE TIMES A DAY ORAL 09/28/18 21:00 10/28/18 20:59 09/30/18 17:10 Heparin Sodium (Porcine) (Heparin 5000 units/ml) 5,000 units EVERY 12 HOURS SUBQ 09/27/18 21:00 10/27/18 20:59 09/30/18 20:44 Latanoprost (Xalatan) 1 drop BEDTIME BOTH EYES 09/28/18 21:00 10/28/18 20:59 09/30/18 20:57 Morphine Sulfate (Morphine Sulfate) 2 mg Q4H PRN IVP Moderate Pain (Pain Scale 4-6) 09/27/18 20:45 10/04/18 20:44 09/27/18 23:26 Ondansetron HCl (Zofran) 4 mg Q6H PRN IVP Nausea & Vomiting 09/27/18 20:45 10/27/18 20:44 Phenazopyridine HCl (Pyridium) 100 mg DAILY PRN ORAL dysuria 09/27/18 20:45 10/27/18 20:44 Polyethylene Glycol (Miralax) 17 gm DAILYPRN PRN ORAL Constipation 09/27/18 20:45 10/27/18 20:44 Temazepam (Restoril) 15 mg HSPRN PRN ORAL Insomnia 09/27/18 20:45 10/04/18 20:44 Timolol Maleate (Timoptic 0.5% Op Soln) 1 drop TID BOTH EYES 09/28/18 09:00 10/28/18 08:59 09/30/18 12:17 Vasquez Matos MD Oct 01, 2018 08:02
[2018-10-01] MEDS: Timolol 0.5% Op Soln 2.5ml BOTH EYES SCH ×3 (08:56→17:40)
[2018-10-01] MEDS: Heparin 5000 units/ml inj SUBQ SCH ×2 (09:00→20:18)
[2018-10-01 12:00] VITALS: BP 111/65
--- NOTE | 2018-10-01 14:09 | Internal Med Progress Note ---
Subjective Date of Service: Oct 01, 2018 Physician Name Jesus Aceves Attending Physician Jayesh Gibson MD Current Medications Medications (Trade) Dose Ordered Sig/Maria De Jesus Route PRN Reason Start Time Stop Time Status Last Admin Dose Admin Acetaminophen (Tylenol) 650 mg Q4H PRN ORAL fever 09/27/18 20:45 10/27/18 20:44 10/01/18 00:02 Albuterol/ Ipratropium (Albuterol/ Ipratropium) 3 ml Q4H PRN HHN Shortness of Breath 09/27/18 20:45 10/02/18 20:44 Amlodipine Besylate (Norvasc) 5 mg DAILY ORAL 09/28/18 09:00 10/28/18 08:59 10/01/18 08:56 Atorvastatin Calcium (Lipitor) 10 mg BEDTIME ORAL 09/29/18 21:00 10/29/18 20:59 09/30/18 20:40 Baclofen (Lioresal) 10 mg THREE TIMES A DAY ORAL 09/28/18 09:00 10/28/18 08:59 10/01/18 12:03 Gabapentin (Neurontin) 300 mg THREE TIMES A DAY ORAL 09/28/18 21:00 10/28/18 20:59 10/01/18 12:03 Heparin Sodium (Porcine) (Heparin 5000 units/ml) 5,000 units EVERY 12 HOURS SUBQ 09/27/18 21:00 10/27/18 20:59 10/01/18 09:00 Latanoprost (Xalatan) 1 drop BEDTIME BOTH EYES 09/28/18 21:00 10/28/18 20:59 09/30/18 20:57 Morphine Sulfate (Morphine Sulfate) 2 mg Q4H PRN IVP Moderate Pain (Pain Scale 4-6) 09/27/18 20:45 10/04/18 20:44 09/27/18 23:26 Ondansetron HCl (Zofran) 4 mg Q6H PRN IVP Nausea & Vomiting 09/27/18 20:45 10/27/18 20:44 Phenazopyridine HCl (Pyridium) 100 mg DAILY PRN ORAL dysuria 09/27/18 20:45 10/27/18 20:44 Polyethylene Glycol (Miralax) 17 gm DAILYPRN PRN ORAL Constipation 09/27/18 20:45 10/27/18 20:44 Temazepam (Restoril) 15 mg HSPRN PRN ORAL Insomnia 09/27/18 20:45 10/04/18 20:44 Timolol Maleate (Timoptic 0.5% Op Soln) 1 drop TID BOTH EYES 09/28/18 09:00 10/28/18 08:59 10/01/18 12:03 Allergies: Coded Allergies: No Known Allergies (Unverified , 05/21/13) ROS Limited/Unobtainable: No Constitutional: Reports: no symptoms HEENT: Reports: no symptoms Cardiovascular: Reports: no symptoms Respiratory: Reports: no symptoms Gastrointestinal/Abdominal: Reports: no symptoms Genitourinary: Reports: no symptoms Neurologic/Psychiatric: Reports: no symptoms Subjective 63 YO F with history of multiple sclerosis admitted with abdominal pain and diarrhea. Now increased weakness. Cover for Int Med-dr Gibson. Await GI consult Objective Last Vital Signs Date Time Temp Pulse Resp B/P (MAP) Pulse Ox O2 Delivery O2 Flow Rate FiO2 10/01/18 12:00 98.7 87 20 111/65 (80) 94 10/01/18 09:00 Room Air 09/30/18 20:45 21 Laboratory Tests Test 10/01/18 05:25 White Blood Count 3.9 K/UL (4.8-10.8) L Red Blood Count 3.66 M/UL (4.20-5.40) L Hemoglobin 8.9 G/DL (12.0-16.0) L Hematocrit 28.8 % (37.0-47.0) L Mean Corpuscular Volume 79 FL (80-99) L Mean Corpuscular Hemoglobin 24.3 PG (27.0-31.0) L Mean Corpuscular Hemoglobin Concent 30.9 G/DL (32.0-36.0) L Red Cell Distribution Width 13.8 % (11.6-14.8) Platelet Count 241 K/UL (150-450) Mean Platelet Volume 6.0 FL (6.5-10.1) L Neutrophils (%) (Auto) 46.3 % (45.0-75.0) Lymphocytes (%) (Auto) 36.9 % (20.0-45.0) Monocytes (%) (Auto) 7.6 % (1.0-10.0) Eosinophils (%) (Auto) 7.2 % (0.0-3.0) H Basophils (%) (Auto) 2.0 % (0.0-2.0) Sodium Level 143 MMOL/L (136-145) Potassium Level 4.2 MMOL/L (3.5-5.1) Chloride Level 108 MMOL/L (98-107) H Carbon Dioxide Level 32 MMOL/L (21-32) Anion Gap 3 mmol/L (5-15) L Blood Urea Nitrogen 18 mg/dL (7-18) Creatinine 1.0 MG/DL (0.55-1.30) Estimat Glomerular Filtration Rate > 60 mL/min (>60) Glucose Level 84 MG/DL (74-106) Calcium Level 8.5 MG/DL (8.5-10.1) Microbiology Date/Time Source Procedure Growth Status 09/29/18 16:00 Stool Clostridium difficile Toxin Assay - Final Complete Intake and Output 09/30/18 10/01/18 19:00 07:00 Intake Total 240 ml 360 ml Output Total 925 ml Balance 240 ml -565 ml Intake Oral 240 ml 360 ml Output Urine Total 925 ml # Voids 4 # Bowel Movements 4 3 Objective General Appearance: WD/WN, no apparent distress, alert EENT: PERRL/EOMI, normal ENT inspection, TMs normal Neck: non-tender, normal alignment, supple, normal inspection Cardiovascular: normal peripheral pulses, normal rate, regular rhythm, no gallop/murmur, no JVD Respiratory/Chest: chest wall non-tender, lungs clear, normal breath sounds, no respiratory distress, no accessory muscle use Abdomen: normal bowel sounds, non tender, soft, no organomegaly, no mass Extremities: normal range of motion, non-tender 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 (7) Positive occult stool blood test Assessment & Plan: Await GI consult Status: Jesus Tatum MD Oct 01, 2018 14:09
[2018-10-01 15:49] VITALS: BP 105/65
--- NOTE | 2018-10-01 17:59 | General Progress Note ---
Assessment/Plan Assessment/Plan GI CONSULT - For Dr. Mccain Will schedule for EGD/Colon Wednesday for evaluation of OB (+) Stools Thank you David Peck MD Subjective Allergies: Coded Allergies: No Known Allergies (Unverified , 05/21/13) Objective Last 24 Hour Vital Signs Date Time Temp Pulse Resp B/P (MAP) Pulse Ox O2 Delivery O2 Flow Rate FiO2 10/01/18 15:49 99.0 82 20 105/65 (78) 94 10/01/18 12:00 98.7 87 20 111/65 (80) 94 10/01/18 09:00 Room Air 10/01/18 08:56 100 136/65 10/01/18 08:00 98.9 100 20 136/65 (88) 94 10/01/18 04:00 98.8 75 20 101/60 (74) 94 10/01/18 00:32 98.9 10/01/18 00:00 100.6 90 18 115/59 (77) 96 09/30/18 20:45 87 16 Room Air 21 09/30/18 20:10 Room Air 09/30/18 20:00 99.5 89 20 115/57 (76) 99 Intake and Output 09/30/18 10/01/18 19:00 07:00 Intake Total 240 ml 360 ml Output Total 925 ml Balance 240 ml -565 ml Intake Oral 240 ml 360 ml Output Urine Total 925 ml # Voids 4 # Bowel Movements 4 3 Laboratory Tests 10/01/18 05:25: White Blood Count 3.9L, Red Blood Count 3.66L, Hemoglobin 8.9L, Hematocrit 28.8L , Mean Corpuscular Volume 79L, Mean Corpuscular Hemoglobin 24.3L, Mean Corpuscular Hemoglobin Concent 30.9L, Red Cell Distribution Width 13.8, Platelet Count 241, Mean Platelet Volume 6.0L, Neutrophils (%) (Auto) 46.3, Lymphocytes (%) (Auto) 36.9, Monocytes (%) (Auto) 7.6, Eosinophils (%) (Auto) 7.2H, Basophils (%) (Auto) 2.0, Sodium Level 143, Potassium Level 4.2, Chloride Level 108H, Carbon Dioxide Level 32, Anion Gap 3L, Blood Urea Nitrogen 18, Creatinine 1.0, Estimat Glomerular Filtration Rate > 60, Glucose Level 84, Calcium Level 8.5 Height (Feet): 5 Height (Inches): 8.00 Weight (Pounds): 199 David Peck MD Oct 01, 2018 17:59
[2018-10-01] MEDS ORDERED: Bisacodyl EC 5mg tab ORAL SCH (18:00)
[2018-10-01] MEDS ORDERED: Sorbitol Solution UD 30ml ORAL SCH (18:00)
--- NOTE | 2018-10-01 19:45 | Consultation ---
DATE OF CONSULTATION: 10/01/2018 CONSULTING PHYSICIAN: David Peck M.D. CHIEF COMPLAINT: I was asked to see this patient by Dr. Jayesh Gibson for evaluation of heme-positive stools. HISTORY OF PRESENT ILLNESS: The patient is a 63-year-old woman with history of multiple sclerosis who comes into the hospital due to abdominal pain and diarrhea. The patient has been evaluated and she was found to be heme-positive anemic and also microcytic when this consultation was generated. The patient does not recall ever having endoscopy or colonoscopy. She has no abdominal pain. PAST MEDICAL HISTORY: History of multiple sclerosis, hypertension, hypercholesterolemia. PAST SURGICAL HISTORY: Status post tonsillectomy, D and C. MEDICATIONS: See chart list for details. FAMILY HISTORY: Noncontributory. SOCIAL HISTORY: The patient does not smoke or drink alcohol. REVIEW OF SYSTEMS: Otherwise negative. PHYSICAL EXAMINATION: GENERAL: This is a pleasant woman, seen in her room. HEENT: Normocephalic and atraumatic. Sclerae anicteric. Oropharynx clear. NECK: Supple. CHEST: Clear to auscultation. CARDIAC: Regular rate. ABDOMEN: Soft. EXTREMITIES: No edema. NEUROLOGIC: Notable for notable for multiple sclerosis LABORATORY DATA: As noted. ASSESSMENT: This patient presents with anemia which is microcytic anemia. She was found to have heme-positive stools which is concerning for chronic gastrointestinal blood loss. The differential diagnosis unfortunately includes gastrointestinal malignancies as well as more benign condition such as large hiatal hernia, arteriovenous malformation. Indications risks, alternatives, and possible complications of the procedure were explained to the patient and informed consent was obtained. RECOMMENDATIONS: 1. Clear liquid diet. 2. GI tract preparation 3. Endoscopy and colonoscopy on Wednesday. 4. Followup laboratory parameters. Thank you for asking me to participate in care this patient. David Peck M.D. DR: Elsa JOB#: [id number] CC:
[2018-10-01 20:00] VITALS: BP 101/64
[2018-10-01] MEDS: Latanoprost 0.005% Opth 2.5ml Soln BOTH EYES SCH (20:17)
[2018-10-02] VITALS: BP 101/59
[2018-10-02 04:00] VITALS: BP 108/62
[2018-10-02 06:52] LABS: ANION GAP 1 mmol/L (5-15); BLOOD UREA NITROGEN 15 mg/dL (7-18); CALCIUM 8.8 MG/DL (8.5-10.1); CARBON DIOXIDE 31 MMOL/L (21-32); CHLORIDE 109 MMOL/L (98-107); CREATININE 0.9 MG/DL (0.55-1.30); POTASSIUM 4.1 MMOL/L (3.5-5.1); SODIUM 141 MMOL/L (136-145)
[2018-10-02 06:59] LABS: BASOPHILS % (AUTO) 1.8 % (0.0-2.0); HEMATOCRIT 31.5 % (37.0-47.0); HEMOGLOBIN 9.9 G/DL (12.0-16.0); LYMPHOCYTES % (AUTO) 38.1 % (20.0-45.0); MEAN CORPUSCULAR VOLUME 78 FL (80-99); MONOCYTES % (AUTO) 4.4 % (1.0-10.0); NEUTROPHILS % (AUTO) 47.6 % (45.0-75.0); PLATELET COUNT 217 K/UL (150-450); RED BLOOD COUNT 4.02 M/UL (4.20-5.40); RED CELL DISTRIBUTION WIDTH 13.8 % (11.6-14.8); WHITE BLOOD COUNT 3.8 K/UL (4.8-10.8)
[2018-10-02] MEDS ORDERED: Nulytely 4L ORAL SCH (07:00)
[2018-10-02 08:00] VITALS: BP 122/74
[2018-10-02] MEDS: Timolol 0.5% Op Soln 2.5ml BOTH EYES SCH ×4 (08:06→17:13)
[2018-10-02] MEDS: Heparin 5000 units/ml inj SUBQ SCH ×2 (08:06→20:03)
--- NOTE | 2018-10-02 11:00 | General Progress Note ---
Assessment/Plan Assessment/Plan Assessment - OB (+) Stools - microcytic anemia - mild Iron deficiency Recommendations - GI Preparation today - EGD/Colon in am David Peck MD Subjective Allergies: Coded Allergies: No Known Allergies (Unverified , 05/21/13) Subjective on clears getting colonoscopy prep no abd pain Objective Last 24 Hour Vital Signs Date Time Temp Pulse Resp B/P (MAP) Pulse Ox O2 Delivery O2 Flow Rate FiO2 10/02/18 09:00 Room Air 10/02/18 08:05 63 122/74 10/02/18 08:00 97.6 63 18 122/74 (90) 97 10/02/18 04:00 98.3 77 19 108/62 (77) 97 10/02/18 00:00 99.3 89 19 101/59 (73) 95 10/01/18 21:00 Room Air 10/01/18 20:00 99.5 89 19 101/64 (76) 96 10/01/18 20:00 88 18 Room Air 21 10/01/18 15:49 99.0 82 20 105/65 (78) 94 10/01/18 12:00 98.7 87 20 111/65 (80) 94 Intake and Output 10/01/18 10/02/18 18:59 06:59 Intake Total 1080 ml Output Total 1700 ml Balance -620 ml Intake Oral 1080 ml Output Urine Total 1700 ml # Voids 3 # Bowel Movements 1 4 Laboratory Tests 10/02/18 06:00: White Blood Count 3.8L, Red Blood Count 4.02L, Hemoglobin 9.9L, Hematocrit 31.5L , Mean Corpuscular Volume 78L, Mean Corpuscular Hemoglobin 24.7L, Mean Corpuscular Hemoglobin Concent 31.6L, Red Cell Distribution Width 13.8, Platelet Count 217, Mean Platelet Volume 6.0L, Neutrophils (%) (Auto) 47.6, Lymphocytes (%) (Auto) 38.1, Monocytes (%) (Auto) 4.4, Eosinophils (%) (Auto) 8.0H, Basophils (%) (Auto) 1.8, Sodium Level 141, Potassium Level 4.1, Chloride Level 109H, Carbon Dioxide Level 31, Anion Gap 1L, Blood Urea Nitrogen 15, Creatinine 0.9, Estimat Glomerular Filtration Rate > 60, Glucose Level 75, Calcium Level 8.8 Height (Feet): 5 Height (Inches): 8.00 Weight (Pounds): 199 Objective Obese AA woman NCAT supple CTA RR abd soft NT ND no edema neuro c/w David Amador MD Oct 02, 2018 11:00
[2018-10-02 12:00] VITALS: BP 123/52
[2018-10-02] MEDS ORDERED: Bisacodyl EC 5mg tab ORAL SCH (13:00)
--- NOTE | 2018-10-02 15:26 | Internal Med Progress Note ---
Subjective Date of Service: Oct 02, 2018 Physician Name Jesus Aceves Attending Physician Jayesh Gibson MD Current Medications Medications (Trade) Dose Ordered Sig/Maria De Jesus Route PRN Reason Start Time Stop Time Status Last Admin Dose Admin Acetaminophen (Tylenol) 650 mg Q4H PRN ORAL fever 09/27/18 20:45 10/27/18 20:44 10/01/18 00:02 Albuterol/ Ipratropium (Albuterol/ Ipratropium) 3 ml Q4H PRN HHN Shortness of Breath 09/27/18 20:45 10/02/18 20:44 Amlodipine Besylate (Norvasc) 5 mg DAILY ORAL 09/28/18 09:00 10/28/18 08:59 10/02/18 08:05 Atorvastatin Calcium (Lipitor) 10 mg BEDTIME ORAL 09/29/18 21:00 10/29/18 20:59 10/01/18 20:17 Baclofen (Lioresal) 10 mg THREE TIMES A DAY ORAL 09/28/18 09:00 10/28/18 08:59 10/02/18 13:42 Gabapentin (Neurontin) 300 mg THREE TIMES A DAY ORAL 09/28/18 21:00 10/28/18 20:59 10/02/18 13:42 Heparin Sodium (Porcine) (Heparin 5000 units/ml) 5,000 units EVERY 12 HOURS SUBQ 09/27/18 21:00 10/27/18 20:59 10/02/18 08:06 Latanoprost (Xalatan) 1 drop BEDTIME BOTH EYES 09/28/18 21:00 10/28/18 20:59 10/01/18 20:17 Morphine Sulfate (Morphine Sulfate) 2 mg Q4H PRN IVP Moderate Pain (Pain Scale 4-6) 09/27/18 20:45 10/04/18 20:44 09/27/18 23:26 Ondansetron HCl (Zofran) 4 mg Q6H PRN IVP Nausea & Vomiting 09/27/18 20:45 10/27/18 20:44 Phenazopyridine HCl (Pyridium) 100 mg DAILY PRN ORAL dysuria 09/27/18 20:45 10/27/18 20:44 Polyethylene Glycol (Miralax) 17 gm DAILYPRN PRN ORAL Constipation 09/27/18 20:45 10/27/18 20:44 Polyethylene Glycol/ Electrolytes (Nulytely) 4,000 ml ONCE ORAL 10/02/18 07:00 10/02/18 23:59 10/02/18 07:21 Temazepam (Restoril) 15 mg HSPRN PRN ORAL Insomnia 09/27/18 20:45 10/04/18 20:44 Timolol Maleate (Timoptic 0.5% Op Soln) 1 drop TID BOTH EYES 09/28/18 09:00 10/28/18 08:59 10/02/18 13:42 Allergies: Coded Allergies: No Known Allergies (Unverified , 05/21/13) ROS Limited/Unobtainable: No Constitutional: Reports: no symptoms HEENT: Reports: no symptoms Cardiovascular: Reports: no symptoms Respiratory: Reports: no symptoms Gastrointestinal/Abdominal: Reports: abdominal pain Genitourinary: Reports: no symptoms Neurologic/Psychiatric: Reports: no symptoms Subjective 63 YO F with history of multiple sclerosis admitted with abdominal pain and diarrhea. Now increased weakness. Cover for Int Med-dr iGbson. Await endoscopy and colonoscopy on 10/03/18. Objective Last Vital Signs Date Time Temp Pulse Resp B/P (MAP) Pulse Ox O2 Delivery O2 Flow Rate FiO2 10/02/18 12:00 97.7 69 16 123/52 (75) 97 10/02/18 09:00 Room Air 10/02/18 08:21 21 Laboratory Tests Test 10/02/18 06:00 White Blood Count 3.8 K/UL (4.8-10.8) L Red Blood Count 4.02 M/UL (4.20-5.40) L Hemoglobin 9.9 G/DL (12.0-16.0) L Hematocrit 31.5 % (37.0-47.0) L Mean Corpuscular Volume 78 FL (80-99) L Mean Corpuscular Hemoglobin 24.7 PG (27.0-31.0) L Mean Corpuscular Hemoglobin Concent 31.6 G/DL (32.0-36.0) L Red Cell Distribution Width 13.8 % (11.6-14.8) Platelet Count 217 K/UL (150-450) Mean Platelet Volume 6.0 FL (6.5-10.1) L Neutrophils (%) (Auto) 47.6 % (45.0-75.0) Lymphocytes (%) (Auto) 38.1 % (20.0-45.0) Monocytes (%) (Auto) 4.4 % (1.0-10.0) Eosinophils (%) (Auto) 8.0 % (0.0-3.0) H Basophils (%) (Auto) 1.8 % (0.0-2.0) Sodium Level 141 MMOL/L (136-145) Potassium Level 4.1 MMOL/L (3.5-5.1) Chloride Level 109 MMOL/L (98-107) H Carbon Dioxide Level 31 MMOL/L (21-32) Anion Gap 1 mmol/L (5-15) L Blood Urea Nitrogen 15 mg/dL (7-18) Creatinine 0.9 MG/DL (0.55-1.30) Estimat Glomerular Filtration Rate > 60 mL/min (>60) Glucose Level 75 MG/DL (74-106) Calcium Level 8.8 MG/DL (8.5-10.1) Microbiology Date/Time Source Procedure Growth Status 09/29/18 16:00 Stool Stool Culture - Preliminary NORMAL FECAL MIKE. Resulted 09/29/18 16:00 Stool Clostridium difficile Toxin Assay - Final Complete Intake and Output 10/01/18 10/02/18 19:00 07:00 Intake Total 1080 ml Output Total 1700 ml Balance -620 ml Intake Oral 1080 ml Output Urine Total 1700 ml # Voids 3 # Bowel Movements 1 4 Objective General Appearance: WD/WN, no apparent distress, alert EENT: PERRL/EOMI, normal ENT inspection, TMs normal Neck: non-tender, normal alignment, supple, normal inspection Cardiovascular: normal peripheral pulses, normal rate, regular rhythm, no gallop/murmur, no JVD Respiratory/Chest: chest wall non-tender, lungs clear, normal breath sounds, no respiratory distress, no accessory muscle use Abdomen: normal bowel sounds, non tender, soft, no organomegaly, no mass Extremities: normal range of motion, non-tender 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 (7) Positive occult stool blood test Assessment & Plan: Await GI consult Status: not improved Jesus Aceves MD Oct 02, 2018 15:26
[2018-10-02 15:54] VITALS: BP 126/77
[2018-10-02 20:00] VITALS: BP 138/74
[2018-10-02] MEDS: Latanoprost 0.005% Opth 2.5ml Soln BOTH EYES SCH (20:02)
[2018-10-03] VITALS (10 sets, daily range): BP systolic 99–151; BP diastolic 59–85
[2018-10-03 07:32] LABS: HEMATOCRIT 32.4 % (37.0-47.0); HEMOGLOBIN 10.4 G/DL (12.0-16.0); MEAN CORPUSCULAR VOLUME 79 FL (80-99); PLATELET COUNT 249 K/UL (150-450); RED CELL DISTRIBUTION WIDTH 13.8 % (11.6-14.8); WHITE BLOOD COUNT 2.9 K/UL (4.8-10.8)
[2018-10-03 07:53] LABS: ANION GAP 5 mmol/L (5-15); BLOOD UREA NITROGEN 10 mg/dL (7-18); CALCIUM 9.1 MG/DL (8.5-10.1); CARBON DIOXIDE 29 MMOL/L (21-32); CHLORIDE 107 MMOL/L (98-107); CREATININE 0.8 MG/DL (0.55-1.30); POTASSIUM 3.9 MMOL/L (3.5-5.1); SODIUM 141 MMOL/L (136-145)
[2018-10-03] MEDS ORDERED: Propofol 200mg/20ml IV ONE (08:00)
[2018-10-03] MEDS ORDERED: Midazolam 2mg/2ml Inj ONE (08:00)
[2018-10-03] MEDS ORDERED: fentaNYL 100 mcg/2 mL IV ONE (08:00)
[2018-10-03] MEDS: Heparin 5000 units/ml inj SUBQ SCH ×2 (08:39→20:11)
[2018-10-03] MEDS: Timolol 0.5% Op Soln 2.5ml BOTH EYES SCH ×4 (08:39→17:24)
--- NOTE | 2018-10-03 11:42 | Infectious Diseases Prog Note ---
Assessment/Plan Assessment/Plan ASSESSMENT: The patient is a 63-year-old female with : Diarrhea , resolved Normal white blood cells Afebrile C-Diff : Neg History of UTI (Citrobacter) History of multiple sclerosis Obesity PLAN: Monitor pt off of AB Rx 09/30 SP cefepime day # 3 Monitor CBC Monitor BMP. Monitor cultures (blood ) Monitor chest x-ray. Subjective Allergies: Coded Allergies: No Known Allergies (Unverified , 05/21/13) Subjective Afebrile comfortable Objective Vital Signs Last 24 Hour Vital Signs Date Time Temp Pulse Resp B/P (MAP) Pulse Ox O2 Delivery O2 Flow Rate FiO2 10/03/18 09:00 Room Air 10/03/18 08:38 84 135/85 10/03/18 08:00 98.3 84 19 135/85 (102) 98 10/03/18 04:00 98.8 73 20 128/71 (90) 98 10/03/18 00:00 98.3 72 20 143/70 (94) 100 10/02/18 21:00 Room Air 10/02/18 20:00 97.9 72 20 138/74 (95) 100 10/02/18 15:54 98.7 72 17 126/77 (93) 99 10/02/18 12:00 97.7 69 16 123/52 (75) 97 Height (Feet): 5 Height (Inches): 8.00 Weight (Pounds): 199 HEENT: anicteric Respiratory/Chest: no respiratory distress Cardiovascular: regular rhythm Abdomen: no organomegaly Laboratory Tests Test 10/03/18 07:00 White Blood Count 2.9 K/UL (4.8-10.8) L Red Blood Count 4.10 M/UL (4.20-5.40) L Hemoglobin 10.4 G/DL (12.0-16.0) L Hematocrit 32.4 % (37.0-47.0) L Mean Corpuscular Volume 79 FL (80-99) L Mean Corpuscular Hemoglobin 25.4 PG (27.0-31.0) L Mean Corpuscular Hemoglobin Concent 32.2 G/DL (32.0-36.0) Red Cell Distribution Width 13.8 % (11.6-14.8) Platelet Count 249 K/UL (150-450) Mean Platelet Volume 5.9 FL (6.5-10.1) L Neutrophils (%) (Auto) % (45.0-75.0) Lymphocytes (%) (Auto) % (20.0-45.0) Monocytes (%) (Auto) % (1.0-10.0) Eosinophils (%) (Auto) % (0.0-3.0) Basophils (%) (Auto) % (0.0-2.0) Differential Total Cells Counted 100 Neutrophils % (Manual) 46 % (45-75) Lymphocytes % (Manual) 43 % (20-45) Monocytes % (Manual) 6 % (1-10) Eosinophils % (Manual) 3 % (0-3) Basophils % (Manual) 2 % (0-2) Band Neutrophils 0 % (0-8) Platelet Estimate Adequate Platelet Morphology Normal Hypochromasia 1+ Anisocytosis 1+ Microcytosis 1+ Sodium Level 141 MMOL/L (136-145) Potassium Level 3.9 MMOL/L (3.5-5.1) Chloride Level 107 MMOL/L (98-107) Carbon Dioxide Level 29 MMOL/L (21-32) Anion Gap 5 mmol/L (5-15) Blood Urea Nitrogen 10 mg/dL (7-18) Creatinine 0.8 MG/DL (0.55-1.30) Estimat Glomerular Filtration Rate > 60 mL/min (>60) Glucose Level 79 MG/DL (74-106) Calcium Level 9.1 MG/DL (8.5-10.1) Current Medications Medications (Trade) Dose Ordered Sig/Maria De Jesus Route PRN Reason Start Time Stop Time Status Last Admin Dose Admin Acetaminophen (Tylenol) 650 mg Q4H PRN ORAL fever 09/27/18 20:45 10/27/18 20:44 10/01/18 00:02 Amlodipine Besylate (Norvasc) 5 mg DAILY ORAL 09/28/18 09:00 10/28/18 08:59 10/03/18 08:38 Atorvastatin Calcium (Lipitor) 10 mg BEDTIME ORAL 09/29/18 21:00 10/29/18 20:59 10/02/18 20:02 Baclofen (Lioresal) 10 mg THREE TIMES A DAY ORAL 09/28/18 09:00 10/28/18 08:59 10/03/18 08:38 Gabapentin (Neurontin) 300 mg THREE TIMES A DAY ORAL 09/28/18 21:00 10/28/18 20:59 10/03/18 08:38 Heparin Sodium (Porcine) (Heparin 5000 units/ml) 5,000 units EVERY 12 HOURS SUBQ 09/27/18 21:00 10/27/18 20:59 10/02/18 20:03 Latanoprost (Xalatan) 1 drop BEDTIME BOTH EYES 09/28/18 21:00 10/28/18 20:59 10/02/18 20:02 Morphine Sulfate (Morphine Sulfate) 2 mg Q4H PRN IVP Moderate Pain (Pain Scale 4-6) 09/27/18 20:45 10/04/18 20:44 09/27/18 23:26 Ondansetron HCl (Zofran) 4 mg Q6H PRN IVP Nausea & Vomiting 09/27/18 20:45 10/27/18 20:44 Phenazopyridine HCl (Pyridium) 100 mg DAILY PRN ORAL dysuria 09/27/18 20:45 10/27/18 20:44 Polyethylene Glycol (Miralax) 17 gm DAILYPRN PRN ORAL Constipation 09/27/18 20:45 10/27/18 20:44 Temazepam (Restoril) 15 mg HSPRN PRN ORAL Insomnia 09/27/18 20:45 10/04/18 20:44 Timolol Maleate (Timoptic 0.5% Op Soln) 1 drop TID BOTH EYES 09/28/18 09:00 10/28/18 08:59 10/03/18 08:39 Allan Chand MD Oct 03, 2018 11:42
--- NOTE | 2018-10-03 12:19 | Pre-Procedure Note/Attestation ---
Pre-Procedure Note/Attestation Complete Prior to Procedure Planned Procedure: not applicable Procedure Narrative: esophagogastroduodenoscopy and colonoscopy Indications for Procedure Pre-Operative Diagnosis: anemia. GIB Attestation I attest that I discussed the nature of the procedure; its benefits; risks and complications; and alternatives (and the risks and benefits of such alternatives ), prior to the procedure, with the patient (or the patient's legal quality audit representative). I attest that, if there was a reasonable possibility of needing a blood transfusion, the patient (or the patient's legal quality audit representative) was given the [facility] standardized written summary, pursuant to the [place] Blood Safety Act ([place] Health and Safety Code # 1645, as amended). I attest that I re-evaluated the patient just prior to the surgery and that there has been no change in the patient's H&P, except as documented below: Bryan Mccain MD Oct 03, 2018 12:19
[2018-10-03] MEDS ORDERED: NS 500ML IVPB ONE (12:35)
--- NOTE | 2018-10-03 12:51 | Anethesia Preoperative Eval ---
Anesthesia Pre-op PMH/ROS General Date of Evaluation: Oct 03, 2018 Time of Evaluation: 12:25 Anesthesiologist: Tj ASA Score: ASA 3 Mallampati Score Class I : Soft palate, uvula, fauces, pillars visible Class II: Soft palate, uvula, fauces visible Class III: Soft palate, base of uvula visible Class IV: Only hard plate visible Mallampati Classification: Class II Surgeon: Adán Diagnosis: Anemia Surgical Procedure: EGD Colonoscopy Anesthesia History: none Family History: no anesthesia problems Allergies: Coded Allergies: No Known Allergies (Unverified , 05/21/13) Medications: see eMAR Patient NPO?: Yes Past Medical History Cardiovascular: Reports: HTN; Denies: CAD, NE, valve dz, arrhythmia, other Pulmonary: Reports: other - MKWS; Denies: asthma, COPD, INOCENTE Gastrointestinal/Genitourinary: Reports: GERD; Denies: CRI, ESRD, other Neurologic/Psychiatric: Reports: depression/anxiety Endocrine: Denies: DM, hypothyroidism, steroids, other HEENT: Denies: cataract (L), cataract (R), glaucoma, [place] (L), [place] (R), other Hematology/Immune: Reports: anemia - muild Musculoskeletal/Integumentary: Denies: OA, RA, DJD, DDD, edema, other Other: obesity PMH Narrative: as above PSxH Narrative: See H&P Anesthesia Pre-op Phys. Exam Physician Exam Last Vital Signs Date Time Temp Pulse Resp B/P (MAP) Pulse Ox O2 Delivery O2 Flow Rate FiO2 10/03/18 12:00 98.5 68 20 151/71 (97) 98 10/03/18 09:00 Room Air 10/02/18 08:21 21 Constitutional: NAD Neurologic: CN 2-12 intact Cardiovascular: no M/R/G Respiratory: CTA Gastrointestinal: S/NT/ND Airway Exam Mallampati Score: Class III MO: limited Neck: short ROM: limited Teeth: intact Dentures: no upper, no lower Anesthesia Pre-op A/P Labs Hematology Test 10/03/18 07:00 White Blood Count 2.9 K/UL (4.8-10.8) L Red Blood Count 4.10 M/UL (4.20-5.40) L Hemoglobin 10.4 G/DL (12.0-16.0) L Hematocrit 32.4 % (37.0-47.0) L Mean Corpuscular Volume 79 FL (80-99) L Mean Corpuscular Hemoglobin 25.4 PG (27.0-31.0) L Mean Corpuscular Hemoglobin Concent 32.2 G/DL (32.0-36.0) Red Cell Distribution Width 13.8 % (11.6-14.8) Platelet Count 249 K/UL (150-450) Mean Platelet Volume 5.9 FL (6.5-10.1) L Neutrophils (%) (Auto) % (45.0-75.0) Lymphocytes (%) (Auto) % (20.0-45.0) Monocytes (%) (Auto) % (1.0-10.0) Eosinophils (%) (Auto) % (0.0-3.0) Basophils (%) (Auto) % (0.0-2.0) Differential Total Cells Counted 100 Neutrophils % (Manual) 46 % (45-75) Lymphocytes % (Manual) 43 % (20-45) Monocytes % (Manual) 6 % (1-10) Eosinophils % (Manual) 3 % (0-3) Basophils % (Manual) 2 % (0-2) Band Neutrophils 0 % (0-8) Platelet Estimate Adequate Platelet Morphology Normal Hypochromasia 1+ Anisocytosis 1+ Microcytosis 1+ Chemistry Test 10/03/18 07:00 Sodium Level 141 MMOL/L (136-145) Potassium Level 3.9 MMOL/L (3.5-5.1) Chloride Level 107 MMOL/L (98-107) Carbon Dioxide Level 29 MMOL/L (21-32) Anion Gap 5 mmol/L (5-15) Blood Urea Nitrogen 10 mg/dL (7-18) Creatinine 0.8 MG/DL (0.55-1.30) Estimat Glomerular Filtration Rate > 60 mL/min (>60) Glucose Level 79 MG/DL (74-106) Calcium Level 9.1 MG/DL (8.5-10.1) Risk Assessment & Plan Assessment: ASA 3 Plan: Roni Zhou MD Oct 03, 2018 12:51
--- NOTE | 2018-10-03 13:02 | Endoscopy Procedure Note ---
Endoscopy Procedure Note General Indication for Procedure: anemia, GIB Procedures Performed: EGD, colonoscopy Operative Findings/Diagnosis: gastritis, hemorrhoids, see dictation Specimen: yes Pt Tolerated Procedure Well: Yes Estimated Blood Loss: none Anesthesia Anesthesiologist: kayli Anesthesia: MAC Inserted Devices Implant(s) used?: No Quality Quality of Bowel Preparation: Good Did scope reach the cecum?: Yes Was there any complications?: No GI Core Measures 50 yrs or older w/o bx or poly: No 10yrs. F/U not recommended: Yes If not recommended, why?: Above average risk 10 yrs. F/U needed: Yes 18 years or older w/prev. colo: No Bryan Mccain MD Oct 03, 2018 13:02
--- NOTE | 2018-10-03 13:10 | Immediate Post-Op Evaluation ---
Immediate Post-Op Evalulation Immediate Post-Op Evalulation Procedure: EGD colonmoscopy Date of Evaluation: Oct 03, 2018 Time of Evaluation: 13:10 IV Fluids: 299 Blood Products: none Estimated Blood Loss: none Urinary Output: none Blood Pressure Systolic: 101 Blood Pressure Diastolic: 59 Pulse Rate: 68 Respiratory Rate: 20 O2 Sat by Pulse Oximetry: 99 Temperature (Fahrenheit): 97.6 Nausea: No Vomiting: No Complications none Patient Status: reacts, patent, none Hydration Status: adequate Roni Spencer MD Oct 03, 2018 13:10
--- NOTE | 2018-10-03 13:10 | Pulmonology Progress Note ---
Assessment/Plan Problems: (1) Sacral decubitus ulcer (2) Failure to thrive in adult (3) UTI (urinary tract infection) (4) HTN (hypertension) (5) MS (multiple sclerosis) Assessment/Plan scheduled for colonoscopy for today f/u cultures continue abx, on Cefepime pt/ot anemia w/u. dc home with HH when ready Subjective ROS Limited/Unobtainable: No Constitutional: Reports: no symptoms HEENT: Repors: no symptoms Respiratory: Reports: no symptoms Allergies: Coded Allergies: No Known Allergies (Unverified , 05/21/13) Objective Last 24 Hour Vital Signs Date Time Temp Pulse Resp B/P (MAP) Pulse Ox O2 Delivery O2 Flow Rate FiO2 10/03/18 12:00 98.5 68 20 151/71 (97) 98 10/03/18 09:00 Room Air 10/03/18 08:38 84 135/85 10/03/18 08:00 98.3 84 19 135/85 (102) 98 10/03/18 04:00 98.8 73 20 128/71 (90) 98 10/03/18 00:00 98.3 72 20 143/70 (94) 100 10/02/18 21:00 Room Air 10/02/18 20:00 97.9 72 20 138/74 (95) 100 10/02/18 15:54 98.7 72 17 126/77 (93) 99 Intake and Output 10/02/18 10/03/18 18:59 06:59 Intake Total 1500 ml Balance 1500 ml Other 1500 ml # Voids 10 5 # Bowel Movements 10 13 General Appearance: WD/WN HEENT: normocephalic, atraumatic Respiratory/Chest: chest wall non-tender, lungs clear Breasts: no masses Cardiovascular: normal peripheral pulses Abdomen: normal bowel sounds, soft, non tender Extremities: no cyanosis Skin: no rash Laboratory Tests 10/03/18 07:00: White Blood Count 2.9L, Red Blood Count 4.10L, Hemoglobin 10.4L, Hematocrit 32.4L, Mean Corpuscular Volume 79L, Mean Corpuscular Hemoglobin 25.4L, Mean Corpuscular Hemoglobin Concent 32.2, Red Cell Distribution Width 13.8, Platelet Count 249, Mean Platelet Volume 5.9L, Neutrophils (%) (Auto) , Lymphocytes (%) ( Auto) , Monocytes (%) (Auto) , Eosinophils (%) (Auto) , Basophils (%) (Auto) , Differential Total Cells Counted 100, Neutrophils % (Manual) 46, Lymphocytes % ( Manual) 43, Monocytes % (Manual) 6, Eosinophils % (Manual) 3, Basophils % ( Manual) 2, Band Neutrophils 0, Platelet Estimate Adequate, Platelet Morphology Normal, Hypochromasia 1+, Anisocytosis 1+, Microcytosis 1+, Sodium Level 141, Potassium Level 3.9, Chloride Level 107, Carbon Dioxide Level 29, Anion Gap 5, Blood Urea Nitrogen 10, Creatinine 0.8, Estimat Glomerular Filtration Rate > 60 , Glucose Level 79, Calcium Level 9.1 Current Medications Medications (Trade) Dose Ordered Sig/Maria De Jesus Route PRN Reason Start Time Stop Time Status Last Admin Dose Admin Acetaminophen (Tylenol) 650 mg Q4H PRN ORAL fever 09/27/18 20:45 10/27/18 20:44 10/01/18 00:02 Amlodipine Besylate (Norvasc) 5 mg DAILY ORAL 09/28/18 09:00 10/28/18 08:59 10/03/18 08:38 Atorvastatin Calcium (Lipitor) 10 mg BEDTIME ORAL 09/29/18 21:00 10/29/18 20:59 10/02/18 20:02 Baclofen (Lioresal) 10 mg THREE TIMES A DAY ORAL 09/28/18 09:00 10/28/18 08:59 10/03/18 08:38 Gabapentin (Neurontin) 300 mg THREE TIMES A DAY ORAL 09/28/18 21:00 10/28/18 20:59 10/03/18 08:38 Heparin Sodium (Porcine) (Heparin 5000 units/ml) 5,000 units EVERY 12 HOURS SUBQ 09/27/18 21:00 10/27/18 20:59 10/02/18 20:03 Latanoprost (Xalatan) 1 drop BEDTIME BOTH EYES 09/28/18 21:00 10/28/18 20:59 10/02/18 20:02 Morphine Sulfate (Morphine Sulfate) 2 mg Q4H PRN IVP Moderate Pain (Pain Scale 4-6) 09/27/18 20:45 10/04/18 20:44 09/27/18 23:26 Ondansetron HCl (Zofran) 4 mg Q6H PRN IVP Nausea & Vomiting 09/27/18 20:45 10/27/18 20:44 Phenazopyridine HCl (Pyridium) 100 mg DAILY PRN ORAL dysuria 09/27/18 20:45 10/27/18 20:44 Polyethylene Glycol (Miralax) 17 gm DAILYPRN PRN ORAL Constipation 09/27/18 20:45 10/27/18 20:44 Temazepam (Restoril) 15 mg HSPRN PRN ORAL Insomnia 09/27/18 20:45 10/04/18 20:44 Timolol Maleate (Timoptic 0.5% Op Soln) 1 drop TID BOTH EYES 09/28/18 09:00 10/28/18 08:59 10/03/18 08:39 Cherry Timmons MD Oct 03, 2018 13:10
[2018-10-03] MEDS ORDERED: Morphine Sulfate 2mg/ml Inj IVP PRN (16:45)
--- NOTE | 2018-10-03 17:15 | Procedure Note ---
DATE OF PROCEDURE: 10/03/2018 SURGEON: Bryan Mccain M.D. ANESTHESIOLOGIST: Dr. Spencer. REFERRING PHYSICIAN: Jayesh Gibson M.D. PROCEDURE: Upper endoscopy with biopsy and colonoscopy. ANESTHESIA: Per Dr. Spencer. INSTRUMENT: Olympus adult flexible upper endoscope and colonoscope. INDICATION: Anemia, stool OB positive. The procedure, risks, benefits, and possible consequences, including hemorrhage, aspiration, perforation and infection, and alternative treatments, were explained to the patient/legal guardian by Dr. Bryan Mccain and the patient/legal guardian understood and accepted these risks. DESCRIPTION OF PROCEDURE: After informed consent was obtained and the patient was adequately sedated, Olympus upper endoscope was advanced from the mouth into the second portion of the duodenum and retroflexion was performed in the stomach. The patient had diffuse gastritis. Random biopsy from antrum was obtained to rule out H. pylori infection. The rest of the upper endoscopic examination grossly looked within normal limits. At this time, the upper endoscope was retrieved. The patient was turned over for colonoscopy. First, rectal exam was performed which was positive for internal hemorrhoids. Then, the scope was advanced from the rectum into the cecum documented by appendix orifice. Quality of prep was good. The patient had no polyps in this colonoscopy examination. Some scattered diverticula in the left colon was noticed. No active bleeding at this time. Retroflexion of rectum showed evidence of internal hemorrhoids. SUMMARY OF FINDINGS: 1. Gastritis, status post biopsy. 2. Internal hemorrhoids. 3. Diverticulosis. RECOMMENDATIONS: Follow up biopsy results and treat accordingly. I want to thank, Dr. Jayesh Gibson, for this kind referral. Bryan Mccain M.D. DR: Zulma JOB#: [id number] CC: Jayesh Gibson M.D.; Fax#: [phone]
--- NOTE | 2018-10-03 17:59 | Internal Med Progress Note ---
Subjective Date of Service: Oct 03, 2018 Physician Name Jesus Aceves Attending Physician Jayesh Gibson MD Current Medications Medications (Trade) Dose Ordered Sig/Maria De Jesus Route PRN Reason Start Time Stop Time Status Last Admin Dose Admin Acetaminophen (Tylenol) 650 mg Q4H PRN ORAL fever 09/27/18 20:45 10/27/18 20:44 10/01/18 00:02 Amlodipine Besylate (Norvasc) 5 mg DAILY ORAL 09/28/18 09:00 10/28/18 08:59 10/03/18 08:38 Atorvastatin Calcium (Lipitor) 10 mg BEDTIME ORAL 09/29/18 21:00 10/29/18 20:59 10/02/18 20:02 Baclofen (Lioresal) 10 mg THREE TIMES A DAY ORAL 09/28/18 09:00 10/28/18 08:59 10/03/18 17:20 Gabapentin (Neurontin) 300 mg THREE TIMES A DAY ORAL 09/28/18 21:00 10/28/18 20:59 10/03/18 17:20 Heparin Sodium (Porcine) (Heparin 5000 units/ml) 5,000 units EVERY 12 HOURS SUBQ 09/27/18 21:00 10/27/18 20:59 10/02/18 20:03 Latanoprost (Xalatan) 1 drop BEDTIME BOTH EYES 09/28/18 21:00 10/28/18 20:59 10/02/18 20:02 Morphine Sulfate (Morphine Sulfate) 2 mg Q4H PRN IVP Moderate Pain (Pain Scale 4-6) 10/03/18 16:45 10/05/18 20:44 Ondansetron HCl (Zofran) 4 mg Q6H PRN IVP Nausea & Vomiting 09/27/18 20:45 10/27/18 20:44 Phenazopyridine HCl (Pyridium) 100 mg DAILY PRN ORAL dysuria 09/27/18 20:45 10/27/18 20:44 Polyethylene Glycol (Miralax) 17 gm DAILYPRN PRN ORAL Constipation 09/27/18 20:45 10/27/18 20:44 Temazepam (Restoril) 15 mg HSPRN PRN ORAL Insomnia 09/27/18 20:45 10/04/18 20:44 Timolol Maleate (Timoptic 0.5% Op Soln) 1 drop TID BOTH EYES 09/28/18 09:00 10/28/18 08:59 10/03/18 08:39 Allergies: Coded Allergies: No Known Allergies (Unverified , 05/21/13) ROS Limited/Unobtainable: No Constitutional: Reports: no symptoms HEENT: Reports: no symptoms Cardiovascular: Reports: no symptoms Respiratory: Reports: no symptoms Gastrointestinal/Abdominal: Reports: abdominal pain Genitourinary: Reports: no symptoms Neurologic/Psychiatric: Reports: no symptoms Subjective 63 YO F with history of multiple sclerosis admitted with abdominal pain and diarrhea. Now increased weakness. Cover for Int Med-dr Gibson. S/P endoscopy and colonoscopy on 10/03/18. Objective Last Vital Signs Date Time Temp Pulse Resp B/P (MAP) Pulse Ox O2 Delivery O2 Flow Rate FiO2 10/03/18 16:00 98.2 88 20 130/78 (95) 98 10/03/18 13:30 Room Air 10/03/18 13:17 3 10/02/18 08:21 21 Laboratory Tests Test 10/03/18 07:00 White Blood Count 2.9 K/UL (4.8-10.8) L Red Blood Count 4.10 M/UL (4.20-5.40) L Hemoglobin 10.4 G/DL (12.0-16.0) L Hematocrit 32.4 % (37.0-47.0) L Mean Corpuscular Volume 79 FL (80-99) L Mean Corpuscular Hemoglobin 25.4 PG (27.0-31.0) L Mean Corpuscular Hemoglobin Concent 32.2 G/DL (32.0-36.0) Red Cell Distribution Width 13.8 % (11.6-14.8) Platelet Count 249 K/UL (150-450) Mean Platelet Volume 5.9 FL (6.5-10.1) L Neutrophils (%) (Auto) % (45.0-75.0) Lymphocytes (%) (Auto) % (20.0-45.0) Monocytes (%) (Auto) % (1.0-10.0) Eosinophils (%) (Auto) % (0.0-3.0) Basophils (%) (Auto) % (0.0-2.0) Differential Total Cells Counted 100 Neutrophils % (Manual) 46 % (45-75) Lymphocytes % (Manual) 43 % (20-45) Monocytes % (Manual) 6 % (1-10) Eosinophils % (Manual) 3 % (0-3) Basophils % (Manual) 2 % (0-2) Band Neutrophils 0 % (0-8) Platelet Estimate Adequate Platelet Morphology Normal Hypochromasia 1+ Anisocytosis 1+ Microcytosis 1+ Sodium Level 141 MMOL/L (136-145) Potassium Level 3.9 MMOL/L (3.5-5.1) Chloride Level 107 MMOL/L (98-107) Carbon Dioxide Level 29 MMOL/L (21-32) Anion Gap 5 mmol/L (5-15) Blood Urea Nitrogen 10 mg/dL (7-18) Creatinine 0.8 MG/DL (0.55-1.30) Estimat Glomerular Filtration Rate > 60 mL/min (>60) Glucose Level 79 MG/DL (74-106) Calcium Level 9.1 MG/DL (8.5-10.1) Intake and Output 10/02/18 10/03/18 18:59 06:59 Intake Total 1500 ml Balance 1500 ml Other 1500 ml # Voids 10 5 # Bowel Movements 10 13 Objective General Appearance: WD/WN, no apparent distress, alert EENT: PERRL/EOMI, normal ENT inspection, TMs normal Neck: non-tender, normal alignment, supple, normal inspection Cardiovascular: normal peripheral pulses, normal rate, regular rhythm, no gallop/murmur, no JVD Respiratory/Chest: chest wall non-tender, lungs clear, normal breath sounds, no respiratory distress, no accessory muscle use Abdomen: normal bowel sounds, non tender, soft, no organomegaly, no mass Extremities: normal range of motion, non-tender Neurologic: director of social services II-XII grossly normal, no motor/sensory deficits Skin: normal pigmentation, warm/dry Assessment/Plan Problem List: (1) Abdominal pain Assessment & Plan: S/P Endoscopy/colonoscopy 10/03/18=gastritis and hemorrhoids- see GI note (2) MS (multiple sclerosis) Assessment & Plan: Continue copaxone (3) Diarrhea (4) Hypercholesterolemia Assessment & Plan: Continue lipitor (5) HTN (hypertension) Assessment & Plan: Continue amlodipine (6) Sacral decubitus ulcer Assessment & Plan: Non surgical-See surgery note. (7) Positive occult stool blood test Assessment & Plan: See EGD/Colonoscopy result Status: Jesus Tatum MD Oct 03, 2018 17:59
[2018-10-03] MEDS: Latanoprost 0.005% Opth 2.5ml Soln BOTH EYES SCH (20:10)
[2018-10-04] VITALS: BP 112/60
[2018-10-04 04:00] VITALS: BP 118/64
[2018-10-04 06:42] LABS: BASOPHILS % (AUTO) 1.3 % (0.0-2.0); HEMATOCRIT 29.6 % (37.0-47.0); HEMOGLOBIN 9.3 G/DL (12.0-16.0); LYMPHOCYTES % (AUTO) 37.3 % (20.0-45.0); MEAN CORPUSCULAR VOLUME 78 FL (80-99); NEUTROPHILS % (AUTO) 49.4 % (45.0-75.0); PLATELET COUNT 275 K/UL (150-450); RED BLOOD COUNT 3.77 M/UL (4.20-5.40); WHITE BLOOD COUNT 3.7 K/UL (4.8-10.8)
[2018-10-04 06:56] LABS: BLOOD UREA NITROGEN 15 mg/dL (7-18); CALCIUM 8.5 MG/DL (8.5-10.1); CHLORIDE 108 MMOL/L (98-107); CREATININE 0.9 MG/DL (0.55-1.30); SODIUM 140 MMOL/L (136-145)
[2018-10-04 07:32] LABS: CARBON DIOXIDE 26 MMOL/L (21-32)
--- NOTE | 2018-10-04 07:59 | 48 Hour Post Anesthesia Eval ---
Post Anesthesia Evaluation Procedure: EGD colonmoscopy Date of Evaluation: Oct 03, 2018 Time of Evaluation: 13:50 Blood Pressure Systolic: 116 0: 58 Pulse Rate: 78 Respiratory Rate: 20 Temperature (Fahrenheit): 97.6 O2 Sat by Pulse Oximetry: 98 Airway: patent Nausea: No Vomiting: No Pain Intensity: 1 Hydration Status: adequate Cardiopulmonary Status: stable Mental Status/LOC: patient returned to baseline Follow-up Care/Observations: n/a Post-Anesthesia Complications: none Follow-up care needed: N/A Roni Spencer MD Oct 04, 2018 07:59
[2018-10-04 08:00] VITALS: BP 124/67
[2018-10-04] MEDS: Heparin 5000 units/ml inj SUBQ SCH (08:30)
[2018-10-04] MEDS: Timolol 0.5% Op Soln 2.5ml BOTH EYES SCH ×2 (08:34→12:31)
--- NOTE | 2018-10-04 10:28 | Pulmonology Progress Note ---
Assessment/Plan Problems: (1) Sacral decubitus ulcer (2) Failure to thrive in adult (3) UTI (urinary tract infection) (4) HTN (hypertension) (5) MS (multiple sclerosis) Assessment/Plan colonoscopy done doing better f/u cultures continue abx, on Cefepime pt/ot anemia w/u. dc home with HH when ready Subjective ROS Limited/Unobtainable: No Constitutional: Reports: no symptoms HEENT: Repors: no symptoms Respiratory: Reports: no symptoms Allergies: Coded Allergies: No Known Allergies (Unverified , 05/21/13) Objective Last 24 Hour Vital Signs Date Time Temp Pulse Resp B/P (MAP) Pulse Ox O2 Delivery O2 Flow Rate FiO2 10/04/18 08:29 90 124/67 10/04/18 07:59 78 20 98 10/04/18 04:00 99.4 77 20 118/64 (82) 96 77 10/04/18 00:00 99.3 94 19 112/60 (77) 96 94 10/03/18 21:00 Room Air 10/03/18 20:00 97.0 84 19 124/69 (87) 100 84 10/03/18 16:00 98.2 88 20 130/78 (95) 98 10/03/18 13:30 97.8 61 14 114/65 99 Room Air 10/03/18 13:17 60 11 99/59 99 Nasal Cannula 3 10/03/18 13:12 63 16 106/59 99 Nasal Cannula 3 10/03/18 13:10 68 20 99 10/03/18 13:07 97.6 68 20 110/72 99 Nasal Cannula 3 10/03/18 12:00 98.5 68 20 151/71 (97) 98 Intake and Output 10/03/18 10/04/18 19:00 07:00 Intake Total 399 ml Output Total 800 ml 800 ml Balance -401 ml -800 ml IV Total 399 ml Output Urine Total 800 ml 800 ml General Appearance: WD/WN HEENT: normocephalic, atraumatic Respiratory/Chest: chest wall non-tender, lungs clear Breasts: no masses Cardiovascular: normal peripheral pulses, no JVD Abdomen: normal bowel sounds, soft, non tender Genitourinary: normal external genitalia Extremities: no clubbing Skin: no lesions Laboratory Tests 10/04/18 06:10: White Blood Count 3.7L, Red Blood Count 3.77L, Hemoglobin 9.3L, Hematocrit 29.6L , Mean Corpuscular Volume 78L, Mean Corpuscular Hemoglobin 24.7L, Mean Corpuscular Hemoglobin Concent 31.5L, Red Cell Distribution Width 14.0, Platelet Count 275, Mean Platelet Volume 5.8L, Neutrophils (%) (Auto) 49.4, Lymphocytes (%) (Auto) 37.3, Monocytes (%) (Auto) 7.0, Eosinophils (%) (Auto) 5.0H, Basophils (%) (Auto) 1.3, Sodium Level 140, Potassium Level 4.0, Chloride Level 108H, Carbon Dioxide Level 26, Blood Urea Nitrogen 15, Creatinine 0.9, Estimat Glomerular Filtration Rate > 60, Glucose Level 82, Calcium Level 8.5 Current Medications Medications (Trade) Dose Ordered Sig/Maria De Jesus Route PRN Reason Start Time Stop Time Status Last Admin Dose Admin Acetaminophen (Tylenol) 650 mg Q4H PRN ORAL fever 09/27/18 20:45 10/27/18 20:44 10/01/18 00:02 Amlodipine Besylate (Norvasc) 5 mg DAILY ORAL 09/28/18 09:00 10/28/18 08:59 10/04/18 08:29 Atorvastatin Calcium (Lipitor) 10 mg BEDTIME ORAL 09/29/18 21:00 10/29/18 20:59 10/03/18 20:10 Baclofen (Lioresal) 10 mg THREE TIMES A DAY ORAL 09/28/18 09:00 10/28/18 08:59 10/04/18 08:28 Gabapentin (Neurontin) 300 mg THREE TIMES A DAY ORAL 09/28/18 21:00 10/28/18 20:59 10/04/18 08:28 Heparin Sodium (Porcine) (Heparin 5000 units/ml) 5,000 units EVERY 12 HOURS SUBQ 09/27/18 21:00 10/27/18 20:59 10/04/18 08:30 Latanoprost (Xalatan) 1 drop BEDTIME BOTH EYES 09/28/18 21:00 10/28/18 20:59 10/03/18 20:10 Morphine Sulfate (Morphine Sulfate) 2 mg Q4H PRN IVP Moderate Pain (Pain Scale 4-6) 10/03/18 16:45 10/05/18 20:44 Ondansetron HCl (Zofran) 4 mg Q6H PRN IVP Nausea & Vomiting 09/27/18 20:45 10/27/18 20:44 Patient Own Medication (Patient's Own Med) 1 ea DAILY SUBQ 10/04/18 11:00 11/03/18 10:59 Phenazopyridine HCl (Pyridium) 100 mg DAILY PRN ORAL dysuria 09/27/18 20:45 10/27/18 20:44 Polyethylene Glycol (Miralax) 17 gm DAILYPRN PRN ORAL Constipation 09/27/18 20:45 10/27/18 20:44 Temazepam (Restoril) 15 mg HSPRN PRN ORAL Insomnia 09/27/18 20:45 10/04/18 20:44 Timolol Maleate (Timoptic 0.5% Op Soln) 1 drop TID BOTH EYES 09/28/18 09:00 10/28/18 08:59 10/04/18 08:34 Cherry Timmons MD Oct 04, 2018 10:28
--- NOTE | 2018-10-04 10:28 | Infectious Diseases Prog Note ---
Assessment/Plan Assessment/Plan ASSESSMENT: The patient is a 63-year-old female with : Diarrhea , resolved CDiff and Stool Cx : neg Normal white blood cells Afebrile History of UTI (Citrobacter) 10/03 SP EGD colonmoscopy : gastritis, hemorrhoids, History of multiple sclerosis Obesity PLAN: Monitor pt off of AB Rx 09/30 SP cefepime day # 3 Monitor CBC Monitor BMP Monitor chest x-ray. Subjective Allergies: Coded Allergies: No Known Allergies (Unverified , 05/21/13) Subjective Afebrile comfortable Objective Vital Signs Last 24 Hour Vital Signs Date Time Temp Pulse Resp B/P (MAP) Pulse Ox O2 Delivery O2 Flow Rate FiO2 10/04/18 08:29 90 124/67 10/04/18 07:59 78 20 98 10/04/18 04:00 99.4 77 20 118/64 (82) 96 77 10/04/18 00:00 99.3 94 19 112/60 (77) 96 94 10/03/18 21:00 Room Air 10/03/18 20:00 97.0 84 19 124/69 (87) 100 84 10/03/18 16:00 98.2 88 20 130/78 (95) 98 10/03/18 13:30 97.8 61 14 114/65 99 Room Air 10/03/18 13:17 60 11 99/59 99 Nasal Cannula 3 10/03/18 13:12 63 16 106/59 99 Nasal Cannula 3 10/03/18 13:10 68 20 99 10/03/18 13:07 97.6 68 20 110/72 99 Nasal Cannula 3 10/03/18 12:00 98.5 68 20 151/71 (97) 98 Height (Feet): 5 Height (Inches): 8.00 Weight (Pounds): 199 HEENT: anicteric Respiratory/Chest: no respiratory distress Cardiovascular: normal rate Abdomen: soft, non tender Laboratory Tests Test 10/04/18 06:10 White Blood Count 3.7 K/UL (4.8-10.8) L Red Blood Count 3.77 M/UL (4.20-5.40) L Hemoglobin 9.3 G/DL (12.0-16.0) L Hematocrit 29.6 % (37.0-47.0) L Mean Corpuscular Volume 78 FL (80-99) L Mean Corpuscular Hemoglobin 24.7 PG (27.0-31.0) L Mean Corpuscular Hemoglobin Concent 31.5 G/DL (32.0-36.0) L Red Cell Distribution Width 14.0 % (11.6-14.8) Platelet Count 275 K/UL (150-450) Mean Platelet Volume 5.8 FL (6.5-10.1) L Neutrophils (%) (Auto) 49.4 % (45.0-75.0) Lymphocytes (%) (Auto) 37.3 % (20.0-45.0) Monocytes (%) (Auto) 7.0 % (1.0-10.0) Eosinophils (%) (Auto) 5.0 % (0.0-3.0) H Basophils (%) (Auto) 1.3 % (0.0-2.0) Sodium Level 140 MMOL/L (136-145) Potassium Level 4.0 MMOL/L (3.5-5.1) Chloride Level 108 MMOL/L (98-107) H Carbon Dioxide Level 26 MMOL/L (21-32) Blood Urea Nitrogen 15 mg/dL (7-18) Creatinine 0.9 MG/DL (0.55-1.30) Estimat Glomerular Filtration Rate > 60 mL/min (>60) Glucose Level 82 MG/DL (74-106) Calcium Level 8.5 MG/DL (8.5-10.1) Current Medications Medications (Trade) Dose Ordered Sig/Maria De Jesus Route PRN Reason Start Time Stop Time Status Last Admin Dose Admin Acetaminophen (Tylenol) 650 mg Q4H PRN ORAL fever 09/27/18 20:45 10/27/18 20:44 10/01/18 00:02 Amlodipine Besylate (Norvasc) 5 mg DAILY ORAL 09/28/18 09:00 10/28/18 08:59 10/04/18 08:29 Atorvastatin Calcium (Lipitor) 10 mg BEDTIME ORAL 09/29/18 21:00 10/29/18 20:59 10/03/18 20:10 Baclofen (Lioresal) 10 mg THREE TIMES A DAY ORAL 09/28/18 09:00 10/28/18 08:59 10/04/18 08:28 Gabapentin (Neurontin) 300 mg THREE TIMES A DAY ORAL 09/28/18 21:00 10/28/18 20:59 10/04/18 08:28 Heparin Sodium (Porcine) (Heparin 5000 units/ml) 5,000 units EVERY 12 HOURS SUBQ 09/27/18 21:00 10/27/18 20:59 10/04/18 08:30 Latanoprost (Xalatan) 1 drop BEDTIME BOTH EYES 09/28/18 21:00 10/28/18 20:59 10/03/18 20:10 Morphine Sulfate (Morphine Sulfate) 2 mg Q4H PRN IVP Moderate Pain (Pain Scale 4-6) 10/03/18 16:45 10/05/18 20:44 Ondansetron HCl (Zofran) 4 mg Q6H PRN IVP Nausea & Vomiting 09/27/18 20:45 10/27/18 20:44 Patient Own Medication (Patient's Own Med) 1 ea DAILY SUBQ 10/04/18 11:00 11/03/18 10:59 Phenazopyridine HCl (Pyridium) 100 mg DAILY PRN ORAL dysuria 09/27/18 20:45 10/27/18 20:44 Polyethylene Glycol (Miralax) 17 gm DAILYPRN PRN ORAL Constipation 09/27/18 20:45 10/27/18 20:44 Temazepam (Restoril) 15 mg HSPRN PRN ORAL Insomnia 09/27/18 20:45 10/04/18 20:44 Timolol Maleate (Timoptic 0.5% Op Soln) 1 drop TID BOTH EYES 09/28/18 09:00 10/28/18 08:59 10/04/18 08:34 Allan Chand MD Oct 04, 2018 10:28
[2018-10-04] MEDS ORDERED: COPAXONE 20 MG/ML SUBQ SCH (11:00)
[2018-10-04 12:10] VITALS: BP 118/69
[2018-10-04] MEDS ORDERED: Midazolam 2mg/2ml Inj ONE (14:40)
[2018-10-04] MEDS ORDERED: fentaNYL 100 mcg/2 mL IV ONE (14:40)
--- NOTE | 2018-10-04 15:22 | GI Progress Note ---
Assessment/Plan Problems: (1) Failure to thrive in adult ICD Codes: R62.7 - Failure to thrive in adult SNOMED: 021952717 (2) Abdominal pain ICD Codes: R10.9 - Unspecified abdominal pain SNOMED: 46338614 (3) Hypercholesterolemia ICD Codes: E78.00 - Pure hypercholesterolemia, unspecified SNOMED: 22964294 (4) Positive occult stool blood test ICD Codes: R19.5 - Other fecal abnormalities SNOMED: 06044767, 264253052 (5) Diarrhea ICD Codes: R19.7 - Diarrhea, unspecified SNOMED: 14384493 Status: stable Status Narrative Discussed with Dr. Mccain. Assessment/Plan SUMMARY OF FINDINGS: 1. Gastritis, status post biopsy. 2. Internal hemorrhoids. 3. Diverticulosis. RECOMMENDATIONS: okay for DC per GI standpoint Follow up biopsy results and treat accordingly. Subjective Gastrointestinal/Abdominal: Reports: no symptoms Objective Last 24 Hour Vital Signs Date Time Temp Pulse Resp B/P (MAP) Pulse Ox O2 Delivery O2 Flow Rate FiO2 10/04/18 12:10 97.9 62 16 118/69 (85) 99 90 10/04/18 11:29 Room Air 10/04/18 08:29 90 124/67 10/04/18 08:00 98.2 90 20 124/67 (86) 95 77 10/04/18 07:59 78 20 98 10/04/18 04:00 99.4 77 20 118/64 (82) 96 77 10/04/18 00:00 99.3 94 19 112/60 (77) 96 94 10/03/18 21:00 Room Air 10/03/18 20:00 97.0 84 19 124/69 (87) 100 84 10/03/18 16:00 98.2 88 20 130/78 (95) 98 Intake and Output 10/03/18 10/04/18 19:00 07:00 Intake Total 399 ml Output Total 800 ml 800 ml Balance -401 ml -800 ml IV Total 399 ml Output Urine Total 800 ml 800 ml Laboratory Tests Test 10/04/18 06:10 White Blood Count 3.7 K/UL (4.8-10.8) L Red Blood Count 3.77 M/UL (4.20-5.40) L Hemoglobin 9.3 G/DL (12.0-16.0) L Hematocrit 29.6 % (37.0-47.0) L Mean Corpuscular Volume 78 FL (80-99) L Mean Corpuscular Hemoglobin 24.7 PG (27.0-31.0) L Mean Corpuscular Hemoglobin Concent 31.5 G/DL (32.0-36.0) L Red Cell Distribution Width 14.0 % (11.6-14.8) Platelet Count 275 K/UL (150-450) Mean Platelet Volume 5.8 FL (6.5-10.1) L Neutrophils (%) (Auto) 49.4 % (45.0-75.0) Lymphocytes (%) (Auto) 37.3 % (20.0-45.0) Monocytes (%) (Auto) 7.0 % (1.0-10.0) Eosinophils (%) (Auto) 5.0 % (0.0-3.0) H Basophils (%) (Auto) 1.3 % (0.0-2.0) Sodium Level 140 MMOL/L (136-145) Potassium Level 4.0 MMOL/L (3.5-5.1) Chloride Level 108 MMOL/L (98-107) H Carbon Dioxide Level 26 MMOL/L (21-32) Blood Urea Nitrogen 15 mg/dL (7-18) Creatinine 0.9 MG/DL (0.55-1.30) Estimat Glomerular Filtration Rate > 60 mL/min (>60) Glucose Level 82 MG/DL (74-106) Calcium Level 8.5 MG/DL (8.5-10.1) Height (Feet): 5 Height (Inches): 8.00 Weight (Pounds): 199 General Appearance: WD/WN, no apparent distress, alert Cardiovascular: normal rate Respiratory/Chest: normal breath sounds, no respiratory distress Abdominal Exam: normal bowel sounds, non tender, soft Extremities: normal range of motion, non-tender Miriam Ortiz NP Oct 04, 2018 15:22
--- NOTE | 2018-10-06 10:09 | Discharge Summary ---
Discharge Summary Discharge Summary _ DATE OF ADMISSION: 09/27/2018 DATE OF DISCHARGE: 10/04/2018 REASON FOR ADMISSION: 63 years old female with past medical history of multiple sclerosis, hypertension, hypercholesterolemia, glaucoma, presented with abdominal discomfort and watery diarrhea. No vomiting, no fever. Vital signs were stable. Laboratory workup revealed microcytic anemia with hemoglobin 10.7, hematocrit 34.5. No leukocytosis. Stable electrolytes and renal parameters. Urinalysis revealed +1 leukocyte esterase and few bacteria. EKG showed normal sinus rhythm, no acute ischemic changes . Patient admitted with diagnoses of abdominal pain, diarrhea, multiple sclerosis , hypertension, hypercholesterolemia, glaucoma. CONSULTANTS: pulmonary/rod buster helper Dr. Timmons ID specialist GI specialist Dr. Mccain [facility] COURSE: Patient admitted to medical surgical floor. Infectious disease and GI specialists were consulted. Patient started on IV fluids. Stool for C. difficile and stool culture were negative. Urine culture and blood culture were negative. Patient initially was on empiric antibiotic . Subsequently infectious disease doctor recommended to keep patient off antibiotic and observe closely . Patient was afebrile, no leukocytosis. GI specialist follow ed. Symptomatic treatment provided. Antiemetic provided as needed. Pain management was addressed. Patient noted to have microcytic anemia . Stool for occult blood was positive. Anemia workup revealed evidence of mild iron deficiency. Hemoglobin and hematocrit were closely monitored with goal to keep hemoglobin above 7 . Hemoglobin and hematocrit remained at the baseline. CEA was within normal limits. Patient subsequently undergone upper endoscopy with biopsy and colonoscopy on . Findings revealed gastritis, status post biopsy, internal hemorrhoids and diverticulosis without evidence of diverticulitis. Biopsy of stomach antrum revealed mild to moderate chronic gastritis, but no H. pylori infection. Diarrhea resolved. Patient was able to tolerate diet. No further abdominal pain. Electrolytes corrected as needed, specifically magnesium. Patient had right hip and right buttock pressure ulcers present on admission. Plastic surgeon seen and evaluated patient. No surgical intervention was necessary at this time as per surgeon. Surgeon recommended physical therapy to mobilize the patient. SNF placement or home health with physical therapy was recommended. Baclofen and Neurontin continued. Patient at home on Copaxone for management of multiple sclerosis. Blood pressure was managed with calcium channel ez and remained stable. Statin was continued. Eyedrops for glaucoma resumed. Supportive care provided. Patient stabilized and was ready for discharge home with home health services. FINAL DIAGNOSES: Abdominal pain with diarrhea -resolved Multiple sclerosis Microcytic anemia Mild iron deficiency Stool occult blood positive Status post upper endoscopy and colonoscopy Gastritis Internal hemorrhoids Diverticulosis without evidence of diverticulitis Right buttock and right hip pressure ulcers, present on admission Hypertension Hypercholesterolemia Glaucoma DISCHARGE MEDICATIONS: See Medication Reconciliation list. DISCHARGE INSTRUCTIONS: Patient was discharged home with home health services. Follow up with primary care provider in one week. I have been assigned to dictate discharge summary for this account. I was not involved in the patient's management. Bushra Costa NP Oct 06, 2018 10:09
== END 2018-10-04 14:41 | disposition home health service (06) | DRG 251 ==
LOC: EDBD 18:10 → EMR 19:00 → 4E 19:52 → EDBEDREQ 20:14 → 4E 21:43
PROC: 0DB78ZX Excision of Stomach, Pylorus, Via Natural or Artificial Opening Endoscopic, Diagnostic (ICD-10-PCS; principal; 2018-10-03 12:39)
PROC: 0DJD8ZZ Inspection of Lower Intestinal Tract, Via Natural or Artificial Opening Endoscopic (ICD-10-PCS; 2018-10-03 12:39)
DX: R10.9 Unspecified abdominal pain (principal); L89.219 Pressure ulcer of right hip, unspecified stage; L89.319 Pressure ulcer of right buttock, unspecified stage; G35 Multiple sclerosis; E66.01 Morbid (severe) obesity due to excess calories; R19.7 Diarrhea, unspecified; D50.9 Iron deficiency anemia, unspecified; K29.70 Gastritis, unspecified, without bleeding; K64.8 Other hemorrhoids; K57.90 Diverticulosis of intestine, part unspecified, without perforation or abscess without bleeding; I10 Essential (primary) hypertension; E78.00 Pure hypercholesterolemia, unspecified; H40.9 Unspecified glaucoma; R62.7 Adult failure to thrive; N39.0 Urinary tract infection, site not specified
CPT/HCPCS: 36415; 36600; 80048; 80053; 81003; 82270; 82378; 82607; 82746; 82803; 83540; 83550; 83615; 83690; 83735; 84100; 85007; 85025; 85044; 85060; 85610; 85651; 85730; 87040; 87045; 87070; 87081; 87086; 87181; 87205; 87324; 94003; 94150; 94664; 96360; 99285; J2250; J8499